=== PATIENT | female | born 1930 | race Caucasian/White ===

== ENCOUNTER 2016-08-05 11:10 | Inpatient (IN) | payer OTHER, BC ==
[2016-08-05 12:05] LABS: BASOPHIL 0.5 % (0-2.0); MCH 28.3 pg (25.7-33.7); MCHC 31.1 g/dl (32.0-36.0); MEAN CELL VOLUME 90.9 fl (80-96); MEAN PLT VOLUME 8.3 fl (7.5-11.1); NEUTROPHILS 81.3 % (42.8-82.8); PLATELET COUNT 264 K/MM3 (134-434); RDW 16.5 % (11.6-15.6); WHITE BLOOD COUNT 9.5 K/mm3 (4.0-10.0)
[2016-08-05 12:18] LABS: INR 1.13 (0.82-1.09); PROTHROMBIN TIME (PATIENT) 12.5 SEC (9.98-11.88)
[2016-08-05 12:32] LABS: ALBUMIN 2.4 g/dl (3.4-5.0); ANION GAP 4 (8-16); BILIRUBIN,TOTAL 0.4 mg/dL (0.2-1.0); CALCIUM 8.7 mg/dL (8.5-10.1); CO2 36 mmol/L (21-32); CREATININE 1.3 mg/dL (0.55-1.02); GLUCOSE,RANDOM 146 mg/dL (74-106); MAGNESIUM 2.5 mg/dL (1.8-2.4); SGOT/AST 14 U/L (15-37); SGPT/ALT 8 U/L (12-78); TOT PROT 6.1 g/dl (6.4-8.2)
[2016-08-05] MEDS ORDERED: ALBUTEROL SO4 2.5/IPRATROPIUM 0.5 INH SOL 3 ML VIAL.NEB. NEB ONE ×2 (12:34→12:52)
[2016-08-05] MEDS ORDERED: FUROSEMIDE 40 MG/4 ML INJECTABLE VIAL IVPUSH ONE (12:34)
--- NOTE | 2016-08-05 12:34 | PDOC ---
History of Present Illness - General History Source: Patient, EMS Exam Limitations: No Limitations - History of Present Illness Initial Comments: 08/05/16 12:37 The patient is a 85 year old female with a past medical history of CHF, s/p 2 stents, DM, HTN, arrives via EMS from [address] [place] [address], presents with a complaint of shortness of breath since earlier today. Patient reports two days ago having some shortness of breath but yesterday was breathing well. Today she developed shortness of breath again and had EMS called. EMS placed patient on 6l O2, and reports saying at 88-90. Patient reports leg swelling. Patient denies chest pain, palpitations. Patient denies productive cough. Denies fever, chills. Bernabe nausea, vomiting or diarrhea. Denies history of NC Denies current tobacco use, ex smoker 30 years ago . Denies alcohol or drug use. 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 <Akash Lang - Last Filed: 08/05/16 16:05> - General History Source: Patient Exam Limitations: No Limitations <Donna Russell - Last Filed: 08/09/16 14:54> - General Chief Complaint: Respiratory Stated Complaint: SOB Time Seen by Provider: 08/05/16 11:29 Past History <Akash Lang - Last Filed: 08/05/16 16:05> - Past Medical History Diabetes: Yes (NIDDM) Other medical history: Parkinsons, Spinal Stenosis, chronic LE Edema - Psycho/Social/Smoking Cessation Hx Suicidal Ideation: No Smoking History: Former smoker Have you smoked in the past 12 months: No Information on smoking cessation initiated: No <Donna Russell - Last Filed: 08/09/16 14:54> - Past Medical History Allergies/Adverse Reactions: Allergies Allergy/AdvReac Type Severity Reaction Status Date / Time No Known Allergies Allergy Unverified 08/05/16 11:33 Home Medications: Ambulatory Orders Aspirin [ASA -] 81 mg PO DAILY 08/05/16 Atorvastatin Ca [Lipitor] 20 mg PO DAILY 08/05/16 Carbidopa/Levodopa [Carbidopa-Levodopa 25-100 Tab] 1 each PO TID 08/05/16 Cholecalciferol (Vitamin D3) [Vitamin D3 -] 1,000 unit PO DAILY 08/05/16 Furosemide [Lasix -] 20 mg PO DAILY 08/05/16 Gabapentin 100 mg PO BID 08/05/16 Linagliptin [Tradjenta] 5 mg PO DAILY 08/05/16 Nebivolol [Bystolic -] 5 mg PO DAILY 08/05/16 Pimavanserin Tartrate [Nuplazid] 2 tab PO DAILY 08/05/16 Tramadol HCl 50 mg PO DAILY 08/05/16 Review of Systems - Review of Systems Able to Perform ROS?: Yes Comments:: 08/05/16 12:38 GENERAL/CONSTITUTIONAL: No fever or chills. No weakness. HEAD, EYES, EARS, NOSE AND THROAT: No change in vision. No ear pain or discharge. No sore throat. CARDIOVASCULAR: Yes: shortness of breath No chest pain. RESPIRATORY: No cough, wheezing, or hemoptysis. GASTROINTESTINAL: No nausea, vomiting, diarrhea or constipation. GENITOURINARY: No dysuria, frequency, or change in urination. MUSCULOSKELETAL: No joint or muscle swelling or pain. No neck or back pain. SKIN: No rash NEUROLOGIC: No headache, vertigo, loss of consciousness, or change in strength/ sensation. ENDOCRINE: No increased thirst. No abnormal weight change. HEMATOLOGIC/LYMPHATIC: No anemia, easy bleeding, or history of blood clots. ALLERGIC/IMMUNOLOGIC: No hives or skin allergy. Is the patient limited Mozambican proficient: No <Akash Lang - Last Filed: 08/05/16 16:05> *Physical Exam - Vital Signs Last Vital Signs Temp Pulse Resp BP Pulse Ox 68 24 102/65 94 L 08/05/16 11:30 08/05/16 11:30 08/05/16 11:30 08/05/16 12:34 - Physical Exam Comments: 08/05/16 12:38 GENERAL: Respiratory distress speaking in 3 word sentences, Tachypneic HEAD: Normal with no signs of trauma. EYES: PERRLA, EOMI, sclera anicteric, conjunctiva clear. ENT: Ears normal, nares patent, oropharynx clear without exudates. Moist mucous membranes. NECK: Normal range of motion, supple without lymphadenopathy, JVD, or masses. LUNGS: Tachypneic, Use of accessory muscles , With expiratory wheezing and poor air entry Breath sounds equal crackles. HEART:Regular rate and rhythm, normal S1 and S2 with aortic 4/6 murmur, rub or gallop. ABDOMEN: Soft, nontender, normoactive bowel sounds. No guarding, no rebound. No masses palpable. EXTREMITIES: Bialteral 3+ pitting edema, Bilateral skin breakdown, oozing water , no sign of infection. Right knee replacement scar, Normal range of motion, No clubbing or cyanosis. No erythema, or tenderness. NEUROLOGICAL: Cranial nerves II through XII grossly intact. Normal speech. No focal neurological deficits. MUSCULOSKELETAL: Back non-tender to palpation, no CVA tenderness SKIN: Warm, Dry, normal turgor, no rashes or lesions noted. <Akash Lang - Last Filed: 08/05/16 16:05> - Vital Signs Last Vital Signs Temp Pulse Resp BP Pulse Ox 68 24 102/65 90 L 08/05/16 11:30 08/05/16 11:30 08/05/16 11:30 08/05/16 11:37 <Donna Russell - Last Filed: 08/09/16 14:54> ED Treatment Course - LABORATORY CBC & Chemistry Diagram: 08/05/16 11:40 08/05/16 11:40 - ADDITIONAL ORDERS Additional order review: Laboratory Results 08/05/16 11:40 INR 1.13 08/05/16 11:40 RBC 3.74 MCV 90.9 MCHC 31.1 L RDW 16.5 H MPV 8.3 Neutrophils % 81.3 Lymphocytes % 6.2 L Monocytes % 10.0 Eosinophils % 2.0 Basophils % 0.5 - RADIOLOGY Radiology Studies Ordered: 08/05/16 12:52 CHEST X RAY Impression: large heart, sclerotic knob, scoliosis with degenerative changes, congestive findings and basilar infiltrates with pleural fluid. There is evidence of lower C spine fusion. Reported by Kevan Patel <Akash Lang - Last Filed: 08/05/16 16:05> - LABORATORY CBC & Chemistry Diagram: 08/09/16 07:50 08/09/16 07:50 - ADDITIONAL ORDERS Additional order review: Laboratory Results 08/05/16 11:40 INR 1.13 08/05/16 11:40 RBC 3.74 MCV 90.9 MCHC 31.1 L RDW 16.5 H MPV 8.3 Neutrophils % 81.3 Lymphocytes % 6.2 L Monocytes % 10.0 Eosinophils % 2.0 Basophils % 0.5 - RADIOLOGY Radiology Studies Ordered: Category Date Time Status CHEST X-RAY PORTABLE* [RAD] Stat Radiology 08/05/16 11:28 Completed <Donna Russell - Last Filed: 08/09/16 14:54> Medical Decision Making - Medical Decision Making 08/05/16 13:57 Hide House Supervisor: Hai Barlow office called at Office .Time 13:57. Told Dr. Cleveland will page back. PMD: Dr. Adelita Bradshaw called at 14:[phone], Message left on Machine PMD: Dr. Adelita Bradshaw Called back at 14:23, case discussed Hide House Supervisor: Dr. Cleveland called at 15:13, number used [phone]. Hide House Supervisor: Hai Barlow over head paged at 15:30 Hide House Supervisor: Hai Barlow called back 15:35, case discussed <Akash Lang - Last Filed: 08/05/16 16:05> - Critical Care Time Total Critical Care Time (minutes): 60 Critical Care Statement: The care of this patient involved high complexity decision making to prevent further life threatening deterioration of the patient 's condition and/or to evalute & treat vital organ system(s) failure or risk of failure. - Medical Decision Making 08/05/16 12:40 Laboratory Tests 08/05/16 08/05/16 11:40 11:40 WBC 9.5 Hgb 10.6 L Hct 34.0 Plt Count 264 Neutrophils % 81.3 Lymphocytes % 6.2 L Sodium 138 Potassium 5.6 H Chloride 98 Carbon Dioxide 36 H BUN 37 H Creatinine 1.3 H Random Glucose 146 H Creatine Kinase 38 Troponin I < 0.02 B-Natriuretic Peptide 2841.19 H CXR: \ congestive changes possible infiltrate left base 08/05/16 14:05 Rectal temp 92.4 Sagar hugger applied Will need to go to ICU (hypothermia + low BP but lactate nml???) Awaiting call back from Hospitalist and Hide House Supervisor 08/05/16 14:05 08/05/16 14:28 Case was reviewed with Dr. Bradshaw. She states this patient is due to her however states she has a history of a bad hip with the patient would like to place, spinal stenosis, well-controlled diabetes, new diagnosis of Parkinson's, chronic lower extremity edema. Patient recently started having hallucinations. 2 days ago patient was seen for the beginnings of an upper respiratory infection , at that point patient was not hypoxic and did not have a cough. Attending was called today for notable hypoxia, cough, wheezing. 08/05/16 15:24 Pt persistently hypotensive Would like to send to ICU Pt seen in the ER by Dr Becerra <Donna Russell - Last Filed: 08/09/16 14:54> *DC/Admit/Observation/Transfer - Attestations Scribe Attestion: 08/05/16 12:38 Documentation prepared by Akash Lang, acting as chief medical technologist for Donna Russell MD <Akash Lang - Last Filed: 08/05/16 16:05> - Discharge Dispostion Admit: Yes <Donna Russell - Last Filed: 08/09/16 14:54> Diagnosis at time of Disposition: CHF (congestive heart failure) Qualifiers: Congestive heart failure type: unspecified congestive heart failure type Congestive heart failure chronicity: unspecified congestive heart failure chronicity Qualified Code(s): I50.9 - Heart failure, unspecified Pneumonia Qualifiers: Pneumonia type: due to unspecified organism Laterality: left Lung location: lower lobe of lung Qualified Code(s): J18.9 - Pneumonia, unspecified organism Hypothermia Qualifiers: Encounter type: initial encounter Qualified Code(s): T68.XXXA - Hypothermia, initial encounter - Discharge Dispostion Condition at time of disposition: Stable - Referrals
[2016-08-05 12:35] LABS: ALK PHOS 145 U/L (45-117); TROPONIN I < 0.02 ng/ml (0.00-0.05)
[2016-08-05] MEDS ORDERED: CEFTRIAXONE 1 GM in DEXTROSE 5%-WATER - 50 ML IVPB ONE (12:40)
[2016-08-05] MEDS ORDERED: AZITHROMYCIN IVPB 500 MG in DEXTROSE 5%-WATER - 250 ML IVPB ONE (12:40)
[2016-08-05] MEDS ORDERED: CEFTRIAXONE 50 ML ONE (12:52)
[2016-08-05] MEDS ORDERED: AZITHROMYCIN IVPB 250 ML IVPB ONE (12:52)
[2016-08-05] MEDS ORDERED: FUROSEMIDE 40 MG/4 ML INJECTABLE VIAL ONE (12:52)
[2016-08-05] MEDS ORDERED: SODIUM CHLORIDE 250 ML IV STA (14:54)
--- NOTE | 2016-08-05 15:04 | HP ---
Admitting History and Physical - Admission History of Present Illness: 85 year old female with a past medical history of CHF, CAD s/p 2 stents, DM, HTN , arrives via EMS from [address] [place] [address], presents with a complaint of shortness of breath since earlier today. Patient reports having some shortness of breath that started briefly yesterday but today she developed continual shortness of breath again and was assessedby nursing staff at assisted living facility and EMS was called. EMS placed patient on 6l O2, and reports saturation at 88-90. Patient reports having chronic leg swelling which she states is actually better in the past few weeks than usual. Patient denies chest pain, palpitations. Patient denies productive cough but coughed twice during this interview. - Smoking History Smoking history: Former smoker Have you smoked in the past 12 months: No Home Medications - Allergies Allergies/Adverse Reactions: Allergies Allergy/AdvReac Type Severity Reaction Status Date / Time No Known Allergies Allergy Unverified 08/05/16 11:33 - Home Medications Home Medications: Ambulatory Orders Aspirin [ASA -] 81 mg PO DAILY 08/05/16 Atorvastatin Ca [Lipitor] 20 mg PO DAILY 08/05/16 Carbidopa/Levodopa [Carbidopa-Levodopa 25-100 Tab] 1 each PO TID 08/05/16 Cholecalciferol (Vitamin D3) [Vitamin D3 -] 1,000 unit PO DAILY 08/05/16 Furosemide [Lasix -] 20 mg PO DAILY 08/05/16 Gabapentin 100 mg PO BID 08/05/16 Linagliptin [Tradjenta] 5 mg PO DAILY 08/05/16 Nebivolol [Bystolic -] 5 mg PO DAILY 08/05/16 Pimavanserin Tartrate [Nuplazid] 2 tab PO DAILY 08/05/16 Tramadol HCl 50 mg PO DAILY 08/05/16 Family Disease History - Family Disease History Family History: Unable to Obtain Review of Systems - Review of Systems Constitutional: denies: No Symptoms, Chills, Diaphoresis, Fever, Lethargy, Loss of Appetite, Malaise, Night Sweats, Unintentional Wgt. Loss, Weakness, Other Eyes: denies: No Symptoms, Blind Spots, Blurred Vision, Double Vision, Eye Pain , Floaters, Photophobia, Recent Change in Vision, Other HENT: denies: No Symptoms, Difficult Swallowing, Ear Discharge, Ear Pain, Epistaxis, Gingival Bleeding, Hearing Loss, Mouth Swelling, Nasal Congestion, Ocular Prosthesis, Throat Pain, Toothache, Ringing in Ears, Other Neck: denies: No Symptoms, Decreased ROM, Lumps, Pain on Movement, Stiffness, Swollen Glands, Tenderness, Other Cardiovascular: denies: No Symptoms, Chest Pain, Edema, Palpitations, Shortness of Breath, Other Respiratory: reports: SOB Gastrointestinal: denies: No Symptoms, Abdominal Pain, Bloating, Constipation, Diarrhea, Dysphagia, Indigestion, Melena, Nausea, Rectal Bleeding, Vomiting, Vomiting Blood, Other Genitourinary: denies: No Symptoms, Burning, Discharge, Dysuria, Flank Pain, Frequency, Hematuria, Incontinence, Lesions, Menses, Pain, Testicular Mass, Testicular Pain, Testicular Swelling, Urgency, Vaginal Bleeding, Other Breasts: denies: No Symptoms Reported, See HPI, Breast Implants, Discharge from Nipple, Lumps, Pain, Skin Changes, Other Musculoskeletal: denies: No Symptoms, Back Pain, Crepitus, Decreased ROM, Extremity Pain, Joint Pain, Joint Swelling, Muscle Pain, Muscle Cramps, Muscle Weakness, Other Integumentary: denies: No Symptoms, Blister, Bruising, Change in Color, Eczema, Erythema, Incision, Lesions, Lump, Pallor, Pruritis, Rash, Wound, Other Neurological: denies: No Symptoms, Change in LOC, Change in Speech, Confusion, Dizziness, Headache, Incoordination, Numbness, Parasthesia, Pre-Existing Deficit , Seizure, Syncope, Tremors, Unsteady Gait, Weakness, Other Endocrine: denies: No Symptoms, Excessive Sweating, Flushing, Increased Hunger, Increased Thirst, Intolerance to Cold, Intolerance to Heat, Unexplained Weight Gain, Unexplained Weight Loss, Other Hematology/Lymphatic: denies: No Symptoms, Easily Bruised, Excessive Bleeding, Swollen Glands, Other Psychiatric: denies: No Symptoms, Altered Sleep Pattern, Anxiety, Depression, Hallucinations, Panic, Paranoia, Suicidal, Other Physical Examination Vital Signs: Vital Signs Temperature 92.4 F L 08/05/16 13:34 Pulse Rate 52 L 08/05/16 14:35 Respiratory Rate 24 08/05/16 14:35 Blood Pressure 99/45 08/05/16 14:35 O2 Sat by Pulse Oximetry (%) 96 08/05/16 14:35 Constitutional: Yes: Well Nourished, No Distress, Calm Eyes: Yes: WNL, Conjunctiva Clear, EOM Intact HENT: Yes: WNL, Atraumatic, Normocephalic Neck: Yes: WNL, Supple, Trachea Midline Cardiovascular: Yes: WNL, Regular Rate and Rhythm Respiratory: Yes: WNL, Regular, CTA Bilaterally Gastrointestinal: Yes: WNL, Normal Bowel Sounds ...Rectal Exam: No: WNL, Deferred, Erythema, Guaiac Negative, Guaiac Positive, Guaiac Trace, Hemorrhoids/External, Hemorrhoids/Internal, Induration, Inflammation, Mass, Sphincter Tone Normal, Sphincter Tone Poor, Other Renal/: No: WNL, Anuria, Bladder Distention, CVA Tenderness - Left, CVA Tenderness - Right, Reynoso Present, Hematuria, Incontinence, Menses Present, Oliguria, Polyuria, , Scrotal Edema, Urethral Discharge, Vaginal Bleeding, Vaginal Discharge, Other Breast(s): No: WNL, Left, Right, Breast Implants, Dimpling, Discharge from Nipple, Gynecomastia, Mass, Nipple Inversion, Skin Changes, Other Musculoskeletal: Yes: WNL. No: Back Pain, Joint Stiffness, Joint Swelling, Muscle Pain, Muscle Weakness, Other Extremities: Yes: WNL. No: Amputation, Calf Tenderness, Cold, Cool, Cyanosis, Deformity, Delayed Capillary Refill, Erythema, External Rotation, Internal Rotation, Pallor, Shortened, Other Edema: No Edema: LLE: 2+, RLE: 2+ Integumentary: Yes: WNL. No: Body Piercing, Bruising, Erythema, Incision, Jaundice, Laceration, Petechiae, Pressure Ulcer, Rash, Skin Tear, Tattoos, Tenting, Onychomycosis, Venous Stasis Changes, Other Wound/Incision: No: Clean/Dry, Well Approximated, Sutures Intact, Gonzales Intact , Steri Strips, Open to air, Dressing Dry and Intact, Dressing Removed, Gonzales Removed, Sutures Removed, Draining, Reddened, Bleeding, Excoriated, Unapproximated, Other Neurological: Yes: WNL, Alert, Oriented. No: Aphasia, Asterixis, Ataxia, Babinski positive, Babinski negative, Confusion, Cran Nerves II-XII Intact, Dysarthria, Facial Droop, Lethargy, Loss of Sensation, Numbness, Paresthesia, Pre-Existing Deficit, Seizure, Tingling, Tremors, Unresponsive, Unsteady Gait, Weakness, Other Psychiatric: Yes: WNL. No: Alert, Oriented, Agitated, Suicidal Ideation, Other Labs: CBC, BMP 08/05/16 11:40 08/05/16 11:40 Assessment/Plan 85 year old female with a past medical history of CHF, CAD s/p 2 stents, DM, HTN admitted for SIRS SIRS -pt is hypothermic, hypotensive, and has elevated differential on CBC -CXR shows B/L effusions but patient denies cough (though coughed twice during interview) -given ceftriaxone/azithro in ED and will cont at this time -give 250cc bolus and follow -follow up blood/urine cultures Visit type - Emergency Visit Emergency Visit: Yes Care time: The patient presented to the Emergency Department on the above date and was hospitalized for further evaluation of their emergent condition. - New Patient This patient is new to me today: Yes Date on this admission: 08/05/16 - Critical Care Critical Care patient: No
--- NOTE | 2016-08-05 16:01 | PN ---
Teaching Attending Note Name of Resident: José Riggs ATTENDING PHYSICIAN STATEMENT I saw and evaluated the patient. I reviewed the resident's note and discussed the case with the resident. I agree with the resident's findings and plan as documented. SUBJECTIVE: 85 F, CHF, CAD, PCI x2, DM, HTN, obesity, chronic leg ulcers, former smoker. Recently moved from [address] Reports shortness of breath that started this AM. Apparently she was documented to have hypoxemia that required 6 L NC O2. Patient reports chronic leg ulcers that have improved. She is seen in the ER. She is awake and alert. No hemoptysis. No travel history of sick contacts. CXR: bibasilar infiltrates OBJECTIVE: Intake & Output 08/02/16 08/03/16 08/04/16 08/05/16 23:59 23:59 23:59 23:59 Output Total 300 Balance -300 Weight 175 lb Last Vital Signs Temp Pulse Resp BP Pulse Ox 94 F L 58 L 22 87/64 94 L 08/05/16 15:53 08/05/16 15:53 08/05/16 15:53 08/05/16 15:53 08/05/16 15:53 Constitutional: Yes: Awake and alert, NAD Eyes: Yes: WNL, Conjunctiva Clear, EOM Intact HENT: Yes: WNL, Atraumatic, Normocephalic Neck: Yes: WNL, Supple, Trachea Midline Cardiovascular: Yes: WNL, Regular Rate and Rhythm Respiratory: Yes: Basilar rhonchi, no wheeze Gastrointestinal: Yes: WNL, Normal Bowel Sounds Renal/: (+) Reynoso Musculoskeletal: Yes: WNL. No: Back Pain, Joint Stiffness, Joint Swelling, Muscle Pain, Muscle Weakness, Other Extremities: Yes: (+) edema, no gross lesions or discharge noted Edema: Yes Edema: LLE: 2+, RLE: 2+ Integumentary: Yes: (+) chronic changes Wound/Incision: No: Clean/Dry, No open areas Neurological: Yes: WNL, Alert, Oriented. Non-focal Psychiatric: Yes: WNL. Labs: Laboratory Results - last 24 hr 08/05/16 08/05/16 08/05/16 11:40 11:40 11:40 WBC 9.5 RBC 3.74 Hgb 10.6 L Hct 34.0 MCV 90.9 MCHC 31.1 L RDW 16.5 H Plt Count 264 MPV 8.3 Neutrophils % 81.3 Lymphocytes % 6.2 L Monocytes % 10.0 Eosinophils % 2.0 Basophils % 0.5 INR 1.13 Sodium 138 Potassium 5.6 H Chloride 98 Carbon Dioxide 36 H Anion Gap 4 L BUN 37 H Creatinine 1.3 H Creat Clearance w eGFR 39.02 Random Glucose 146 H Lactic Acid Calcium 8.7 Magnesium 2.5 H Total Bilirubin 0.4 AST 14 L ALT 8 L Alkaline Phosphatase 145 H Creatine Kinase 38 Troponin I < 0.02 B-Natriuretic Peptide 2841.19 H Total Protein 6.1 L Albumin 2.4 L Blood Type Antibody Screen 08/05/16 08/05/16 11:40 11:56 WBC RBC Hgb Hct MCV MCHC RDW Plt Count MPV Neutrophils % Lymphocytes % Monocytes % Eosinophils % Basophils % INR Sodium Potassium Chloride Carbon Dioxide Anion Gap BUN Creatinine Creat Clearance w eGFR Random Glucose Lactic Acid 1.138 Calcium Magnesium Total Bilirubin AST ALT Alkaline Phosphatase Creatine Kinase Troponin I B-Natriuretic Peptide Total Protein Albumin Blood Type O POSITIVE Antibody Screen Negative IMP: Concern for early Sepsis Possible PNA No clear infection noted on her LE Hypothermia Etiology to be determined -> (?) Hypothyroid DM HTN Above history PLAN: STAT TSH ABX ID evaluation Wound care assessment [place]-culture O2 to maintain saturation IVF -> will be conservative at this point Follow lactic acid Strict I&O ICU monitoring Thank you. Dr Becerra CCTime 35"
[2016-08-05 16:15] LABS: URINE APPEARANCE CLEAR; URINE BILIRUBIN NEGATIVE (NEGATIVE); URINE BLOOD NEGATIVE (NEGATIVE); URINE COLOR YELLOW; URINE GLUCOSE (UA) NEGATIVE (NEGATIVE); URINE KETONE NEGATIVE (NEGATIVE); URINE LEUK ESTERASE NEGATIVE (NEGATIVE); URINE NITRITE NEGATIVE (NEGATIVE); URINE PROTEIN NEGATIVE (NEGATIVE); URINE UROBILINOGEN NEGATIVE E.U./dl (0.2-1.0)
--- NOTE | 2016-08-05 16:35 | EKG ---
Test Reason : Blood Pressure : / mmHG Vent. Rate : 060 BPM Atrial Rate : 060 BPM P-R Int : 166 ms QRS Dur : 084 ms QT Int : 434 ms P-R-T Axes : 072 048 061 degrees QTc Int : 434 ms NORMAL SINUS RHYTHM NORMAL ECG NO PREVIOUS ECGS AVAILABLE Confirmed by MD HONG, TERENCE ([id number]) on 08/05/2016 4:35:02 PM Referred By: Overread By: TERENCE PITTS MD
[2016-08-05] MEDS ORDERED: SODIUM CHLORIDE 1,000 ML IV SCH (16:45)
--- NOTE | 2016-08-05 16:45 | CONSULT ---
Consultation: REQUESTING PROVIDER: CONSULT REQUEST: We have been asked to medically evaluate this patient for SIRS. HISTORY OF PRESENT ILLNESS: 85 yo F with significant PMHx of CAD s/p 2 stents,CHF, HTN, and DM arrived via EMS from [address] [place] [address] with one day history of worsening SOB. Patient reports having some shortness of breath that started briefly yesterday but today she developed continual shortness of breath again and was assessed by nursing staff at assisted living facility and EMS was called.She was given supplemental O2 with 6L via NC. saturation at 88-90. Patient reports having chronic leg swelling which she states is actually better in the past few weeks than usual. Patient denies chest pain, palpitations, headache, abdominal pain N/ V. REVIEW OF SYSTEMS: CONSTITUTIONAL: Absent: fever, chills, diaphoresis, generalized weakness, malaise, loss of appetite, weight change HEENT: Absent: rhinorrhea, nasal congestion, throat pain, throat swelling, difficulty swallowing, mouth swelling, ear pain, eye pain, visual changes CARDIOVASCULAR: Absent: chest pain, syncope, palpitations, irregular heart rate, lightheadedness , peripheral edema RESPIRATORY: (+)cough, shortness of breath, dyspnea with exertion, Absent: orthopnea, wheezing, stridor, hemoptysis GASTROINTESTINAL: Absent: abdominal pain, abdominal distension, nausea, vomiting, diarrhea, constipation, melena, hematochezia GENITOURINARY: Absent: dysuria, frequency, urgency, hesitancy, hematuria, flank pain, genital pain MUSCULOSKELETAL: R leg pain chronic. Absent: myalgia, arthralgia, joint swelling, back pain, neck pain SKIN: Bilat. LE swelling and open wounds Absent: rash, itching, pallor HEMATOLOGIC/IMMUNOLOGIC: Absent: easy bleeding, easy bruising, lymphadenopathy, frequent infections ENDOCRINE: Absent: unexplained weight gain, unexplained weight loss, heat intolerance, cold intolerance NEUROLOGIC: Absent: headache, focal weakness or paresthesias, dizziness, unsteady gait, seizure, mental status changes, bladder or bowel incontinence PSYCHIATRIC: Absent: anxiety, depression, suicidal or homicidal ideation, hallucinations. PHYSICAL EXAMINATION Vital Signs - 24 hr 08/05/16 15:53 Temperature 94 F L Pulse Rate [ 58 L Apical] Respiratory 22 Rate Blood Pressure 87/64 [Right Arm] O2 Sat by Pulse 94 L Oximetry (%) GENERAL: Awake, alert, in no acute distress. HEAD: Normal with no signs of trauma. EYES: Pupils equal, round and reactive to light, extraocular movements intact, sclera anicteric, conjunctiva clear. No lid lag. EARS, NOSE, THROAT: Ears normal, nares patent, Moist mucous membranes. NECK:Supple, no JVD LUNGS: Bibasilar rhonchi. No wheezes, and no crackles. No accessory muscle use. HEART: Regular rate and rhythm, normal S1 and S2 without murmur, rub or gallop. ABDOMEN: Soft, obese, nontender, not distended, normoactive bowel sounds, no guarding, no rebound, no masses. MUSCULOSKELETAL: Reduced ROM of RLE. No bony deformities or tenderness. No CVA tenderness. UPPER EXTREMITIES: 2+ pulses, warm, well-perfused. No cyanosis. No clubbing. Cap refill <2 seconds. No peripheral edema. LOWER EXTREMITIES: 2+ pulses, warm, well-perfused. No calf tenderness. 2+ Edema bilat. NEUROLOGICAL: alert and oriented, normal speech. PSYCHIATRIC: Cooperative. Good eye contact. Appropriate mood and affect. SKIN: Bilateral stasis dermatitis of LE Laboratory Results - last 24 hr 08/05/16 15:55 Urine Color Yellow Urine Appearance Clear Urine pH 5.0 Ur Specific [place] 1.014 Urine Protein Negative Urine Glucose (UA) Negative Urine Ketones Negative Urine Blood Negative Urine Nitrite Negative Urine Bilirubin Negative Urine Urobilinogen Negative Ur Leukocyte Esterase Negative ASSESSMENT/PLAN: Problem List - Problems (1) SIRS (systemic inflammatory response syndrome) Assessment/Plan: * Blood and urine cultures sent * UA negative for UTI. * Repeat lactic acid in AM * Empiric ABx given; Azithro and Rocephin in ED (2) Hypotension Assessment/Plan: * Gentle hydration with NS @ 75ml/hr x 1L * VS Q2H (3) Pneumonia Assessment/Plan: * Given one dose Azithro and Rocephin * blood and sputum cultures sent. * Repeat CXR in AM (4) Hypothermia Assessment/Plan: * Bear hugger blanket to rewarm * STAT TSH r/o hypothryroidism Qualifiers: Encounter type: initial encounter Qualified Code(s): T68.XXXA - Hypothermia, initial encounter (5) CHF (congestive heart failure) Assessment/Plan: * Lasix 20mg PO daily(held for hypotension) * Nebivolol (Bystolic -) 5 mg PO DAILY * daily weights * sodium controlled diet. 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 (7) CAD (coronary artery disease) Assessment/Plan: * s/p stents x2 * ASA 81 mg PO daily * Lipitor 20mg PO HS (8) Diabetes mellitus type 2 in obese Assessment/Plan: * ISS with Novolog ACHS * BGM ACHS * ADA diet. (9) Bilateral leg ulcer Assessment/Plan: * daily dressing change and wound care. (10) Parkinson's disease dementia Assessment/Plan: * Carbidopa/Levodopa (Sinemet 25/100 -) 1 each PO TID * Pimavanserin Tartrate [Nuplazid] 2 tab PO DAILY (11) DVT prophylaxis Assessment/Plan: * Lovenox 40mg SQ daily Visit type - Emergency Visit Emergency Visit: Yes ED Registration Date: 08/05/16 Care time: The patient presented to the Emergency Department on the above date and was hospitalized for further evaluation of their emergent condition. - New Patient This patient is new to me today: Yes Date on this admission: 08/09/16 - Critical Care Critical Care patient: Yes Total Critical Care Time (in minutes): 42 Critical Care Statement: The care of this patient involved high complexity decision making to prevent further life threatening deterioration of the patient 's condition and/or to evalute & treat vital organ system(s) failure or risk of failure.
[2016-08-05] MEDS: ATORVASTATIN CA 20 MG TABLET (FP) PO SCH (21:54)
[2016-08-05] MEDS: INSULIN SLIDING SCALE (NOVOLOG) 1 VIAL SQ SCH (21:54)
[2016-08-05] MEDS: GABAPENTIN 100 MG CAPSULE (FP) PO SCH (21:54)
[2016-08-05] MEDS: CARBIDOPA/LEVODOPA 25/100 TABLET (FP) PO SCH (21:54)
[2016-08-05] MEDS: MUPIROCIN 2% TOPICAL OINTMENT FOR DECOLONIZATION NS SCH (21:54)
[2016-08-05] MEDS: CHLORHEXIDINE GLUCONATE 4% CLEANSER FOR DECOLONIZATION TP SCH (21:55)
[2016-08-06 05:53] LABS: BASOPHIL 0.3 % (0-2.0); MCH 27.4 pg (25.7-33.7); MCHC 30.4 g/dl (32.0-36.0); MEAN CELL VOLUME 90.3 fl (80-96); MEAN PLT VOLUME 8.8 fl (7.5-11.1); NEUTROPHILS 85.4 % (42.8-82.8); PLATELET COUNT 258 K/MM3 (134-434); RDW 16.8 % (11.6-15.6); WHITE BLOOD COUNT 11.6 K/mm3 (4.0-10.0)
[2016-08-06] MEDS: INSULIN SLIDING SCALE (NOVOLOG) 1 VIAL SQ SCH ×4 (06:05→21:13)
[2016-08-06] MEDS: CARBIDOPA/LEVODOPA 25/100 TABLET (FP) PO SCH ×3 (06:06→21:08)
[2016-08-06 06:20] LABS: ALBUMIN 2.1 g/dl (3.4-5.0); ANION GAP 8 (8-16); CALCIUM 8.1 mg/dL (8.5-10.1); CO2 31 mmol/L (21-32); CREATININE 1.5 mg/dL (0.55-1.02); GLUCOSE,RANDOM 73 mg/dL (74-106); SGOT/AST 10 U/L (15-37); SGPT/ALT < 6 U/L (12-78)
[2016-08-06 06:23] LABS: ALK PHOS 115 U/L (45-117); BILIRUBIN,TOTAL 0.6 mg/dL (0.2-1.0); TOT PROT 5.5 g/dl (6.4-8.2)
[2016-08-06] MEDS ORDERED: INSULIN REGULAR HUMAN 100 UNITS/ML *VIAL IVPUSH STA ×2 (06:55→14:31)
[2016-08-06] MEDS ORDERED: DEXTROSE 50%-WATER 50 ML VIAL IVPUSH ONE ×2 (06:56→14:30)
[2016-08-06] MEDS ORDERED: SODIUM BICARBONATE 8.4% 50 MEQ/50 ML DISP.SYRIN IVPUSH STA (06:56)
[2016-08-06] MEDS ORDERED: SODIUM POLYSTYRENE SULFONATE 15 GM/60 ML BOTTLE PO STA (06:57)
[2016-08-06] MEDS ORDERED: CALCIUM GLUCONATE 10% - 1,000 MG/10 ML VIAL IVPUSH STA ×2 (06:57→14:29)
[2016-08-06] MEDS ORDERED: DEXTROSE 50%-WATER 50 ML DISP.SYRIN ONE (06:58)
[2016-08-06 08:22] LABS: ARTERIAL BLD GAS O2 SATURATION 87.3 % (90-98.9); ARTERIAL BLOOD GAS BASE EXCESS 0.2 meq/l (-2-2); ARTERIAL BLOOD GAS HCO3 28.8 meq/L (22-26); ARTERIAL BLOOD GAS PO2 60.5 mmHg (68-100); ARTERIAL BLOOD GAS pH 7.21 (7.35-7.45)
[2016-08-06 08:23] LABS: ALLENS TEST POSITIVE; ART PUNCT SITE LEFT RADIAL; LPM/O2% 50%; PT. ON O2? YES; TYPE OF O2 VENTIMASK
--- NOTE | 2016-08-06 09:13 | PN ---
Progress Note (short form) - Note Progress Note: Patient seen and examined in the ICU. Was lethargic this am with acute hypercapnia noted on ABG. Placed on BiPAP. Now more awake and alert (she remembers me from yesterday). She denies CP or SOB. OBJECTIVE: Intake & Output 08/03/16 08/04/16 08/05/16 08/06/16 23:59 23:59 23:59 23:59 Intake Total 1050 Output Total 300 700 Balance -300 350 Weight 175 lb 197 lb Last Vital Signs Temp Pulse Resp BP Pulse Ox 97.5 F L 72 17 83/46 85 L 08/06/16 05:00 08/06/16 08:40 08/06/16 08:40 08/06/16 08:40 08/06/16 08:23 Active Medications Aspirin (Asa -) 81 mg PO DAILY [facility] Atorvastatin Calcium (Lipitor -) 20 mg PO HS [facility] Last Admin: 08/05/16 21:54 Dose: 20 mg Carbidopa/Levodopa (Sinemet 25/100 -) 1 each PO TID [facility] Last Admin: 08/06/16 06:06 Dose: 1 each Chlorhexidine Gluconate (Hibiclens For Decolonization -) 1 applic TP HS [facility] Last Admin: 08/05/16 21:55 Dose: 1 applic Cholecalciferol (Vitamin D3 -) 1,000 unit PO DAILY [facility] Enoxaparin Sodium (Lovenox -) 40 mg SQ DAILY [facility] Furosemide (Lasix -) 20 mg PO DAILY [facility] Gabapentin (Neurontin -) 100 mg PO BID [facility] Last Admin: 08/05/16 21:54 Dose: 100 mg Sodium Chloride (Normal Saline -) 1,000 mls @ 75 mls/hr IV ASDIR [facility] Last Admin: 08/05/16 18:47 Dose: 75 mls/hr Influenza Virus Vaccine (Fluvirin) 45 mcg IM .ONCE ONE Stop: 08/06/16 10:01 Insulin Aspart (Novolog Vial Sliding Scale -) 1 vial SQ ACHS [facility] PRN Reason: Protocol Last Admin: 08/06/16 06:05 Dose: Not Given Mupirocin (Bactroban Ointment (For Decolonization) -) 1 applic NS BID [facility] Stop: 08/10/16 21:59 Last Admin: 08/05/16 21:54 Dose: 1 applic Nebivolol (Bystolic -) 5 mg PO DAILY [facility] Non-Formulary Medication (Pimavanserin Tartrate [Nuplazid]) 2 tab PO DAILY ANNA MARIE Tramadol HCl (Ultram -) 50 mg PO DAILY [facility] Constitutional: Yes: Lethargic but arousable, on BIPAP Eyes: Yes: WNL, Conjunctiva Clear, EOM Intact HENT: Yes: WNL, Atraumatic, Normocephalic Neck: Yes: WNL, Supple, Trachea Midline Cardiovascular: Yes: WNL, Regular Rate and Rhythm Respiratory: Yes: Basilar rhonchi, no wheeze Gastrointestinal: Yes: WNL, Normal Bowel Sounds Renal/: (+) [place] Musculoskeletal: Yes: WNL. No: Back Pain, Joint Stiffness, Joint Swelling, Muscle Pain, Muscle Weakness, Other Extremities: Yes: (+) edema, no gross lesions or discharge noted Edema: Yes Edema: LLE: 2+, RLE: 2+ Integumentary: Yes: (+) chronic changes Wound/Incision: No: Clean/Dry, No open areas Neurological: Yes: WNL, Alert, Oriented. Non-focal Psychiatric: Yes: WNL. Labs: Laboratory Results - last 24 hr 08/05/16 08/05/16 08/05/16 11:40 11:40 11:40 WBC 9.5 RBC 3.74 Hgb 10.6 L Hct 34.0 MCV 90.9 MCHC 31.1 L RDW 16.5 H Plt Count 264 MPV 8.3 Neutrophils % 81.3 Lymphocytes % 6.2 L Monocytes % 10.0 Eosinophils % 2.0 Basophils % 0.5 INR 1.13 Puncture Site ABG pH ABG pCO2 at Pt Temp ABG pO2 at Pt Temp ABG HCO3 ABG O2 Sat (Measured) ABG O2 Content ABG Base Excess [place] Test O2 Delivery Device Oxygen Flow Rate PEEP Sodium 138 Potassium 5.6 H Chloride 98 Carbon Dioxide 36 H Anion Gap 4 L BUN 37 H Creatinine 1.3 H Creat Clearance w eGFR 39.02 POC Glucometer Random Glucose 146 H Lactic Acid Calcium 8.7 Magnesium 2.5 H Total Bilirubin 0.4 AST 14 L ALT 8 L Alkaline Phosphatase 145 H Creatine Kinase 38 Troponin I < 0.02 B-Natriuretic Peptide 2841.19 H Total Protein 6.1 L Albumin 2.4 L Urine Color Urine Appearance Urine pH Ur Specific [place] Urine Protein Urine Glucose (UA) Urine Ketones Urine Blood Urine Nitrite Urine Bilirubin Urine Urobilinogen Ur Leukocyte Esterase Blood Type Antibody Screen 08/05/16 08/05/16 08/05/16 11:40 11:56 15:00 WBC RBC Hgb Hct MCV MCHC RDW Plt Count MPV Neutrophils % Lymphocytes % Monocytes % Eosinophils % Basophils % INR Puncture Site ABG pH ABG pCO2 at Pt Temp ABG pO2 at Pt Temp ABG HCO3 ABG O2 Sat (Measured) ABG O2 Content ABG Base Excess [place]icho Test O2 Delivery Device Oxygen Flow Rate PEEP Sodium Potassium Chloride Carbon Dioxide Anion Gap BUN Creatinine Creat Clearance w eGFR POC Glucometer Random Glucose Lactic Acid 1.138 Calcium Magnesium Total Bilirubin AST ALT Alkaline Phosphatase Creatine Kinase Troponin I B-Natriuretic Peptide Total Protein Albumin Urine Color Urine Appearance Urine pH Ur Specific [place] Urine Protein Urine Glucose (UA) Urine Ketones Urine Blood Urine Nitrite Urine Bilirubin Urine Urobilinogen Ur Leukocyte Esterase Blood Type O POSITIVE O POSITIVE Antibody Screen Negative 08/05/16 08/05/16 08/06/16 15:55 21:52 05:15 WBC 11.6 H RBC 3.50 L Hgb 9.6 L Hct 31.6 L MCV 90.3 MCHC 30.4 L RDW 16.8 H Plt Count 258 MPV 8.8 Neutrophils % 85.4 H Lymphocytes % 5.1 L Monocytes % 8.2 Eosinophils % 1.0 Basophils % 0.3 INR Puncture Site ABG pH ABG pCO2 at Pt Temp ABG pO2 at Pt Temp ABG HCO3 ABG O2 Sat (Measured) ABG O2 Content ABG Base Excess Chicho Test O2 Delivery Device Oxygen Flow Rate PEEP Sodium Potassium Chloride Carbon Dioxide Anion Gap BUN Creatinine Creat Clearance w eGFR POC Glucometer 100.29064 Random Glucose Lactic Acid Calcium Magnesium Total Bilirubin AST ALT Alkaline Phosphatase Creatine Kinase Troponin I B-Natriuretic Peptide Total Protein Albumin Urine Color Yellow Urine Appearance Clear Urine pH 5.0 Ur Specific [place] 1.014 Urine Protein Negative Urine Glucose (UA) Negative Urine Ketones Negative Urine Blood Negative Urine Nitrite Negative Urine Bilirubin Negative Urine Urobilinogen Negative Ur Leukocyte Esterase Negative Blood Type Antibody Screen 08/06/16 08/06/16 08/06/16 05:15 05:15 08:15 WBC RBC Hgb Hct MCV MCHC RDW Plt Count MPV Neutrophils % Lymphocytes % Monocytes % Eosinophils % Basophils % INR Puncture Site Left radial ABG pH 7.21 L* ABG pCO2 at Pt Temp 75.4 H* ABG pO2 at Pt Temp 60.5 L ABG HCO3 28.8 H ABG O2 Sat (Measured) 87.3 L ABG O2 Content 11.3 L ABG Base Excess 0.2 [place]o Test Positive O2 Delivery Device Ventimask Oxygen Flow Rate 50% PEEP 0.0 Sodium 139 Potassium 6.6 H* Chloride 100 Carbon Dioxide 31 Anion Gap 8 BUN 41 H Creatinine 1.5 H Creat Clearance w eGFR 33.08 POC Glucometer Random Glucose 73 L D Lactic Acid 0.858 Calcium 8.1 L Magnesium Total Bilirubin 0.6 D AST 10 L D ALT < 6 L D Alkaline Phosphatase 115 D Creatine Kinase Troponin I B-Natriuretic Peptide Total Protein 5.5 L Albumin 2.1 L Urine Color Urine Appearance Urine pH Ur Specific [place] Urine Protein Urine Glucose (UA) Urine Ketones Urine Blood Urine Nitrite Urine Bilirubin Urine Urobilinogen Ur Leukocyte Esterase Blood Type Antibody Screen IMP: Concern for early Sepsis Possible PNA No clear infection noted on her LE Hypothermia Etiology to be determined -> (?) Hypothyroid DM HTN PLAN: STAT TSH/Free T4/Cortisol Empiric ABX for now Follow culture O2 to maintain saturation IVF Strict I&O ICU monitoring Trial of BiPAP Cardiology evaluation Dr Becerra CCTime 35"
[2016-08-06 09:36] LABS: FREE T4 1.19 ng/dl (0.76-1.46); THYROID STIMULATING HORMONE 3.49 uIU/ml (0.358-3.74)
[2016-08-06] MEDS ORDERED: PT OWN MED DRAWER 7, Y5N ONE (09:36)
[2016-08-06] MEDS: traMADol HCL 50 MG TABLET PO SCH (09:42)
[2016-08-06] MEDS: ENOXAPARIN NA (PORCINE) 40 MG/0.4 ML DISP.SYRIN SQ SCH (09:42)
[2016-08-06] MEDS: ASPIRIN 81 MG CHEWABLE TABLETS PO SCH (09:43)
[2016-08-06] MEDS: CHOLECALCIFEROL (VITAMIN D3) 1,000 UNIT TABLET (FP) PO SCH (09:43)
[2016-08-06] MEDS: GABAPENTIN 100 MG CAPSULE (FP) PO SCH ×2 (09:43→21:08)
[2016-08-06] MEDS ORDERED: CEFTRIAXONE 1 GM in DEXTROSE 5%-WATER - 50 ML IVPB SCH (10:00)
[2016-08-06] MEDS ORDERED: FUROSEMIDE 20 MG TABLET (FP) PO SCH (10:00)
[2016-08-06] MEDS ORDERED: INFLUENZA VACCINE 45 MCG/0.5 ML (MDV 16-17) IM ONE (10:00)
[2016-08-06] MEDS ORDERED: NEBIVOLOL 5 MG TABLET (FP) PO SCH (10:00)
[2016-08-06] MEDS ORDERED: HYDROCORTISONE SOD SUCCINATE 100 MG/2 ML VIAL IVPB SCH (10:00)
[2016-08-06] MEDS ORDERED: LEVOFLOXACIN 500 MG IVPB 100 ML IVPB SCH (11:00)
[2016-08-06 11:40] LABS: ARTERIAL BLD GAS O2 SATURATION 91.5 % (90-98.9); ARTERIAL BLOOD GAS BASE EXCESS 1.4 meq/l (-2-2); ARTERIAL BLOOD GAS HCO3 28.7 meq/L (22-26)
[2016-08-06 11:42] LABS: ARTERIAL BLOOD GAS pH 7.27 (7.35-7.45)
--- NOTE | 2016-08-06 12:05 | CONSULT ---
Consult Consult Specialty:: Cardiology Referred by:: Hospitalist Reason for Consultation:: SOB - History of Present Illness Chief Complaint: CAD, CHF History of Present Illness: 85 year old woman with a history of HTN, DM II, HLD, CAD with prior stents, CHF (unknown details) admitted with sob, hypoxic/hypercapneic resp failure. Pt. seen and examined today, minimally responsive. does not follow commands or answer questions. noted to be hypercapneic on abg. No reported chest pain or palpitations. - History Source History Provided By: Medical Record Limitations to Obtaining History: Physical Impairment - Past Medical History Cardio/Vascular: Yes: CAD, CHF, HTN, Hyperlipdemia ...: No - Alcohol/Substance Use Hx Alcohol Use: No - Smoking History Smoking history: Former smoker Have you smoked in the past 12 months: No If you are a former smoker, when did you quit?: 30 years ago - Social History Usual Living Arrangement: [facility]way ADL: Support Services History of Recent Travel: No Home Medications - Allergies Allergies/Adverse Reactions: Allergies Allergy/AdvReac Type Severity Reaction Status Date / Time No Known Allergies Allergy Unverified 08/05/16 11:33 - Home Medications Home Medications: Ambulatory Orders Aspirin [ASA -] 81 mg PO DAILY 08/05/16 Atorvastatin Ca [Lipitor] 20 mg PO DAILY 08/05/16 Carbidopa/Levodopa [Carbidopa-Levodopa 25-100 Tab] 1 each PO TID 08/05/16 Cholecalciferol (Vitamin D3) [Vitamin D3 -] 1,000 unit PO DAILY 08/05/16 Furosemide [Lasix -] 20 mg PO DAILY 08/05/16 Gabapentin 100 mg PO BID 08/05/16 Linagliptin [Tradjenta] 5 mg PO DAILY 08/05/16 Nebivolol [Bystolic -] 5 mg PO DAILY 08/05/16 Pimavanserin Tartrate [Nuplazid] 2 tab PO DAILY 08/05/16 Tramadol HCl 50 mg PO DAILY 08/05/16 Family Disease History - Family Disease History Family History: Unable to Obtain Review of Systems Unable to obtain ROS, reason: as per records Findings/Remarks: pt unable to provide - Review of Systems Constitutional: reports: Lethargy, Malaise, Weakness. denies: No Symptoms, Chills, Diaphoresis, Fever, Loss of Appetite, Night Sweats, Unintentional Wgt. Loss, Other Eyes: denies: No Symptoms, Blind Spots, Blurred Vision, Double Vision, Eye Pain , Floaters, Photophobia, Recent Change in Vision, Other HENT: denies: No Symptoms, Difficult Swallowing, Ear Discharge, Ear Pain, Epistaxis, Gingival Bleeding, Hearing Loss, Mouth Swelling, Nasal Congestion, Ocular Prosthesis, Throat Pain, Toothache, Ringing in Ears, Other Neck: denies: No Symptoms, Decreased ROM, Lumps, Pain on Movement, Stiffness, Swollen Glands, Tenderness, Other Cardiovascular: reports: Edema, Shortness of Breath. denies: No Symptoms, Chest Pain, Palpitations, Other Respiratory: reports: SOB, SOB on Exertion. denies: No Symptoms, Cough, Exercise Intolerance, Hemoptysis, Orthopnea, PND, Snoring, Wheezing, Other Gastrointestinal: denies: No Symptoms, Abdominal Pain, Bloating, Constipation, Diarrhea, Dysphagia, Indigestion, Melena, Nausea, Rectal Bleeding, Vomiting, Vomiting Blood, Other Genitourinary: denies: No Symptoms, Burning, Discharge, Dysuria, Flank Pain, Frequency, Hematuria, Incontinence, Lesions, Menses, Pain, Testicular Mass, Testicular Pain, Testicular Swelling, Urgency, Vaginal Bleeding, Other Breasts: denies: No Symptoms Reported, See HPI, Breast Implants, Discharge from Nipple, Lumps, Pain, Skin Changes, Other Musculoskeletal: denies: No Symptoms, Back Pain, Crepitus, Decreased ROM, Extremity Pain, Joint Pain, Joint Swelling, Muscle Pain, Muscle Cramps, Muscle Weakness, Other Integumentary: denies: No Symptoms, Blister, Bruising, Change in Color, Eczema, Erythema, Incision, Lesions, Lump, Pallor, Pruritis, Rash, Wound, Other Neurological: denies: No Symptoms, Change in LOC, Change in Speech, Confusion, Dizziness, Headache, Incoordination, Numbness, Parasthesia, Pre-Existing Deficit , Seizure, Syncope, Tremors, Unsteady Gait, Weakness, Other Endocrine: denies: No Symptoms, Excessive Sweating, Flushing, Increased Hunger, Increased Thirst, Intolerance to Cold, Intolerance to Heat, Unexplained Weight Gain, Unexplained Weight Loss, Other Hematology/Lymphatic: denies: No Symptoms, Easily Bruised, Excessive Bleeding, Swollen Glands, Other Psychiatric: denies: No Symptoms, Altered Sleep Pattern, Anxiety, Depression, Hallucinations, Panic, Paranoia, Suicidal, Other - Risk Factors Known Risk Factors: Yes: Age, Hypercholesterolemia, Hypertension Vital Signs: Vital Signs Temperature 97.7 F 08/06/16 11:00 Pulse Rate 70 08/06/16 11:00 Respiratory Rate 18 08/06/16 11:00 Blood Pressure 93/50 08/06/16 11:00 O2 Sat by Pulse Oximetry (%) 100 08/06/16 09:54 Constitutional: Yes: Mild Distress, Other (minimally responsive) Eyes: Yes: Conjunctiva Clear HENT: Yes: WNL, Atraumatic, Normocephalic Neck: Yes: WNL, Supple, Trachea Midline Respiratory: Yes: Regular, Diminished, On BiPap, Rhonchi, SOB, Tachypnea. No: Rales, Wheezes Gastrointestinal: Yes: WNL, Normal Bowel Sounds, Soft. No: Distention, Tenderness Renal/: Yes: WNL Cardiovascular: Yes: Regular Rate and Rhythm. No: Bradycardia, Tachycardia, Pulse Irregular, Gallop, Rub, Varicosities JVD: No Carotid Bruit: No PMI: Non-Displaced Heart Sounds: Yes: S1, S2. No: Split S2, S3, S4, Clicks, Gallop, Rub, Bruit Murmur: No: Systolic Murmur, Diastolic Murmur Musculoskeletal: Yes: Muscle Weakness Extremities: Yes: WNL Edema: Yes Edema: LLE: Trace, RLE: Trace Peripheral Pulses WNL: Yes Peripheral Pulses: 2+ Left Doralis Pedis, 2+ Right Dorsalis Pedis Integumentary: Yes: WNL Neurological: Yes: Lethargy. No: Alert, Oriented Psychiatric: No: Alert, Oriented - Other Data Labs, Other Data: CBC, BMP 08/06/16 05:15 08/06/16 05:15 INR, PTT INR 1.13 (0.82-1.09) 08/05/16 11:40 ekg-nsr 60bpm, slight peaked twaves Echo: Pending Imaging - Results Chest X-ray: Report Reviewed, Image Reviewed EKG: Report Reviewed, Image Reviewed Other: Report Reviewed, Image Reviewed (tele-nsr, no arrhythmia recorded) Problem List - Problems (1) CAD (coronary artery disease) Code(s): I25.10 - ATHSCL HEART DISEASE OF [place] CORONARY ARTERY W/O ANG PCTRS (2) CHF (congestive heart failure) Code(s): I50.9 - HEART FAILURE, UNSPECIFIED Qualifiers: Congestive heart failure type: unspecified congestive heart failure type Congestive heart failure chronicity: unspecified congestive heart failure chronicity Qualified Code(s): I50.9 - Heart failure, unspecified (3) Diabetes mellitus type 2 in obese Code(s): E11.9 - TYPE 2 DIABETES MELLITUS WITHOUT COMPLICATIONS E66.9 - OBESITY, UNSPECIFIED (4) HTN (hypertension) Code(s): I10 - ESSENTIAL (PRIMARY) HYPERTENSION Qualifiers: Hypertension type: essential hypertension Qualified Code(s): I10 - Essential (primary) hypertension (5) Hypotension Code(s): I95.9 - HYPOTENSION, UNSPECIFIED Qualifiers: Hypotension type: idiopathic hypotension Qualified Code(s): I95.0 - Idiopathic hypotension (6) Hypothermia Code(s): T68.XXXA - HYPOTHERMIA, INITIAL ENCOUNTER Qualifiers: Encounter type: initial encounter Qualified Code(s): T68.XXXA - Hypothermia, initial encounter (7) Parkinson's disease dementia Code(s): G20 - PARKINSON'S DISEASE F02.80 - DEMENTIA IN OTH DISEASES CLASSD ELSWHR W/O BEHAVRL DISTURB (8) SIRS (systemic inflammatory response syndrome) Code(s): R65.10 - SIRS OF NON-INFECTIOUS ORIGIN W/O ACUTE ORGAN DYSFUNCTION Assessment/Plan 85 year old woman with a history of HTN, DM II, HLD, CAD with prior stents, CHF (unknown details) admitted with sob, hypoxic/hypercapneic resp failure. Pt. seen and examined today, minimally responsive. does not follow commands or answer questions. noted to be hypercapneic and hypoxic on abg. SOB-hypercapneic/hypoxic respiratory failure -possible PNA vs acute on chronic CHF (unknown type) -appears more c/w sepsis given overall clinical picture -given 1 dose IV Lasix in ER -hold further diuresis for now can dose lasix prn -cont bipap and respiratory support -cont empiric Abx -TSH level wnl -cardiac enzymes wnl CAD-with reported prior stents -cont asa and lipitor -cardiac enzymes wnl x 1 HTN-episodes of hypotension -hold anti-HTN meds
[2016-08-06 12:49] LABS: TROPONIN I < 0.02 ng/ml (0.00-0.05)
--- NOTE | 2016-08-06 12:52 | PN ---
Physical Exam: SUBJECTIVE: Patient seen and examined. On BIPAP. States does not feel well. OBJECTIVE: Vital Signs Period Temp Pulse Resp BP Sys/Galvin Pulse Ox Last 24 Hr 95 F-97.7 F 58-74 13-24 77-106/41-58 85-100 GENERAL: The patient is awake, alert, speaking through BIPAP mask. Responds to questions, follows commands. HEAD: Normal with no signs of trauma. EYES: PERRL, extraocular movements intact, sclera anicteric, conjunctiva clear. No ptosis. LUNGS: Breath sounds equal, clear to auscultation bilaterally, no wheezes, no crackles, no accessory muscle use. HEART: Regular rate and rhythm, S1, S2 without murmur, rub or gallop. ABDOMEN: Soft, nontender, nondistended, normoactive bowel sounds, no guarding, no rebound, no hepatosplenomegaly, no masses. EXTREMITIES: 2+ pulses, warm, well-perfused, no edema. NEUROLOGICAL: Cranial nerves II through XII grossly intact. Normal speech, gait not observed. SKIN: Lower extremity 2+ edema with weeping. Skin tear on right arm with granulating tissue, no exudate. Laboratory Results - last 24 hr 08/05/16 08/06/16 08/06/16 21:52 05:00 05:15 WBC 11.6 H RBC 3.50 L Hgb 9.6 L Hct 31.6 L MCV 90.3 MCHC 30.4 L RDW 16.8 H Plt Count 258 MPV 8.8 Neutrophils % 85.4 H Lymphocytes % 5.1 L Monocytes % 8.2 Eosinophils % 1.0 Basophils % 0.3 Puncture Site ABG pH ABG pCO2 at Pt Temp ABG pO2 at Pt Temp ABG HCO3 ABG O2 Sat (Measured) ABG O2 Content ABG Base Excess Chicho Test O2 Delivery Device Oxygen Flow Rate PEEP Sodium Potassium Chloride Carbon Dioxide Anion Gap BUN Creatinine Creat Clearance w eGFR POC Glucometer 100.95880 Random Glucose Lactic Acid Calcium Total Bilirubin AST ALT Alkaline Phosphatase Total Protein Albumin TSH Cancelled Free T4 Cancelled 08/06/16 08/06/16 08/06/16 05:15 05:15 06:04 WBC RBC Hgb Hct MCV MCHC RDW Plt Count MPV Neutrophils % Lymphocytes % Monocytes % Eosinophils % Basophils % Puncture Site ABG pH ABG pCO2 at Pt Temp ABG pO2 at Pt Temp ABG HCO3 ABG O2 Sat (Measured) ABG O2 Content ABG Base Excess Chicho Test O2 Delivery Device Oxygen Flow Rate PEEP Sodium 139 Potassium 6.6 H* Chloride 100 Carbon Dioxide 31 Anion Gap 8 BUN 41 H Creatinine 1.5 H Creat Clearance w eGFR 33.08 POC Glucometer 101.75879 Random Glucose 73 L D Lactic Acid 0.858 Calcium 8.1 L Total Bilirubin 0.6 D AST 10 L D ALT < 6 L D Alkaline Phosphatase 115 D Total Protein 5.5 L Albumin 2.1 L TSH 3.49 Free T4 1.19 08/06/16 08/06/16 08/06/16 08:15 11:26 11:35 WBC RBC Hgb Hct MCV MCHC RDW Plt Count MPV Neutrophils % Lymphocytes % Monocytes % Eosinophils % Basophils % Puncture Site Left radial ABG pH 7.21 L* 7.27 L ABG pCO2 at Pt Temp 75.4 H* 64.9 H* ABG pO2 at Pt Temp 60.5 L 65.0 L ABG HCO3 28.8 H 28.7 H ABG O2 Sat (Measured) 87.3 L 91.5 ABG O2 Content 11.3 L 11.9 L ABG Base Excess 0.2 1.4 Chicho Test Positive O2 Delivery Device Ventimask Oxygen Flow Rate 50% PEEP 0.0 Sodium Potassium Chloride Carbon Dioxide Anion Gap BUN Creatinine Creat Clearance w eGFR POC Glucometer 92.02793 Random Glucose Lactic Acid Calcium Total Bilirubin AST ALT Alkaline Phosphatase Total Protein Albumin TSH Free T4 Active Medications Generic Name Dose Route Start Last Admin Trade Name Freq PRN Reason Stop Dose Admin Aspirin 81 mg 08/06/16 10:00 08/06/16 09:43 Asa - PO 81 mg DAILY ANNA MARIE Administration Atorvastatin Calcium 20 mg 08/05/16 22:00 08/05/16 21:54 Lipitor - PO 20 mg HS ANNA MARIE Administration Carbidopa/Levodopa 1 each 08/05/16 22:00 08/06/16 06:06 Sinemet 25/100 - PO 1 each TID ANNA MARIE Administration Chlorhexidine Gluconate 1 applic 08/05/16 22:00 08/05/16 21:55 Hibiclens For Decolonization - TP 1 applic HS ANNA MARIE Administration Cholecalciferol 1,000 unit 08/06/16 10:00 08/06/16 09:43 Vitamin D3 - PO 1,000 unit DAILY ANNA MARIE Administration Enoxaparin Sodium 40 mg 08/06/16 10:00 08/06/16 09:42 Lovenox - SQ 40 mg DAILY ANNA MARIE Administration Gabapentin 100 mg 08/05/16 22:00 08/06/16 09:43 Neurontin - PO 100 mg BID ANNA MARIE Administration Sodium Chloride 1,000 mls @ 75 mls/hr 08/05/16 16:45 08/05/16 18:47 Normal Saline - IV 75 mls/hr ASDIR ANNA MARIE Administration Levofloxacin 100 mls @ 100 mls/hr 08/06/16 11:00 08/06/16 12:19 Levaquin 500 Mg Premixed Ivpb - IVPB 100 mls/hr DAILY ANNA MARIE Administration Insulin Aspart 1 vial 08/05/16 22:00 08/06/16 12:21 Novolog Vial Sliding Scale - SQ Not Given ACHS [facility] Protocol Mupirocin 1 applic 08/05/16 22:00 08/05/16 21:54 Bactroban Ointment (For Decolonization) - NS 08/10/16 21:59 1 applic BID ANNA MARIE Administration Non-Formulary Medication 2 tab 08/06/16 10:00 Pimavanserin Tartrate [Nuplazid] PO DAILY ANNA MARIE Tramadol HCl 50 mg 08/06/16 10:00 08/06/16 09:42 Ultram - PO Not Given DAILY ANNA MARIE ASSESSMENT/PLAN: 85 year old female with a past medical history of HTN, CHF, CAD s/p 2 stents, DM , admitted for SOB Hypercapnic, hypoxic respiratory failure --08/06 CXR: complete opacification of left lung, likely from plugging --kept on BIPAP, aggressively suctioned, duonebs, IV steroids --marginal improvement in AB.30/58/89/28/97% on 60% FiO2 Hypothermia, resolved --TSH wnl --cortisol level pending Pneumonia --08/05 CXR: bibasilar infiltrates --cultures pending --start Zosyn --ID following Congestive heart failure, NOS --bilateral lower extremity edema; no diuretics due to low BP --echo ordered NIDDM --not on home meds --Novolog sliding scale coverage Hypertension --hold anti-hypertensives and diuretics Hyperkalemia --K improved 6.6-->6.0-->5.6 with kayexelate, insulin, D50, calcium gluconate --no ECG changes Parkinson's Disease --early onset disease but difficulty swallowing -- F/E/N Fluids: NS @ 125mL/hr Electrolytes: replete as indicated Nutrition: NPO; needs swallow eval when more stable DVT prophylaxis: lovenox Dispo: continues to require ICU care. Full Code. Visit type - Emergency Visit Emergency Visit: Yes ED Registration Date: 08/05/16 Care time: The patient presented to the Emergency Department on the above date and was hospitalized for further evaluation of their emergent condition. - New Patient This patient is new to me today: Yes Date on this admission: 08/06/16 - Critical Care Critical Care patient: Yes Total Critical Care Time (in minutes): 60 Critical Care Statement: The care of this patient involved high complexity decision making to prevent further life threatening deterioration of the patient 's condition and/or to evalute & treat vital organ system(s) failure or risk of failure.
[2016-08-06] MEDS ORDERED: FUROSEMIDE 40 MG/4 ML INJECTABLE VIAL ONE (13:12)
[2016-08-06 13:17] LABS: CALCIUM 8.2 mg/dL (8.5-10.1); CREATININE 1.5 mg/dL (0.55-1.02)
--- NOTE | 2016-08-06 13:57 | EKG ---
Test Reason : Blood Pressure : / mmHG Vent. Rate : 065 BPM Atrial Rate : 065 BPM P-R Int : 152 ms QRS Dur : 082 ms QT Int : 384 ms P-R-T Axes : 064 042 068 degrees QTc Int : 399 ms NORMAL SINUS RHYTHM NORMAL ECG WHEN COMPARED WITH ECG OF 05-AUG-2016 12:21, NO SIGNIFICANT CHANGE WAS FOUND Confirmed by MD HONG, TERENCE ([id number]) on 08/06/2016 1:56:56 PM Referred By: GRAHAM PIPER Overread By: TERENCE PITTS MD
[2016-08-06] MEDS ORDERED: PIPERACILLIN/TAZOB 3.375 GM/50 ML PRE-DOCKED IVPB SCH (14:00)
[2016-08-06] MEDS: ALBUTEROL SO4 2.5/IPRATROPIUM 0.5 INH SOL 3 ML VIAL.NEB. NEB SCH ×3 (14:05→22:11)
[2016-08-06] MEDS: methylPREDNISolone NA SUCC 40 MG/1 ML VIAL IVPB SCH ×2 (14:12→21:08)
[2016-08-06] MEDS: MUPIROCIN 2% TOPICAL OINTMENT FOR DECOLONIZATION NS SCH ×2 (14:16→22:26)
[2016-08-06] MEDS ORDERED: SODIUM POLYSTYRENE SULFONATE 15 GM/60 ML BOTTLE PO ONE (14:38)
[2016-08-06] MEDS ORDERED: PIPERACILLIN/TAZOB 3.375 GM/50 ML PRE-DOCKED IVPB ONE (15:00)
[2016-08-06] MEDS ORDERED: SODIUM CHLORIDE 1,000 ML IV SCH (15:26)
--- NOTE | 2016-08-06 15:54 | CONSULT ---
Consult Consult Specialty:: infectious diseases Reason for Consultation:: collapse of lung,suspicion of pna - History of Present Illness Chief Complaint: breathing difficuilty. confusion History of Present Illness: 85 year old woman with a history of HTN, DM II, HLD, CAD with prior stents, CHF (unknown details) admitted with sob, hypoxic/hypercapneic resp failure. Pt. seen and examined today, patient is awake but confused. looking at ther pictures patient has complete white out on the left side her sob started in the facility where she lives and was send here and was intially put on 6 l of nasal cannula currently patient on ventimask and breathing is stable also of note patient has swelling and tenderness of both legs - History Source History Provided By: Medical Record Limitations to Obtaining History: Clinical Condition - Past Medical History Cardio/Vascular: Yes: CAD, CHF, HTN, Hyperlipdemia ...: No - Alcohol/Substance Use Hx Alcohol Use: No - Smoking History Smoking history: Former smoker Have you smoked in the past 12 months: No If you are a former smoker, when did you quit?: 30 years ago - Social History Usual Living Arrangement: Group Home ADL: Support Services History of Recent Travel: No Home Medications - Allergies Allergies/Adverse Reactions: Allergies Allergy/AdvReac Type Severity Reaction Status Date / Time No Known Allergies Allergy Unverified 08/05/16 11:33 - Home Medications Home Medications: Ambulatory Orders Aspirin [ASA -] 81 mg PO DAILY 08/05/16 Atorvastatin Ca [Lipitor] 20 mg PO DAILY 08/05/16 Carbidopa/Levodopa [Carbidopa-Levodopa 25-100 Tab] 1 each PO TID 08/05/16 Cholecalciferol (Vitamin D3) [Vitamin D3 -] 1,000 unit PO DAILY 08/05/16 Furosemide [Lasix -] 20 mg PO DAILY 08/05/16 Gabapentin 100 mg PO BID 08/05/16 Linagliptin [Tradjenta] 5 mg PO DAILY 08/05/16 Nebivolol [Bystolic -] 5 mg PO DAILY 08/05/16 Pimavanserin Tartrate [Nuplazid] 2 tab PO DAILY 08/05/16 Tramadol HCl 50 mg PO DAILY 08/05/16 Review of Systems Unable to obtain ROS, reason: unable to obtain Physical Exam Vital Signs: Vital Signs Temperature 98.1 F 08/06/16 14:00 Pulse Rate 73 08/06/16 15:00 Respiratory Rate 24 08/06/16 15:00 Blood Pressure 89/49 08/06/16 15:00 O2 Sat by Pulse Oximetry (%) 96 08/06/16 15:43 Constitutional: Yes: Well Nourished, Calm, Mild Distress Eyes: Yes: Conjunctiva Clear HENT: Yes: Atraumatic Neck: Yes: Supple Cardiovascular: Yes: Tachycardia Respiratory: Yes: Poor Air Entry, Other (absent air entry on the left side) Gastrointestinal: Yes: Normal Bowel Sounds, Soft Musculoskeletal: Yes: Other Extremities: Yes: Other (bilateral swelling of the both ext with tenderness and edema) Integumentary: Yes: Erythema, Pressure Ulcer (on the heel) Neurological: Yes: Alert, Confusion Labs: CBC, BMP 08/06/16 05:15 08/06/16 12:40 Imaging - Results Chest X-ray: Report Reviewed, Image Reviewed Assessment/Plan Problem List - Problems (1) CAD (coronary artery disease) Code(s): I25.10 - ATHSCL HEART DISEASE OF [place] CORONARY ARTERY W/O ANG PCTRS (2) CHF (congestive heart failure) Code(s): I50.9 - HEART FAILURE, UNSPECIFIED Qualifiers: Congestive heart failure type: unspecified congestive heart failure type Congestive heart failure chronicity: unspecified congestive heart failure chronicity Qualified Code(s): I50.9 - Heart failure, unspecified (3) Diabetes mellitus type 2 in obese Code(s): E11.9 - TYPE 2 DIABETES MELLITUS WITHOUT COMPLICATIONS E66.9 - OBESITY, UNSPECIFIED (4) HTN (hypertension) Code(s): I10 - ESSENTIAL (PRIMARY) HYPERTENSION Qualifiers: Hypertension type: essential hypertension Qualified Code(s): I10 - Essential (primary) hypertension (5) Hypotension Code(s): I95.9 - HYPOTENSION, UNSPECIFIED Qualifiers: Hypotension type: idiopathic hypotension Qualified Code(s): I95.0 - Idiopathic hypotension (6) Hypothermia Code(s): T68.XXXA - HYPOTHERMIA, INITIAL ENCOUNTER Qualifiers: Encounter type: initial encounter Qualified Code(s): T68.XXXA - Hypothermia, initial encounter (7) Parkinson's disease dementia Code(s): G20 - PARKINSON'S DISEASE F02.80 - DEMENTIA IN OTH DISEASES CLASSD ELSWHR W/O BEHAVRL DISTURB (8) SIRS (systemic inflammatory response syndrome) Code(s): R65.10 - SIRS OF NON-INFECTIOUS ORIGIN W/O ACUTE ORGAN DYSFUNCTION collapse of the left lung bilateral cellulitis of the leg plan 1 if patients xray does not improve patient will need a bronch i have started patient on abx as her chances of getting pna are very high chest pt incentive mateo continue as per icu cc time 45 min
[2016-08-06] MEDS: PIPERACILLIN/TAZOB 3.375 GM 50 ML IVPB SCH (18:14)
[2016-08-06 18:48] LABS: ARTERIAL BLOOD GAS BASE EXCESS 1.6 meq/l (-2-2); ARTERIAL BLOOD GAS HCO3 28.2 meq/L (22-26); ARTERIAL BLOOD GAS PO2 89.5 mmHg (68-100)
[2016-08-06 18:49] LABS: ALLENS TEST POSITIVE; ART PUNCT SITE RIGHT RADIAL; LPM/O2% 60%; MECH. VENT. BIPAP; PT. ON O2? YES; TYPE OF O2 OT; VENT RATE 24; VT/PRESS 16/8
[2016-08-06 20:23] LABS: BASOPHIL 0.1 % (0-2.0); MCH 27.4 pg (25.7-33.7); MCHC 30.4 g/dl (32.0-36.0); MEAN CELL VOLUME 90.3 fl (80-96); MEAN PLT VOLUME 8.6 fl (7.5-11.1); PLATELET COUNT 250 K/MM3 (134-434); WHITE BLOOD COUNT 7.3 K/mm3 (4.0-10.0)
[2016-08-06 20:43] LABS: ALK PHOS 129 U/L (45-117); ANION GAP 7 (8-16); BILIRUBIN,TOTAL 0.5 mg/dL (0.2-1.0); CALCIUM 8.2 mg/dL (8.5-10.1); CO2 31 mmol/L (21-32); CREATININE 1.5 mg/dL (0.55-1.02); GLUCOSE,RANDOM 86 mg/dL (74-106); MAGNESIUM 2.4 mg/dL (1.8-2.4); PHOSPHOROUS 4.9 mg/dL (2.5-4.9); SGOT/AST 9 U/L (15-37); SGPT/ALT < 6 U/L (12-78); TOT PROT 5.5 g/dl (6.4-8.2)
[2016-08-06] MEDS: BACITRACIN 30 GM TUBE TOPICAL OINTMENT TP SCH (20:56)
[2016-08-06] MEDS: ATORVASTATIN CA 20 MG TABLET (FP) PO SCH (21:08)
[2016-08-06] MEDS: CHLORHEXIDINE GLUCONATE 4% CLEANSER FOR DECOLONIZATION TP SCH (21:09)
[2016-08-07] MEDS: PIPERACILLIN/TAZOB 3.375 GM 50 ML IVPB SCH ×3 (01:26→17:58)
[2016-08-07] MEDS: ALBUTEROL SO4 2.5/IPRATROPIUM 0.5 INH SOL 3 ML VIAL.NEB. NEB SCH ×6 (02:40→22:21)
[2016-08-07] MEDS: methylPREDNISolone NA SUCC 40 MG/1 ML VIAL IVPB SCH ×3 (03:00→22:28)
[2016-08-07] MEDS: CARBIDOPA/LEVODOPA 25/100 TABLET (FP) PO SCH ×3 (05:40→22:27)
[2016-08-07 06:05] LABS: MCH 27.9 pg (25.7-33.7); MEAN CELL VOLUME 89.9 fl (80-96); MEAN PLT VOLUME 8.7 fl (7.5-11.1); PLATELET COUNT 261 K/MM3 (134-434); RDW 16.7 % (11.6-15.6); WHITE BLOOD COUNT 6.2 K/mm3 (4.0-10.0)
[2016-08-07 06:39] LABS: BILIRUBIN,TOTAL 0.6 mg/dL (0.2-1.0); CALCIUM 8.2 mg/dL (8.5-10.1); CREATININE 1.5 mg/dL (0.55-1.02); MAGNESIUM 2.5 mg/dL (1.8-2.4); PHOSPHOROUS 5.3 mg/dL (2.5-4.9); TOT PROT 5.3 g/dl (6.4-8.2)
[2016-08-07 06:41] LABS: FREE T3 1.9 pg/mL (2.0-4.4)
[2016-08-07] MEDS: INSULIN SLIDING SCALE (NOVOLOG) 1 VIAL SQ SCH ×5 (07:14→22:29)
[2016-08-07 07:27] LABS: ARTERIAL BLD GAS O2 SATURATION 99.4 % (90-98.9); ARTERIAL BLOOD GAS BASE EXCESS 0.8 meq/l (-2-2); ARTERIAL BLOOD GAS HCO3 26.6 meq/L (22-26); ARTERIAL BLOOD GAS pH 7.33 (7.35-7.45)
[2016-08-07 07:28] LABS: ALLENS TEST POSITIVE; ART PUNCT SITE RIGHT RADIAL; LPM/O2% 60%; MECH. VENT. BIPAP; PT. ON O2? YES; TYPE OF O2 BIPAP; VENT RATE 24; VT/PRESS 16/8
--- NOTE | 2016-08-07 09:12 | CONSULT ---
Consult - text type - Consultation Consultation Note: Renal Consult for CKD and Hyperkalemia This is a 85 year old woman with PMhx of CKD, CHF, CAD, DM, Hypertension who presented with sob and found to have SIRS and possible PNA and opacification of left lung with hyperkalemia of 6.6 and Cr of 1.5. Pt was give IV Abx and placed on BIPAP. S/p Kayexlate x 2 yesterday. K improved to 5.6 and then 5.1 today. 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 Pt states that she feels a little better now. No chest pain. No fever or chills .No N/V/D. No EDDY/ARB at home. On Lasix 20mg Daily. PMhx: as above Allergies: NKDA Family Hc: NC Social Hx: No T/A/D ROS: as per HPI, all other pertinent ros negative Home Meds: Medication Instructions Recorded Aspirin [ASA -] 81 mg PO DAILY 08/05/16 Atorvastatin Ca [Lipitor] 20 mg PO DAILY 08/05/16 Carbidopa/Levodopa 1 each PO TID 08/05/16 [Carbidopa-Levodopa 25-100 Tab] Cholecalciferol (Vitamin D3) 1,000 unit PO DAILY 08/05/16 [Vitamin D3 -] Furosemide [Lasix -] 20 mg PO DAILY 08/05/16 Gabapentin 100 mg PO BID 08/05/16 Linagliptin [Tradjenta] 5 mg PO DAILY 08/05/16 Nebivolol [Bystolic -] 5 mg PO DAILY 08/05/16 Pimavanserin Tartrate [Nuplazid] 2 tab PO DAILY 08/05/16 Tramadol HCl 50 mg PO DAILY 08/05/16 Vital Signs Temperature 98.9 F 08/07/16 04:00 Pulse Rate 76 08/07/16 08:00 Respiratory Rate 15 08/07/16 08:00 Blood Pressure 92/44 08/07/16 08:00 O2 Sat by Pulse Oximetry (%) 94 L 08/07/16 08:43 Intake & Output 08/04/16 08/05/16 08/06/16 08/07/16 23:59 23:59 23:59 23:59 Intake Total 2470 1750 Output Total 300 975 900 Balance -300 1495 850 Weight 175 lb 197 lb 198 lb Gen: NAD, awake and alert on Facemask O2 HEENT: NC/AT, MMM, No JVD CVS: RRR, No M/R Lungs: No BS left lung, dec BS right lung Abd: soft NT/ND Ext: B/L LE in dressing, trace to 1+ edema, no sacral edema : Reynoso in place Neuro: AAOx3, no focal defects CBC, BMP 08/07/16 05:15 08/07/16 05:15 Laboratory Tests 08/05/16 08/07/16 15:55 05:15 Calcium 8.2 L Phosphorus 5.3 H Magnesium 2.5 H Albumin 2.0 L Urine pH 5.0 Ur Specific [place] 1.014 Urine Protein Negative Urine Glucose (UA) Negative Urine Ketones Negative Urine Blood Negative Urine Nitrite Negative Urine Bilirubin Negative Urine Urobilinogen Negative Current Medications Albuterol/Ipratropium (Duoneb -) 1 amp NEB Q4H [facility] Last Admin: 08/07/16 06:24 Dose: 1 amp Aspirin (Asa -) 81 mg PO DAILY [facility] Last Admin: 08/06/16 09:43 Dose: 81 mg Atorvastatin Calcium (Lipitor -) 20 mg PO HS [facility] Last Admin: 08/06/16 21:08 Dose: 20 mg Bacitracin (Bacitracin -) 1 applic TP DAILY [facility] Last Admin: 08/06/16 20:56 Dose: 1 applic Carbidopa/Levodopa (Sinemet 25/100 -) 1 each PO TID [facility] Last Admin: 08/07/16 05:40 Dose: 1 each Chlorhexidine Gluconate (Hibiclens For Decolonization -) 1 applic TP HS [facility] Last Admin: 08/06/16 21:09 Dose: 1 applic Cholecalciferol (Vitamin D3 -) 1,000 unit PO DAILY [facility] Last Admin: 08/06/16 09:43 Dose: 1,000 unit Enoxaparin Sodium (Lovenox -) 40 mg SQ DAILY [facility] Last Admin: 08/06/16 09:42 Dose: 40 mg Gabapentin (Neurontin -) 100 mg PO BID [facility] Last Admin: 08/06/16 21:08 Dose: 100 mg Piperacillin Sod/Tazobactam Sod (Zosyn 3.375gm Ivpb (Pre-Docked)) 50 mls @ 100 mls/hr IVPB Q8H-IV ANNA MARIE Last Admin: 08/07/16 01:26 Dose: 100 mls/hr Insulin Aspart (Novolog Vial Sliding Scale -) 1 vial SQ ACHS [facility] PRN Reason: Protocol Last Admin: 08/07/16 07:14 Dose: Not Given Methylprednisolone Sodium Succinate (Solu-Medrol -) 40 mg IVPB Q6H-IV ANNA MARIE Last Admin: 08/07/16 03:00 Dose: 40 mg Mupirocin (Bactroban Ointment (For Decolonization) -) 1 applic NS BID ANNA MARIE Stop: 08/10/16 21:59 Last Admin: 08/06/16 22:26 Dose: 1 applic Non-Formulary Medication (Pimavanserin Tartrate [Nuplazid]) 2 tab PO DAILY [facility] Tramadol HCl (Ultram -) 50 mg PO DAILY [facility] Last Admin: 08/06/16 09:42 Dose: Not Given A/P 85 year old woman with PMhx of CKD, CHF, CAD, DM, Hypertension who presented with sob and found to have SIRS and possible PNA and opacification of left lung with hyperkalemia of 6.6 and Cr of 1.5. #CKD with Hyperkalemia Renal function stable and at baseline as per Pts report Hyperkalemia likely due to decreased distal Na dilivery and exhcange for K in setting of hypotension/SIRS K improved s/p IVF and Kayexalte x 2 Low K diet Holding Lasix for now given hypotension off IVF because of effusions seen on CXR maintain map > 65 Bolus NS if BP falls #SIRS/PNA Continue Empiric Abx F/U cultures Chest PT ICU monitoring #Hyperphosphatemia Low Phos diet Trend Phos #Hx of Hypertension Hold BP meds #Anemia Check iron profile no indication for transfusion at this time Thank you Edison Carter DO
[2016-08-07] MEDS: traMADol HCL 50 MG TABLET PO SCH (09:13)
[2016-08-07] MEDS: ENOXAPARIN NA (PORCINE) 40 MG/0.4 ML DISP.SYRIN SQ SCH (09:14)
[2016-08-07] MEDS: ASPIRIN 81 MG CHEWABLE TABLETS PO SCH (09:14)
[2016-08-07] MEDS: BACITRACIN 30 GM TUBE TOPICAL OINTMENT TP SCH (09:15)
[2016-08-07] MEDS: CHOLECALCIFEROL (VITAMIN D3) 1,000 UNIT TABLET (FP) PO SCH (09:15)
[2016-08-07] MEDS: MUPIROCIN 2% TOPICAL OINTMENT FOR DECOLONIZATION NS SCH ×2 (09:15→22:29)
[2016-08-07] MEDS: GABAPENTIN 100 MG CAPSULE (FP) PO SCH ×2 (09:15→22:27)
--- NOTE | 2016-08-07 09:41 | PN ---
Progress Note (short form) - Note Progress Note: PULM/CCM -on Bipap overnight -giving break from NIV this morning, stable -asking to eat Current Medications Albuterol/Ipratropium (Duoneb -) 1 amp NEB Q4H [facility] Last Admin: 08/07/16 06:24 Dose: 1 amp Aspirin (Asa -) 81 mg PO DAILY [facility] Last Admin: 08/07/16 09:14 Dose: 81 mg Atorvastatin Calcium (Lipitor -) 20 mg PO HS [facility] Last Admin: 08/06/16 21:08 Dose: 20 mg Bacitracin (Bacitracin -) 1 applic TP DAILY [facility] Last Admin: 08/07/16 09:15 Dose: 1 applic Carbidopa/Levodopa (Sinemet 25/100 -) 1 each PO TID [facility] Last Admin: 08/07/16 05:40 Dose: 1 each Chlorhexidine Gluconate (Hibiclens For Decolonization -) 1 applic TP HS [facility] Last Admin: 08/06/16 21:09 Dose: 1 applic Cholecalciferol (Vitamin D3 -) 1,000 unit PO DAILY [facility] Last Admin: 08/07/16 09:15 Dose: 1,000 unit Enoxaparin Sodium (Lovenox -) 40 mg SQ DAILY [facility] Last Admin: 08/07/16 09:14 Dose: 40 mg Gabapentin (Neurontin -) 100 mg PO BID [facility] Last Admin: 08/07/16 09:15 Dose: 100 mg Piperacillin Sod/Tazobactam Sod (Zosyn 3.375gm Ivpb (Pre-Docked)) 50 mls @ 100 mls/hr IVPB Q8H-IV [facility] Last Admin: 08/07/16 01:26 Dose: 100 mls/hr Insulin Aspart (Novolog Vial Sliding Scale -) 1 vial SQ ACHS [facility] PRN Reason: Protocol Last Admin: 08/07/16 07:14 Dose: Not Given Methylprednisolone Sodium Succinate (Solu-Medrol -) 40 mg IVPB Q6H-IV [facility] Last Admin: 08/07/16 09:13 Dose: 40 mg Mupirocin (Bactroban Ointment (For Decolonization) -) 1 applic NS BID [facility] Stop: 08/10/16 21:59 Last Admin: 08/07/16 09:15 Dose: 1 applic Non-Formulary Medication (Pimavanserin Tartrate [Nuplazid]) 2 tab PO DAILY [facility] Tramadol HCl (Ultram -) 50 mg PO DAILY [facility] Last Admin: 08/07/16 09:13 Dose: 50 mg Vital Signs Temp 98.9 F 08/07/16 04:00 Pulse 76 08/07/16 09:00 Resp 17 08/07/16 09:00 BP 92/44 08/07/16 09:00 Pulse Ox 94 L 08/07/16 08:43 Intake & Output 08/06/16 08/06/16 08/07/16 11:59 23:59 11:59 Intake Total 1170 1300 1750 Output Total 700 275 900 Balance 470 1025 850 Weight 89.358 kg 89.811 kg Intake: IV 137 368 3802 Normal Saline - 1,000 ml 900 450 @ 75 mls/hr IV ASDIR [facility] Rx#:[id number] Normal Saline - 1,000 ml 250 1500 @ 125 mls/hr IV ASDIR [facility] Rx#:[id number] IVPB 300 200 Oral 270 300 50 Output: Urine 700 275 900 Reyn[place] 700 275 900 Other: Voiding Method Indwelling Catheter Indwelling Catheter Indwelling Catheter Weight Measurement Method Built in [facility] Built in [facility] Active Medications Albuterol/Ipratropium (Duoneb -) 1 amp NEB Q4H [facility] Last Admin: 08/07/16 06:24 Dose: 1 amp Aspirin (Asa -) 81 mg PO DAILY [facility] Last Admin: 08/07/16 09:14 Dose: 81 mg Atorvastatin Calcium (Lipitor -) 20 mg PO HS [facility] Last Admin: 08/06/16 21:08 Dose: 20 mg Bacitracin (Bacitracin -) 1 applic TP DAILY [facility] Last Admin: 08/07/16 09:15 Dose: 1 applic Carbidopa/Levodopa (Sinemet 25/100 -) 1 each PO TID [facility] Last Admin: 08/07/16 05:40 Dose: 1 each Chlorhexidine Gluconate (Hibiclens For Decolonization -) 1 applic TP HS [facility] Last Admin: 08/06/16 21:09 Dose: 1 applic Cholecalciferol (Vitamin D3 -) 1,000 unit PO DAILY [facility] Last Admin: 08/07/16 09:15 Dose: 1,000 unit Enoxaparin Sodium (Lovenox -) 40 mg SQ DAILY [facility] Last Admin: 08/07/16 09:14 Dose: 40 mg Gabapentin (Neurontin -) 100 mg PO BID [facility] Last Admin: 08/07/16 09:15 Dose: 100 mg Piperacillin Sod/Tazobactam Sod (Zosyn 3.375gm Ivpb (Pre-Docked)) 50 mls @ 100 mls/hr IVPB Q8H-IV [facility] Last Admin: 08/07/16 01:26 Dose: 100 mls/hr Insulin Aspart (Novolog Vial Sliding Scale -) 1 vial SQ ACHS [facility] PRN Reason: Protocol Last Admin: 08/07/16 07:14 Dose: Not Given Methylprednisolone Sodium Succinate (Solu-Medrol -) 40 mg IVPB Q6H-IV [facility] Last Admin: 08/07/16 09:13 Dose: 40 mg Mupirocin (Bactroban Ointment (For Decolonization) -) 1 applic NS BID [facility] Stop: 08/10/16 21:59 Last Admin: 08/07/16 09:15 Dose: 1 applic Non-Formulary Medication (Pimavanserin Tartrate [Nuplazid]) 2 tab PO DAILY [facility] Tramadol HCl (Ultram -) 50 mg PO DAILY [facility] Last Admin: 08/07/16 09:13 Dose: 50 mg Constitutional: Yes: Lethargic but arousable, on BIPAP Eyes: Yes: WNL, Conjunctiva Clear, EOM Intact HENT: Yes: WNL, Atraumatic, Normocephalic Neck: Yes: WNL, Supple, Trachea Midline Cardiovascular: Yes: WNL, Regular Rate and Rhythm Respiratory: Yes: Basilar rhonchi, no wheeze, diminished L base, wet cough but strong Gastrointestinal: Yes: WNL, Normal Bowel Sounds Renal/: (+) Reynoso Musculoskeletal: Yes: WNL. No: Back Pain, Joint Stiffness, Joint Swelling, Muscle Pain, Muscle Weakness, Other Extremities: Yes: (+) edema, no gross lesions or discharge noted Edema: Yes Edema: LLE: 2+, RLE: 2+ Integumentary: Yes: (+) chronic changes Wound/Incision: No: Clean/Dry, No open areas Neurological: Yes: WNL, Alert, Oriented. Non-focal Psychiatric: Yes: WNL. Laboratory Results - last 24 hr 08/06/16 08/06/16 08/06/16 05:00 05:15 06:04 WBC RBC Hgb Hct MCV MCHC RDW Plt Count MPV Neutrophils % Lymphocytes % Monocytes % Eosinophils % Basophils % Puncture Site ABG pH ABG pCO2 at Pt Temp ABG pO2 at Pt Temp ABG HCO3 ABG O2 Sat (Measured) ABG O2 Content ABG Base Excess Chicho Test O2 Delivery Device Oxygen Flow Rate Vent Mode Vent Rate Mechanical Rate PEEP Pressure Support Vent Sodium Potassium Chloride Carbon Dioxide Anion Gap BUN Creatinine Creat Clearance w eGFR POC Glucometer 101.15886 Random Glucose Calcium Phosphorus Magnesium Total Bilirubin AST ALT Alkaline Phosphatase Troponin I < 0.02 Total Protein Albumin TSH 3.49 Free T4 1.19 Free T3 1.9 L Cortisol AM Sample 19.7 08/06/16 08/06/16 08/06/16 11:26 11:35 12:40 WBC RBC Hgb Hct MCV MCHC RDW Plt Count MPV Neutrophils % Lymphocytes % Monocytes % Eosinophils % Basophils % Puncture Site ABG pH 7.27 L ABG pCO2 at Pt Temp 64.9 H* ABG pO2 at Pt Temp 65.0 L ABG HCO3 28.7 H ABG O2 Sat (Measured) 91.5 ABG O2 Content 11.9 L ABG Base Excess 1.4 Chicho Test O2 Delivery Device Oxygen Flow Rate Vent Mode Vent Rate Mechanical Rate PEEP Pressure Support Vent Sodium 139 Potassium 6.0 H Chloride 100 Carbon Dioxide 31 Anion Gap 8 BUN 39 H Creatinine 1.5 H Creat Clearance w eGFR POC Glucometer 92.22321 Random Glucose 75 Calcium 8.2 L Phosphorus Magnesium Total Bilirubin AST ALT Alkaline Phosphatase Troponin I Total Protein Albumin TSH Free T4 Free T3 Cortisol AM Sample 08/06/16 08/06/16 08/06/16 18:19 18:45 20:13 WBC 7.3 D RBC 3.47 L Hgb 9.5 L Hct 31.3 L MCV 90.3 MCHC 30.4 L RDW 17.0 H Plt Count 250 MPV 8.6 Neutrophils % 95.0 H Lymphocytes % 4.0 L D Monocytes % 0.9 L D Eosinophils % 0.0 D Basophils % 0.1 Puncture Site Right radial ABG pH 7.30 L ABG pCO2 at Pt Temp 58.7 H ABG pO2 at Pt Temp 89.5 D ABG HCO3 28.2 H ABG O2 Sat (Measured) 97.0 ABG O2 Content 13.0 L ABG Base Excess 1.6 Chicho Test Positive O2 Delivery Device Ot Oxygen Flow Rate 60% Vent Mode St Vent Rate 24 Mechanical Rate Bipap PEEP 0.0 Pressure Support Vent 16/8 Sodium Potassium Chloride Carbon Dioxide Anion Gap BUN Creatinine Creat Clearance w eGFR POC Glucometer 101.70627 Random Glucose Calcium Phosphorus Magnesium Total Bilirubin AST ALT Alkaline Phosphatase Troponin I Total Protein Albumin TSH Free T4 Free T3 Cortisol AM Sample 08/06/16 08/06/16 08/07/16 20:13 21:12 05:15 WBC 6.2 RBC 3.40 L Hgb 9.5 L Hct 30.5 L MCV 89.9 MCHC 31.0 L RDW 16.7 H Plt Count 261 MPV 8.7 Neutrophils % Lymphocytes % Monocytes % Eosinophils % Basophils % Puncture Site ABG pH ABG pCO2 at Pt Temp ABG pO2 at Pt Temp ABG HCO3 ABG O2 Sat (Measured) ABG O2 Content ABG Base Excess Chicho Test O2 Delivery Device Oxygen Flow Rate Vent Mode Vent Rate Mechanical Rate PEEP Pressure Support Vent Sodium 140 Potassium 5.6 H Chloride 102 Carbon Dioxide 31 Anion Gap 7 L BUN 41 H Creatinine 1.5 H Creat Clearance w eGFR 33.08 POC Glucometer 110.31870 Random Glucose 86 Calcium 8.2 L Phosphorus 4.9 Magnesium 2.4 Total Bilirubin 0.5 AST 9 L ALT < 6 L Alkaline Phosphatase 129 H Troponin I Total Protein 5.5 L Albumin 2.0 L TSH Free T4 Free T3 Cortisol AM Sample 08/07/16 08/07/16 08/07/16 05:15 05:47 07:25 WBC RBC Hgb Hct MCV MCHC RDW Plt Count MPV Neutrophils % Lymphocytes % Monocytes % Eosinophils % Basophils % Puncture Site Right radial ABG pH 7.33 L ABG pCO2 at Pt Temp 52.0 H ABG pO2 at Pt Temp 165.0 H* D ABG HCO3 26.6 H ABG O2 Sat (Measured) 99.4 H ABG O2 Content 13.1 L ABG Base Excess 0.8 Chicho Test Positive O2 Delivery Device Bipap Oxygen Flow Rate 60% Vent Mode S/t Vent Rate 24 Mechanical Rate Bipap PEEP 0.0 Pressure Support Vent 16/8 Sodium 139 Potassium 5.1 Chloride 102 Carbon Dioxide 29 Anion Gap 8 BUN 41 H Creatinine 1.5 H Creat Clearance w eGFR 33.08 POC Glucometer 111.70250 Random Glucose 106 D Calcium 8.2 L Phosphorus 5.3 H Magnesium 2.5 H Total Bilirubin 0.6 AST 10 L ALT 9 L D Alkaline Phosphatase 112 Troponin I Total Protein 5.3 L Albumin 2.0 L TSH Free T4 Free T3 Cortisol AM Sample IMP: Mucus plugging hypercapneic resp failure Concern for early Sepsis Possible PNA No clear infection noted on her LE Hypothermia, Etiology to be determined -> (?) Hypothyroid DM HTN PLAN: Empiric ABX for now Follow culture O2 to maintain saturation Strict I&O, stop standing fluid, ICU monitoring Trial of BiPAP , off this morning with ok resp status abg PRN taper steroids as no longer wheezing. Chest PT, NT suctioning, repeat Chest Xray this evening Cardiology evaluation -ICU monitoring Today given tenuous resp status, and mucus plugging Magno Umana ACNP [id number]
--- NOTE | 2016-08-07 11:38 | PN ---
Progress Note, Physician History of Present Illness: seen and examined today in nad. much improved from yesterday. now awake and alert and communicative. no new complaints. - Current Medication List Current Medications: Active Medications Albuterol/Ipratropium (Duoneb -) 1 amp NEB Q4H [facility] Last Admin: 08/07/16 09:52 Dose: 1 amp Aspirin (Asa -) 81 mg PO DAILY [facility] Last Admin: 08/07/16 09:14 Dose: 81 mg Atorvastatin Calcium (Lipitor -) 20 mg PO HS [facility] Last Admin: 08/06/16 21:08 Dose: 20 mg Bacitracin (Bacitracin -) 1 applic TP DAILY [facility] Last Admin: 08/07/16 09:15 Dose: 1 applic Carbidopa/Levodopa (Sinemet 25/100 -) 1 each PO TID [facility] Last Admin: 08/07/16 05:40 Dose: 1 each Chlorhexidine Gluconate (Hibiclens For Decolonization -) 1 applic TP HS [facility] Last Admin: 08/06/16 21:09 Dose: 1 applic Cholecalciferol (Vitamin D3 -) 1,000 unit PO DAILY [facility] Last Admin: 08/07/16 09:15 Dose: 1,000 unit Enoxaparin Sodium (Lovenox -) 40 mg SQ DAILY [facility] Last Admin: 08/07/16 09:14 Dose: 40 mg Gabapentin (Neurontin -) 100 mg PO BID [facility] Last Admin: 08/07/16 09:15 Dose: 100 mg Piperacillin Sod/Tazobactam Sod (Zosyn 3.375gm Ivpb (Pre-Docked)) 50 mls @ 100 mls/hr IVPB Q8H-IV [facility] Last Admin: 08/07/16 10:07 Dose: 100 mls/hr Insulin Aspart (Novolog Vial Sliding Scale -) 1 vial SQ ACHS [facility] PRN Reason: Protocol Last Admin: 08/07/16 07:14 Dose: Not Given Methylprednisolone Sodium Succinate (Solu-Medrol -) 40 mg IVPB Q12H [facility] Mupirocin (Bactroban Ointment (For Decolonization) -) 1 applic NS BID [facility] Stop: 08/10/16 21:59 Last Admin: 08/07/16 09:15 Dose: 1 applic Non-Formulary Medication (Pimavanserin Tartrate [Nuplazid]) 2 tab PO DAILY [facility] Tramadol HCl (Ultram -) 50 mg PO DAILY [facility] Last Admin: 08/07/16 09:13 Dose: 50 mg - Objective Vital Signs: Vital Signs Temperature 98.9 F 08/07/16 04:00 Pulse Rate 99 H 08/07/16 10:00 Respiratory Rate 18 08/07/16 10:00 Blood Pressure 88/71 08/07/16 10:00 O2 Sat by Pulse Oximetry (%) 96 08/07/16 09:50 Constitutional: Yes: Well Nourished, No Distress, Calm Eyes: Yes: WNL, Conjunctiva Clear, EOM Intact, PERRL HENT: Yes: WNL, Atraumatic, Normocephalic Neck: Yes: WNL, Supple, Trachea Midline Cardiovascular: Yes: Regular Rate and Rhythm, S1, S2. No: Bradycardia, Tachycardia, Pulse Irregular, Bruit, JVD, Gallop, Murmur, Rub, S3, S4, Varicosities Respiratory: Yes: Regular, Diminished, Rhonchi. No: CTA Bilaterally, Rales, Wheezes Gastrointestinal: Yes: WNL, Normal Bowel Sounds, Soft. No: Distention, Tenderness Musculoskeletal: Yes: WNL Extremities: Yes: WNL Edema: No Peripheral Pulses WNL: Yes Peripheral Pulses: Left Doralis Pedis: 2+, Right Dorsalis Pedis: 2+ Integumentary: Yes: WNL Neurological: Yes: Alert, Oriented Psychiatric: Yes: Alert, Oriented Labs: CBC, BMP 08/07/16 05:15 08/07/16 05:15 INR, PTT INR 1.13 (0.82-1.09) 08/05/16 11:40 - ....Imaging Chest X-ray: Report Reviewed, Image Reviewed EKG: Report Reviewed, Image Reviewed Other: Report Reviewed, Image Reviewed (tele-nsr, no events recorded) Problem List - Problems (1) CAD (coronary artery disease) Code(s): I25.10 - ATHSCL HEART DISEASE OF [place] CORONARY ARTERY W/O ANG PCTRS (2) CHF (congestive heart failure) Code(s): I50.9 - HEART FAILURE, UNSPECIFIED Qualifiers: Congestive heart failure type: unspecified congestive heart failure type Congestive heart failure chronicity: unspecified congestive heart failure chronicity Qualified Code(s): I50.9 - Heart failure, unspecified (3) Diabetes mellitus type 2 in obese Code(s): E11.9 - TYPE 2 DIABETES MELLITUS WITHOUT COMPLICATIONS E66.9 - OBESITY, UNSPECIFIED (4) HTN (hypertension) Code(s): I10 - ESSENTIAL (PRIMARY) HYPERTENSION Qualifiers: Hypertension type: essential hypertension Qualified Code(s): I10 - Essential (primary) hypertension (5) Hypotension Code(s): I95.9 - HYPOTENSION, UNSPECIFIED Qualifiers: Hypotension type: idiopathic hypotension Qualified Code(s): I95.0 - Idiopathic hypotension (6) Hypothermia Code(s): T68.XXXA - HYPOTHERMIA, INITIAL ENCOUNTER Qualifiers: Encounter type: initial encounter Qualified Code(s): T68.XXXA - Hypothermia, initial encounter (7) Parkinson's disease dementia Code(s): G20 - PARKINSON'S DISEASE F02.80 - DEMENTIA IN OTH DISEASES CLASSD ELSWHR W/O BEHAVRL DISTURB (8) SIRS (systemic inflammatory response syndrome) Code(s): R65.10 - SIRS OF NON-INFECTIOUS ORIGIN W/O ACUTE ORGAN DYSFUNCTION Assessment/Plan 85 year old woman with a history of HTN, DM II, HLD, CAD with prior stents, CHF (unknown details) admitted with sob, hypoxic/hypercapneic resp failure. Pt. seen and examined today, minimally responsive. does not follow commands or answer questions. noted to be hypercapneic and hypoxic on abg. SOB-hypercapneic/hypoxic respiratory failure, possible PNA vs acute on chronic CHF (unknown type) -clinically signficantly improved since yesterday with improvement in hypercapnea -Cxr today shows complete opacification of L lung, right effusion and infiltrate -given 1 dose IV Lasix in ER, holding additional lasix for now, to be dosed prn -cont bipap as needed and respiratory support -cont empiric Abx -TSH level wnl -cardiac enzymes wnl -pulmonary f/up CAD-with reported prior stents -cont asa and lipitor -cardiac enzymes wnl HTN-episodes of hypotension -hold anti-HTN meds
--- NOTE | 2016-08-07 13:25 | EKG ---
Test Reason : Blood Pressure : / mmHG Vent. Rate : 095 BPM Atrial Rate : 095 BPM P-R Int : 150 ms QRS Dur : 086 ms QT Int : 336 ms P-R-T Axes : 069 056 084 degrees QTc Int : 422 ms NORMAL SINUS RHYTHM NORMAL ECG WHEN COMPARED WITH ECG OF 06-AUG-2016 09:12, NO SIGNIFICANT CHANGE WAS FOUND Confirmed by MD HONG, TERENCE ([id number]) on 08/07/2016 1:25:27 PM Referred By: GRAHAM PIPER Overread By: TERENCE PITTS MD
--- NOTE | 2016-08-07 16:16 | PN ---
Physical Exam: SUBJECTIVE: Patient seen and examined. No complaints. OBJECTIVE: Vital Signs Period Temp Pulse Resp BP Sys/Galvin Pulse Ox Last 24 Hr 98.2 F-98.9 F 66-99 14-26 82-112/40-71 94-99 GENERAL: The patient is awake, alert. Conversational. HEAD: Normal with no signs of trauma. EYES: PERRL, extraocular movements intact, sclera anicteric, conjunctiva clear. No ptosis. LUNGS: Breath sounds equal, clear to auscultation bilaterally, no wheezes, no crackles, no accessory muscle use. HEART: Regular rate and rhythm, S1, S2 without murmur, rub or gallop. ABDOMEN: Soft, nontender, nondistended, normoactive bowel sounds, no guarding, no rebound, no hepatosplenomegaly, no masses. EXTREMITIES: 2+ edema bilaterally, erythematous, warm. NEUROLOGICAL: Cranial nerves II through XII grossly intact. Normal speech, gait not observed. Laboratory Results - last 24 hr 08/06/16 08/06/16 08/06/16 05:00 18:19 18:45 WBC RBC Hgb Hct MCV MCHC RDW Plt Count MPV Neutrophils % Lymphocytes % Monocytes % Eosinophils % Basophils % Puncture Site Right radial ABG pH 7.30 L ABG pCO2 at Pt Temp 58.7 H ABG pO2 at Pt Temp 89.5 D ABG HCO3 28.2 H ABG O2 Sat (Measured) 97.0 ABG O2 Content 13.0 L ABG Base Excess 1.6 [place]o Test Positive O2 Delivery Device Ot Oxygen Flow Rate 60% Vent Mode St Vent Rate 24 Mechanical Rate Bipap PEEP 0.0 Pressure Support Vent 16/8 Sodium Potassium Chloride Carbon Dioxide Anion Gap BUN Creatinine Creat Clearance w eGFR POC Glucometer [phone] Random Glucose Calcium Phosphorus Magnesium Total Bilirubin AST ALT Alkaline Phosphatase Total Protein Albumin Free T3 1.9 L Cortisol AM Sample 19.7 08/06/16 08/06/16 08/06/16 20:13 20:13 21:12 WBC 7.3 D RBC 3.47 L Hgb 9.5 L Hct 31.3 L MCV 90.3 MCHC 30.4 L RDW 17.0 H Plt Count 250 MPV 8.6 Neutrophils % 95.0 H Lymphocytes % 4.0 L D Monocytes % 0.9 L D Eosinophils % 0.0 D Basophils % 0.1 Puncture Site ABG pH ABG pCO2 at Pt Temp ABG pO2 at Pt Temp ABG HCO3 ABG O2 Sat (Measured) ABG O2 Content ABG Base Excess [place]icho Test O2 Delivery Device Oxygen Flow Rate Vent Mode Vent Rate Mechanical Rate PEEP Pressure Support Vent Sodium 140 Potassium 5.6 H Chloride 102 Carbon Dioxide 31 Anion Gap 7 L BUN 41 H Creatinine 1.5 H Creat Clearance w eGFR 33.08 POC Glucometer 110.13637 Random Glucose 86 Calcium 8.2 L Phosphorus 4.9 Magnesium 2.4 Total Bilirubin 0.5 AST 9 L ALT < 6 L Alkaline Phosphatase 129 H Total Protein 5.5 L Albumin 2.0 L Free T3 Cortisol AM Sample 08/07/16 08/07/16 08/07/16 05:15 05:15 05:47 WBC 6.2 RBC 3.40 L Hgb 9.5 L Hct 30.5 L MCV 89.9 MCHC 31.0 L RDW 16.7 H Plt Count 261 MPV 8.7 Neutrophils % Lymphocytes % Monocytes % Eosinophils % Basophils % Puncture Site ABG pH ABG pCO2 at Pt Temp ABG pO2 at Pt Temp ABG HCO3 ABG O2 Sat (Measured) ABG O2 Content ABG Base Excess [place]o Test O2 Delivery Device Oxygen Flow Rate Vent Mode Vent Rate Mechanical Rate PEEP Pressure Support Vent Sodium 139 Potassium 5.1 Chloride 102 Carbon Dioxide 29 Anion Gap 8 BUN 41 H Creatinine 1.5 H Creat Clearance w eGFR 33.08 POC Glucometer 111.05731 Random Glucose 106 D Calcium 8.2 L Phosphorus 5.3 H Magnesium 2.5 H Total Bilirubin 0.6 AST 10 L ALT 9 L D Alkaline Phosphatase 112 Total Protein 5.3 L Albumin 2.0 L Free T3 Cortisol AM Sample 08/07/16 08/07/16 07:25 11:47 WBC RBC Hgb Hct MCV MCHC RDW Plt Count MPV Neutrophils % Lymphocytes % Monocytes % Eosinophils % Basophils % Puncture Site Right radial ABG pH 7.33 L ABG pCO2 at Pt Temp 52.0 H ABG pO2 at Pt Temp 165.0 H* D ABG HCO3 26.6 H ABG O2 Sat (Measured) 99.4 H ABG O2 Content 13.1 L ABG Base Excess 0.8 [place]o Test Positive O2 Delivery Device Bipap Oxygen Flow Rate 60% Vent Mode S/t Vent Rate 24 Mechanical Rate Bipap PEEP 0.0 Pressure Support Vent 16/8 Sodium Potassium Chloride Carbon Dioxide Anion Gap BUN Creatinine Creat Clearance w eGFR POC Glucometer 209.09075 Random Glucose Calcium Phosphorus Magnesium Total Bilirubin AST ALT Alkaline Phosphatase Total Protein Albumin Free T3 Cortisol AM Sample Active Medications Generic Name Dose Route Start Last Admin Trade Name Grzegorzq PRN Reason Stop Dose Admin Albuterol/Ipratropium 1 amp 08/06/16 14:00 08/07/16 14:01 Duoneb - NEB 1 amp Q4H ANNA MARIE Administration Aspirin 81 mg 08/06/16 10:00 08/07/16 09:14 Asa - PO 81 mg DAILY ANNA MARIE Administration Atorvastatin Calcium 20 mg 08/05/16 22:00 08/06/16 21:08 Lipitor - PO 20 mg HS ANNA MARIE Administration Bacitracin 1 applic 08/06/16 19:15 08/07/16 09:15 Bacitracin - TP 1 applic DAILY ANNA MARIE Administration Carbidopa/Levodopa 1 each 08/05/16 22:00 08/07/16 15:00 Sinemet 25/100 - PO 1 each TID ANNA MARIE Administration Chlorhexidine Gluconate 1 applic 08/05/16 22:00 08/06/16 21:09 Hibiclens For Decolonization - TP 1 applic HS ANNA MARIE Administration Cholecalciferol 1,000 unit 08/06/16 10:00 08/07/16 09:15 Vitamin D3 - PO 1,000 unit DAILY ANNA MARIE Administration Enoxaparin Sodium 40 mg 08/06/16 10:00 08/07/16 09:14 Lovenox - SQ 40 mg DAILY ANNA MARIE Administration Gabapentin 100 mg 08/05/16 22:00 08/07/16 09:15 Neurontin - PO 100 mg BID ANNA MARIE Administration Piperacillin Sod/Tazobactam Sod 50 mls @ 100 mls/hr 08/06/16 18:00 08/07/16 10: 07 Zosyn 3.375gm Ivpb (Pre-Docked) IVPB 100 mls/hr Q8H-IV ANNA MARIE Administration Insulin Aspart 1 vial 08/05/16 22:00 08/07/16 12:16 Novolog Vial Sliding Scale - SQ Not Given ACHS ANNA MARIE Protocol Methylprednisolone Sodium Succinate 40 mg 08/07/16 22:00 Solu-Medrol - IVPB Q12H ANNA MARIE Mupirocin 1 applic 08/05/16 22:00 08/07/16 09:15 Bactroban Ointment (For Decolonization) - NS 08/10/16 21:59 1 applic BID ANNA MARIE Administration Non-Formulary Medication 2 tab 08/06/16 10:00 Pimavanserin Tartrate [Nuplazid] PO DAILY NANA MARIE Tramadol HCl 50 mg 08/06/16 10:00 08/07/16 09:13 Ultram - PO 50 mg DAILY ANNA MARIE Administration ASSESSMENT/PLAN: 85 year old female with a past medical history of HTN, CHF, CAD s/p 2 stents, DM , admitted for SOB Hypercapnic, hypoxic respiratory failure --08/07 CXR: left hemithorax still completely opacified --has been on and off BIPAP through the day; keep on BIPAP at night --slow improvement; 7.35/52/165/26/99% on 60% on BIPAP; ABG pending on venti mask 50% Hypothermia, resolved --TSH wnl --cortisol level pending Pneumonia --08/05 CXR: bibasilar infiltrates --cultures pending --continue Zosyn (day #2) --ID following Bilateral lower extremity cellulitis --continue Zosyn (day #2) Congestive heart failure, NOS --bilateral lower extremity edema; no diuretics due to low BP --echo ordered NIDDM --not on home meds --Novolog sliding scale coverage Hypertension --hold anti-hypertensives and diuretics Hyperkalemia --K improved 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 Full Code. Visit type - Emergency Visit Emergency Visit: Yes ED Registration Date: 08/05/16 Care time: The patient presented to the Emergency Department on the above date and was hospitalized for further evaluation of their emergent condition. - New Patient This patient is new to me today: No - Critical Care Critical Care patient: Yes Total Critical Care Time (in minutes): 40 Critical Care Statement: The care of this patient involved high complexity decision making to prevent further life threatening deterioration of the patient 's condition and/or to evalute & treat vital organ system(s) failure or risk of failure.
[2016-08-07 16:56] LABS: ARTERIAL BLD GAS O2 SATURATION 97.4 % (90-98.9); ARTERIAL BLOOD GAS BASE EXCESS 0.2 meq/l (-2-2); ARTERIAL BLOOD GAS HCO3 26.9 meq/L (22-26); ARTERIAL BLOOD GAS PO2 98.3 mmHg (68-100)
[2016-08-07 16:58] LABS: ALLENS TEST POSITIVE; ARTERIAL BLOOD GAS pH 7.29 (7.35-7.45)
[2016-08-07 16:59] LABS: ART PUNCT SITE LEFT RADIAL; LPM/O2% 50%; PT. ON O2? YES; TYPE OF O2 VENTI
--- NOTE | 2016-08-07 17:01 | PN ---
Progress Note, Physician History of Present Illness: continues to be confused on vent mask - Current Medication List Current Medications: Active Medications Albuterol/Ipratropium (Duoneb -) 1 amp NEB Q4H [facility] Last Admin: 08/07/16 14:01 Dose: 1 amp Aspirin (Asa -) 81 mg PO DAILY [facility] Last Admin: 08/07/16 09:14 Dose: 81 mg Atorvastatin Calcium (Lipitor -) 20 mg PO HS [facility] Last Admin: 08/06/16 21:08 Dose: 20 mg Bacitracin (Bacitracin -) 1 applic TP DAILY [facility] Last Admin: 08/07/16 09:15 Dose: 1 applic Carbidopa/Levodopa (Sinemet 25/100 -) 1 each PO TID [facility] Last Admin: 08/07/16 15:00 Dose: 1 each Chlorhexidine Gluconate (Hibiclens For Decolonization -) 1 applic TP HS [facility] Last Admin: 08/06/16 21:09 Dose: 1 applic Cholecalciferol (Vitamin D3 -) 1,000 unit PO DAILY [facility] Last Admin: 08/07/16 09:15 Dose: 1,000 unit Enoxaparin Sodium (Lovenox -) 40 mg SQ DAILY [facility] Last Admin: 08/07/16 09:14 Dose: 40 mg Gabapentin (Neurontin -) 100 mg PO BID [facility] Last Admin: 08/07/16 09:15 Dose: 100 mg Piperacillin Sod/Tazobactam Sod (Zosyn 3.375gm Ivpb (Pre-Docked)) 50 mls @ 100 mls/hr IVPB Q8H-IV [facility] Last Admin: 08/07/16 10:07 Dose: 100 mls/hr Insulin Aspart (Novolog Vial Sliding Scale -) 1 vial SQ ACHS [facility] PRN Reason: Protocol Last Admin: 08/07/16 12:16 Dose: Not Given Methylprednisolone Sodium Succinate (Solu-Medrol -) 40 mg IVPB Q12H [facility] Mupirocin (Bactroban Ointment (For Decolonization) -) 1 applic NS BID [facility] Stop: 08/10/16 21:59 Last Admin: 08/07/16 09:15 Dose: 1 applic Non-Formulary Medication (Pimavanserin Tartrate [Nuplazid]) 2 tab PO DAILY [facility] Tramadol HCl (Ultram -) 50 mg PO DAILY [facility] Last Admin: 08/07/16 09:13 Dose: 50 mg - Objective Vital Signs: Vital Signs Temperature 98.2 F 08/07/16 16:00 Pulse Rate 96 H 08/07/16 16:00 Respiratory Rate 16 08/07/16 16:00 Blood Pressure 100/49 08/07/16 16:00 O2 Sat by Pulse Oximetry (%) 99 08/07/16 16:55 Constitutional: Yes: No Distress, Calm Neck: Yes: Supple Cardiovascular: Yes: Regular Rate and Rhythm Respiratory: Yes: Regular, Poor Air Entry Gastrointestinal: Yes: Normal Bowel Sounds, Soft Musculoskeletal: Yes: Other Extremities: Yes: Other Integumentary: Yes: Erythema, Other Neurological: Yes: Alert, Confusion Labs: CBC, BMP 08/07/16 05:15 08/07/16 05:15 INR, PTT INR 1.13 (0.82-1.09) 08/05/16 11:40 Assessment/Plan Problem List - Problems (1) CAD (coronary artery disease) Code(s): I25.10 - ATHSCL HEART DISEASE OF [place] CORONARY ARTERY W/O ANG PCTRS (2) CHF (congestive heart failure) Code(s): I50.9 - HEART FAILURE, UNSPECIFIED Qualifiers: Congestive heart failure type: unspecified congestive heart failure type Congestive heart failure chronicity: unspecified congestive heart failure chronicity Qualified Code(s): I50.9 - Heart failure, unspecified (3) Diabetes mellitus type 2 in obese Code(s): E11.9 - TYPE 2 DIABETES MELLITUS WITHOUT COMPLICATIONS E66.9 - OBESITY, UNSPECIFIED (4) HTN (hypertension) Code(s): I10 - ESSENTIAL (PRIMARY) HYPERTENSION Qualifiers: Hypertension type: essential hypertension Qualified Code(s): I10 - Essential (primary) hypertension (5) Hypotension Code(s): I95.9 - HYPOTENSION, UNSPECIFIED Qualifiers: Hypotension type: idiopathic hypotension Qualified Code(s): I95.0 - Idiopathic hypotension (6) Hypothermia Code(s): T68.XXXA - HYPOTHERMIA, INITIAL ENCOUNTER Qualifiers: Encounter type: initial encounter Qualified Code(s): T68.XXXA - Hypothermia, initial encounter (7) Parkinson's disease dementia Code(s): G20 - PARKINSON'S DISEASE F02.80 - DEMENTIA IN OTH DISEASES CLASSD ELSWHR W/O BEHAVRL DISTURB (8) SIRS (systemic inflammatory response syndrome) Code(s): R65.10 - SIRS OF NON-INFECTIOUS ORIGIN W/O ACUTE ORGAN DYSFUNCTION collapse of the left lung bilateral cellulitis of the leg plan xray seen--no improvement after pt patient needs bronch continue zosyn legs slightly better cc time 40 min
[2016-08-07] MEDS: ATORVASTATIN CA 20 MG TABLET (FP) PO SCH (22:27)
[2016-08-07] MEDS: CHLORHEXIDINE GLUCONATE 4% CLEANSER FOR DECOLONIZATION TP SCH (22:29)
[2016-08-08] MEDS: PIPERACILLIN/TAZOB 3.375 GM 50 ML IVPB SCH ×3 (01:52→17:40)
[2016-08-08] MEDS: ALBUTEROL SO4 2.5/IPRATROPIUM 0.5 INH SOL 3 ML VIAL.NEB. NEB SCH ×3 (02:07→10:10)
[2016-08-08] MEDS: INSULIN SLIDING SCALE (NOVOLOG) 1 VIAL SQ SCH ×4 (06:37→21:16)
[2016-08-08] MEDS: CARBIDOPA/LEVODOPA 25/100 TABLET (FP) PO SCH ×3 (06:37→21:16)
[2016-08-08 07:29] LABS: ALLENS TEST POSITIVE; ART PUNCT SITE RIGHT RADIAL; ARTERIAL BLD GAS O2 SATURATION 99.4 % (90-98.9); ARTERIAL BLOOD GAS BASE EXCESS 1.6 meq/l (-2-2); ARTERIAL BLOOD GAS HCO3 28.6 meq/L (22-26); LPM/O2% 60; PT. ON O2? YES; TYPE OF O2 BIPAP
[2016-08-08 07:30] LABS: ARTERIAL BLOOD GAS pH 7.29 (7.35-7.45); VENT RATE 24; VT/PRESS EPAP 8
[2016-08-08] MEDS ORDERED: PT OWN MED DRAWER 7, Y5N ONE ×2 (08:53→09:38)
[2016-08-08] MEDS: BACITRACIN 30 GM TUBE TOPICAL OINTMENT TP SCH (09:43)
[2016-08-08] MEDS: ENOXAPARIN NA (PORCINE) 40 MG/0.4 ML DISP.SYRIN SQ SCH (09:43)
[2016-08-08] MEDS: methylPREDNISolone NA SUCC 40 MG/1 ML VIAL IVPB SCH (09:43)
[2016-08-08] MEDS: GABAPENTIN 100 MG CAPSULE (FP) PO SCH ×2 (09:43→21:16)
[2016-08-08] MEDS: ASPIRIN 81 MG CHEWABLE TABLETS PO SCH (09:43)
[2016-08-08] MEDS: MUPIROCIN 2% TOPICAL OINTMENT FOR DECOLONIZATION NS SCH ×2 (09:44→21:17)
[2016-08-08] MEDS: traMADol HCL 50 MG TABLET PO SCH (09:45)
[2016-08-08] MEDS: CHOLECALCIFEROL (VITAMIN D3) 1,000 UNIT TABLET (FP) PO SCH (09:46)
[2016-08-08] MEDS ORDERED: ETOMIDATE 20 MG/10 ML AMPUL IVPUSH ONE ×2 (10:46→12:44)
--- NOTE | 2016-08-08 11:00 | PN ---
Progress Note (short form) - Note Progress Note: PULMONARY/CCM Pt seen and examined in the ICU. Remains on BiPAP, confused, not answering questions. No fevers recorded. Last Vital Signs Temp Pulse Resp BP Pulse Ox 98.8 F 74 16 88/54 98 08/08/16 03:00 08/08/16 09:30 08/08/16 08:21 08/08/16 08:00 08/08/16 09:30 Intake & Output 08/05/16 08/06/16 08/07/16 08/08/16 23:59 23:59 23:59 23:59 Intake Total 2470 2540 Output Total 300 975 900 Balance -300 1495 1640 Weight 175 lb 197 lb 198 lb 198 lb Gen: confused, tachypneic on BiPAP Heart: RRR Lung: scattered rhonchi, decreased breath sounds on left Abd: soft, nontender Ext: trace edema CBC, BMP 08/07/16 05:15 08/07/16 05:15 ABG Results ABG pH 7.29 (7.35-7.45) L 08/08/16 07:10 ABG pCO2 at Pt Temp 62.1 mmHg (35-45) H* 08/08/16 07:10 ABG pO2 at Pt Temp 165.0 mmHg (68-100) H* D 08/08/16 07:10 ABG HCO3 28.6 meq/L (22-26) H 08/08/16 07:10 ABG O2 Sat (Measured) 99.4 % (90-98.9) H 08/08/16 07:10 ABG O2 Content 13.2 % vol (15-22) L 08/08/16 07:10 ABG Base Excess 1.6 meq/l (-2-2) 08/08/16 07:10 Active Medications Albuterol/Ipratropium (Duoneb -) 1 amp NEB Q4H [facility] Last Admin: 08/08/16 05:53 Dose: Not Given Aspirin (Asa -) 81 mg PO DAILY [facility] Last Admin: 08/08/16 09:43 Dose: 81 mg Atorvastatin Calcium (Lipitor -) 20 mg PO HS [facility] Last Admin: 08/07/16 22:27 Dose: 20 mg Bacitracin (Bacitracin -) 1 applic TP DAILY [facility] Last Admin: 08/08/16 09:43 Dose: 1 applic Carbidopa/Levodopa (Sinemet 25/100 -) 1 each PO TID [facility] Last Admin: 08/08/16 06:37 Dose: Not Given Chlorhexidine Gluconate (Hibiclens For Decolonization -) 1 applic TP HS [facility] Last Admin: 08/07/16 22:29 Dose: 1 applic Cholecalciferol (Vitamin D3 -) 1,000 unit PO DAILY [facility] Last Admin: 08/08/16 09:46 Dose: 1,000 unit Enoxaparin Sodium (Lovenox -) 40 mg SQ DAILY [facility] Last Admin: 08/08/16 09:43 Dose: 40 mg Gabapentin (Neurontin -) 100 mg PO BID [facility] Last Admin: 08/08/16 09:43 Dose: 100 mg Piperacillin Sod/Tazobactam Sod (Zosyn 3.375gm Ivpb (Pre-Docked)) 50 mls @ 100 mls/hr IVPB Q8H-IV [facility] Last Admin: 08/08/16 10:19 Dose: 100 mls/hr Insulin Aspart (Novolog Vial Sliding Scale -) 1 vial SQ ACHS [facility] PRN Reason: Protocol Last Admin: 08/08/16 06:37 Dose: Not Given Methylprednisolone Sodium Succinate (Solu-Medrol -) 40 mg IVPB Q12H [facility] Last Admin: 08/08/16 09:43 Dose: 40 mg Mupirocin (Bactroban Ointment (For Decolonization) -) 1 applic NS BID [facility] Stop: 08/10/16 21:59 Last Admin: 08/08/16 09:44 Dose: 1 applic Non-Formulary Medication (Pimavanserin Tartrate [Nuplazid]) 2 tab PO DAILY [facility] Tramadol HCl (Ultram -) 50 mg PO DAILY [facility] Last Admin: 08/08/16 09:45 Dose: 50 mg A/P Acute Hypercapneic and Hypoxic Respiratory Failure Pneumonia Atelectasis CAD HTN DM Parkinsons Disease - continue antibiotics - f/u cultures - empiric medrol - inhaled bronchodilators - discussed with HCP Dr. Lc Bonilla , updated him on mother's condition, respiratory failure and altered mental status with likely mucous plugging on left. Agreed on trial of intubation, aggressive pulmonary toilet and chest PT, if no improvement in atelectasis then inspection bronchoscopy tomorrow - pt at baseline is cognitively intact, lives in assisted living but independent in feeding and dressing, walks in room but otherwise wheelchair bound - pt had prolonged respiratory failure course about 5 years ago requiring tracheostomy, conditions of prolonged mechanical ventilation unclear - start mucolytics, send sputum culture once intubated - DVT/GI prophylaxis - ICU monitoring
[2016-08-08] MEDS ORDERED: MIDAZOLAM HCL 5 MG/1 ML Single Dose Vial ONE ×2 (11:14→11:29)
[2016-08-08] MEDS ORDERED: PROPOFOL 100 ML ONE (11:29)
--- NOTE | 2016-08-08 12:14 | PN ---
Progress Note, Physician History of Present Illness: seen and examined today. sob. more lethargic. confused. not answering questions appropriately. - Current Medication List Current Medications: Active Medications Albuterol/Ipratropium (Duoneb -) 1 amp NEB Q4H [facility] Last Admin: 08/08/16 05:53 Dose: Not Given Aspirin (Asa -) 81 mg PO DAILY [facility] Last Admin: 08/08/16 09:43 Dose: 81 mg Atorvastatin Calcium (Lipitor -) 20 mg PO HS [facility] Last Admin: 08/07/16 22:27 Dose: 20 mg Bacitracin (Bacitracin -) 1 applic TP DAILY [facility] Last Admin: 08/08/16 09:43 Dose: 1 applic Carbidopa/Levodopa (Sinemet 25/100 -) 1 each PO TID [facility] Last Admin: 08/08/16 06:37 Dose: Not Given Chlorhexidine Gluconate (Hibiclens For Decolonization -) 1 applic TP HS [facility] Last Admin: 08/07/16 22:29 Dose: 1 applic Cholecalciferol (Vitamin D3 -) 1,000 unit PO DAILY [facility] Last Admin: 08/08/16 09:46 Dose: 1,000 unit Enoxaparin Sodium (Lovenox -) 40 mg SQ DAILY [facility] Last Admin: 08/08/16 09:43 Dose: 40 mg Gabapentin (Neurontin -) 100 mg PO BID [facility] Last Admin: 08/08/16 09:43 Dose: 100 mg Piperacillin Sod/Tazobactam Sod (Zosyn 3.375gm Ivpb (Pre-Docked)) 50 mls @ 100 mls/hr IVPB Q8H-IV [facility] Last Admin: 08/08/16 10:19 Dose: 100 mls/hr Insulin Aspart (Novolog Vial Sliding Scale -) 1 vial SQ ACHS [facility] PRN Reason: Protocol Last Admin: 08/08/16 06:37 Dose: Not Given Methylprednisolone Sodium Succinate (Solu-Medrol -) 40 mg IVPB Q12H [facility] Last Admin: 08/08/16 09:43 Dose: 40 mg Mupirocin (Bactroban Ointment (For Decolonization) -) 1 applic NS BID [facility] Stop: 08/10/16 21:59 Last Admin: 08/08/16 09:44 Dose: 1 applic Non-Formulary Medication (Pimavanserin Tartrate [Nuplazid]) 2 tab PO DAILY [facility] Tramadol HCl (Ultram -) 50 mg PO DAILY [facility] Last Admin: 08/08/16 09:45 Dose: 50 mg - Objective Vital Signs: Vital Signs Temperature 98.8 F 08/08/16 03:00 Pulse Rate 74 08/08/16 09:30 Respiratory Rate 16 08/08/16 08:21 Blood Pressure 88/54 08/08/16 08:00 O2 Sat by Pulse Oximetry (%) 98 08/08/16 09:30 Constitutional: Yes: Well Nourished, Mild Distress Eyes: Yes: Conjunctiva Clear, EOM Intact HENT: Yes: Atraumatic, Normocephalic Neck: Yes: Supple, Trachea Midline Cardiovascular: Yes: Regular Rate and Rhythm, S1, S2. No: Bradycardia, Tachycardia, Pulse Irregular, Bruit, JVD, Gallop, Murmur, Rub, S3, S4, Varicosities Respiratory: Yes: Regular, Diminished, On BiPap, SOB, Tachypnea. No: Rales, Rhonchi, Wheezes Gastrointestinal: Yes: WNL, Normal Bowel Sounds, Soft. No: Distention, Tenderness Extremities: Yes: Erythema Edema: No Peripheral Pulses WNL: Yes Peripheral Pulses: Left Doralis Pedis: 2+, Right Dorsalis Pedis: 2+ Integumentary: Yes: Pressure Ulcer Neurological: Yes: Confusion. No: Alert, Oriented Psychiatric: No: Alert, Oriented Labs: CBC, BMP 08/07/16 05:15 08/07/16 05:15 INR, PTT INR 1.13 (0.82-1.09) 08/05/16 11:40 - ....Imaging Chest X-ray: Report Reviewed, Image Reviewed EKG: Report Reviewed, Image Reviewed Other: Report Reviewed, Image Reviewed (tele-nsr, apcs, sinus tach, brief episode psvt) Problem List - Problems (1) CAD (coronary artery disease) Code(s): I25.10 - ATHSCL HEART DISEASE OF [place] CORONARY ARTERY W/O ANG PCTRS (2) CHF (congestive heart failure) Code(s): I50.9 - HEART FAILURE, UNSPECIFIED Qualifiers: Congestive heart failure type: unspecified congestive heart failure type Congestive heart failure chronicity: unspecified congestive heart failure chronicity Qualified Code(s): I50.9 - Heart failure, unspecified (3) Diabetes mellitus type 2 in obese Code(s): E11.9 - TYPE 2 DIABETES MELLITUS WITHOUT COMPLICATIONS E66.9 - OBESITY, UNSPECIFIED (4) HTN (hypertension) Code(s): I10 - ESSENTIAL (PRIMARY) HYPERTENSION Qualifiers: Hypertension type: essential hypertension Qualified Code(s): I10 - Essential (primary) hypertension (5) Hypotension Code(s): I95.9 - HYPOTENSION, UNSPECIFIED Qualifiers: Hypotension type: idiopathic hypotension Qualified Code(s): I95.0 - Idiopathic hypotension (6) Hypothermia Code(s): T68.XXXA - HYPOTHERMIA, INITIAL ENCOUNTER Qualifiers: Encounter type: initial encounter Qualified Code(s): T68.XXXA - Hypothermia, initial encounter (7) Parkinson's disease dementia Code(s): G20 - PARKINSON'S DISEASE F02.80 - DEMENTIA IN OTH DISEASES CLASSD ELSWHR W/O BEHAVRL DISTURB (8) SIRS (systemic inflammatory response syndrome) Code(s): R65.10 - SIRS OF NON-INFECTIOUS ORIGIN W/O ACUTE ORGAN DYSFUNCTION Assessment/Plan 85 year old woman with a history of HTN, DM II, HLD, CAD with prior stents, CHF (unknown details) admitted with sob, hypoxic/hypercapneic resp failure. Pt. seen and examined today, minimally responsive. does not follow commands or answer questions. noted to be hypercapneic and hypoxic on abg. SOB-hypercapneic/hypoxic respiratory failure, possible PNA vs acute on chronic CHF (unknown type) -mucous plugging with opacification of L hemithorax and R pleural effusion -clinically worse today -plan is for intubation -given 1 dose IV Lasix in ER, holding additional lasix for now, to be dosed prn -cont empiric Abx -TSH level wnl -cardiac enzymes wnl CAD-with reported prior stents -cont asa and lipitor -cardiac enzymes wnl HTN-episodes of hypotension -hold anti-HTN meds
--- NOTE | 2016-08-08 12:32 | PN ---
Progress Note (short form) - Note Progress Note: called to intubate this patient.DR rodriguez has a difficult intubation.Evevwith glide scope he could not pass the ETT.Patient has h/o trachiostomy.Gave propofol 50mg iv.Did DL with glide scope and was able to pass #6 ETT.P65.BP 84/45 and Spo2 100 on o2 100%.Advise ABG and CXR.
--- NOTE | 2016-08-08 12:33 | PN ---
Progress Note (short form) - Note Progress Note: [facility] Pt with difficult intubation, unable to advance ETT distal to vocal cords. Anesthesia called, intubated with 6.0 ETT with resistance. 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 Andrew Benavidez MD
[2016-08-08] MEDS ORDERED: ALBUTEROL SO4 2.5/IPRATROPIUM 0.5 INH SOL 3 ML VIAL.NEB. NEB PRN (12:42)
[2016-08-08] MEDS ORDERED: MIDAZOLAM HCL 5 MG/1 ML Single Dose Vial IVPUSH ONE (12:44)
[2016-08-08] MEDS ORDERED: PROPOFOL 200 MG/20 ML VIAL IVPUSH ONE ×2 (12:45)
[2016-08-08] MEDS: MIDAZOLAM 100 MG in SODIUM CHLORIDE 100 ML IVPB SCH (12:50)
--- NOTE | 2016-08-08 12:58 | PN ---
Progress Note (short form) - Note Progress Note: Renal follow up for hyperkalemia and CKD Pt seen and examined in the ICU intubated this am for worsening MS and hypoxia Vital Signs Temperature 98.8 F 08/08/16 03:00 Pulse Rate 63 08/08/16 12:37 Respiratory Rate 12 08/08/16 12:37 Blood Pressure 88/54 08/08/16 08:00 O2 Sat by Pulse Oximetry (%) 99 08/08/16 12:37 Intake & Output 08/05/16 08/06/16 08/07/16 08/08/16 23:59 23:59 23:59 23:59 Intake Total 2470 2540 Output Total 300 975 900 Balance -300 1495 1640 Weight 175 lb 197 lb 198 lb 198 lb Gen: intubated and sedated HEENT: NC/AT, MMM, No JVD CVS: RRR, No M/R Lungs: No BS left lung, dec BS right lung Abd: soft NT/ND Ext: B/L LE in dressing, trace to 1+ edema, no sacral edema 08/07/16 05:15 08/07/16 05:15 Current Medications Acetylcysteine (Mucomyst 20 Oral / Inh Use Only*) 200 mg NEB QIDR ANNA MARIE Albuterol Sulfate (Ventolin 0.083% Nebulizer Soln -) 1 amp NEB QIDR ANNA MARIE Albuterol/Ipratropium (Duoneb -) 1 amp NEB Q4H PRN Aspirin (Asa -) 81 mg PO DAILY [facility] Last Admin: 08/08/16 09:43 Dose: 81 mg Atorvastatin Calcium (Lipitor -) 20 mg PO [facility] Last Admin: 08/07/16 22:27 Dose: 20 mg Bacitracin (Bacitracin -) 1 applic TP DAILY [facility] Last Admin: 08/08/16 09:43 Dose: 1 applic Carbidopa/Levodopa (Sinemet 25/100 -) 1 each PO TID [facility] Last Admin: 08/08/16 06:37 Dose: Not Given Chlorhexidine Gluconate (Hibiclens For Decolonization -) 1 applic TP HS [facility] Last Admin: 08/07/16 22:29 Dose: 1 applic Cholecalciferol (Vitamin D3 -) 1,000 unit PO DAILY [facility] Last Admin: 08/08/16 09:46 Dose: 1,000 unit Enoxaparin Sodium (Lovenox -) 40 mg SQ DAILY [facility] Last Admin: 08/08/16 09:43 Dose: 40 mg Etomidate (Amidate -) 20 mg IVPUSH ONCE ONE Stop: 08/08/16 12:45 Gabapentin (Neurontin -) 100 mg PO BID [facility] Last Admin: 08/08/16 09:43 Dose: 100 mg Piperacillin Sod/Tazobactam Sod (Zosyn 3.375gm Ivpb (Pre-Docked)) 50 mls @ 100 mls/hr IVPB Q8H-IV [facility] Last Admin: 08/08/16 10:19 Dose: 100 mls/hr Midazolam HCl 100 mg/ Sodium (Chloride) 100 mls @ 1 mls/hr IVPB TITR ANNA MARIE; 1 MG/ HR PRN Reason: Protocol Insulin Aspart (Novolog Vial Sliding Scale -) 1 vial SQ ACHS [facility] PRN Reason: Protocol Last Admin: 08/08/16 06:37 Dose: Not Given Methylprednisolone Sodium Succinate (Solu-Medrol -) 60 mg IVPB Q6H-IV [facility] Midazolam HCl (Versed -) 5 mg IVPUSH ONCE ONE Stop: 08/08/16 12:45 Mupirocin (Bactroban Ointment (For Decolonization) -) 1 applic NS BID [facility] Stop: 08/10/16 21:59 Last Admin: 08/08/16 09:44 Dose: 1 applic Non-Formulary Medication (Pimavanserin Tartrate [Nuplazid]) 2 tab PO DAILY [facility] Propofol (Diprivan -) 134,717 mcg IVPUSH ONCE ONE Stop: 08/08/16 12:46 Tramadol HCl (Ultram -) 50 mg PO DAILY [facility] Last Admin: 08/08/16 09:45 Dose: 50 mg A/P 85 year old woman with PMhx of CKD, CHF, CAD, DM, Hypertension who presented with sob and found to have SIRS and possible PNA and opacification of left lung with hyperkalemia of 6.6 and Cr of 1.5. #CKD with Hyperkalemia Todays labs pending K improved as of yesterday good urine output IVF as needed for hypotension #SIRS/PNA/Mucus Plug s/p intubuation Continue Empiric Abx F/U cultures Chest PT ICU monitoring #Hyperphosphatemia Low Phos diet Trend Phos Thank you Edison Carter DO
--- NOTE | 2016-08-08 13:05 | PN ---
Physical Exam: SUBJECTIVE: Patient seen and examined at bedside. OBJECTIVE: Vital Signs Period Temp Pulse Resp BP Sys/Galvin Pulse Ox Last 24 Hr 98 F-98.8 F 63-97 12-35 84-139/41-89 93-100 NEURO: Intubated, sedated. LUNGS: Coarse mechanical breath sounds. HEART: Regular rate and rhythm, S1, S2 without murmur, rub or gallop. ABDOMEN: Soft, nontender, nondistended. EXTREMITIES: 2+ edema bilaterally, erythematous, warm. Laboratory Results - last 24 hr 08/07/16 08/07/16 08/07/16 11:47 16:45 17:55 Puncture Site Left radial ABG pH 7.29 L ABG pCO2 at Pt Temp 58.4 H ABG pO2 at Pt Temp 98.3 D ABG HCO3 26.9 H ABG O2 Sat (Measured) 97.4 ABG O2 Content 12.8 L ABG Base Excess 0.2 Chicho Test Positive O2 Delivery Device Venti Oxygen Flow Rate 50% Vent Mode Vent Rate PEEP 0.0 Pressure Support Vent POC Glucometer [phone] 08/07/16 08/08/16 22:34 07:10 Puncture Site Right radial ABG pH 7.29 L ABG pCO2 at Pt Temp 62.1 H* ABG pO2 at Pt Temp 165.0 H* D ABG HCO3 28.6 H ABG O2 Sat (Measured) 99.4 H ABG O2 Content 13.2 L ABG Base Excess 1.6 Chicho Test Positive O2 Delivery Device Bipap Oxygen Flow Rate 60 Vent Mode Ipap 16 Vent Rate 24 PEEP Pressure Support Vent Epap 8 POC Glucometer [phone] Active Medications Generic Name Dose Route Start Last Admin Trade Name Freq PRN Reason Stop Dose Admin Acetylcysteine 200 mg 08/08/16 14:00 Mucomyst 20 Oral / Inh Use Only* NEB QIDR ANNA MARIE Albuterol Sulfate 1 amp 08/08/16 14:00 Ventolin 0.083% Nebulizer Soln - NEB QIDR ANNA MARIE Albuterol/Ipratropium 1 amp 08/08/16 12:42 Duoneb - NEB Q4H PRN Aspirin 81 mg 08/06/16 10:00 08/08/16 09:43 Asa - PO 81 mg DAILY ANNA MARIE Administration Atorvastatin Calcium 20 mg 08/05/16 22:00 08/07/16 22:27 Lipitor - PO 20 mg HS ANNA MARIE Administration Bacitracin 1 applic 08/06/16 19:15 08/08/16 09:43 Bacitracin - TP 1 applic DAILY ANNA MARIE Administration Carbidopa/Levodopa 1 each 08/05/16 22:00 08/08/16 06:37 Sinemet 25/100 - PO Not Given TID [facility] Chlorhexidine Gluconate 1 applic 08/05/16 22:00 08/07/16 22:29 Hibiclens For Decolonization - TP 1 applic HS ANNA MARIE Administration Cholecalciferol 1,000 unit 08/06/16 10:00 08/08/16 09:46 Vitamin D3 - PO 1,000 unit DAILY ANNA MARIE Administration Enoxaparin Sodium 40 mg 08/06/16 10:00 08/08/16 09:43 Lovenox - SQ 40 mg DAILY ANNA MARIE Administration Etomidate 20 mg 08/08/16 12:44 Amidate - IVPUSH 08/08/16 12:45 ONCE ONE Gabapentin 100 mg 08/05/16 22:00 08/08/16 09:43 Neurontin - PO 100 mg BID ANNA MARIE Administration Piperacillin Sod/Tazobactam Sod 50 mls @ 100 mls/hr 08/06/16 18:00 08/08/16 10: 19 Zosyn 3.375gm Ivpb (Pre-Docked) IVPB 100 mls/hr Q8H-IV ANNA MARIE Administration Midazolam HCl 100 mg/ Sodium 100 mls @ 1 mls/hr 08/08/16 12:45 Chloride IVPB TITR [facility] Protocol 1 MG/HR Insulin Aspart 1 vial 08/05/16 22:00 08/08/16 06:37 Novolog Vial Sliding Scale - SQ Not Given ACHS [facility] Protocol Methylprednisolone Sodium Succinate 60 mg 08/08/16 15:00 Solu-Medrol - IVPB Q6H-IV [facility] Mupirocin 1 applic 08/05/16 22:00 08/08/16 09:44 Bactroban Ointment (For Decolonization) - NS 08/10/16 21:59 1 applic BID ANNA MARIE Administration Non-Formulary Medication 2 tab 08/06/16 10:00 Pimavanserin Tartrate [Nuplazid] PO DAILY [facility] Propofol 134,717 mcg 08/08/16 12:45 Diprivan - IVPUSH 08/08/16 12:46 ONCE ONE Tramadol HCl 50 mg 08/06/16 10:00 08/08/16 09:45 Ultram - PO 50 mg DAILY ANNA MARIE Administration ASSESSMENT/PLAN: 85 year old female with a past medical history of HTN, CHF, CAD s/p 2 stents, DM , admitted for SOB. 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 Hypothermia, resolved --TSH wnl Bilateral pneumonia --continue Zosyn (day #3) --ID following Bilateral lower extremity cellulitis --continue Zosyn (day #3) Congestive heart failure, NOS --echo ordered; not done due to holiday weekend, tomorrow NIDDM --Novolog sliding scale coverage Hypertension --hold anti-hypertensives and diuretics Hyperkalemia, resolved Parkinson's Disease with hallucinations --per son, diagnosed 6 weeks ago; Parkinson's marked by severe hallucinations , takes Nuplazid which is non-formulary; family will bring in med for pharmacy screening F/E/N Fluids: IV fluids PRN for hypotension Electrolytes: replete as indicated Nutrition: dysphagia puree DVT prophylaxis: lovenox Dispo: Poor prognosis. Continues to require ICU care. Full Code. Visit type - Emergency Visit Emergency Visit: Yes ED Registration Date: 08/05/16 Care time: The patient presented to the Emergency Department on the above date and was hospitalized for further evaluation of their emergent condition. - New Patient This patient is new to me today: No - Critical Care Critical Care patient: Yes Total Critical Care Time (in minutes): 45 Critical Care Statement: The care of this patient involved high complexity decision making to prevent further life threatening deterioration of the patient 's condition and/or to evalute & treat vital organ system(s) failure or risk of failure.
[2016-08-08] MEDS: ACETYLCYSTEINE 20% 200MG/ML 4 ML VIAL *FOR ORAL / INH USE ONLY NEB SCH ×2 (13:45→17:00)
[2016-08-08] MEDS: ALBUTEROL SO4 0.083% IH SOL 2.5 MG/3 ML VIAL.NEB. NEB SCH ×2 (13:45→17:00)
[2016-08-08 13:57] LABS: ARTERIAL BLD GAS O2 SATURATION 96.8 % (90-98.9); ARTERIAL BLOOD GAS BASE EXCESS 1.3 meq/l (-2-2); ARTERIAL BLOOD GAS HCO3 27.8 meq/L (22-26); ARTERIAL BLOOD GAS PO2 86.4 mmHg (68-100)
[2016-08-08 13:58] LABS: ALLENS TEST POSITIVE; ART PUNCT SITE LEFT RADIAL; LPM/O2% 50; MECH. VENT. YES; PT. ON O2? YES; TYPE OF O2 VENT; VENT RATE 12; VT/PRESS 400
[2016-08-08] MEDS: methylPREDNISolone NA SUCC 125 MG/2 ML VIAL IVPB SCH ×2 (15:01→20:39)
[2016-08-08 17:27] LABS: BASOPHIL 0.1 % (0-2.0); EOSINOPHIL 0.1 % (0-4.5); MCH 27.3 pg (25.7-33.7); MCHC 30.2 g/dl (32.0-36.0); MEAN CELL VOLUME 90.3 fl (80-96); NEUTROPHILS 88.7 % (42.8-82.8); RDW 16.4 % (11.6-15.6); WHITE BLOOD COUNT 8.3 K/mm3 (4.0-10.0)
[2016-08-08 17:36] LABS: ALBUMIN 1.9 g/dl (3.4-5.0); ANION GAP 6 (8-16); BILIRUBIN,TOTAL 0.7 mg/dL (0.2-1.0); CALCIUM 7.8 mg/dL (8.5-10.1); CO2 28 mmol/L (21-32); CREATININE 1.5 mg/dL (0.55-1.02); GLUCOSE,RANDOM 155 mg/dL (74-106); MAGNESIUM 2.6 mg/dL (1.8-2.4); PHOSPHOROUS 4.2 mg/dL (2.5-4.9); SGOT/AST 12 U/L (15-37); SGPT/ALT < 6 U/L (12-78); TOT PROT 4.8 g/dl (6.4-8.2)
[2016-08-08 17:39] LABS: ALK PHOS 83 U/L (45-117); FERRITIN 180.948 ng/ml (6.9-282.5)
[2016-08-08 17:48] LABS: PLATELET COMMENT2 NO CLOTTING DETECTED; PLATELET COMMENT3 UNABLE TO ENUMERATE; PLATELET ESTIMATE ADEQUATE (NORMAL)
[2016-08-08] MEDS: PIMAVANSERIN TARTRATE PO SCH ×2 (17:59→18:00)
[2016-08-08] MEDS ORDERED: ACETYLCYSTEINE 20% 200MG/ML 4 ML VIAL *FOR ORAL / INH USE ONLY NEB SCH (18:00)
[2016-08-08] MEDS: ATORVASTATIN CA 20 MG TABLET (FP) PO SCH (21:16)
[2016-08-08] MEDS: CHLORHEXIDINE GLUCONATE 4% CLEANSER FOR DECOLONIZATION TP SCH (21:17)
[2016-08-09] MEDS: ACETYLCYSTEINE 20% 200MG/ML 4 ML VIAL *FOR ORAL / INH USE ONLY NEB SCH ×5 (00:05→23:21)
[2016-08-09] MEDS: ALBUTEROL SO4 0.083% IH SOL 2.5 MG/3 ML VIAL.NEB. NEB SCH ×5 (00:05→23:21)
[2016-08-09] MEDS: PIPERACILLIN/TAZOB 3.375 GM 50 ML IVPB SCH ×3 (02:26→17:06)
[2016-08-09] MEDS: MIDAZOLAM 100 MG in SODIUM CHLORIDE 100 ML IVPB SCH ×2 (02:27→12:45)
[2016-08-09] MEDS: methylPREDNISolone NA SUCC 125 MG/2 ML VIAL IVPB SCH ×4 (03:18→21:40)
[2016-08-09] MEDS: CARBIDOPA/LEVODOPA 25/100 TABLET (FP) PO SCH ×3 (05:51→21:43)
[2016-08-09] MEDS: INSULIN SLIDING SCALE (NOVOLOG) 1 VIAL SQ SCH ×4 (06:26→21:43)
[2016-08-09 07:26] LABS: ALLENS TEST POSITIVE; ART PUNCT SITE LEFT RADIAL; ARTERIAL BLOOD GAS BASE EXCESS 1.1 meq/l (-2-2); ARTERIAL BLOOD GAS HCO3 27.2 meq/L (22-26); ARTERIAL BLOOD GAS PO2 70.1 mmHg (68-100); ARTERIAL BLOOD GAS pH 7.32 (7.35-7.45)
[2016-08-09 07:27] LABS: LPM/O2% 50%; MECH. VENT. YES; PT. ON O2? YES; TYPE OF O2 MECHANICAL VENT; VENT RATE 12; VT/PRESS 400ML
[2016-08-09 08:20] LABS: MCH 28.2 pg (25.7-33.7); MCHC 31.4 g/dl (32.0-36.0); MEAN CELL VOLUME 89.8 fl (80-96); MEAN PLT VOLUME 8.4 fl (7.5-11.1); PLATELET COUNT 229 K/MM3 (134-434); RDW 16.5 % (11.6-15.6); WHITE BLOOD COUNT 5.4 K/mm3 (4.0-10.0)
[2016-08-09] MEDS ORDERED: SODIUM CHLORIDE 500 ML IV STA ×2 (08:37→14:09)
[2016-08-09] MEDS ORDERED: dilTIAZem HCL 50 MG/10 ML - 10 ML VIAL IVPUSH ONE ×2 (08:37→09:00)
[2016-08-09 08:39] LABS: CREATININE 1.5 mg/dL (0.55-1.02)
[2016-08-09] MEDS ORDERED: dilTIAZem HCL 125 MG/25 ML - 25 ML VIAL ONE (08:39)
[2016-08-09] MEDS ORDERED: PHENYLEPHRINE HCL 10 MG/1 ML SINGLE DOSE VIAL ONE (08:48)
[2016-08-09] MEDS ORDERED: DIGOXIN 0.5 MG/2 ML AMPUL ONE (08:51)
[2016-08-09] MEDS ORDERED: DIGOXIN 0.5 MG/2 ML AMPUL IVPUSH ONE ×2 (09:00)
[2016-08-09] MEDS ORDERED: HEPARIN NA (PORCINE) 5,000 UNITS/ML 1ML VIAL IVPUSH PRN ×2 (09:09)
[2016-08-09] MEDS ORDERED: AMIODARONE HCL 150 MG/3 ML VIAL ONE (09:11)
[2016-08-09] MEDS ORDERED: AMIODARONE HCL INJECTION 150 MG in DEXTROSE 5%-WATER - 97 ML IVPB ONE (09:15)
[2016-08-09] MEDS ORDERED: METOPROLOL TARTRATE 5 MG/5 ML VIAL ONE (09:21)
[2016-08-09] MEDS: METOPROLOL TARTRATE 5 MG/5 ML VIAL IVPUSH PRN (09:25)
[2016-08-09] MEDS ORDERED: HEPARIN INFUSION - 500 ML IVPB SCH (09:30)
[2016-08-09] MEDS: MUPIROCIN 2% TOPICAL OINTMENT FOR DECOLONIZATION NS SCH ×2 (09:40→21:34)
[2016-08-09] MEDS: BACITRACIN 30 GM TUBE TOPICAL OINTMENT TP SCH (09:40)
--- NOTE | 2016-08-09 09:41 | PN ---
Progress Note, Physician Chief Complaint: intubated New onset SHYLA this AM with low BP - Current Medication List Current Medications: Active Medications Acetylcysteine (Mucomyst 20 Oral / Inh Use Only*) 200 mg NEB QIDR [facility] Last Admin: 08/09/16 05:59 Dose: 200 mg Albuterol Sulfate (Ventolin 0.083% Nebulizer Soln -) 1 amp NEB QIDR [facility] Last Admin: 08/09/16 05:59 Dose: 1 amp Albuterol/Ipratropium (Duoneb -) 1 amp NEB Q4H PRN Aspirin (Asa -) 81 mg PO DAILY [facility] Last Admin: 08/08/16 09:43 Dose: 81 mg Atorvastatin Calcium (Lipitor -) 20 mg PO HS [facility] Last Admin: 08/08/16 21:16 Dose: 20 mg Bacitracin (Bacitracin -) 1 applic TP DAILY [facility] Last Admin: 08/09/16 09:40 Dose: 1 applic Carbidopa/Levodopa (Sinemet 25/100 -) 1 each PO TID [facility] Last Admin: 08/09/16 05:51 Dose: 1 each Chlorhexidine Gluconate (Hibiclens For Decolonization -) 1 applic TP HS [facility] Last Admin: 08/08/16 21:17 Dose: 1 applic Cholecalciferol (Vitamin D3 -) 1,000 unit PO DAILY [facility] Last Admin: 08/08/16 09:46 Dose: 1,000 unit Gabapentin (Neurontin -) 100 mg PO BID [facility] Last Admin: 08/08/16 21:16 Dose: 100 mg Heparin Sodium (Porcine) (Heparin -) 1,000 unit IVPUSH PRN PRN PRN Reason: Heparin Heparin Sodium (Porcine) (Heparin -) 5,000 unit IVPUSH PRN PRN PRN Reason: Heparin Piperacillin Sod/Tazobactam Sod (Zosyn 3.375gm Ivpb (Pre-Docked)) 50 mls @ 100 mls/hr IVPB Q8H-IV [facility] Last Admin: 08/09/16 02:26 Dose: 100 mls/hr Midazolam HCl 100 mg/ Sodium (Chloride) 100 mls @ 1 mls/hr IVPB TITR ANNA MARIE; 1 MG/ HR PRN Reason: Protocol Last Admin: 08/09/16 02:27 Dose: 3 mls/hr Heparin Sodium/Dextrose (Heparin Infusion -) 500 mls @ 20 mls/hr IVPB TITR ANNA MARIE ; 1,000 UNITS/HR PRN Reason: Protocol Insulin Aspart (Novolog Vial Sliding Scale -) 1 vial SQ ACHS ANNA MARIE PRN Reason: Protocol Last Admin: 08/09/16 06:26 Dose: 2 units Methylprednisolone Sodium Succinate (Solu-Medrol -) 60 mg IVPB Q6H-IV ANNA MARIE Last Admin: 08/09/16 09:29 Dose: 60 mg Mupirocin (Bactroban Ointment (For Decolonization) -) 1 applic NS BID [facility] Stop: 08/10/16 21:59 Last Admin: 08/09/16 09:40 Dose: 1 applic Non-Formulary Medication (Pimavanserin Tartrate [Nuplazid]) 2 tab PO DAILY [facility] Last Admin: 08/08/16 18:00 Dose: Not Given Tramadol HCl (Ultram -) 50 mg PO DAILY [facility] Last Admin: 08/08/16 09:45 Dose: 50 mg - Objective Vital Signs: Vital Signs Temperature 97.4 F L 08/09/16 08:00 Pulse Rate 152 H 08/09/16 09:10 Respiratory Rate 12 08/09/16 08:00 Blood Pressure 95/57 08/09/16 08:00 O2 Sat by Pulse Oximetry (%) 94 L 08/09/16 08:00 Constitutional: Yes: Other (intubated) Cardiovascular: Yes: Tachycardia, Pulse Irregular Respiratory: Yes: Other (= breath sounds bilaterally) Gastrointestinal: Yes: Soft Edema: Yes Edema: LLE: 1+, RLE: 1+ Neurological: Yes: Other (sedated on vent) Labs: CBC, BMP 08/09/16 07:50 08/09/16 07:50 INR, PTT INR 1.13 (0.82-1.09) 08/05/16 11:40 Laboratory Tests 08/05/16 08/06/16 08/09/16 11:40 05:15 07:17 WBC Hgb Hct Plt Count INR 1.13 ABG pH 7.32 L ABG pCO2 at Pt Temp 54.2 H ABG pO2 at Pt Temp 70.1 Oxygen Flow Rate 50% Vent Mode A/c Potassium BUN Creatinine TSH 3.49 08/09/16 08/09/16 07:50 07:50 WBC 5.4 D Hgb 9.2 L Hct 29.4 L Plt Count 229 INR ABG pH ABG pCO2 at Pt Temp ABG pO2 at Pt Temp Oxygen Flow Rate Vent Mode Potassium 4.7 BUN 60 H Creatinine 1.5 H TSH - ....Imaging EKG: Image Reviewed (TELE: AF w/ RVR at 130-150 bpm) Assessment/Plan Assessment/Plan 85 year old woman with a history of HTN, DM II, HLD, CAD with prior stents, CHF (unknown details) admitted with sob, hypoxic/hypercapneic resp failure. SOB-hypercapneic/hypoxic respiratory failure, possible PNA vs acute on chronic CHF (unknown type) -mucous plugging with opacification of L hemithorax and R pleural effusion -continue vent support CAD-with reported prior stents -cont asa and lipitor -cardiac enzymes wnl New onset SHYLA- - patient given digoxin IV x 1, as BP lowish -If no response, can use amio 150mg IV x 1 dose -UFH gtts if no medical contraindications -Continue tele in ICU
[2016-08-09] MEDS: traMADol HCL 50 MG TABLET PO SCH (09:49)
[2016-08-09] MEDS: CHOLECALCIFEROL (VITAMIN D3) 1,000 UNIT TABLET (FP) PO SCH (09:49)
[2016-08-09] MEDS: ASPIRIN 81 MG CHEWABLE TABLETS PO SCH (09:50)
[2016-08-09] MEDS: GABAPENTIN 100 MG CAPSULE (FP) PO SCH ×2 (09:57→21:42)
[2016-08-09] MEDS: PIMAVANSERIN TARTRATE PO SCH (09:58)
--- NOTE | 2016-08-09 09:58 | EKG ---
Test Reason : Blood Pressure : / mmHG Vent. Rate : 145 BPM Atrial Rate : 138 BPM P-R Int : 000 ms QRS Dur : 084 ms QT Int : 294 ms P-R-T Axes : 000 034 119 degrees QTc Int : 456 ms ATRIAL FIBRILLATION WITH RAPID VENTRICULAR RESPONSE NONSPECIFIC ST AND T WAVE ABNORMALITY , PROBABLY DIGITALIS EFFECT ABNORMAL ECG WHEN COMPARED WITH ECG OF 07-AUG-2016 10:22, ATRIAL FIBRILLATION HAS REPLACED SINUS RHYTHM VENT. RATE HAS INCREASED BY 50 BPM Confirmed by DEBBY VILLEDA MD ([id number]) on 08/09/2016 9:57:49 AM Referred By: WALLACE BROWN Overread By: DEBBY VILLEDA MD
[2016-08-09] MEDS ORDERED: HEPARIN - 25,000 UNIT in SODIUM CHLORIDE 495 ML IV SCH (10:00)
[2016-08-09] MEDS: PANTOPRAZOLE SODIUM 100 ML IVPB SCH (10:18)
[2016-08-09 10:59] LABS: TROPONIN I 0.03 ng/ml (0.00-0.05)
[2016-08-09 11:02] LABS: INR 1.14 (0.82-1.09); PROTHROMBIN TIME (PATIENT) 12.6 SEC (9.98-11.88)
[2016-08-09 11:05] LABS: ACTIVATED PTT 27.2 SECONDS (26.9-34.4)
--- NOTE | 2016-08-09 11:31 | PN ---
Teaching Attending Note Name of Resident: José Riggs ATTENDING PHYSICIAN STATEMENT I saw and evaluated the patient. I reviewed the resident's note and discussed the case with the resident. I agree with the resident's findings and plan as documented. SUBJECTIVE: Pt seen and examined in the ICU. Remains intubated, sedated. Went into rapid atrial fibrillation this AM, given cardizem and lopressor pushes, amiodarone load. Now converted back to sinus rhythm. No fevers recorded. OBJECTIVE: Last Vital Signs Temp Pulse Resp BP Pulse Ox 97.5 F L 134 H 13 78/65 94 L 08/09/16 10:00 08/09/16 10:00 08/09/16 10:00 08/09/16 10:00 08/09/16 08:00 Intake & Output 08/06/16 08/07/16 08/08/16 08/09/16 23:59 23:59 23:59 23:59 Intake Total 2470 2540 1545 340.2 Output Total 975 900 700 350 Balance 1495 1640 845 -9.8 Weight 197 lb 198 lb 198 lb 200 lb 1.6 oz Gen: intubated, sedated Heart: RRR Lung: decreased breath sounds at the bases L>R, scattered rhonchi Abd: soft, nontender Ext: no edema CBC, BMP 08/09/16 07:50 08/09/16 07:50 Active Medications Acetylcysteine (Mucomyst 20 Oral / Inh Use Only*) 200 mg NEB QIDR [facility] Last Admin: 08/09/16 05:59 Dose: 200 mg Albuterol Sulfate (Ventolin 0.083% Nebulizer Soln -) 1 amp NEB QIDR [facility] Last Admin: 08/09/16 05:59 Dose: 1 amp Albuterol/Ipratropium (Duoneb -) 1 amp NEB Q4H PRN Aspirin (Asa -) 81 mg PO DAILY [facility] Last Admin: 08/09/16 09:50 Dose: 81 mg Atorvastatin Calcium (Lipitor -) 20 mg PO HS [facility] Last Admin: 08/08/16 21:16 Dose: 20 mg Bacitracin (Bacitracin -) 1 applic TP DAILY [facility] Last Admin: 08/09/16 09:40 Dose: 1 applic Carbidopa/Levodopa (Sinemet 25/100 -) 1 each PO TID [facility] Last Admin: 08/09/16 05:51 Dose: 1 each Chlorhexidine Gluconate (Hibiclens For Decolonization -) 1 applic TP HS [facility] Last Admin: 08/08/16 21:17 Dose: 1 applic Cholecalciferol (Vitamin D3 -) 1,000 unit PO DAILY [facility] Last Admin: 08/09/16 09:49 Dose: 1,000 unit Gabapentin (Neurontin -) 100 mg PO BID [facility] Last Admin: 08/09/16 09:57 Dose: 100 mg Heparin Sodium (Porcine) (Heparin -) 1,000 unit IVPUSH PRN PRN PRN Reason: Heparin Heparin Sodium (Porcine) (Heparin -) 5,000 unit IVPUSH PRN PRN PRN Reason: Heparin Piperacillin Sod/Tazobactam Sod (Zosyn 3.375gm Ivpb (Pre-Docked)) 50 mls @ 100 mls/hr IVPB Q8H-IV [facility] Last Admin: 08/09/16 09:48 Dose: 100 mls/hr Midazolam HCl 100 mg/ Sodium (Chloride) 100 mls @ 1 mls/hr IVPB TITR ANNA MARIE; 1 MG/ HR PRN Reason: Protocol Last Admin: 08/09/16 02:27 Dose: 3 mls/hr Heparin Sodium/Dextrose (Heparin Infusion -) 500 mls @ 20 mls/hr IVPB TITR ANNA MARIE ; 1,000 UNITS/HR PRN Reason: Protocol Pantoprazole Sodium (Protonix 40mg Ivpb (Pre-Docked)) 100 mls @ 200 mls/hr IVPB DAILY [facility] Last Admin: 08/09/16 10:18 Dose: 200 mls/hr Insulin Aspart (Novolog Vial Sliding Scale -) 1 vial SQ ACHS [facility] PRN Reason: Protocol Last Admin: 08/09/16 11:06 Dose: 2 units Methylprednisolone Sodium Succinate (Solu-Medrol -) 60 mg IVPB Q6H-IV [facility] Last Admin: 08/09/16 09:29 Dose: 60 mg Metoprolol Tartrate (Lopressor Injection -) 5 mg IVPUSH Q4H PRN PRN Reason: HYPERTENSION Last Admin: 08/09/16 09:25 Dose: 5 mg Mupirocin (Bactroban Ointment (For Decolonization) -) 1 applic NS BID [facility] Stop: 08/10/16 21:59 Last Admin: 08/09/16 09:40 Dose: 1 applic Non-Formulary Medication (Pimavanserin Tartrate [Nuplazid]) 2 tab PO DAILY [facility] Last Admin: 08/09/16 09:58 Dose: 2 tab Tramadol HCl (Ultram -) 50 mg PO DAILY [facility] Last Admin: 08/09/16 09:49 Dose: 50 mg ASSESSMENT AND PLAN: Acute Hypercapneic and Hypoxic Respiratory Failure Pneumonia Atelectasis CAD HTN DM Parkinsons Disease - continue lopressor PRN - anticoagulation per cardiology - continue antibiotics - f/u cultures - continue medrol at current dose - inhaled bronchodilators, mucolytics - taper FiO2 to keep SpO2 >90% - start enteral feeds - DVT/GI prophylaxis - ICU monitoring
--- NOTE | 2016-08-09 11:54 | PN ---
Physical Exam: SUBJECTIVE: Patient seen and examined at bedside. Patient found to be in Rapid A -fib this morning. Patient remains intubated and sedated. OBJECTIVE: Vital Signs Period Temp Pulse Resp BP Sys/Galvin Pulse Ox Last 24 Hr 97.4 F-99.1 F 55-157 9-16 78-106/45-65 94-99 GENERAL: Intubated and sedated. HEAD: Normal with no signs of trauma. EYES: Pupils equal, round and reactive to light, sclera anicteric, conjunctiva clear. No lid lag. EARS, NOSE, THROAT: Ears normal, nares patent, Moist mucous membranes. NECK:Supple, no JVD LUNGS: Bibasilar rhonchi. Decreased breath sounds bibasilar L>R.No wheezes, and no crackles. No accessory muscle use. HEART:Rapid Afib, normal S1 and S2 without murmur, rub or gallop. ABDOMEN: Soft, obese, nontender, not distended, normoactive bowel sounds, no guarding, no rebound, no masses. MUSCULOSKELETAL: Reduced ROM of RLE. No bony deformities or tenderness. No CVA tenderness. UPPER EXTREMITIES: 2+ pulses, warm, well-perfused. No cyanosis. No clubbing. Cap refill <2 seconds. No peripheral edema. LOWER EXTREMITIES: 2+ pulses, warm, well-perfused. No calf tenderness. 2+ Edema bilat. NEUROLOGICAL: sedated. PSYCHIATRIC: can not be assessed SKIN: Bilateral stasis dermatitis of LE Laboratory Results - last 24 hr 08/08/16 08/08/16 08/08/16 13:40 14:28 16:30 WBC 8.3 D RBC 3.25 L Hgb 8.9 L Hct 29.3 L MCV 90.3 MCHC 30.2 L RDW 16.4 H Plt Count Not Reportable MPV Neutrophils % 88.7 H Lymphocytes % 5.3 L D Monocytes % 5.8 D Eosinophils % 0.1 D Basophils % 0.1 Differential Comment Slide scanned Platelet Estimate Adequate Platelet Comment No clotting detected INR PTT (Actin FS) Puncture Site Left radial ABG pH 7.30 L ABG pCO2 at Pt Temp 58.2 H ABG pO2 at Pt Temp 86.4 D ABG HCO3 27.8 H ABG O2 Sat (Measured) 96.8 ABG O2 Content 12.0 L ABG Base Excess 1.3 Chicho Test Positive O2 Delivery Device Vent Oxygen Flow Rate 50 Vent Mode A/c Vent Rate 12 Mechanical Rate Yes PEEP 5.0 Pressure Support Vent 400 Sodium Potassium Chloride Carbon Dioxide Anion Gap BUN Creatinine Creat Clearance w eGFR POC Glucometer [phone] Random Glucose Calcium Phosphorus Magnesium Ferritin Total Bilirubin AST ALT Alkaline Phosphatase Troponin I Total Protein Albumin 08/08/16 08/08/16 08/08/16 16:30 17:47 20:37 WBC RBC Hgb Hct MCV MCHC RDW Plt Count MPV Neutrophils % Lymphocytes % Monocytes % Eosinophils % Basophils % Differential Comment Platelet Estimate Platelet Comment INR PTT (Actin FS) Puncture Site ABG pH ABG pCO2 at Pt Temp ABG pO2 at Pt Temp ABG HCO3 ABG O2 Sat (Measured) ABG O2 Content ABG Base Excess Chicho Test O2 Delivery Device Oxygen Flow Rate Vent Mode Vent Rate Mechanical Rate PEEP Pressure Support Vent Sodium 141 Potassium 5.0 Chloride 107 Carbon Dioxide 28 Anion Gap 6 L BUN 55 H D Creatinine 1.5 H Creat Clearance w eGFR 33.08 POC Glucometer [phone] Random Glucose 155 H D Calcium 7.8 L Phosphorus 4.2 D Magnesium 2.6 H Ferritin 180.948 Total Bilirubin 0.7 AST 12 L ALT < 6 L D Alkaline Phosphatase 83 D Troponin I Total Protein 4.8 L Albumin 1.9 L 08/09/16 08/09/16 08/09/16 07:17 07:50 07:50 WBC 5.4 D RBC 3.28 L Hgb 9.2 L Hct 29.4 L MCV 89.8 MCHC 31.4 L RDW 16.5 H Plt Count 229 MPV 8.4 Neutrophils % Lymphocytes % Monocytes % Eosinophils % Basophils % Differential Comment Platelet Estimate Platelet Comment INR PTT (Actin FS) Puncture Site Left radial ABG pH 7.32 L ABG pCO2 at Pt Temp 54.2 H ABG pO2 at Pt Temp 70.1 ABG HCO3 27.2 H ABG O2 Sat (Measured) 93.0 ABG O2 Content 12.2 L ABG Base Excess 1.1 Chicho Test Positive O2 Delivery Device Mechanical vent Oxygen Flow Rate 50% Vent Mode A/c Vent Rate 12 Mechanical Rate Yes PEEP 5.0 Pressure Support Vent 400ml Sodium 142 Potassium 4.7 Chloride 107 Carbon Dioxide 30 Anion Gap 5 L BUN 60 H Creatinine 1.5 H Creat Clearance w eGFR POC Glucometer Random Glucose 141 H Calcium 8.0 L Phosphorus Magnesium Ferritin Total Bilirubin AST ALT Alkaline Phosphatase Troponin I 0.03 Total Protein Albumin 08/09/16 08/09/16 10:00 10:40 WBC RBC Hgb Hct MCV MCHC RDW Plt Count MPV Neutrophils % Lymphocytes % Monocytes % Eosinophils % Basophils % Differential Comment Platelet Estimate Platelet Comment INR 1.14 PTT (Actin FS) 27.2 Puncture Site ABG pH ABG pCO2 at Pt Temp ABG pO2 at Pt Temp ABG HCO3 ABG O2 Sat (Measured) ABG O2 Content ABG Base Excess Chicho Test O2 Delivery Device Oxygen Flow Rate Vent Mode Vent Rate Mechanical Rate PEEP Pressure Support Vent Sodium Potassium Chloride Carbon Dioxide Anion Gap BUN Creatinine Creat Clearance w eGFR POC Glucometer Random Glucose Calcium Phosphorus Magnesium Ferritin Total Bilirubin AST ALT Alkaline Phosphatase Troponin I Cancelled Total Protein Albumin Active Medications Generic Name Dose Route Start Last Admin Trade Name Freq PRN Reason Stop Dose Admin Acetylcysteine 200 mg 08/08/16 14:00 08/09/16 05:59 Mucomyst 20 Oral / Inh Use Only* NEB 200 mg QIDR ANNA MARIE Administration Albuterol Sulfate 1 amp 08/08/16 14:00 08/09/16 05:59 Ventolin 0.083% Nebulizer Soln - NEB 1 amp QIDR ANNA MARIE Administration Albuterol/Ipratropium 1 amp 08/08/16 12:42 Duoneb - NEB Q4H PRN Aspirin 81 mg 08/06/16 10:00 08/09/16 09:50 Asa - PO 81 mg DAILY ANNA MARIE Administration Atorvastatin Calcium 20 mg 08/05/16 22:00 08/08/16 21:16 Lipitor - PO 20 mg HS ANNA MARIE Administration Bacitracin 1 applic 08/06/16 19:15 08/09/16 09:40 Bacitracin - TP 1 applic DAILY ANNA MARIE Administration Carbidopa/Levodopa 1 each 08/05/16 22:00 08/09/16 05:51 Sinemet 25/100 - PO 1 each TID ANNA MARIE Administration Chlorhexidine Gluconate 1 applic 08/05/16 22:00 08/08/16 21:17 Hibiclens For Decolonization - TP 1 applic HS ANNA MARIE Administration Cholecalciferol 1,000 unit 08/06/16 10:00 08/09/16 09:49 Vitamin D3 - PO 1,000 unit DAILY ANNA MARIE Administration Gabapentin 100 mg 08/05/16 22:00 08/09/16 09:57 Neurontin - PO 100 mg BID ANNA MARIE Administration Heparin Sodium (Porcine) 1,000 unit 08/09/16 09:09 Heparin - IVPUSH PRN PRN Heparin Heparin Sodium (Porcine) 5,000 unit 08/09/16 09:09 Heparin - IVPUSH PRN PRN Heparin Piperacillin Sod/Tazobactam Sod 50 mls @ 100 mls/hr 08/06/16 18:00 08/09/16 09: 48 Zosyn 3.375gm Ivpb (Pre-Docked) IVPB 100 mls/hr Q8H-IV ANNA MARIE Administration Midazolam HCl 100 mg/ Sodium 100 mls @ 1 mls/hr 08/08/16 12:45 08/09/16 02:27 Chloride IVPB 3 mls/hr TITR ANNA MARIE Administration Protocol 1 MG/HR Heparin Sodium/Dextrose 500 mls @ 20 mls/hr 08/09/16 09:30 08/09/16 11:47 Heparin Infusion - IVPB Not Given TITR ANNA MARIE Protocol 1,000 UNITS/HR Pantoprazole Sodium 100 mls @ 200 mls/hr 08/09/16 10:15 08/09/16 10:18 Protonix 40mg Ivpb (Pre-Docked) IVPB 200 mls/hr DAILY ANNA MARIE Administration Insulin Aspart 1 vial 08/05/16 22:00 08/09/16 11:06 Novolog Vial Sliding Scale - SQ 2 units ACHS ANNA MARIE Administration Protocol Methylprednisolone Sodium Succinate 60 mg 08/08/16 15:00 08/09/16 09:29 Solu-Medrol - IVPB 60 mg Q6H-IV ANNA MARIE Administration Metoprolol Tartrate 5 mg 08/09/16 10:21 08/09/16 09:25 Lopressor Injection - IVPUSH 5 mg Q4H PRN Administration HYPERTENSION Mupirocin 1 applic 08/05/16 22:00 08/09/16 09:40 Bactroban Ointment (For Decolonization) - NS 08/10/16 21:59 1 applic BID ANNA MARIE Administration Non-Formulary Medication 2 tab 08/06/16 10:00 08/09/16 09:58 Pimavanserin Tartrate [Nuplazid] PO 2 tab DAILY ANNA MARIE Administration Tramadol HCl 50 mg 08/06/16 10:00 08/09/16 09:49 Ultram - PO 50 mg DAILY ANNA MARIE Administration ASSESSMENT/PLAN: 85 yo F with significant PMHx of CAD s/p 2 stents,CHF, HTN, and DM admitted to ICU for sepsis secondary to PNA. Currently intubated and sedated. NO plan to wean today. Problem List - Problems (1) New onset a-fib Assessment/Plan: * Seen by Dr. Nice * Given: * Lopressor 5mg IV * Cardizem 30mg IV * Digoxin 0.5mg * Amiodarone 150mg IV * Returned to sinus rhythm * AC held as per cardiology. (2) Sepsis Assessment/Plan: * Blood and urine cultures show no growth 96 hrs * Sputum cultures pending * UA negative for UTI. * Repeat lactic acid WNL * Continue Zosyn Day 3 (3) Pneumonia Assessment/Plan: * Mechanically ventilated. * continue Zosyn day3 * Acetylcysteine 200 mg NEB QIDR ANNA MARIE * Albuterol Sulfate 1 amp NEB QIDR ANNA MARIE * Albuterol/Ipratropium (Duoneb -) 1 amp NEB Q4H PRN * Zosyn 3.375gm Ivpb IVPB Q8H-IV ANNA MARIE * Solumedrol 60mg iv Q6h (4) Hypothermia Assessment/Plan: * resolved. * TSH WNL (5) Hypotension Assessment/Plan: * 500 cc Bolus NS PRN. * VS Q2H * No pressors at this time. (6) CHF (congestive heart failure) Assessment/Plan: * Lasix 20mg PO daily(held for hypotension) * Nebivolol (Bystolic -) 5 mg PO DAILY * daily weights * sodium controlled diet. * Followed by Dr. Person cardiology (7) HTN (hypertension) Assessment/Plan: * BP meds held for hypotension. (8) CAD (coronary artery disease) Assessment/Plan: * s/p stents x2 * ASA 81 mg PO daily * Lipitor 20mg PO HS (9) Diabetes mellitus type 2 in obese Assessment/Plan: * ISS with Novolog ACHS * BGM ACHS * Glucerna tube feeds with goal of 50ml/hr.(notary public consult pending) (10) Bilateral leg ulcer Assessment/Plan: * daily dressing change and wound care. (11) Parkinson's disease dementia Assessment/Plan: * Carbidopa/Levodopa (Sinemet 25/100 -) 1 each PO TID * Pimavanserin Tartrate [Nuplazid] 2 tab PO DAILY (home med non formulary.) (12) DVT prophylaxis Assessment/Plan: * Lovenox 40mg SQ daily * GI- Protonix 40mg IV daily Visit type - Emergency Visit Emergency Visit: Yes ED Registration Date: 08/05/16 Care time: The patient presented to the Emergency Department on the above date and was hospitalized for further evaluation of their emergent condition. - New Patient This patient is new to me today: No - Critical Care Critical Care patient: Yes Total Critical Care Time (in minutes): 32 Critical Care Statement: The care of this patient involved high complexity decision making to prevent further life threatening deterioration of the patient 's condition and/or to evalute & treat vital organ system(s) failure or risk of failure.
--- NOTE | 2016-08-09 14:47 | PN ---
Progress Note (short form) - Note Progress Note: Renal follow up for hyperkalemia and CKD Pt seen and examined in the ICU intubated and sedated Rapid Afib this am BP marginal Vital Signs Temperature 97.8 F 08/09/16 14:00 Pulse Rate 63 08/09/16 14:00 Respiratory Rate 12 08/09/16 14:04 Blood Pressure 95/47 08/09/16 14:00 O2 Sat by Pulse Oximetry (%) 95 08/09/16 10:20 Intake & Output 08/06/16 08/07/16 08/08/16 08/09/16 23:59 23:59 23:59 23:59 Intake Total 2470 2540 1545 340.2 Output Total 975 900 700 600 Balance 1495 1640 845 -259.8 Weight 197 lb 198 lb 198 lb 200 lb 1.6 oz Gen: intubated and sedated HEENT: NC/AT, MMM, No JVD CVS: RRR, No M/R Lungs: No BS left lung, dec BS right lung Abd: soft NT/ND Ext: B/L LE in dressing, trace to 1+ edema, no sacral edema CBC, BMP 08/09/16 07:50 08/09/16 07:50 Laboratory Tests 08/09/16 08/09/16 06:00 07:50 Hemoglobin A1c % 6.2 H Calcium 8.0 L Current Medications Acetylcysteine (Mucomyst 20 Oral / Inh Use Only*) 200 mg NEB QIDR [facility] Last Admin: 08/09/16 11:05 Dose: 200 mg Albuterol Sulfate (Ventolin 0.083% Nebulizer Soln -) 1 amp NEB QIDR [facility] Last Admin: 08/09/16 11:05 Dose: 1 amp Albuterol/Ipratropium (Duoneb -) 1 amp NEB Q4H PRN Aspirin (Asa -) 81 mg PO DAILY [facility] Last Admin: 08/09/16 09:50 Dose: 81 mg Atorvastatin Calcium (Lipitor -) 20 mg PO HS [facility] Last Admin: 08/08/16 21:16 Dose: 20 mg Bacitracin (Bacitracin -) 1 applic TP DAILY [facility] Last Admin: 08/09/16 09:40 Dose: 1 applic Carbidopa/Levodopa (Sinemet 25/100 -) 1 each PO TID [facility] Last Admin: 08/09/16 14:15 Dose: 1 each Chlorhexidine Gluconate (Hibiclens For Decolonization -) 1 applic TP HS ANNA MARIE Last Admin: 08/08/16 21:17 Dose: 1 applic Cholecalciferol (Vitamin D3 -) 1,000 unit PO DAILY ANNA MARIE Last Admin: 08/09/16 09:49 Dose: 1,000 unit Gabapentin (Neurontin -) 100 mg PO BID ANNA MARIE Last Admin: 08/09/16 09:57 Dose: 100 mg Heparin Sodium (Porcine) (Heparin -) 1,000 unit IVPUSH PRN PRN PRN Reason: Heparin Heparin Sodium (Porcine) (Heparin -) 5,000 unit IVPUSH PRN PRN PRN Reason: Heparin Piperacillin Sod/Tazobactam Sod (Zosyn 3.375gm Ivpb (Pre-Docked)) 50 mls @ 100 mls/hr IVPB Q8H-IV ANNA MARIE Last Admin: 08/09/16 09:48 Dose: 100 mls/hr Midazolam HCl 100 mg/ Sodium (Chloride) 100 mls @ 1 mls/hr IVPB TITR ANNA MARIE; 1 MG/ HR PRN Reason: Protocol Last Admin: 08/09/16 12:45 Dose: Not Given Heparin Sodium/Dextrose (Heparin Infusion -) 500 mls @ 20 mls/hr IVPB TITR ANNA MARIE ; 1,000 UNITS/HR PRN Reason: Protocol Last Admin: 08/09/16 11:47 Dose: Not Given Pantoprazole Sodium (Protonix 40mg Ivpb (Pre-Docked)) 100 mls @ 200 mls/hr IVPB DAILY ANNA MARIE Last Admin: 08/09/16 10:18 Dose: 200 mls/hr Sodium Chloride (Normal Saline -) 500 mls @ 500 mls/hr IV ASDIR STA Stop: 08/09/16 15:08 Last Admin: 08/09/16 14:10 Dose: 500 mls/hr Insulin Aspart (Novolog Vial Sliding Scale -) 1 vial SQ ACHS ANNA MARIE PRN Reason: Protocol Last Admin: 08/09/16 11:06 Dose: 2 units Methylprednisolone Sodium Succinate (Solu-Medrol -) 60 mg IVPB Q6H-IV ANNA MARIE Last Admin: 08/09/16 14:15 Dose: 60 mg Metoprolol Tartrate (Lopressor Injection -) 5 mg IVPUSH Q4H PRN PRN Reason: HYPERTENSION Last Admin: 08/09/16 09:25 Dose: 5 mg Mupirocin (Bactroban Ointment (For Decolonization) -) 1 applic NS BID [facility] Stop: 08/10/16 21:59 Last Admin: 08/09/16 09:40 Dose: 1 applic Non-Formulary Medication (Pimavanserin Tartrate [Nuplazid]) 2 tab PO DAILY [facility] Last Admin: 08/09/16 09:58 Dose: 2 tab Tramadol HCl (Ultram -) 50 mg PO DAILY [facility] Last Admin: 08/09/16 09:49 Dose: 50 mg A/P 85 year old woman with PMhx of CKD, CHF, CAD, DM, Hypertension who presented with sob and found to have SIRS and possible PNA and opacification of left lung with hyperkalemia of 6.6 and Cr of 1.5. #CKD with Hyperkalemia Renal function stable K is improved and now WNL continue to trend daily #SIRS/PNA/Mucus Plug Intubated Chest PT On IV steroids CXR showed b/l effusions -> ? benefit from diuretics but with caution given hypotension #Hyperphosphatemia Low Phos diet Trend Phos #Rapid Afib Rate control as per Cardiology Thank you Edison Carter DO
--- NOTE | 2016-08-09 16:09 | PN ---
Physical Exam: SUBJECTIVE: Patient seen and examined OBJECTIVE: Vital Signs Period Temp Pulse Resp BP Sys/Galvin Pulse Ox Last 24 Hr 97.4 F-99.1 F 55-157 12-16 78-106/45-65 94-99 NEURO: Intubated, sedated. LUNGS: Coarse mechanical breath sounds. HEART: Regular rate and rhythm, S1, S2 without murmur, rub or gallop. ABDOMEN: Soft, nontender, nondistended. EXTREMITIES: 2+ edema bilaterally, erythematous, warm. Laboratory Results - last 24 hr 08/08/16 08/08/16 08/08/16 16:30 16:30 17:47 WBC 8.3 D RBC 3.25 L Hgb 8.9 L Hct 29.3 L MCV 90.3 MCHC 30.2 L RDW 16.4 H Plt Count Not Reportable MPV Neutrophils % 88.7 H Lymphocytes % 5.3 L D Monocytes % 5.8 D Eosinophils % 0.1 D Basophils % 0.1 Differential Comment Slide scanned Platelet Estimate Adequate Platelet Comment No clotting detected INR PTT (Actin FS) Puncture Site ABG pH ABG pCO2 at Pt Temp ABG pO2 at Pt Temp ABG HCO3 ABG O2 Sat (Measured) ABG O2 Content ABG Base Excess Chicho Test O2 Delivery Device Oxygen Flow Rate Vent Mode Vent Rate Mechanical Rate PEEP Pressure Support Vent Sodium 141 Potassium 5.0 Chloride 107 Carbon Dioxide 28 Anion Gap 6 L BUN 55 H D Creatinine 1.5 H Creat Clearance w eGFR 33.08 POC Glucometer 183.99966 Random Glucose 155 H D Hemoglobin A1c % Calcium 7.8 L Phosphorus 4.2 D Magnesium 2.6 H Ferritin 180.948 Total Bilirubin 0.7 AST 12 L ALT < 6 L D Alkaline Phosphatase 83 D Troponin I Total Protein 4.8 L Albumin 1.9 L 08/08/16 08/09/16 08/09/16 20:37 06:00 07:17 WBC RBC Hgb Hct MCV MCHC RDW Plt Count MPV Neutrophils % Lymphocytes % Monocytes % Eosinophils % Basophils % Differential Comment Platelet Estimate Platelet Comment INR PTT (Actin FS) Puncture Site Left radial ABG pH 7.32 L ABG pCO2 at Pt Temp 54.2 H ABG pO2 at Pt Temp 70.1 ABG HCO3 27.2 H ABG O2 Sat (Measured) 93.0 ABG O2 Content 12.2 L ABG Base Excess 1.1 Chicho Test Positive O2 Delivery Device Mechanical vent Oxygen Flow Rate 50% Vent Mode A/c Vent Rate 12 Mechanical Rate Yes PEEP 5.0 Pressure Support Vent 400ml Sodium Potassium Chloride Carbon Dioxide Anion Gap BUN Creatinine Creat Clearance w eGFR POC Glucometer 173.70156 Random Glucose Hemoglobin A1c % 6.2 H Calcium Phosphorus Magnesium Ferritin Total Bilirubin AST ALT Alkaline Phosphatase Troponin I Total Protein Albumin 08/09/16 08/09/16 08/09/16 07:50 07:50 10:00 WBC 5.4 D RBC 3.28 L Hgb 9.2 L Hct 29.4 L MCV 89.8 MCHC 31.4 L RDW 16.5 H Plt Count 229 MPV 8.4 Neutrophils % Lymphocytes % Monocytes % Eosinophils % Basophils % Differential Comment Platelet Estimate Platelet Comment INR 1.14 PTT (Actin FS) 27.2 Puncture Site ABG pH ABG pCO2 at Pt Temp ABG pO2 at Pt Temp ABG HCO3 ABG O2 Sat (Measured) ABG O2 Content ABG Base Excess Chicho Test O2 Delivery Device Oxygen Flow Rate Vent Mode Vent Rate Mechanical Rate PEEP Pressure Support Vent Sodium 142 Potassium 4.7 Chloride 107 Carbon Dioxide 30 Anion Gap 5 L BUN 60 H Creatinine 1.5 H Creat Clearance w eGFR POC Glucometer Random Glucose 141 H Hemoglobin A1c % Calcium 8.0 L Phosphorus Magnesium Ferritin Total Bilirubin AST ALT Alkaline Phosphatase Troponin I 0.03 Total Protein Albumin 08/09/16 10:40 WBC RBC Hgb Hct MCV MCHC RDW Plt Count MPV Neutrophils % Lymphocytes % Monocytes % Eosinophils % Basophils % Differential Comment Platelet Estimate Platelet Comment INR PTT (Actin FS) Puncture Site ABG pH ABG pCO2 at Pt Temp ABG pO2 at Pt Temp ABG HCO3 ABG O2 Sat (Measured) ABG O2 Content ABG Base Excess Chicho Test O2 Delivery Device Oxygen Flow Rate Vent Mode Vent Rate Mechanical Rate PEEP Pressure Support Vent Sodium Potassium Chloride Carbon Dioxide Anion Gap BUN Creatinine Creat Clearance w eGFR POC Glucometer Random Glucose Hemoglobin A1c % Calcium Phosphorus Magnesium Ferritin Total Bilirubin AST ALT Alkaline Phosphatase Troponin I Cancelled Total Protein Albumin Active Medications Generic Name Dose Route Start Last Admin Trade Name Freq PRN Reason Stop Dose Admin Acetylcysteine 200 mg 08/08/16 14:00 08/09/16 11:05 Mucomyst 20 Oral / Inh Use Only* NEB 200 mg QIDR ANNA MARIE Administration Albuterol Sulfate 1 amp 08/08/16 14:00 08/09/16 11:05 Ventolin 0.083% Nebulizer Soln - NEB 1 amp QIDR ANNA MARIE Administration Albuterol/Ipratropium 1 amp 08/08/16 12:42 Duoneb - NEB Q4H PRN Aspirin 81 mg 08/06/16 10:00 08/09/16 09:50 Asa - PO 81 mg DAILY ANNA MARIE Administration Atorvastatin Calcium 20 mg 08/05/16 22:00 08/08/16 21:16 Lipitor - PO 20 mg HS ANNA MARIE Administration Bacitracin 1 applic 08/06/16 19:15 08/09/16 09:40 Bacitracin - TP 1 applic DAILY ANNA MARIE Administration Carbidopa/Levodopa 1 each 08/05/16 22:00 08/09/16 14:15 Sinemet 25/100 - PO 1 each TID ANNA MARIE Administration Chlorhexidine Gluconate 1 applic 08/05/16 22:00 08/08/16 21:17 Hibiclens For Decolonization - TP 1 applic HS ANNA MARIE Administration Cholecalciferol 1,000 unit 08/06/16 10:00 08/09/16 09:49 Vitamin D3 - PO 1,000 unit DAILY ANNA MARIE Administration Gabapentin 100 mg 08/05/16 22:00 08/09/16 09:57 Neurontin - PO 100 mg BID ANNA MARIE Administration Heparin Sodium (Porcine) 1,000 unit 08/09/16 09:09 Heparin - IVPUSH PRN PRN Heparin Heparin Sodium (Porcine) 5,000 unit 08/09/16 09:09 Heparin - IVPUSH PRN PRN Heparin Piperacillin Sod/Tazobactam Sod 50 mls @ 100 mls/hr 08/06/16 18:00 08/09/16 09: 48 Zosyn 3.375gm Ivpb (Pre-Docked) IVPB 100 mls/hr Q8H-IV ANNA MARIE Administration Midazolam HCl 100 mg/ Sodium 100 mls @ 1 mls/hr 08/08/16 12:45 08/09/16 12:45 Chloride IVPB Not Given TITR ANNA MARIE Protocol 1 MG/HR Heparin Sodium/Dextrose 500 mls @ 20 mls/hr 08/09/16 09:30 08/09/16 11:47 Heparin Infusion - IVPB Not Given TITR ANNA MARIE Protocol 1,000 UNITS/HR Pantoprazole Sodium 100 mls @ 200 mls/hr 08/09/16 10:15 08/09/16 10:18 Protonix 40mg Ivpb (Pre-Docked) IVPB 200 mls/hr DAILY ANNA MARIE Administration Insulin Aspart 1 vial 08/05/16 22:00 08/09/16 11:06 Novolog Vial Sliding Scale - SQ 2 units ACHS ANNA MARIE Administration Protocol Methylprednisolone Sodium Succinate 60 mg 08/08/16 15:00 08/09/16 14:15 Solu-Medrol - IVPB 60 mg Q6H-IV ANNA MARIE Administration Metoprolol Tartrate 5 mg 08/09/16 10:21 08/09/16 09:25 Lopressor Injection - IVPUSH 5 mg Q4H PRN Administration HYPERTENSION Mupirocin 1 applic 08/05/16 22:00 08/09/16 09:40 Bactroban Ointment (For Decolonization) - NS 08/10/16 21:59 1 applic BID ANNA MARIE Administration Non-Formulary Medication 2 tab 08/06/16 10:00 08/09/16 09:58 Pimavanserin Tartrate [Nuplazid] PO 2 tab DAILY ANNA MARIE Administration Tramadol HCl 50 mg 08/06/16 10:00 08/09/16 09:49 Ultram - PO 50 mg DAILY ANNA MARIE Administration ASSESSMENT/PLAN: 85 year old female with a past medical history of HTN, CHF, CAD s/p 2 stents, DM , admitted for SOB. Hypercapnic, hypoxic respiratory failure --intubated Afib with RVR --episode terminated with cardizem, digoxin, and amio loading dose x 1 --per cardiology no heparin drip for now, continue telemetry, if afib recurs will likely then start a/c --in sinus rhythm but BP low --fluid bolus x 2 given for BP Bilateral pneumonia --continue Zosyn (day #4) --ID following Bilateral lower extremity cellulitis --legs much improved --continue Zosyn (day #4) Severe valvular pathology --08/09 Echo: normal LV, no RWMA; normal RV, BLAE; moderate to severe MR; moderate TR; severe pHTN; mild 1.3cm2; mild to moderate PI NIDDM --Novolog sliding scale coverage Hypertension --BP low --hold anti-hypertensives and diuretics Hyperkalemia, resolved Hypothermia, resolved --TSH wnl Parkinson's Disease with hallucinations --continue Nuplazid F/E/N Fluids: IV fluids PRN for hypotension Electrolytes: replete as indicated Nutrition: NPO DVT prophylaxis: lovenox Dispo: Poor prognosis. Continues to require ICU care. Full Code. Visit type - Emergency Visit Emergency Visit: Yes ED Registration Date: 08/05/16 Care time: The patient presented to the Emergency Department on the above date and was hospitalized for further evaluation of their emergent condition. - New Patient This patient is new to me today: No - Critical Care Critical Care patient: Yes Total Critical Care Time (in minutes): 35 Critical Care Statement: The care of this patient involved high complexity decision making to prevent further life threatening deterioration of the patient 's condition and/or to evalute & treat vital organ system(s) failure or risk of failure.
[2016-08-09] MEDS: ENOXAPARIN NA (PORCINE) 40 MG/0.4 ML DISP.SYRIN SQ SCH (17:15)
[2016-08-09] MEDS: CHLORHEXIDINE GLUCONATE 4% CLEANSER FOR DECOLONIZATION TP SCH (21:34)
[2016-08-09] MEDS: ATORVASTATIN CA 20 MG TABLET (FP) PO SCH (21:42)
--- NOTE | 2016-08-09 23:02 | PN ---
Progress Note, Physician History of Present Illness: events noted patient had to be intubated hard intubation now intubated and sedated - Current Medication List Current Medications: Active Medications Acetylcysteine (Mucomyst 20 Oral / Inh Use Only*) 200 mg NEB QIDR [facility] Last Admin: 08/09/16 17:05 Dose: 200 mg Albuterol Sulfate (Ventolin 0.083% Nebulizer Soln -) 1 amp NEB QIDR [facility] Last Admin: 08/09/16 17:05 Dose: 1 amp Albuterol/Ipratropium (Duoneb -) 1 amp NEB Q4H PRN Aspirin (Asa -) 81 mg PO DAILY [facility] Last Admin: 08/09/16 09:50 Dose: 81 mg Atorvastatin Calcium (Lipitor -) 20 mg PO HS [facility] Last Admin: 08/09/16 21:42 Dose: 20 mg Bacitracin (Bacitracin -) 1 applic TP DAILY [facility] Last Admin: 08/09/16 09:40 Dose: 1 applic Carbidopa/Levodopa (Sinemet 25/100 -) 1 each PO TID [facility] Last Admin: 08/09/16 21:43 Dose: 1 each Chlorhexidine Gluconate (Hibiclens For Decolonization -) 1 applic TP HS [facility] Last Admin: 08/09/16 21:34 Dose: 1 applic Cholecalciferol (Vitamin D3 -) 1,000 unit PO DAILY [facility] Last Admin: 08/09/16 09:49 Dose: 1,000 unit Enoxaparin Sodium (Lovenox -) 40 mg SQ DAILY [facility] Last Admin: 08/09/16 17:15 Dose: 40 mg Gabapentin (Neurontin -) 100 mg PO BID [facility] Last Admin: 08/09/16 21:42 Dose: 100 mg Piperacillin Sod/Tazobactam Sod (Zosyn 3.375gm Ivpb (Pre-Docked)) 50 mls @ 100 mls/hr IVPB Q8H-IV [facility] Last Admin: 08/09/16 17:06 Dose: 100 mls/hr Midazolam HCl 100 mg/ Sodium (Chloride) 100 mls @ 1 mls/hr IVPB TITR ANNA MARIE; 1 MG/ HR PRN Reason: Protocol Last Admin: 08/09/16 12:45 Dose: Not Given Pantoprazole Sodium (Protonix 40mg Ivpb (Pre-Docked)) 100 mls @ 200 mls/hr IVPB DAILY [facility] Last Admin: 08/09/16 10:18 Dose: 200 mls/hr Insulin Aspart (Novolog Vial Sliding Scale -) 1 vial SQ ACHS ANNA [facility]IE PRN Reason: Protocol Last Admin: 08/09/16 21:43 Dose: 2 units Methylprednisolone Sodium Succinate (Solu-Medrol -) 60 mg IVPB Q6H-IV [facility] Last Admin: 08/09/16 21:40 Dose: 60 mg Metoprolol Tartrate (Lopressor Injection -) 5 mg IVPUSH Q4H PRN PRN Reason: HYPERTENSION Last Admin: 08/09/16 09:25 Dose: 5 mg Mupirocin (Bactroban Ointment (For Decolonization) -) 1 applic NS BID [facility] Stop: 08/10/16 21:59 Last Admin: 08/09/16 21:34 Dose: 1 applic Non-Formulary Medication (Pimavanserin Tartrate [Nuplazid]) 2 tab PO DAILY [facility] Last Admin: 08/09/16 09:58 Dose: 2 tab Tramadol HCl (Ultram -) 50 mg PO DAILY [facility] Last Admin: 08/09/16 09:49 Dose: 50 mg - Objective Vital Signs: Vital Signs Temperature 98.0 F 08/09/16 18:00 Pulse Rate 75 08/09/16 21:44 Respiratory Rate 13 08/09/16 21:44 Blood Pressure 98/55 08/09/16 18:00 O2 Sat by Pulse Oximetry (%) 90 L 08/09/16 21:44 Constitutional: Yes: Other Cardiovascular: Yes: Regular Rate and Rhythm Respiratory: Yes: Intubated, Mechanically Ventilated, Poor Air Entry (left side) Gastrointestinal: Yes: Normal Bowel Sounds, Soft Musculoskeletal: Yes: WNL Extremities: Yes: Other Edema: LLE: 1+, RLE: 1+ Integumentary: Yes: Erythema Neurological: Yes: Other Labs: CBC, BMP 08/09/16 07:50 08/09/16 07:50 INR, PTT INR 1.14 (0.82-1.09) 08/09/16 10:00 Assessment/Plan Problem List - Problems (1) CAD (coronary artery disease) Code(s): I25.10 - ATHSCL HEART DISEASE OF [place] CORONARY ARTERY W/O ANG PCTRS (2) CHF (congestive heart failure) Code(s): I50.9 - HEART FAILURE, UNSPECIFIED Qualifiers: Congestive heart failure type: unspecified congestive heart failure type Congestive heart failure chronicity: unspecified congestive heart failure chronicity Qualified Code(s): I50.9 - Heart failure, unspecified (3) Diabetes mellitus type 2 in obese Code(s): E11.9 - TYPE 2 DIABETES MELLITUS WITHOUT COMPLICATIONS E66.9 - OBESITY, UNSPECIFIED (4) HTN (hypertension) Code(s): I10 - ESSENTIAL (PRIMARY) HYPERTENSION Qualifiers: Hypertension type: essential hypertension Qualified Code(s): I10 - Essential (primary) hypertension (5) Hypotension Code(s): I95.9 - HYPOTENSION, UNSPECIFIED Qualifiers: Hypotension type: idiopathic hypotension Qualified Code(s): I95.0 - Idiopathic hypotension (6) Hypothermia Code(s): T68.XXXA - HYPOTHERMIA, INITIAL ENCOUNTER Qualifiers: Encounter type: initial encounter Qualified Code(s): T68.XXXA - Hypothermia, initial encounter (7) Parkinson's disease dementia Code(s): G20 - PARKINSON'S DISEASE F02.80 - DEMENTIA IN OTH DISEASES CLASSD ELSWHR W/O BEHAVRL DISTURB (8) SIRS (systemic inflammatory response syndrome) Code(s): R65.10 - SIRS OF NON-INFECTIOUS ORIGIN W/O ACUTE ORGAN DYSFUNCTION collapse of the left lung bilateral cellulitis of the leg plan intubated consider bronch legs better await for all other reports and further plan continue abx cc time 40 min
--- NOTE | 2016-08-09 23:05 | PN ---
Progress Note, Physician History of Present Illness: continues to be intubated and sedated no other events xray shows some better areation - Current Medication List Current Medications: Active Medications Acetylcysteine (Mucomyst 20 Oral / Inh Use Only*) 200 mg NEB QIDR [facility] Last Admin: 08/09/16 17:05 Dose: 200 mg Albuterol Sulfate (Ventolin 0.083% Nebulizer Soln -) 1 amp NEB QIDR [facility] Last Admin: 08/09/16 17:05 Dose: 1 amp Albuterol/Ipratropium (Duoneb -) 1 amp NEB Q4H PRN Aspirin (Asa -) 81 mg PO DAILY [facility] Last Admin: 08/09/16 09:50 Dose: 81 mg Atorvastatin Calcium (Lipitor -) 20 mg PO HS [facility] Last Admin: 08/09/16 21:42 Dose: 20 mg Bacitracin (Bacitracin -) 1 applic TP DAILY [facility] Last Admin: 08/09/16 09:40 Dose: 1 applic Carbidopa/Levodopa (Sinemet 25/100 -) 1 each PO TID [facility] Last Admin: 08/09/16 21:43 Dose: 1 each Chlorhexidine Gluconate (Hibiclens For Decolonization -) 1 applic TP [facility] Last Admin: 08/09/16 21:34 Dose: 1 applic Cholecalciferol (Vitamin D3 -) 1,000 unit PO DAILY [facility] Last Admin: 08/09/16 09:49 Dose: 1,000 unit Enoxaparin Sodium (Lovenox -) 40 mg SQ DAILY [facility] Last Admin: 08/09/16 17:15 Dose: 40 mg Gabapentin (Neurontin -) 100 mg PO BID [facility] Last Admin: 08/09/16 21:42 Dose: 100 mg Piperacillin Sod/Tazobactam Sod (Zosyn 3.375gm Ivpb (Pre-Docked)) 50 mls @ 100 mls/hr IVPB Q8H-IV [facility] Last Admin: 08/09/16 17:06 Dose: 100 mls/hr Midazolam HCl 100 mg/ Sodium (Chloride) 100 mls @ 1 mls/hr IVPB TITR ANNA MARIE; 1 MG/ HR PRN Reason: Protocol Last Admin: 08/09/16 12:45 Dose: Not Given Pantoprazole Sodium (Protonix 40mg Ivpb (Pre-Docked)) 100 mls @ 200 mls/hr IVPB DAILY [facility] Last Admin: 08/09/16 10:18 Dose: 200 mls/hr Insulin Aspart (Novolog Vial Sliding Scale -) 1 vial SQ ACHS ANNA MARIE PRN Reason: Protocol Last Admin: 08/09/16 21:43 Dose: 2 units Methylprednisolone Sodium Succinate (Solu-Medrol -) 60 mg IVPB Q6H-IV [facility] Last Admin: 08/09/16 21:40 Dose: 60 mg Metoprolol Tartrate (Lopressor Injection -) 5 mg IVPUSH Q4H PRN PRN Reason: HYPERTENSION Last Admin: 08/09/16 09:25 Dose: 5 mg Mupirocin (Bactroban Ointment (For Decolonization) -) 1 applic NS BID [facility] Stop: 08/10/16 21:59 Last Admin: 08/09/16 21:34 Dose: 1 applic Non-Formulary Medication (Pimavanserin Tartrate [Nuplazid]) 2 tab PO DAILY [facility] Last Admin: 08/09/16 09:58 Dose: 2 tab Tramadol HCl (Ultram -) 50 mg PO DAILY [facility] Last Admin: 08/09/16 09:49 Dose: 50 mg - Objective Vital Signs: Vital Signs Temperature 98.0 F 08/09/16 18:00 Pulse Rate 75 08/09/16 21:44 Respiratory Rate 13 08/09/16 21:44 Blood Pressure 98/55 08/09/16 18:00 O2 Sat by Pulse Oximetry (%) 90 L 08/09/16 21:44 Constitutional: Yes: Other Cardiovascular: Yes: Regular Rate and Rhythm Respiratory: Yes: Diminished, Intubated, Mechanically Ventilated, Poor Air Entry (mostly left side) Gastrointestinal: Yes: Normal Bowel Sounds, Soft Extremities: Yes: Other Edema: LLE: 1+, RLE: 1+ Integumentary: Yes: Erythema (improving on both legs) Neurological: Yes: Other Labs: CBC, BMP 08/09/16 07:50 08/09/16 07:50 INR, PTT INR 1.14 (0.82-1.09) 08/09/16 10:00 Assessment/Plan Problem List - Problems (1) CAD (coronary artery disease) Code(s): I25.10 - ATHSCL HEART DISEASE OF [place] CORONARY ARTERY W/O ANG PCTRS (2) CHF (congestive heart failure) Code(s): I50.9 - HEART FAILURE, UNSPECIFIED Qualifiers: Congestive heart failure type: unspecified congestive heart failure type Congestive heart failure chronicity: unspecified congestive heart failure chronicity Qualified Code(s): I50.9 - Heart failure, unspecified (3) Diabetes mellitus type 2 in obese Code(s): E11.9 - TYPE 2 DIABETES MELLITUS WITHOUT COMPLICATIONS E66.9 - OBESITY, UNSPECIFIED (4) HTN (hypertension) Code(s): I10 - ESSENTIAL (PRIMARY) HYPERTENSION Qualifiers: Hypertension type: essential hypertension Qualified Code(s): I10 - Essential (primary) hypertension (5) Hypotension Code(s): I95.9 - HYPOTENSION, UNSPECIFIED Qualifiers: Hypotension type: idiopathic hypotension Qualified Code(s): I95.0 - Idiopathic hypotension (6) Hypothermia Code(s): T68.XXXA - HYPOTHERMIA, INITIAL ENCOUNTER Qualifiers: Encounter type: initial encounter Qualified Code(s): T68.XXXA - Hypothermia, initial encounter (7) Parkinson's disease dementia Code(s): G20 - PARKINSON'S DISEASE F02.80 - DEMENTIA IN OTH DISEASES CLASSD ELSWHR W/O BEHAVRL DISTURB (8) SIRS (systemic inflammatory response syndrome) Code(s): R65.10 - SIRS OF NON-INFECTIOUS ORIGIN W/O ACUTE ORGAN DYSFUNCTION collapse of the left lung bilateral cellulitis of the leg plan intubated legs better await for all other reports and further plan continue abx cc time 40 min
[2016-08-10] MEDS: PIPERACILLIN/TAZOB 3.375 GM 50 ML IVPB SCH ×3 (01:04→17:15)
[2016-08-10] MEDS: methylPREDNISolone NA SUCC 125 MG/2 ML VIAL IVPB SCH ×4 (03:00→21:16)
[2016-08-10] MEDS: ALBUTEROL SO4 0.083% IH SOL 2.5 MG/3 ML VIAL.NEB. NEB SCH ×3 (05:20→17:17)
[2016-08-10] MEDS: ACETYLCYSTEINE 20% 200MG/ML 4 ML VIAL *FOR ORAL / INH USE ONLY NEB SCH ×3 (05:20→17:16)
[2016-08-10 06:02] LABS: MCH 27.3 pg (25.7-33.7); MCHC 30.7 g/dl (32.0-36.0); MEAN CELL VOLUME 88.8 fl (80-96); MEAN PLT VOLUME 8.5 fl (7.5-11.1); NEUTROPHILS 91.5 % (42.8-82.8); PLATELET COUNT 256 K/MM3 (134-434); RDW 16.6 % (11.6-15.6); WHITE BLOOD COUNT 6.4 K/mm3 (4.0-10.0)
[2016-08-10 06:06] LABS: SERUM IRON 91 ug/dL (27-139); TOTAL IRON BINDING CAPACITY 186 ug/dL (250-450); UIBC 95 ug/dL (118-369)
[2016-08-10] MEDS: INSULIN SLIDING SCALE (NOVOLOG) 1 VIAL SQ SCH ×4 (06:34→21:28)
[2016-08-10] MEDS: CARBIDOPA/LEVODOPA 25/100 TABLET (FP) PO SCH ×3 (06:35→21:17)
[2016-08-10 06:58] LABS: CALCIUM 8.1 mg/dL (8.5-10.1)
[2016-08-10 07:04] LABS: ALBUMIN 2.1 g/dl (3.4-5.0); BILIRUBIN,TOTAL 0.5 mg/dL (0.2-1.0); CREATININE 1.7 mg/dL (0.55-1.02); MAGNESIUM 3.1 mg/dL (1.8-2.4); PHOSPHOROUS 4.5 mg/dL (2.5-4.9)
[2016-08-10] MEDS: MIDAZOLAM 100 MG in SODIUM CHLORIDE 100 ML IVPB SCH ×2 (07:30→12:45)
[2016-08-10] MEDS: ENOXAPARIN NA (PORCINE) 40 MG/0.4 ML DISP.SYRIN SQ SCH (09:01)
[2016-08-10] MEDS: CHOLECALCIFEROL (VITAMIN D3) 1,000 UNIT TABLET (FP) PO SCH (09:01)
[2016-08-10] MEDS: traMADol HCL 50 MG TABLET PO SCH (09:02)
[2016-08-10] MEDS: PANTOPRAZOLE SODIUM 100 ML IVPB SCH (09:02)
[2016-08-10] MEDS: GABAPENTIN 100 MG CAPSULE (FP) PO SCH ×2 (09:02→21:17)
[2016-08-10] MEDS: MUPIROCIN 2% TOPICAL OINTMENT FOR DECOLONIZATION NS SCH (09:03)
[2016-08-10] MEDS: ASPIRIN 81 MG CHEWABLE TABLETS PO SCH (09:03)
[2016-08-10] MEDS: BACITRACIN 30 GM TUBE TOPICAL OINTMENT TP SCH (09:04)
[2016-08-10] MEDS: PIMAVANSERIN TARTRATE PO SCH (09:05)
--- NOTE | 2016-08-10 09:10 | PN ---
Progress Note, Physician Chief Complaint: intubated no further AF - Current Medication List Current Medications: Active Medications Acetylcysteine (Mucomyst 20 Oral / Inh Use Only*) 200 mg NEB QIDR [facility] Last Admin: 08/10/16 05:20 Dose: 200 mg Albuterol Sulfate (Ventolin 0.083% Nebulizer Soln -) 1 amp NEB QIDR [facility] Last Admin: 08/10/16 05:20 Dose: 1 amp Albuterol/Ipratropium (Duoneb -) 1 amp NEB Q4H PRN Aspirin (Asa -) 81 mg PO DAILY [facility] Last Admin: 08/10/16 09:03 Dose: 81 mg Atorvastatin Calcium (Lipitor -) 20 mg PO HS [facility] Last Admin: 08/09/16 21:42 Dose: 20 mg Bacitracin (Bacitracin -) 1 applic TP DAILY [facility] Last Admin: 08/10/16 09:04 Dose: 1 applic Carbidopa/Levodopa (Sinemet 25/100 -) 1 each PO TID [facility] Last Admin: 08/10/16 06:35 Dose: 1 each Chlorhexidine Gluconate (Hibiclens For Decolonization -) 1 applic TP [facility] Last Admin: 08/09/16 21:34 Dose: 1 applic Cholecalciferol (Vitamin D3 -) 1,000 unit PO DAILY [facility] Last Admin: 08/10/16 09:01 Dose: 1,000 unit Enoxaparin Sodium (Lovenox -) 40 mg SQ DAILY [facility] Last Admin: 08/10/16 09:01 Dose: 40 mg Gabapentin (Neurontin -) 100 mg PO BID [facility] Last Admin: 08/10/16 09:02 Dose: 100 mg Piperacillin Sod/Tazobactam Sod (Zosyn 3.375gm Ivpb (Pre-Docked)) 50 mls @ 100 mls/hr IVPB Q8H-IV [facility] Last Admin: 08/10/16 01:04 Dose: 100 mls/hr Midazolam HCl 100 mg/ Sodium (Chloride) 100 mls @ 1 mls/hr IVPB TITR ANNA MARIE; 1 MG/ HR PRN Reason: Protocol Last Admin: 08/10/16 07:30 Dose: 3 mls/hr Pantoprazole Sodium (Protonix 40mg Ivpb (Pre-Docked)) 100 mls @ 200 mls/hr IVPB DAILY [facility] Last Admin: 08/10/16 09:02 Dose: 200 mls/hr Insulin Aspart (Novolog Vial Sliding Scale -) 1 vial SQ ACHS ANNA MARIE PRN Reason: Protocol Last Admin: 08/10/16 06:34 Dose: 2 units Methylprednisolone Sodium Succinate (Solu-Medrol -) 60 mg IVPB Q6H-IV [facility] Last Admin: 08/10/16 08:03 Dose: 60 mg Metoprolol Tartrate (Lopressor Injection -) 5 mg IVPUSH Q4H PRN PRN Reason: HYPERTENSION Last Admin: 08/09/16 09:25 Dose: 5 mg Mupirocin (Bactroban Ointment (For Decolonization) -) 1 applic NS BID [facility] Stop: 08/10/16 21:59 Last Admin: 08/10/16 09:03 Dose: 1 applic Non-Formulary Medication (Pimavanserin Tartrate [Nuplazid]) 2 tab PO DAILY [facility] Last Admin: 08/10/16 09:05 Dose: Not Given Tramadol HCl (Ultram -) 50 mg PO DAILY [facility] Last Admin: 08/10/16 09:02 Dose: 50 mg - Objective Vital Signs: Vital Signs Temperature 98.9 F 08/10/16 08:00 Pulse Rate 64 08/10/16 08:00 Respiratory Rate 14 08/10/16 08:00 Blood Pressure 93/47 08/10/16 08:00 O2 Sat by Pulse Oximetry (%) 96 08/10/16 08:00 HENT: Yes: Other (+ ETT) Cardiovascular: Yes: Regular Rate and Rhythm Respiratory: Yes: Other (= breath sounds bilaterally) Gastrointestinal: Yes: Soft Edema: Yes Edema: LLE: 1+, RLE: 1+ Neurological: Yes: Other (sedated on vent) Labs: CBC, BMP 08/10/16 05:00 08/10/16 05:00 INR, PTT INR 1.14 (0.82-1.09) 08/09/16 10:00 - ....Imaging EKG: Image Reviewed (NSR on tele) Assessment/Plan Assessment/Plan 85 year old woman with a history of HTN, DM II, HLD, CAD with prior stents, CHF (unknown details) admitted with sob, hypoxic/hypercapneic resp failure. SOB-hypercapneic/hypoxic respiratory failure, possible PNA vs acute on chronic CHF (unknown type) -mucous plugging with opacification of L hemithorax and R pleural effusion -continue vent support CAD-with reported prior stents -cont asa and lipitor -cardiac enzymes wnl New onset SHYLA- converted to NSR with amio 150 x 1: short episode. - Continue tele in ICU -If AF recurs, then would likely start UFH gtts.
[2016-08-10 09:18] LABS: ARTERIAL BLD GAS O2 SATURATION 97.3 % (90-98.9); ARTERIAL BLOOD GAS BASE EXCESS 0.1 meq/l (-2-2); ARTERIAL BLOOD GAS HCO3 26.1 meq/L (22-26); ARTERIAL BLOOD GAS PO2 95.9 mmHg (68-100)
[2016-08-10 09:19] LABS: ALLENS TEST POSITIVE; ART PUNCT SITE RIGHT RADIAL; LPM/O2% 50%; PT. ON O2? YES
[2016-08-10 09:20] LABS: ARTERIAL BLOOD GAS pH 7.32 (7.35-7.45); MECH. VENT. Y; TYPE OF O2 MECH VENT; VENT RATE 12; VT/PRESS 400
[2016-08-10] MEDS ORDERED: SODIUM POLYSTYRENE SULFONATE 15 GM/60 ML BOTTLE PO ONE (11:44)
--- NOTE | 2016-08-10 11:52 | PN ---
Progress Note (short form) - Note Progress Note: Subjective: The patient was seen and examined in the ICU, she remains intubated and sedated. No A.fib overnight Current Medications Generic Name Dose Route Start Last Admin Trade Name Freq PRN Reason Stop Dose Admin Acetylcysteine 200 mg 08/08/16 14:00 08/10/16 05:20 Mucomyst 20 Oral / Inh Use Only* NEB 200 mg QIDR ANNA MARIE Administration Albuterol Sulfate 1 amp 08/08/16 14:00 08/10/16 05:20 Ventolin 0.083% Nebulizer Soln - NEB 1 amp QIDR ANNA MARIE Administration Albuterol/Ipratropium 1 amp 08/08/16 12:42 Duoneb - NEB Q4H PRN Aspirin 81 mg 08/06/16 10:00 08/10/16 09:03 Asa - PO 81 mg DAILY ANNA MARIE Administration Atorvastatin Calcium 20 mg 08/05/16 22:00 08/09/16 21:42 Lipitor - PO 20 mg HS ANNA MARIE Administration Bacitracin 1 applic 08/06/16 19:15 08/10/16 09:04 Bacitracin - TP 1 applic DAILY ANNA [facility]IE Administration Carbidopa/Levodopa 1 each 08/05/16 22:00 08/10/16 06:35 Sinemet 25/100 - PO 1 each TID ANNA MARIE Administration Chlorhexidine Gluconate 1 applic 08/05/16 22:00 08/09/16 21:34 Hibiclens For Decolonization - TP 1 applic HS ANNA MARIE Administration Cholecalciferol 1,000 unit 08/06/16 10:00 08/10/16 09:01 Vitamin D3 - PO 1,000 unit DAILY ANNA [facility]IE Administration Enoxaparin Sodium 40 mg 08/09/16 16:15 08/10/16 09:01 Lovenox - SQ 40 mg DAILY ANNA [facility]IE Administration Gabapentin 100 mg 08/05/16 22:00 08/10/16 09:02 Neurontin - PO 100 mg BID ANNA MARIE Administration Piperacillin Sod/Tazobactam Sod 50 mls @ 100 mls/hr 08/06/16 18:00 08/10/16 09: 10 Zosyn 3.375gm Ivpb (Pre-Docked) IVPB 100 mls/hr Q8H-IV ANNA MARIE Administration Midazolam HCl 100 mg/ Sodium 100 mls @ 1 mls/hr 08/08/16 12:45 08/10/16 07:30 Chloride IVPB 3 mls/hr TITR ANNA MARIE Administration Protocol 1 MG/HR Pantoprazole Sodium 100 mls @ 200 mls/hr 08/09/16 10:15 08/10/16 09:02 Protonix 40mg Ivpb (Pre-Docked) IVPB 200 mls/hr DAILY ANNA [facility] Administration Insulin Aspart 1 vial 08/05/16 22:00 08/10/16 10:55 Novolog Vial Sliding Scale - SQ 2 units ACHS ANNA MARIE Administration Protocol Methylprednisolone Sodium Succinate 60 mg 08/08/16 15:00 08/10/16 08:03 Solu-Medrol - IVPB 60 mg Q6H-IV ANNA MARIE Administration Metoprolol Tartrate 5 mg 08/09/16 10:21 08/09/16 09:25 Lopressor Injection - IVPUSH 5 mg Q4H PRN Administration HYPERTENSION Mupirocin 1 applic 08/05/16 22:00 08/10/16 09:03 Bactroban Ointment (For Decolonization) - NS 08/10/16 21:59 1 applic BID ANNA MARIE Administration Non-Formulary Medication 2 tab 08/06/16 10:00 08/10/16 09:05 Pimavanserin Tartrate [Nuplazid] PO Not Given DAILY ANNA MARIE Tramadol HCl 50 mg 08/06/16 10:00 08/10/16 09:02 Ultram - PO 50 mg DAILY ANNA MARIE Administration Objective: Vital Signs Period Temp Pulse Resp BP Sys/Galvin Pulse Ox Last 24 Hr 97.6 F-99.0 F 60-79 12-14 85-103/44-55 90-96 Physical Exam: General: NAD, sedated, intubated Lungs: Decreased breath sounds anteriorly Heart: RRR, S1S2 Abd: Soft, normoactive bowel sounds Ext: B/l upper and lower extremity edema. B/l upper extremities with ecchymosis. B/l lower extremities with flaking skin Neuro: Unable to assess CN CBCD WBC 6.4 K/mm3 (4.0-10.0) 08/10/16 05:00 RBC 3.38 M/mm3 (3.60-5.2) L 08/10/16 05:00 Hgb 9.2 GM/dL (10.7-15.3) L 08/10/16 05:00 Hct 30.0 % (32.4-45.2) L 08/10/16 05:00 MCV 88.8 fl (80-96) 08/10/16 05:00 MCHC 30.7 g/dl (32.0-36.0) L 08/10/16 05:00 RDW 16.6 % (11.6-15.6) H 08/10/16 05:00 Plt Count 256 K/MM3 (134-434) 08/10/16 05:00 MPV 8.5 fl (7.5-11.1) 08/10/16 05:00 CMP Sodium 140 mmol/L (136-145) 08/10/16 05:00 Potassium 5.2 mmol/L (3.5-5.1) H 08/10/16 05:00 Chloride 107 mmol/L (98-107) 08/10/16 05:00 Carbon Dioxide 29 mmol/L (21-32) 08/10/16 05:00 Anion Gap 4 (8-16) L 08/10/16 05:00 BUN 69 mg/dL (7-18) H 08/10/16 05:00 Creatinine 1.7 mg/dL (0.55-1.02) H 08/10/16 05:00 Creat Clearance w eGFR 28.63 (>60) 08/10/16 05:00 Random Glucose 150 mg/dL (74-106) H 08/10/16 05:00 Calcium 8.1 mg/dL (8.5-10.1) L 08/10/16 05:00 Total Bilirubin 0.5 mg/dL (0.2-1.0) D 08/10/16 05:00 AST 10 U/L (15-37) L 08/10/16 05:00 ALT 7 U/L (12-78) L 08/10/16 05:00 Alkaline Phosphatase 67 U/L (45-117) 08/10/16 05:00 Total Protein 5.0 g/dl (6.4-8.2) L 08/10/16 05:00 Albumin 2.1 g/dl (3.4-5.0) L 08/10/16 05:00 CARDIAC ENZYMES Creatine Kinase 38 IU/L (26-192) 08/05/16 11:40 Troponin I 0.04 ng/ml (0.00-0.05) 08/09/16 21:30 Microbiology 08/07/16 17:30 Sputum - Endotracheal Suction W/O Vent Gram Stain - Final 08/07/16 17:30 Sputum - Endotracheal Suction W/O Vent Sputum Culture - Preliminary Staphylococcus Latex Coag Pos 08/08/16 15:15 Sputum - Endotrachea Suction/Ventilator Sputum Culture - Preliminary NORMAL RESPIRATORY ALEJANDRO 08/05/16 11:56 Blood - Peripheral Venous Blood Culture - Preliminary NO GROWTH OBTAINED AFTER 96 HOURS, INCUBATION TO CONTINUE FOR 1 DAYS. 08/05/16 11:56 Blood - Peripheral Venous Blood Culture - Preliminary NO GROWTH OBTAINED AFTER 96 HOURS, INCUBATION TO CONTINUE FOR 1 DAYS. 08/05/16 15:55 Urine - Urine Clean Catch Urine Culture - Final NO GROWTH OBTAINED 08/05/16 13:01 Nasopharyngeal Swab Influenza Types A,B Antigen (KUSHAL) - Final 08/05/16 13:01 Nasopharyngeal Swab - Final Assessment: This is an 85 year old female with PMHx of HTN, CHF, CAD s/p stenting x2, DM, who presented to the ED with shortness of breath. Plan: 1) Pulmonary: Acute hypercapneic and hypoxic respiratory failure - 2/2 pneumonia - Chest X-ray with mucous plugging and opacification of left hemithorax, right pleural effusion - Remains intubated, taper FiO2 - Continue Solu-medrol, taper per pulm - Continue Mucomyst - Continue Zosyn (day #5) - Appreciate pulmonary consult - Appreciate ID consult 2) Cardiology: New onset a.fib - A.fib terminated after amio bolus - Remains in NSR - Per cards if a.fib recurs, will start UFH 3) ID: B/l lower extremity cellulitis - Continue Zosyn 4) Endocrine: NIDDM - ISS ACHS - BGM ACHS 5) : CKD - Renal function slightly worse today - Mild hyperkalemia 5.2, continue to monitor 6) F/E/N: - Monitor electrolytes - NPO 7) Prophylaxis: - Lovenox 40mg sq daily 8) Dispo: - Requires continued ICU care CODE STATUS: FULL CODE Visit type - Emergency Visit Emergency Visit: Yes ED Registration Date: 08/05/16 Care time: The patient presented to the Emergency Department on the above date and was hospitalized for further evaluation of their emergent condition. - New Patient This patient is new to me today: Yes Date on this admission: 08/10/16 - Critical Care Critical Care patient: Yes Total Critical Care Time (in minutes): 45 Critical Care Statement: The care of this patient involved high complexity decision making to prevent further life threatening deterioration of the patient 's condition and/or to evalute & treat vital organ system(s) failure or risk of failure.
--- NOTE | 2016-08-10 11:54 | PN ---
Teaching Attending Note Name of Resident: José Riggs ATTENDING PHYSICIAN STATEMENT I saw and evaluated the patient. I reviewed the resident's note and discussed the case with the resident. I agree with the resident's findings and plan as documented. SUBJECTIVE: Pt seen and examined in the ICU. Remains intubated, sedated. Peak pressures mid 30s, plateaus 13-15. Vented on volume assist control. No fevers recorded. Remains in sinus rhythm, no further atrial fibrillation. OBJECTIVE: Last Vital Signs Temp Pulse Resp BP Pulse Ox 99.0 F 63 12 94/51 96 08/10/16 10:00 08/10/16 10:15 08/10/16 10:15 08/10/16 10:00 08/10/16 10:15 Intake & Output 08/07/16 08/08/16 08/09/16 08/10/16 23:59 23:59 23:59 23:59 Intake Total 2540 1545 1746.2 566 Output Total 900 700 850 300 Balance 1640 845 896.2 266 Weight 198 lb 198 lb 200 lb 1.6 oz 203 lb 8 oz Gen: intubated, sedated Heart: RRR Lung: decreased breath sounds at the bases Abd: soft, nontender Ext: chronic changes, + edema CBC, BMP 08/10/16 05:00 08/10/16 05:00 Active Medications Acetylcysteine (Mucomyst 20 Oral / Inh Use Only*) 200 mg NEB QIDR [facility] Last Admin: 08/10/16 05:20 Dose: 200 mg Albuterol Sulfate (Ventolin 0.083% Nebulizer Soln -) 1 amp NEB QIDR [facility] Last Admin: 08/10/16 05:20 Dose: 1 amp Albuterol/Ipratropium (Duoneb -) 1 amp NEB Q4H PRN Aspirin (Asa -) 81 mg PO DAILY [facility] Last Admin: 08/10/16 09:03 Dose: 81 mg Atorvastatin Calcium (Lipitor -) 20 mg PO HS [facility] Last Admin: 08/09/16 21:42 Dose: 20 mg Bacitracin (Bacitracin -) 1 applic TP DAILY [facility] Last Admin: 08/10/16 09:04 Dose: 1 applic Carbidopa/Levodopa (Sinemet 25/100 -) 1 each PO TID [facility] Last Admin: 08/10/16 06:35 Dose: 1 each Chlorhexidine Gluconate (Hibiclens For Decolonization -) 1 applic TP HS [facility] Last Admin: 08/09/16 21:34 Dose: 1 applic Cholecalciferol (Vitamin D3 -) 1,000 unit PO DAILY [facility] Last Admin: 08/10/16 09:01 Dose: 1,000 unit Enoxaparin Sodium (Lovenox -) 40 mg SQ DAILY [facility] Last Admin: 08/10/16 09:01 Dose: 40 mg Gabapentin (Neurontin -) 100 mg PO BID [facility] Last Admin: 08/10/16 09:02 Dose: 100 mg Piperacillin Sod/Tazobactam Sod (Zosyn 3.375gm Ivpb (Pre-Docked)) 50 mls @ 100 mls/hr IVPB Q8H-IV [facility] Last Admin: 08/10/16 09:10 Dose: 100 mls/hr Midazolam HCl 100 mg/ Sodium (Chloride) 100 mls @ 1 mls/hr IVPB TITR ANNA MARIE; 1 MG/ HR PRN Reason: Protocol Last Admin: 08/10/16 07:30 Dose: 3 mls/hr Pantoprazole Sodium (Protonix 40mg Ivpb (Pre-Docked)) 100 mls @ 200 mls/hr IVPB DAILY [facility] Last Admin: 08/10/16 09:02 Dose: 200 mls/hr Insulin Aspart (Novolog Vial Sliding Scale -) 1 vial SQ ACHS [facility] PRN Reason: Protocol Last Admin: 08/10/16 10:55 Dose: 2 units Methylprednisolone Sodium Succinate (Solu-Medrol -) 60 mg IVPB Q6H-IV [facility] Last Admin: 08/10/16 08:03 Dose: 60 mg Metoprolol Tartrate (Lopressor Injection -) 5 mg IVPUSH Q4H PRN PRN Reason: HYPERTENSION Last Admin: 08/09/16 09:25 Dose: 5 mg Mupirocin (Bactroban Ointment (For Decolonization) -) 1 applic NS BID [facility] Stop: 08/10/16 21:59 Last Admin: 08/10/16 09:03 Dose: 1 applic Non-Formulary Medication (Pimavanserin Tartrate [Nuplazid]) 2 tab PO DAILY [facility] Last Admin: 08/10/16 09:05 Dose: Not Given Tramadol HCl (Ultram -) 50 mg PO DAILY [facility] Last Admin: 08/10/16 09:02 Dose: 50 mg ASSESSMENT AND PLAN: Acute Hypercapneic and Hypoxic Respiratory Failure Pneumonia Atelectasis Lone Atrial Fibrillation Pulmonary HTN CAD HTN DM Parkinsons Disease - continue antibiotics - f/u cultures - continue medrol at current dose - inhaled bronchodilators, mucolytics - taper FiO2 to keep SpO2 >90% - lasix IV if BP tolerates - kayexalate today - hold sedation to assess mental status - spontaneous breathing trials when mental status improved - enteral feeds - DVT/GI prophylaxis - ICU monitoring
--- NOTE | 2016-08-10 11:57 | PN ---
Progress Note (short form) - Note Progress Note: Renal follow up for hyperkalemia and CKD Pt seen and examined in the ICU intubated on 40% FiO2 no overnight events in NSR Vital Signs Temperature 99.0 F 08/10/16 10:00 Pulse Rate 63 08/10/16 10:15 Respiratory Rate 12 08/10/16 10:15 Blood Pressure 94/51 08/10/16 10:00 O2 Sat by Pulse Oximetry (%) 96 08/10/16 10:15 Intake & Output 08/07/16 08/08/16 08/09/16 08/10/16 23:59 23:59 23:59 23:59 Intake Total 2540 1545 1746.2 566 Output Total 900 700 850 300 Balance 1640 845 896.2 266 Weight 198 lb 198 lb 200 lb 1.6 oz 203 lb 8 oz Gen: intubated and sedated HEENT: NC/AT, MMM, No JVD CVS: RRR, No M/R Lungs: No BS left lung, dec BS right lung Abd: soft NT/ND Ext: B/L LE in dressing, trace to 1+ edema, no sacral edema CBC, BMP 08/10/16 05:00 08/10/16 05:00 Current Medications Acetylcysteine (Mucomyst 20 Oral / Inh Use Only*) 200 mg NEB QIDR [facility] Last Admin: 08/10/16 05:20 Dose: 200 mg Albuterol Sulfate (Ventolin 0.083% Nebulizer Soln -) 1 amp NEB QIDR [facility] Last Admin: 08/10/16 05:20 Dose: 1 amp Albuterol/Ipratropium (Duoneb -) 1 amp NEB Q4H PRN Aspirin (Asa -) 81 mg PO DAILY [facility] Last Admin: 08/10/16 09:03 Dose: 81 mg Atorvastatin Calcium (Lipitor -) 20 mg PO [facility] Last Admin: 08/09/16 21:42 Dose: 20 mg Bacitracin (Bacitracin -) 1 applic TP DAILY [facility] Last Admin: 08/10/16 09:04 Dose: 1 applic Carbidopa/Levodopa (Sinemet 25/100 -) 1 each PO TID [facility] Last Admin: 08/10/16 06:35 Dose: 1 each Chlorhexidine Gluconate (Hibiclens For Decolonization -) 1 applic TP [facility] Last Admin: 08/09/16 21:34 Dose: 1 applic Cholecalciferol (Vitamin D3 -) 1,000 unit PO DAILY [facility] Last Admin: 08/10/16 09:01 Dose: 1,000 unit Enoxaparin Sodium (Lovenox -) 40 mg SQ DAILY [facility] Last Admin: 08/10/16 09:01 Dose: 40 mg Gabapentin (Neurontin -) 100 mg PO BID [facility] Last Admin: 08/10/16 09:02 Dose: 100 mg Piperacillin Sod/Tazobactam Sod (Zosyn 3.375gm Ivpb (Pre-Docked)) 50 mls @ 100 mls/hr IVPB Q8H-IV [facility] Last Admin: 08/10/16 09:10 Dose: 100 mls/hr Midazolam HCl 100 mg/ Sodium (Chloride) 100 mls @ 1 mls/hr IVPB TITR ANNA MARIE; 1 MG/ HR PRN Reason: Protocol Last Admin: 08/10/16 07:30 Dose: 3 mls/hr Pantoprazole Sodium (Protonix 40mg Ivpb (Pre-Docked)) 100 mls @ 200 mls/hr IVPB DAILY [facility] Last Admin: 08/10/16 09:02 Dose: 200 mls/hr Insulin Aspart (Novolog Vial Sliding Scale -) 1 vial SQ ACHS [facility] PRN Reason: Protocol Last Admin: 08/10/16 10:55 Dose: 2 units Methylprednisolone Sodium Succinate (Solu-Medrol -) 60 mg IVPB Q6H-IV [facility] Last Admin: 08/10/16 08:03 Dose: 60 mg Metoprolol Tartrate (Lopressor Injection -) 5 mg IVPUSH Q4H PRN PRN Reason: HYPERTENSION Last Admin: 08/09/16 09:25 Dose: 5 mg Mupirocin (Bactroban Ointment (For Decolonization) -) 1 applic NS BID [facility] Stop: 08/10/16 21:59 Last Admin: 08/10/16 09:03 Dose: 1 applic Non-Formulary Medication (Pimavanserin Tartrate [Nuplazid]) 2 tab PO DAILY [facility] Last Admin: 08/10/16 09:05 Dose: Not Given Tramadol HCl (Ultram -) 50 mg PO DAILY [facility] Last Admin: 08/10/16 09:02 Dose: 50 mg A/P 85 year old woman with PMhx of CKD, CHF, CAD, DM, Hypertension who presented with sob and found to have SIRS and possible PNA and opacification of left lung with hyperkalemia of 6.6 and Cr of 1.5. #CKD with Hyperkalemia Cr with slight elevation today - ? related to hypoperfusion in setting of Rapid Afib would not give IVF given Hx of CHF and effusions on CXR at this time Trend BUN/Cr daily K is improved #SIRS/PNA/Mucus Plug Intubated Chest PT On IV steroids CXR showed b/l effusions -> ? benefit from diuretics but with caution given hypotension #Hyperphosphatemia Low Phos diet Trend Phos #Rapid Afib now in NSR Thank you Edison Carter DO
[2016-08-10] MEDS ORDERED: BENZOIN/ALOE VERA/STORAX/TOLU 58 ML BOTTLE ONE (13:27)
--- NOTE | 2016-08-10 14:32 | PN ---
Physical Exam: SUBJECTIVE: Patient seen and examined at bedside. No overnight events. No recurrent AFIB. Currently intubated and sedated. OBJECTIVE: Vital Signs Period Temp Pulse Resp BP Sys/Galvin Pulse Ox Last 24 Hr 97.2 F-99.0 F 60-79 12-14 91-114/44-60 90-96 GENERAL: Intubated and sedated. HEAD: Normal with no signs of trauma. EYES: Pupils equal, round and reactive to light, sclera anicteric, conjunctiva clear. No lid lag. EARS, NOSE, THROAT: Ears normal, nares patent, Moist mucous membranes. NECK:Supple, no JVD LUNGS: Bibasilar rhonchi. Decreased breath sounds bibasilar L>R.No wheezes, and no crackles. No accessory muscle use. HEART:Rapid Afib, normal S1 and S2 without murmur, rub or gallop. ABDOMEN: Soft, obese, nontender, not distended, normoactive bowel sounds, no guarding, no rebound, no masses. MUSCULOSKELETAL: Reduced ROM of RLE. No bony deformities or tenderness. No CVA tenderness. UPPER EXTREMITIES: 2+ pulses, warm, well-perfused. No cyanosis. No clubbing. Cap refill <2 seconds. No peripheral edema. LOWER EXTREMITIES: 2+ pulses, warm, well-perfused. No calf tenderness. 2+ Edema bilat. NEUROLOGICAL: sedated. PSYCHIATRIC: can not be assessed SKIN: Bilateral stasis dermatitis of LE Laboratory Results - last 24 hr 08/08/16 08/09/16 08/09/16 16:30 05:59 06:00 WBC RBC Hgb Hct MCV MCHC RDW Plt Count MPV Neutrophils % Lymphocytes % Monocytes % Eosinophils % Basophils % Puncture Site ABG pH ABG pCO2 at Pt Temp ABG pO2 at Pt Temp ABG HCO3 ABG O2 Sat (Measured) ABG O2 Content ABG Base Excess Chicho Test O2 Delivery Device Oxygen Flow Rate Vent Mode Vent Rate Mechanical Rate PEEP Pressure Support Vent Sodium Potassium Chloride Carbon Dioxide Anion Gap BUN Creatinine Creat Clearance w eGFR POC Glucometer 163.98437 Random Glucose Hemoglobin A1c % 6.2 H Calcium Phosphorus Magnesium Iron 91 TIBC 186 L Iron Saturation 49 Total Bilirubin AST ALT Alkaline Phosphatase Troponin I Total Protein Albumin 08/09/16 08/09/16 08/09/16 11:03 15:15 16:55 WBC RBC Hgb Hct MCV MCHC RDW Plt Count MPV Neutrophils % Lymphocytes % Monocytes % Eosinophils % Basophils % Puncture Site ABG pH ABG pCO2 at Pt Temp ABG pO2 at Pt Temp ABG HCO3 ABG O2 Sat (Measured) ABG O2 Content ABG Base Excess Chicho Test O2 Delivery Device Oxygen Flow Rate Vent Mode Vent Rate Mechanical Rate PEEP Pressure Support Vent Sodium Potassium Chloride Carbon Dioxide Anion Gap BUN Creatinine Creat Clearance w eGFR POC Glucometer 170.28535 162.92758 Random Glucose Hemoglobin A1c % Calcium Phosphorus Magnesium Iron TIBC Iron Saturation Total Bilirubin AST ALT Alkaline Phosphatase Troponin I 0.05 Total Protein Albumin 08/09/16 08/09/16 08/10/16 21:30 21:34 05:00 WBC RBC Hgb Hct MCV MCHC RDW Plt Count MPV Neutrophils % Lymphocytes % Monocytes % Eosinophils % Basophils % Puncture Site ABG pH ABG pCO2 at Pt Temp ABG pO2 at Pt Temp ABG HCO3 ABG O2 Sat (Measured) ABG O2 Content ABG Base Excess Chicho Test O2 Delivery Device Oxygen Flow Rate Vent Mode Vent Rate Mechanical Rate PEEP Pressure Support Vent Sodium 140 Potassium 5.2 H Chloride 107 Carbon Dioxide 29 Anion Gap 4 L BUN 69 H Creatinine 1.7 H Creat Clearance w eGFR 28.63 POC Glucometer 167.83973 Random Glucose 150 H Hemoglobin A1c % Calcium 8.1 L Phosphorus 4.5 Magnesium 3.1 H Iron TIBC Iron Saturation Total Bilirubin 0.5 D AST 10 L ALT 7 L Alkaline Phosphatase 67 Troponin I 0.04 Total Protein 5.0 L Albumin 2.1 L 08/10/16 08/10/16 08/10/16 05:00 06:30 09:17 WBC 6.4 RBC 3.38 L Hgb 9.2 L Hct 30.0 L MCV 88.8 MCHC 30.7 L RDW 16.6 H Plt Count 256 MPV 8.5 Neutrophils % 91.5 H Lymphocytes % 4.4 L Monocytes % 4.1 Eosinophils % 0.0 D Basophils % 0.0 Puncture Site Right radial ABG pH 7.32 L ABG pCO2 at Pt Temp 52.6 H ABG pO2 at Pt Temp 95.9 D ABG HCO3 26.1 H ABG O2 Sat (Measured) 97.3 ABG O2 Content 12.9 L ABG Base Excess 0.1 Chicho Test Positive O2 Delivery Device Mech vent Oxygen Flow Rate 50% Vent Mode A/c Vent Rate 12 Mechanical Rate Y PEEP 5.0 Pressure Support Vent 400 Sodium Potassium Chloride Carbon Dioxide Anion Gap BUN Creatinine Creat Clearance w eGFR POC Glucometer 151.98044 Random Glucose Hemoglobin A1c % Calcium Phosphorus Magnesium Iron TIBC Iron Saturation Total Bilirubin AST ALT Alkaline Phosphatase Troponin I Total Protein Albumin 08/10/16 10:54 WBC RBC Hgb Hct MCV MCHC RDW Plt Count MPV Neutrophils % Lymphocytes % Monocytes % Eosinophils % Basophils % Puncture Site ABG pH ABG pCO2 at Pt Temp ABG pO2 at Pt Temp ABG HCO3 ABG O2 Sat (Measured) ABG O2 Content ABG Base Excess Chicho Test O2 Delivery Device Oxygen Flow Rate Vent Mode Vent Rate Mechanical Rate PEEP Pressure Support Vent Sodium Potassium Chloride Carbon Dioxide Anion Gap BUN Creatinine Creat Clearance w eGFR POC Glucometer 192.87151 Random Glucose Hemoglobin A1c % Calcium Phosphorus Magnesium Iron TIBC Iron Saturation Total Bilirubin AST ALT Alkaline Phosphatase Troponin I Total Protein Albumin Active Medications Generic Name Dose Route Start Last Admin Trade Name Freq PRN Reason Stop Dose Admin Acetylcysteine 200 mg 08/08/16 14:00 08/10/16 11:58 Mucomyst 20 Oral / Inh Use Only* NEB 200 mg QIDR ANNA MARIE Administration Albuterol Sulfate 1 amp 08/08/16 14:00 08/10/16 11:58 Ventolin 0.083% Nebulizer Soln - NEB 1 amp QIDR ANNA MARIE Administration Albuterol/Ipratropium 1 amp 08/08/16 12:42 Duoneb - NEB Q4H PRN Aspirin 81 mg 08/06/16 10:00 08/10/16 09:03 Asa - PO 81 mg DAILY ANNA MARIE Administration Atorvastatin Calcium 20 mg 08/05/16 22:00 08/09/16 21:42 Lipitor - PO 20 mg HS ANNA MARIE Administration Bacitracin 1 applic 08/06/16 19:15 08/10/16 09:04 Bacitracin - TP 1 applic DAILY AN[facility] Administration Carbidopa/Levodopa 1 each 08/05/16 22:00 08/10/16 06:35 Sinemet 25/100 - PO 1 each TID ANNA MARIE Administration Chlorhexidine Gluconate 1 applic 08/05/16 22:00 08/09/16 21:34 Hibiclens For Decolonization - TP 1 applic HS ANNA MARIE Administration Cholecalciferol 1,000 unit 08/06/16 10:00 08/10/16 09:01 Vitamin D3 - PO 1,000 unit DAILY AN[facility] Administration Enoxaparin Sodium 40 mg 08/09/16 16:15 08/10/16 09:01 Lovenox - SQ 40 mg DAILY [facility] Administration Gabapentin 100 mg 08/05/16 22:00 08/10/16 09:02 Neurontin - PO 100 mg BID ANNA MARIE Administration Piperacillin Sod/Tazobactam Sod 50 mls @ 100 mls/hr 08/06/16 18:00 08/10/16 09: 10 Zosyn 3.375gm Ivpb (Pre-Docked) IVPB 100 mls/hr Q8H-IV AN[facility]IE Administration Midazolam HCl 100 mg/ Sodium 100 mls @ 1 mls/hr 08/08/16 12:45 08/10/16 12:45 Chloride IVPB 3 mg/hr TITR ANNA MARIE Titration Protocol 1 MG/HR Pantoprazole Sodium 100 mls @ 200 mls/hr 08/09/16 10:15 08/10/16 09:02 Protonix 40mg Ivpb (Pre-Docked) IVPB 200 mls/hr DAILY ANNA [facility] Administration Insulin Aspart 1 vial 08/05/16 22:00 08/10/16 10:55 Novolog Vial Sliding Scale - SQ 2 units ACHS ANNA MARIE Administration Protocol Methylprednisolone Sodium Succinate 60 mg 08/08/16 15:00 08/10/16 08:03 Solu-Medrol - IVPB 60 mg Q6H-IV ANNA [facility]IE Administration Metoprolol Tartrate 5 mg 08/09/16 10:21 08/09/16 09:25 Lopressor Injection - IVPUSH 5 mg Q4H PRN Administration HYPERTENSION Mupirocin 1 applic 08/05/16 22:00 08/10/16 09:03 Bactroban Ointment (For Decolonization) - NS 08/10/16 21:59 1 applic BID ANNA MARIE Administration Non-Formulary Medication 2 tab 08/06/16 10:00 08/10/16 09:05 Pimavanserin Tartrate [Nuplazid] PO Not Given DAILY ANNA MARIE Tramadol HCl 50 mg 08/06/16 10:00 08/10/16 09:02 Ultram - PO 50 mg DAILY ANNA MARIE Administration ASSESSMENT/PLAN: Problem List - Problems (1) New onset a-fib Assessment/Plan: * Has maintained in NSR * No AC as per cardiology- felt to be isolated incident. (2) Sepsis Assessment/Plan: * Blood and urine cultures show no growth * Sputum cultures pending * UA negative for UTI. * Repeat lactic acid WNL * Continue Zosyn Day 4 (3) Pneumonia Assessment/Plan: * Mechanically ventilated. AC with FiO2@40%, rate of 14 * continue Zosyn day4 * Acetylcysteine 200 mg NEB QIDR ANNA MARIE * Albuterol Sulfate 1 amp NEB QIDR ANNA MARIE * Albuterol/Ipratropium (Duoneb -) 1 amp NEB Q4H PRN * Zosyn 3.375gm Ivpb IVPB Q8H-IV ANNA [facility] * Solumedrol 60mg iv Q6h (4) Hypotension Assessment/Plan: * BP has been WNL * 500 cc Bolus NS PRN. * VS Q2H * No pressors at this time. (5) CHF (congestive heart failure) Assessment/Plan: * Lasix 40mg IV one time * Nebivolol (Bystolic -) 5 mg PO DAILY * daily weights * Followed by Dr. Person cardiology (6) HTN (hypertension) Assessment/Plan: * BP meds held for low pressures. (7) CAD (coronary artery disease) Assessment/Plan: * s/p stents x2 * ASA 81 mg PO daily * Lipitor 20mg PO HS (8) Diabetes mellitus type 2 in obese Assessment/Plan: * ISS with Novolog ACHS * BGM ACHS * Glucerna tube feeds with goal of 50ml/hr (9) Bilateral leg ulcer Assessment/Plan: * daily dressing change and wound care. (10) Parkinson's disease dementia Assessment/Plan: * Carbidopa/Levodopa (Sinemet 25/100 -) 1 each PO TID * Pimavanserin Tartrate [Nuplazid] 2 tab PO DAILY (home med non formulary.) (11) DVT prophylaxis Assessment/Plan: * Lovenox 40mg SQ daily * GI- Protonix 40mg IV daily Visit type - Emergency Visit Emergency Visit: Yes ED Registration Date: 08/05/16 Care time: The patient presented to the Emergency Department on the above date and was hospitalized for further evaluation of their emergent condition. - New Patient This patient is new to me today: No - Critical Care Critical Care patient: Yes Total Critical Care Time (in minutes): 33 Critical Care Statement: The care of this patient involved high complexity decision making to prevent further life threatening deterioration of the patient 's condition and/or to evalute & treat vital organ system(s) failure or risk of failure.
[2016-08-10] MEDS ORDERED: FUROSEMIDE 40 MG/4 ML INJECTABLE VIAL IVPB ONE (14:49)
--- NOTE | 2016-08-10 17:41 | PN ---
Progress Note, Physician History of Present Illness: continues to be intubated and sedated off the sedation patient was moving - Current Medication List Current Medications: Active Medications Acetylcysteine (Mucomyst 20 Oral / Inh Use Only*) 200 mg NEB QIDR [facility] Last Admin: 08/10/16 17:16 Dose: 200 mg Albuterol Sulfate (Ventolin 0.083% Nebulizer Soln -) 1 amp NEB QIDR [facility] Last Admin: 08/10/16 17:17 Dose: 1 amp Albuterol/Ipratropium (Duoneb -) 1 amp NEB Q4H PRN Aspirin (Asa -) 81 mg PO DAILY [facility] Last Admin: 08/10/16 09:03 Dose: 81 mg Atorvastatin Calcium (Lipitor -) 20 mg PO HS [facility] Last Admin: 08/09/16 21:42 Dose: 20 mg Bacitracin (Bacitracin -) 1 applic TP DAILY [facility] Last Admin: 08/10/16 09:04 Dose: 1 applic Carbidopa/Levodopa (Sinemet 25/100 -) 1 each PO TID [facility] Last Admin: 08/10/16 14:37 Dose: 1 each Chlorhexidine Gluconate (Hibiclens For Decolonization -) 1 applic TP HS [facility] Last Admin: 08/09/16 21:34 Dose: 1 applic Cholecalciferol (Vitamin D3 -) 1,000 unit PO DAILY [facility] Last Admin: 08/10/16 09:01 Dose: 1,000 unit Enoxaparin Sodium (Lovenox -) 40 mg SQ DAILY [facility] Last Admin: 08/10/16 09:01 Dose: 40 mg Gabapentin (Neurontin -) 100 mg PO BID [facility] Last Admin: 08/10/16 09:02 Dose: 100 mg Piperacillin Sod/Tazobactam Sod (Zosyn 3.375gm Ivpb (Pre-Docked)) 50 mls @ 100 mls/hr IVPB Q8H-IV [facility] Last Admin: 08/10/16 17:15 Dose: 100 mls/hr Midazolam HCl 100 mg/ Sodium (Chloride) 100 mls @ 1 mls/hr IVPB TITR ANNA MARIE; 1 MG/ HR PRN Reason: Protocol Last Titration: 08/10/16 12:45 Dose: 3 mg/hr Pantoprazole Sodium (Protonix 40mg Ivpb (Pre-Docked)) 100 mls @ 200 mls/hr IVPB DAILY [facility] Last Admin: 08/10/16 09:02 Dose: 200 mls/hr Insulin Aspart (Novolog Vial Sliding Scale -) 1 vial SQ ACHS [facility]NA [facility] PRN Reason: Protocol Last Admin: 08/10/16 16:26 Dose: 2 units Methylprednisolone Sodium Succinate (Solu-Medrol -) 60 mg IVPB Q6H-IV [facility] Last Admin: 08/10/16 14:46 Dose: 60 mg Metoprolol Tartrate (Lopressor Injection -) 5 mg IVPUSH Q4H PRN PRN Reason: HYPERTENSION Last Admin: 08/09/16 09:25 Dose: 5 mg Mupirocin (Bactroban Ointment (For Decolonization) -) 1 applic NS BID [facility] Stop: 08/10/16 21:59 Last Admin: 08/10/16 09:03 Dose: 1 applic Non-Formulary Medication (Pimavanserin Tartrate [Nuplazid]) 2 tab PO DAILY [facility] Last Admin: 08/10/16 09:05 Dose: Not Given Tramadol HCl (Ultram -) 50 mg PO DAILY [facility] Last Admin: 08/10/16 09:02 Dose: 50 mg - Objective Vital Signs: Vital Signs Temperature 97.9 F 08/10/16 16:00 Pulse Rate 65 08/10/16 16:00 Respiratory Rate 12 08/10/16 17:16 Blood Pressure 108/52 08/10/16 16:00 O2 Sat by Pulse Oximetry (%) 96 08/10/16 10:15 Constitutional: Yes: No Distress, Calm Cardiovascular: Yes: Regular Rate and Rhythm Respiratory: Yes: Intubated, Mechanically Ventilated Gastrointestinal: Yes: Normal Bowel Sounds, Soft Musculoskeletal: Yes: Other Extremities: Yes: Other Edema: LLE: 2+, RLE: 2+ Integumentary: Yes: Erythema (improving) Neurological: Yes: Other Labs: CBC, BMP 08/10/16 05:00 08/10/16 05:00 INR, PTT INR 1.14 (0.82-1.09) 08/09/16 10:00 Assessment/Plan Problem List - Problems (1) CAD (coronary artery disease) Code(s): I25.10 - ATHSCL HEART DISEASE OF [place] CORONARY ARTERY W/O ANG PCTRS (2) CHF (congestive heart failure) Code(s): I50.9 - HEART FAILURE, UNSPECIFIED Qualifiers: Congestive heart failure type: unspecified congestive heart failure type Congestive heart failure chronicity: unspecified congestive heart failure chronicity Qualified Code(s): I50.9 - Heart failure, unspecified (3) Diabetes mellitus type 2 in obese Code(s): E11.9 - TYPE 2 DIABETES MELLITUS WITHOUT COMPLICATIONS E66.9 - OBESITY, UNSPECIFIED (4) HTN (hypertension) Code(s): I10 - ESSENTIAL (PRIMARY) HYPERTENSION Qualifiers: Hypertension type: essential hypertension Qualified Code(s): I10 - Essential (primary) hypertension (5) Hypotension Code(s): I95.9 - HYPOTENSION, UNSPECIFIED Qualifiers: Hypotension type: idiopathic hypotension Qualified Code(s): I95.0 - Idiopathic hypotension (6) Hypothermia Code(s): T68.XXXA - HYPOTHERMIA, INITIAL ENCOUNTER Qualifiers: Encounter type: initial encounter Qualified Code(s): T68.XXXA - Hypothermia, initial encounter (7) Parkinson's disease dementia Code(s): G20 - PARKINSON'S DISEASE F02.80 - DEMENTIA IN OTH DISEASES CLASSD ELSWHR W/O BEHAVRL DISTURB (8) SIRS (systemic inflammatory response syndrome) Code(s): R65.10 - SIRS OF NON-INFECTIOUS ORIGIN W/O ACUTE ORGAN DYSFUNCTION collapse of the left lung bilateral cellulitis of the leg plan intubated legs improving lungs are looking better more areation and more parenchyma seen continue abx cc time 40 min
[2016-08-10] MEDS: CHLORHEXIDINE GLUCONATE 4% CLEANSER FOR DECOLONIZATION TP SCH (21:16)
[2016-08-10] MEDS: ATORVASTATIN CA 20 MG TABLET (FP) PO SCH (21:16)
[2016-08-11] MEDS: ACETYLCYSTEINE 20% 200MG/ML 4 ML VIAL *FOR ORAL / INH USE ONLY NEB SCH ×5 (00:10→23:47)
[2016-08-11] MEDS: ALBUTEROL SO4 0.083% IH SOL 2.5 MG/3 ML VIAL.NEB. NEB SCH ×5 (00:10→23:47)
[2016-08-11] MEDS: METOPROLOL TARTRATE 5 MG/5 ML VIAL IVPUSH PRN (00:55)
[2016-08-11] MEDS: PIPERACILLIN/TAZOB 3.375 GM 50 ML IVPB SCH ×3 (02:15→17:21)
[2016-08-11] MEDS: methylPREDNISolone NA SUCC 125 MG/2 ML VIAL IVPB SCH ×4 (03:49→21:25)
[2016-08-11] MEDS ORDERED: HEPARIN NA (PORCINE) 5,000 UNITS/ML 1ML VIAL IVPUSH PRN ×2 (04:08)
[2016-08-11] MEDS ORDERED: AMIODARONE HCL INJECTION 150 MG in DEXTROSE 5%-WATER - 97 ML IVPB ONE (04:10)
[2016-08-11] MEDS: HEPARIN INFUSION - 500 ML IVPB SCH (04:15)
[2016-08-11] MEDS ORDERED: AMIODARONE HCL INJECTION 450 MG in DEXTROSE 5%-WATER - 241 ML IVPB SCH ×2 (05:00→11:00)
[2016-08-11 06:36] LABS: MCH 28.2 pg (25.7-33.7); MCHC 31.8 g/dl (32.0-36.0); MEAN CELL VOLUME 88.6 fl (80-96); MEAN PLT VOLUME 8.2 fl (7.5-11.1); PLATELET COUNT 217 K/MM3 (134-434); RDW 16.5 % (11.6-15.6); WHITE BLOOD COUNT 6.7 K/mm3 (4.0-10.0)
[2016-08-11] MEDS: CARBIDOPA/LEVODOPA 25/100 TABLET (FP) PO SCH ×3 (06:59→21:26)
[2016-08-11] MEDS: INSULIN SLIDING SCALE (NOVOLOG) 1 VIAL SQ SCH ×4 (07:29→22:21)
[2016-08-11 09:10] LABS: ALBUMIN 2.2 g/dl (3.4-5.0); BILIRUBIN,TOTAL 0.6 mg/dL (0.2-1.0); CALCIUM 7.7 mg/dL (8.5-10.1); CREATININE 1.9 mg/dL (0.55-1.02); TOT PROT 5.2 g/dl (6.4-8.2)
[2016-08-11] MEDS: CHOLECALCIFEROL (VITAMIN D3) 1,000 UNIT TABLET (FP) PO SCH (09:48)
[2016-08-11] MEDS: traMADol HCL 50 MG TABLET PO SCH (09:48)
[2016-08-11] MEDS: ASPIRIN 81 MG CHEWABLE TABLETS PO SCH (09:48)
[2016-08-11] MEDS: GABAPENTIN 100 MG CAPSULE (FP) PO SCH ×2 (09:48→21:24)
[2016-08-11] MEDS: BACITRACIN 30 GM TUBE TOPICAL OINTMENT TP SCH (09:52)
[2016-08-11] MEDS: PANTOPRAZOLE SODIUM 100 ML IVPB SCH (09:52)
[2016-08-11] MEDS: PIMAVANSERIN TARTRATE PO SCH (12:02)
--- NOTE | 2016-08-11 12:16 | PN ---
Progress Note, Physician Chief Complaint: 85 y/o female in ICU Has Chronic Kidney disease, Coronary artery disease, DM2, Congestive Heart failure, Hypertension, Pneumonia, Hyperkalemia, A Fib, and Respiratory failure. She is supported by Mechanical Ventilator. On IV Antibiotics, IV steroids. History of Present Illness: Maintains good urine output. poorly responsive. - Current Medication List Current Medications: Active Medications Acetylcysteine (Mucomyst 20 Oral / Inh Use Only*) 200 mg NEB QIDR [facility] Last Admin: 08/11/16 11:40 Dose: 200 mg Albuterol Sulfate (Ventolin 0.083% Nebulizer Soln -) 1 amp NEB QIDR [facility] Last Admin: 08/11/16 11:41 Dose: 1 amp Albuterol/Ipratropium (Duoneb -) 1 amp NEB Q4H PRN Aspirin (Asa -) 81 mg PO DAILY [facility] Last Admin: 08/11/16 09:48 Dose: 81 mg Atorvastatin Calcium (Lipitor -) 20 mg PO HS [facility] Last Admin: 08/10/16 21:16 Dose: 20 mg Bacitracin (Bacitracin -) 1 applic TP DAILY [facility] Last Admin: 08/11/16 09:52 Dose: 1 applic Carbidopa/Levodopa (Sinemet 25/100 -) 1 each PO TID [facility] Last Admin: 08/11/16 06:59 Dose: 1 each Chlorhexidine Gluconate (Hibiclens For Decolonization -) 1 applic TP HS [facility] Last Admin: 08/10/16 21:16 Dose: 1 applic Cholecalciferol (Vitamin D3 -) 1,000 unit PO DAILY [facility] Last Admin: 08/11/16 09:48 Dose: 1,000 unit Gabapentin (Neurontin -) 100 mg PO BID [facility] Last Admin: 08/11/16 09:48 Dose: 100 mg Heparin Sodium (Porcine) (Heparin -) 1,000 unit IVPUSH PRN PRN PRN Reason: Heparin Heparin Sodium (Porcine) (Heparin -) 5,000 unit IVPUSH PRN PRN PRN Reason: Heparin Piperacillin Sod/Tazobactam Sod (Zosyn 3.375gm Ivpb (Pre-Docked)) 50 mls @ 100 mls/hr IVPB Q8H-IV [facility] Last Admin: 08/11/16 09:52 Dose: 100 mls/hr Midazolam HCl 100 mg/ Sodium (Chloride) 100 mls @ 1 mls/hr IVPB TITR [facility]; 1 MG/ HR PRN Reason: Protocol Last Titration: 08/10/16 12:45 Dose: 3 mg/hr Pantoprazole Sodium (Protonix 40mg Ivpb (Pre-Docked)) 100 mls @ 200 mls/hr IVPB DAILY [facility] Last Admin: 08/11/16 09:52 Dose: 200 mls/hr Heparin Sodium/Dextrose (Heparin Infusion -) 500 mls @ 20 mls/hr IVPB TITR ANNA MARIE ; 1,000 UNITS/HR PRN Reason: Protocol Last Admin: 08/11/16 04:15 Dose: 20 mls/hr Amiodarone HCl 450 mg/ (Dextrose) 250 mls @ 16.66 mls/hr IVPB TITR [facility] PRN Reason: 0.5 MG/MIN Stop: 08/12/16 04:59 Last Admin: 08/11/16 11:51 Dose: 16.66 mls/hr Insulin Aspart (Novolog Vial Sliding Scale -) 1 vial SQ ACHS [facility] PRN Reason: Protocol Last Admin: 08/11/16 11:50 Dose: 8 units Methylprednisolone Sodium Succinate (Solu-Medrol -) 60 mg IVPB Q6H-IV [facility] Last Admin: 08/11/16 09:49 Dose: 60 mg Metoprolol Tartrate (Lopressor Injection -) 5 mg IVPUSH Q4H PRN PRN Reason: HYPERTENSION Last Admin: 08/11/16 00:55 Dose: 5 mg Non-Formulary Medication (Pimavanserin Tartrate [Nuplazid]) 2 tab PO DAILY [facility] Last Admin: 08/11/16 12:02 Dose: Not Given Tramadol HCl (Ultram -) 50 mg PO DAILY [facility] Last Admin: 08/11/16 09:48 Dose: 50 mg - Objective Vital Signs: Vital Signs Temperature 96 F L 08/11/16 10:00 Pulse Rate 71 08/11/16 11:55 Respiratory Rate 12 08/11/16 11:55 Blood Pressure 96/67 08/11/16 11:55 O2 Sat by Pulse Oximetry (%) 98 08/11/16 10:13 Eyes: Yes: Conjunctiva Clear, Tearing HENT: Yes: WNL Neck: Yes: Supple Cardiovascular: Yes: Pulse Irregular, S1, S2 Respiratory: Yes: Diminished, Dullness, Intubated, Mechanically Ventilated Extremities: Yes: Delayed Capillary Refill Edema: Yes Edema: LLE: 2+, RLE: 2+ Neurological: Yes: Unresponsive Labs: CBC, BMP 08/11/16 05:20 08/11/16 06:00 INR, PTT INR 1.14 (0.82-1.09) 08/09/16 10:00 Problem List - Problems (1) Bilateral leg ulcer Code(s): L97.919 - NON-PRS CHRONIC ULC UNSP PRT OF R LOW LEG W UNSP SEVERITY L97.929 - NON-PRS CHRONIC ULC UNSP PRT OF L LOW LEG W UNSP SEVERITY (2) CAD (coronary artery disease) Code(s): I25.10 - ATHSCL HEART DISEASE OF [place] CORONARY ARTERY W/O ANG PCTRS (3) CHF (congestive heart failure) Code(s): I50.9 - HEART FAILURE, UNSPECIFIED Qualifiers: Congestive heart failure type: unspecified congestive heart failure type Congestive heart failure chronicity: unspecified congestive heart failure chronicity Qualified Code(s): I50.9 - Heart failure, unspecified (4) Diabetes mellitus type 2 in obese Code(s): E11.9 - TYPE 2 DIABETES MELLITUS WITHOUT COMPLICATIONS E66.9 - OBESITY, UNSPECIFIED (5) HTN (hypertension) Code(s): I10 - ESSENTIAL (PRIMARY) HYPERTENSION Qualifiers: Hypertension type: essential hypertension Qualified Code(s): I10 - Essential (primary) hypertension (6) New onset a-fib Code(s): I48.91 - UNSPECIFIED ATRIAL FIBRILLATION (7) Pneumonia Code(s): J18.9 - PNEUMONIA, UNSPECIFIED ORGANISM Qualifiers: Pneumonia type: due to unspecified organism Laterality: left Lung location: lower lobe of lung Qualified Code(s): J18.9 - Pneumonia, unspecified organism (8) SIRS (systemic inflammatory response syndrome) Code(s): R65.10 - SIRS OF NON-INFECTIOUS ORIGIN W/O ACUTE ORGAN DYSFUNCTION (9) Sepsis Code(s): A41.9 - SEPSIS, UNSPECIFIED ORGANISM Qualifiers: Sepsis type: sepsis due to unspecified organism Qualified Code(s): A41.9 - Sepsis, unspecified organism Assessment/Plan Patient's clinical status seems to be stable. Maintains good urine output. Serum Potassium has improved, and is in acceptable range. Has Azotemia, mostly Prerenal in nature. seems to be due to low flow states, Hemodynamic instability and the effect of steroids. No specific interventions suggested at this point. Will continue the current regimen. Tori López MD
--- NOTE | 2016-08-11 12:27 | PN ---
Teaching Attending Note Name of Resident: José Riggs ATTENDING PHYSICIAN STATEMENT I saw and evaluated the patient. I reviewed the resident's note and discussed the case with the resident. I agree with the resident's findings and plan as documented. SUBJECTIVE: Pt seen and examined in the ICU. Remains intubated, sedated. On volume assist control with 50% FiO2. No fevers recorded. Back in atrial fibrillation with RVR , did not respond to IVP, started on amiodarone gtt. OBJECTIVE: Last Vital Signs Temp Pulse Resp BP Pulse Ox 96 F L 71 12 96/67 98 08/11/16 10:00 08/11/16 11:55 08/11/16 11:55 08/11/16 11:55 08/11/16 10:13 Intake & Output 08/08/16 08/09/16 08/10/16 08/11/16 23:59 23:59 23:59 23:59 Intake Total 1545 1746.2 1492 952 Output Total 369 672 0881 300 Balance 845 896.2 -208 652 Weight 198 lb 200 lb 1.6 oz 203 lb 8 oz 208 lb 7 oz Gen: intubated, sedated Heart: RRR Lung: basilar rhonchi Abd: soft, nontender Ext: + edema, chronic changes CBC, BMP 08/11/16 05:20 08/11/16 06:00 Active Medications Acetylcysteine (Mucomyst 20 Oral / Inh Use Only*) 200 mg NEB QIDR [facility] Last Admin: 08/11/16 11:40 Dose: 200 mg Albuterol Sulfate (Ventolin 0.083% Nebulizer Soln -) 1 amp NEB QIDR [facility] Last Admin: 08/11/16 11:41 Dose: 1 amp Albuterol/Ipratropium (Duoneb -) 1 amp NEB Q4H PRN Aspirin (Asa -) 81 mg PO DAILY [facility] Last Admin: 08/11/16 09:48 Dose: 81 mg Atorvastatin Calcium (Lipitor -) 20 mg PO HS [facility] Last Admin: 08/10/16 21:16 Dose: 20 mg Bacitracin (Bacitracin -) 1 applic TP DAILY [facility] Last Admin: 08/11/16 09:52 Dose: 1 applic Carbidopa/Levodopa (Sinemet 25/100 -) 1 each PO TID [facility] Last Admin: 08/11/16 06:59 Dose: 1 each Chlorhexidine Gluconate (Hibiclens For Decolonization -) 1 applic TP HS [facility] Last Admin: 08/10/16 21:16 Dose: 1 applic Cholecalciferol (Vitamin D3 -) 1,000 unit PO DAILY [facility] Last Admin: 08/11/16 09:48 Dose: 1,000 unit Gabapentin (Neurontin -) 100 mg PO BID [facility] Last Admin: 08/11/16 09:48 Dose: 100 mg Heparin Sodium (Porcine) (Heparin -) 1,000 unit IVPUSH PRN PRN PRN Reason: Heparin Heparin Sodium (Porcine) (Heparin -) 5,000 unit IVPUSH PRN PRN PRN Reason: Heparin Piperacillin Sod/Tazobactam Sod (Zosyn 3.375gm Ivpb (Pre-Docked)) 50 mls @ 100 mls/hr IVPB Q8H-IV [facility] Last Admin: 08/11/16 09:52 Dose: 100 mls/hr Midazolam HCl 100 mg/ Sodium (Chloride) 100 mls @ 1 mls/hr IVPB TITR ANNA MARIE; 1 MG/ HR PRN Reason: Protocol Last Titration: 08/10/16 12:45 Dose: 3 mg/hr Pantoprazole Sodium (Protonix 40mg Ivpb (Pre-Docked)) 100 mls @ 200 mls/hr IVPB DAILY [facility] Last Admin: 08/11/16 09:52 Dose: 200 mls/hr Heparin Sodium/Dextrose (Heparin Infusion -) 500 mls @ 20 mls/hr IVPB TITR ANNA MARIE ; 1,000 UNITS/HR PRN Reason: Protocol Last Admin: 08/11/16 04:15 Dose: 20 mls/hr Amiodarone HCl 450 mg/ (Dextrose) 250 mls @ 16.66 mls/hr IVPB TITR [facility] PRN Reason: 0.5 MG/MIN Stop: 08/12/16 04:59 Last Admin: 08/11/16 11:51 Dose: 16.66 mls/hr Insulin Aspart (Novolog Vial Sliding Scale -) 1 vial SQ ACHS [facility] PRN Reason: Protocol Last Admin: 08/11/16 11:50 Dose: 8 units Methylprednisolone Sodium Succinate (Solu-Medrol -) 60 mg IVPB Q6H-IV [facility] Last Admin: 08/11/16 09:49 Dose: 60 mg Metoprolol Tartrate (Lopressor Injection -) 5 mg IVPUSH Q4H PRN PRN Reason: HYPERTENSION Last Admin: 08/11/16 00:55 Dose: 5 mg Non-Formulary Medication (Pimavanserin Tartrate [Nuplazid]) 2 tab PO DAILY [facility] Last Admin: 08/11/16 12:02 Dose: Not Given Tramadol HCl (Ultram -) 50 mg PO DAILY [facility] Last Admin: 08/11/16 09:48 Dose: 50 mg ASSESSMENT AND PLAN: Acute Hypercapneic and Hypoxic Respiratory Failure Pneumonia Atelectasis Paroxysmal Atrial Fibrillation Pulmonary HTN CAD HTN DM Parkinsons Disease - continue antibiotics - continue medrol at current dose - inhaled bronchodilators, mucolytics - taper FiO2 to keep SpO2 >90% - lasix IV if BP tolerates - amiodarone gtt per cardiology - continue anticoagulation - hold sedation to assess mental status - spontaneous breathing trials when mental status improved - enteral feeds - DVT/GI prophylaxis - continue ICU monitoring
--- NOTE | 2016-08-11 13:55 | PN ---
Progress Note, Physician History of Present Illness: seen and examined today. remains intubated, unresponsive. AFib with RVR overnight - Current Medication List Current Medications: Active Medications Acetylcysteine (Mucomyst 20 Oral / Inh Use Only*) 200 mg NEB QIDR [facility] Last Admin: 08/11/16 11:40 Dose: 200 mg Albuterol Sulfate (Ventolin 0.083% Nebulizer Soln -) 1 amp NEB QIDR [facility] Last Admin: 08/11/16 11:41 Dose: 1 amp Albuterol/Ipratropium (Duoneb -) 1 amp NEB Q4H PRN Aspirin (Asa -) 81 mg PO DAILY [facility] Last Admin: 08/11/16 09:48 Dose: 81 mg Atorvastatin Calcium (Lipitor -) 20 mg PO HS [facility] Last Admin: 08/10/16 21:16 Dose: 20 mg Bacitracin (Bacitracin -) 1 applic TP DAILY [facility] Last Admin: 08/11/16 09:52 Dose: 1 applic Carbidopa/Levodopa (Sinemet 25/100 -) 1 each PO TID [facility] Last Admin: 08/11/16 13:30 Dose: 1 each Chlorhexidine Gluconate (Hibiclens For Decolonization -) 1 applic TP HS [facility] Last Admin: 08/10/16 21:16 Dose: 1 applic Cholecalciferol (Vitamin D3 -) 1,000 unit PO DAILY [facility] Last Admin: 08/11/16 09:48 Dose: 1,000 unit Gabapentin (Neurontin -) 100 mg PO BID [facility] Last Admin: 08/11/16 09:48 Dose: 100 mg Heparin Sodium (Porcine) (Heparin -) 1,000 unit IVPUSH PRN PRN PRN Reason: Heparin Heparin Sodium (Porcine) (Heparin -) 5,000 unit IVPUSH PRN PRN PRN Reason: Heparin Piperacillin Sod/Tazobactam Sod (Zosyn 3.375gm Ivpb (Pre-Docked)) 50 mls @ 100 mls/hr IVPB Q8H-IV [facility] Last Admin: 08/11/16 09:52 Dose: 100 mls/hr Midazolam HCl 100 mg/ Sodium (Chloride) 100 mls @ 1 mls/hr IVPB TITR ANNA MARIE; 1 MG/ HR PRN Reason: Protocol Last Titration: 08/10/16 12:45 Dose: 3 mg/hr Pantoprazole Sodium (Protonix 40mg Ivpb (Pre-Docked)) 100 mls @ 200 mls/hr IVPB DAILY [facility] Last Admin: 08/11/16 09:52 Dose: 200 mls/hr Heparin Sodium/Dextrose (Heparin Infusion -) 500 mls @ 20 mls/hr IVPB TITR ANNA MARIE ; 1,000 UNITS/HR PRN Reason: Protocol Last Admin: 08/11/16 04:15 Dose: 20 mls/hr Amiodarone HCl 450 mg/ (Dextrose) 250 mls @ 16.66 mls/hr IVPB TITR ANNA [facility] PRN Reason: 0.5 MG/MIN Stop: 08/12/16 04:59 Last Admin: 08/11/16 11:51 Dose: 16.66 mls/hr Insulin Aspart (Novolog Vial Sliding Scale -) 1 vial SQ ACHS [facility] PRN Reason: Protocol Last Admin: 08/11/16 11:50 Dose: 8 units Methylprednisolone Sodium Succinate (Solu-Medrol -) 60 mg IVPB Q6H-IV [facility] Last Admin: 08/11/16 09:49 Dose: 60 mg Metoprolol Tartrate (Lopressor Injection -) 5 mg IVPUSH Q4H PRN PRN Reason: HYPERTENSION Last Admin: 08/11/16 00:55 Dose: 5 mg Non-Formulary Medication (Pimavanserin Tartrate [Nuplazid]) 2 tab PO DAILY [facility] Last Admin: 08/11/16 12:02 Dose: Not Given Tramadol HCl (Ultram -) 50 mg PO DAILY [facility] Last Admin: 08/11/16 09:48 Dose: 50 mg - Objective Vital Signs: Vital Signs Temperature 96 F L 08/11/16 10:00 Pulse Rate 72 08/11/16 13:13 Respiratory Rate 12 08/11/16 13:35 Blood Pressure 101/55 08/11/16 13:13 O2 Sat by Pulse Oximetry (%) 98 08/11/16 10:13 Constitutional: Yes: Well Nourished, No Distress, Calm Eyes: Yes: Conjunctiva Clear HENT: Yes: Atraumatic, Normocephalic Cardiovascular: Yes: Tachycardia, Pulse Irregular, S1, S2. No: Bradycardia, Bruit, JVD, Gallop, Murmur, Rub, S3, S4, Varicosities Respiratory: Yes: Regular, Diminished, Intubated, Mechanically Ventilated. No: Rales, Rhonchi, Wheezes Gastrointestinal: Yes: WNL, Normal Bowel Sounds, Soft. No: Distention, Tenderness Edema: Yes Edema: LLE: Trace, RLE: Trace Peripheral Pulses WNL: Yes Peripheral Pulses: Left Doralis Pedis: 2+, Right Dorsalis Pedis: 2+ Integumentary: Yes: WNL Neurological: No: Alert, Oriented Psychiatric: No: Alert, Oriented Labs: CBC, BMP 08/11/16 05:20 08/11/16 06:00 INR, PTT INR 1.14 (0.82-1.09) 08/09/16 10:00 - ....Imaging Chest X-ray: Report Reviewed, Image Reviewed EKG: Report Reviewed, Image Reviewed Other: Report Reviewed, Image Reviewed (Tele-currently Afib/flutter with RVR, prior to this NSR with apcs) Problem List - Problems (1) CAD (coronary artery disease) Code(s): I25.10 - ATHSCL HEART DISEASE OF [place] CORONARY ARTERY W/O ANG PCTRS (2) CHF (congestive heart failure) Code(s): I50.9 - HEART FAILURE, UNSPECIFIED Qualifiers: Congestive heart failure type: unspecified congestive heart failure type Congestive heart failure chronicity: unspecified congestive heart failure chronicity Qualified Code(s): I50.9 - Heart failure, unspecified (3) Diabetes mellitus type 2 in obese Code(s): E11.9 - TYPE 2 DIABETES MELLITUS WITHOUT COMPLICATIONS E66.9 - OBESITY, UNSPECIFIED (4) HTN (hypertension) Code(s): I10 - ESSENTIAL (PRIMARY) HYPERTENSION Qualifiers: Hypertension type: essential hypertension Qualified Code(s): I10 - Essential (primary) hypertension (5) Hypotension Code(s): I95.9 - HYPOTENSION, UNSPECIFIED Qualifiers: Hypotension type: idiopathic hypotension Qualified Code(s): I95.0 - Idiopathic hypotension (6) Hypothermia Code(s): T68.XXXA - HYPOTHERMIA, INITIAL ENCOUNTER Qualifiers: Encounter type: initial encounter Qualified Code(s): T68.XXXA - Hypothermia, initial encounter (7) Parkinson's disease dementia Code(s): G20 - PARKINSON'S DISEASE F02.80 - DEMENTIA IN OTH DISEASES CLASSD ELSWHR W/O BEHAVRL DISTURB (8) SIRS (systemic inflammatory response syndrome) Code(s): R65.10 - SIRS OF NON-INFECTIOUS ORIGIN W/O ACUTE ORGAN DYSFUNCTION Assessment/Plan 85 year old woman with a history of HTN, DM II, HLD, CAD with prior stents, CHF (unknown details) admitted with sob, hypoxic/hypercapneic resp failure. SOB-hypercapneic/hypoxic respiratory failure, possible PNA vs acute on chronic CHF (unknown type) -mucous plugging with opacification of L hemithorax and R pleural effusion -continue vent support -hold off on diuresis for now CAD-with reported prior stents -cont asa and lipitor -cardiac enzymes wnl New onset Pafib/aflutter with RVR- initially converted to NSR with amio 150 x 1 : developed recurrence overnight -cont amio gtt -cardizem gtt if needed for additional HR control and if BP tolerates -Digoxin if needed beyond that -Continue tele in ICU -cont heparin gtt
[2016-08-11] MEDS: MIDAZOLAM 100 MG in SODIUM CHLORIDE 100 ML IVPB SCH ×2 (15:39→19:00)
--- NOTE | 2016-08-11 16:56 | PN ---
Physical Exam: SUBJECTIVE: Patient seen and examined at bedside. She remains intubated and sedated. Went back into Afib/flutter last night. Looks edematous all over. OBJECTIVE: Vital Signs Period Temp Pulse Resp BP Sys/Galvin Pulse Ox Last 24 Hr 96 F-98.7 F 66-155 12-17 83-119/49-77 94-98 Constitutional: Edematous, intubated and sedated. Eyes: Yes: Conjunctiva Clear HENT: Yes: Atraumatic, Normocephalic Cardiovascular: Yes: Tachycardia, Pulse Irregular, S1, S2. No: Bradycardia, Bruit, JVD, Gallop, Murmur, Rub, S3, S4, Varicosities Respiratory: Yes: Regular, Diminished, Intubated, Mechanically Ventilated. No: Rales, Rhonchi, Wheezes Gastrointestinal: Yes: WNL, Normal Bowel Sounds, Soft. No: Distention, Tenderness Edema: Yes Edema: LLE: Trace, RLE: Trace Peripheral Pulses WNL: Yes Peripheral Pulses: Left Doralis Pedis: 2+, Right Dorsalis Pedis: 2+ Integumentary: Yes: WNL Neurological: No: Alert, Oriented Psychiatric: No: Alert, Oriented Laboratory Results - last 24 hr 08/10/16 08/10/16 08/11/16 16:26 21:28 05:20 WBC RBC Hgb Hct MCV MCHC RDW Plt Count MPV Neutrophils % Lymphocytes % Monocytes % Eosinophils % Basophils % PTT (Actin FS) 33.7 Sodium Potassium Chloride Carbon Dioxide Anion Gap BUN Creatinine Creat Clearance w eGFR POC Glucometer 188.56815 205.26249 Random Glucose Calcium Total Bilirubin AST ALT Alkaline Phosphatase Total Protein Albumin 08/11/16 08/11/16 08/11/16 05:20 06:00 07:26 WBC 6.7 RBC 3.45 L Hgb 9.7 L Hct 30.5 L MCV 88.6 MCHC 31.8 L RDW 16.5 H Plt Count 217 MPV 8.2 Neutrophils % 90.0 H Lymphocytes % 4.9 L Monocytes % 5.1 Eosinophils % 0.0 Basophils % 0.0 PTT (Actin FS) Sodium 142 Potassium 4.2 Chloride 108 H Carbon Dioxide 27 Anion Gap 7 L BUN 80 H Creatinine 1.9 H Creat Clearance w eGFR 25.18 POC Glucometer 246.28758 Random Glucose 207 H D Calcium 7.7 L Total Bilirubin 0.6 AST 6 L D ALT 7 L Alkaline Phosphatase 69 Total Protein 5.2 L Albumin 2.2 L Active Medications Generic Name Dose Route Start Last Admin Trade Name Freq PRN Reason Stop Dose Admin Acetylcysteine 200 mg 08/08/16 14:00 08/11/16 11:40 Mucomyst 20 Oral / Inh Use Only* NEB 200 mg QIDR [facility]NA [facility] Administration Albuterol Sulfate 1 amp 08/08/16 14:00 08/11/16 11:41 Ventolin 0.083% Nebulizer Soln - NEB 1 amp QIDR ANNA MARIE Administration Albuterol/Ipratropium 1 amp 08/08/16 12:42 Duoneb - NEB Q4H PRN Aspirin 81 mg 08/06/16 10:00 08/11/16 09:48 Asa - PO 81 mg DAILY [facility] Administration Atorvastatin Calcium 20 mg 08/05/16 22:00 08/10/16 21:16 Lipitor - PO 20 mg HS ANNA [facility]IE Administration Bacitracin 1 applic 08/06/16 19:15 08/11/16 09:52 Bacitracin - TP 1 applic DAILY [facility] Administration Carbidopa/Levodopa 1 each 08/05/16 22:00 08/11/16 13:30 Sinemet 25/100 - PO 1 each TID AN[facility] Administration Chlorhexidine Gluconate 1 applic 08/05/16 22:00 08/10/16 21:16 Hibiclens For Decolonization - TP 1 applic HS [facility] Administration Cholecalciferol 1,000 unit 08/06/16 10:00 08/11/16 09:48 Vitamin D3 - PO 1,000 unit DAILY [facility] Administration Gabapentin 100 mg 08/05/16 22:00 08/11/16 09:48 Neurontin - PO 100 mg BID ANNA [facility] Administration Heparin Sodium (Porcine) 1,000 unit 08/11/16 04:08 Heparin - IVPUSH PRN PRN Heparin Heparin Sodium (Porcine) 5,000 unit 08/11/16 04:08 Heparin - IVPUSH PRN PRN Heparin Piperacillin Sod/Tazobactam Sod 50 mls @ 100 mls/hr 08/06/16 18:00 08/11/16 09: 52 Zosyn 3.375gm Ivpb (Pre-Docked) IVPB 100 mls/hr Q8H-IV [facility] Administration Midazolam HCl 100 mg/ Sodium 100 mls @ 1 mls/hr 08/08/16 12:45 08/11/16 15:39 Chloride IVPB 3 mls/hr TITR ANNA MARIE Administration Protocol 1 MG/HR Pantoprazole Sodium 100 mls @ 200 mls/hr 08/09/16 10:15 08/11/16 09:52 Protonix 40mg Ivpb (Pre-Docked) IVPB 200 mls/hr DAILY [facility] Administration Heparin Sodium/Dextrose 500 mls @ 20 mls/hr 08/11/16 04:15 08/11/16 04:15 Heparin Infusion - IVPB 20 mls/hr TITR ANNA MARIE Administration Protocol 1,000 UNITS/HR Amiodarone HCl 450 mg/ 250 mls @ 16.66 mls/hr 08/11/16 11:00 08/11/16 11:51 Dextrose IVPB 08/12/16 04:59 16.66 mls/hr TITR ANNA MARIE Administration 0.5 MG/MIN Insulin Aspart 1 vial 08/05/16 22:00 08/11/16 11:50 Novolog Vial Sliding Scale - SQ 8 units ACHS ANNA MARIE Administration Protocol Methylprednisolone Sodium Succinate 60 mg 08/08/16 15:00 08/11/16 15:40 Solu-Medrol - IVPB 60 mg Q6H-IV [facility] Administration Metoprolol Tartrate 5 mg 08/09/16 10:21 08/11/16 00:55 Lopressor Injection - IVPUSH 5 mg Q4H PRN Administration HYPERTENSION Non-Formulary Medication 2 tab 08/06/16 10:00 08/11/16 12:02 Pimavanserin Tartrate [Nuplazid] PO Not Given DAILY ANNA [facility] Tramadol HCl 50 mg 08/06/16 10:00 08/11/16 09:48 Ultram - PO 50 mg DAILY [facility] Administration ASSESSMENT/PLAN: 85 year old woman with a history of HTN, DM II, HLD, CAD with prior stents, CHF (unknown details) admitted with sob, hypoxic/hypercapneic resp failure. Problem List - Problems (1) Afib Assessment/Plan: * Amiodarone drip as per Cardiology * Cardizem gtt PRN for better HR control and if BP tolerates * Digoxin PRN * AC with heparin gtt (2) Sepsis Assessment/Plan: * Blood and urine cultures show no growth * Sputum cultures show MRSA * UA negative for UTI. * Repeat lactic acid WNL * Continue Zosyn Day 5 (3) Pneumonia Assessment/Plan: * Mechanically ventilated. AC with FiO2@40%, rate of 14 * continue Zosyn day 5 * Acetylcysteine 200 mg NEB QIDR ANNA [facility] * Albuterol Sulfate 1 amp NEB QIDR ANNA [facility] * Albuterol/Ipratropium (Duoneb -) 1 amp NEB Q4H PRN * Zosyn 3.375gm Ivpb IVPB Q8H-IV [facility] * Solumedrol 60mg iv Q6h (4) Hypotension Assessment/Plan: * BP has been WNL * 500 cc Bolus NS PRN. * VS Q2H * No pressors at this time. (5) CHF (congestive heart failure) Assessment/Plan: * Lasix 40mg IV one time * Nebivolol (Bystolic -) 5 mg PO DAILY * daily weights * Followed by Dr. Person cardiology (6) HTN (hypertension) Assessment/Plan: * BP meds held for low pressures. (7) CAD (coronary artery disease) Assessment/Plan: * s/p stents x2 * ASA 81 mg PO daily * Lipitor 20mg PO HS (8) Diabetes mellitus type 2 in obese Assessment/Plan: * ISS with Novolog ACHS * BGM ACHS * Glucerna tube feeds with goal of 50ml/hr (9) Bilateral leg ulcer Assessment/Plan: * daily dressing change and wound care. (10) Parkinson's disease dementia Assessment/Plan: * Carbidopa/Levodopa (Sinemet 25/100 -) 1 each PO TID * Pimavanserin Tartrate [Nuplazid] 2 tab PO DAILY (home med non formulary.) (11) DVT prophylaxis Assessment/Plan: * Lovenox 40mg SQ daily * GI- Protonix 40mg IV daily Visit type - Emergency Visit Emergency Visit: Yes ED Registration Date: 08/05/16 Care time: The patient presented to the Emergency Department on the above date and was hospitalized for further evaluation of their emergent condition. - New Patient This patient is new to me today: No - Critical Care Critical Care patient: Yes Total Critical Care Time (in minutes): 35 Critical Care Statement: The care of this patient involved high complexity decision making to prevent further life threatening deterioration of the patient 's condition and/or to evalute & treat vital organ system(s) failure or risk of failure.
--- NOTE | 2016-08-11 17:01 | PN ---
Progress Note (short form) - Note Progress Note: Subjective: The patient was seen and examined in the ICU, she remains intubated and sedated. Back in atrial fibrillation with RVR, started on amiodarone gtt Current Medications Generic Name Dose Route Start Last Admin Trade Name Freq PRN Reason Stop Dose Admin Acetylcysteine 200 mg 08/08/16 14:00 08/11/16 11:40 Mucomyst 20 Oral / Inh Use Only* NEB 200 mg QIDR ANNA MARIE Administration Albuterol Sulfate 1 amp 08/08/16 14:00 08/11/16 11:41 Ventolin 0.083% Nebulizer Soln - NEB 1 amp QIDR ANNA MARIE Administration Albuterol/Ipratropium 1 amp 08/08/16 12:42 Duoneb - NEB Q4H PRN Aspirin 81 mg 08/06/16 10:00 08/11/16 09:48 Asa - PO 81 mg DAILY ANNA MARIE Administration Atorvastatin Calcium 20 mg 08/05/16 22:00 08/10/16 21:16 Lipitor - PO 20 mg HS ANNA MARIE Administration Bacitracin 1 applic 08/06/16 19:15 08/11/16 09:52 Bacitracin - TP 1 applic DAILY ANNA MARIE Administration Carbidopa/Levodopa 1 each 08/05/16 22:00 08/11/16 13:30 Sinemet 25/100 - PO 1 each TID ANNA MARIE Administration Chlorhexidine Gluconate 1 applic 08/05/16 22:00 08/10/16 21:16 Hibiclens For Decolonization - TP 1 applic HS ANNA MARIE Administration Cholecalciferol 1,000 unit 08/06/16 10:00 08/11/16 09:48 Vitamin D3 - PO 1,000 unit DAILY ANNA MARIE Administration Gabapentin 100 mg 08/05/16 22:00 08/11/16 09:48 Neurontin - PO 100 mg BID ANNA MARIE Administration Heparin Sodium (Porcine) 1,000 unit 08/11/16 04:08 Heparin - IVPUSH PRN PRN Heparin Heparin Sodium (Porcine) 5,000 unit 08/11/16 04:08 Heparin - IVPUSH PRN PRN Heparin Piperacillin Sod/Tazobactam Sod 50 mls @ 100 mls/hr 08/06/16 18:00 08/11/16 09: 52 Zosyn 3.375gm Ivpb (Pre-Docked) IVPB 100 mls/hr Q8H-IV ANNA MARIE Administration Midazolam HCl 100 mg/ Sodium 100 mls @ 1 mls/hr 08/08/16 12:45 08/11/16 15:39 Chloride IVPB 3 mls/hr TITR ANNA MARIE Administration Protocol 1 MG/HR Pantoprazole Sodium 100 mls @ 200 mls/hr 08/09/16 10:15 08/11/16 09:52 Protonix 40mg Ivpb (Pre-Docked) IVPB 200 mls/hr DAILY ANNA MARIE Administration Heparin Sodium/Dextrose 500 mls @ 20 mls/hr 08/11/16 04:15 08/11/16 04:15 Heparin Infusion - IVPB 20 mls/hr TITR ANNA MARIE Administration Protocol 1,000 UNITS/HR Amiodarone HCl 450 mg/ 250 mls @ 16.66 mls/hr 08/11/16 11:00 08/11/16 11:51 Dextrose IVPB 08/12/16 04:59 16.66 mls/hr TITR ANNA MARIE Administration 0.5 MG/MIN Insulin Aspart 1 vial 08/05/16 22:00 08/11/16 11:50 Novolog Vial Sliding Scale - SQ 8 units ACHS ANNA MARIE Administration Protocol Methylprednisolone Sodium Succinate 60 mg 08/08/16 15:00 08/11/16 15:40 Solu-Medrol - IVPB 60 mg Q6H-IV ANNA MARIE Administration Metoprolol Tartrate 5 mg 08/09/16 10:21 08/11/16 00:55 Lopressor Injection - IVPUSH 5 mg Q4H PRN Administration HYPERTENSION Non-Formulary Medication 2 tab 08/06/16 10:00 08/11/16 12:02 Pimavanserin Tartrate [Nuplazid] PO Not Given DAILY ANNA MARIE Tramadol HCl 50 mg 08/06/16 10:00 08/11/16 09:48 Ultram - PO 50 mg DAILY ANNA MARIE Administration Objective: Vital Signs Period Temp Pulse Resp BP Sys/Galvin Pulse Ox Last 24 Hr 96 F-98.7 F 66-155 07-23 83-119/49-77 94-98 Physical Exam: General: NAD, sedated, intubated Lungs: Decreased breath sounds anteriorly Heart: RRR, S1S2 Abd: Soft, normoactive bowel sounds Ext: B/l upper and lower extremity edema. B/l upper extremities with ecchymosis. B/l lower extremities with flaking skin Neuro: Unable to assess CN CBCD WBC 6.7 K/mm3 (4.0-10.0) 08/11/16 05:20 RBC 3.45 M/mm3 (3.60-5.2) L 08/11/16 05:20 Hgb 9.7 GM/dL (10.7-15.3) L 08/11/16 05:20 Hct 30.5 % (32.4-45.2) L 08/11/16 05:20 MCV 88.6 fl (80-96) 08/11/16 05:20 MCHC 31.8 g/dl (32.0-36.0) L 08/11/16 05:20 RDW 16.5 % (11.6-15.6) H 08/11/16 05:20 Plt Count 217 K/MM3 (134-434) 08/11/16 05:20 MPV 8.2 fl (7.5-11.1) 08/11/16 05:20 CMP Sodium 142 mmol/L (136-145) 08/11/16 06:00 Potassium 4.2 mmol/L (3.5-5.1) 08/11/16 06:00 Chloride 108 mmol/L (98-107) H 08/11/16 06:00 Carbon Dioxide 27 mmol/L (21-32) 08/11/16 06:00 Anion Gap 7 (8-16) L 08/11/16 06:00 BUN 80 mg/dL (7-18) H 08/11/16 06:00 Creatinine 1.9 mg/dL (0.55-1.02) H 08/11/16 06:00 Creat Clearance w eGFR 25.18 (>60) 08/11/16 06:00 Random Glucose 207 mg/dL (74-106) H D 08/11/16 06:00 Calcium 7.7 mg/dL (8.5-10.1) L 08/11/16 06:00 Total Bilirubin 0.6 mg/dL (0.2-1.0) 08/11/16 06:00 AST 6 U/L (15-37) L D 08/11/16 06:00 ALT 7 U/L (12-78) L 08/11/16 06:00 Alkaline Phosphatase 69 U/L (45-117) 08/11/16 06:00 Total Protein 5.2 g/dl (6.4-8.2) L 08/11/16 06:00 Albumin 2.2 g/dl (3.4-5.0) L 08/11/16 06:00 CARDIAC ENZYMES Creatine Kinase 38 IU/L (26-192) 08/05/16 11:40 Troponin I 0.04 ng/ml (0.00-0.05) 08/09/16 21:30 Microbiology 08/08/16 15:15 Sputum - Endotrachea Suction/Ventilator Gram Stain - Final 08/08/16 15:15 Sputum - Endotrachea Suction/Ventilator Sputum Culture - Final NORMAL RESPIRATORY ALEJANDRO 08/07/16 17:30 Sputum - Endotracheal Suction W/O Vent Gram Stain - Final 08/07/16 17:30 Sputum - Endotracheal Suction W/O Vent Sputum Culture - Final S Aureus 08/05/16 11:56 Blood - Peripheral Venous Blood Culture - Final NO GROWTH AFTER 5 DAYS INCUBATION 08/05/16 11:56 Blood - Peripheral Venous Blood Culture - Final NO GROWTH AFTER 5 DAYS INCUBATION 08/05/16 15:55 Urine - Urine Clean Catch Urine Culture - Final NO GROWTH OBTAINED 08/05/16 13:01 Nasopharyngeal Swab Influenza Types A,B Antigen (KUSHAL) - Final 08/05/16 13:01 Nasopharyngeal Swab - Final Assessment: This is an 85 year old female with PMHx of HTN, CHF, CAD s/p stenting x2, DM, who presented to the ED with shortness of breath. Plan: 1) Pulmonary: Acute hypercapneic and hypoxic respiratory failure - 2/2 pneumonia vs. acute on chronic heart failure - Chest X-ray with mucous plugging and opacification of left hemithorax, right pleural effusion - Remains intubated, taper FiO2 - Continue Solu-medrol, taper per pulm - Continue Mucomyst - Continue Zosyn (day #6) - Appreciate pulmonary consult - Appreciate ID consult 2) Cardiology: New onset a.fib - Back in A.fib with RVR overnight, did not respond to Amiodarone IVPB - Started on Amiodarone gtt - Started on Heparin gtt 3) ID: B/l lower extremity cellulitis - Continue Zosyn 4) Endocrine: NIDDM - ISS ACHS - BGM ACHS 5) : CKD - Renal function worsening today - Hyperkalemia resolved - Appreciate nephrology consult 6) F/E/N: - Monitor electrolytes - NPO 7) Prophylaxis: - Lovenox 40mg sq daily 8) Dispo: - Requires continued ICU care CODE STATUS: FULL CODE Visit type - Emergency Visit Emergency Visit: Yes ED Registration Date: 08/05/16 Care time: The patient presented to the Emergency Department on the above date and was hospitalized for further evaluation of their emergent condition. - New Patient This patient is new to me today: No - Critical Care Critical Care patient: Yes Total Critical Care Time (in minutes): 45 Critical Care Statement: The care of this patient involved high complexity decision making to prevent further life threatening deterioration of the patient 's condition and/or to evalute & treat vital organ system(s) failure or risk of failure.
--- NOTE | 2016-08-11 18:31 | PN ---
Progress Note, Physician History of Present Illness: continues to be sedated and intubated patient went into rapid afib earlier on amio drip now in sinus - Current Medication List Current Medications: Active Medications Acetylcysteine (Mucomyst 20 Oral / Inh Use Only*) 200 mg NEB QIDR ANNA MARIE Last Admin: 08/11/16 11:40 Dose: 200 mg Albuterol Sulfate (Ventolin 0.083% Nebulizer Soln -) 1 amp NEB QIDR ANNA MARIE Last Admin: 08/11/16 11:41 Dose: 1 amp Albuterol/Ipratropium (Duoneb -) 1 amp NEB Q4H PRN Aspirin (Asa -) 81 mg PO DAILY [facility] Last Admin: 08/11/16 09:48 Dose: 81 mg Atorvastatin Calcium (Lipitor -) 20 mg PO HS [facility] Last Admin: 08/10/16 21:16 Dose: 20 mg Bacitracin (Bacitracin -) 1 applic TP DAILY [facility] Last Admin: 08/11/16 09:52 Dose: 1 applic Carbidopa/Levodopa (Sinemet 25/100 -) 1 each PO TID [facility] Last Admin: 08/11/16 13:30 Dose: 1 each Chlorhexidine Gluconate (Hibiclens For Decolonization -) 1 applic TP HS [facility] Last Admin: 08/10/16 21:16 Dose: 1 applic Cholecalciferol (Vitamin D3 -) 1,000 unit PO DAILY [facility] Last Admin: 08/11/16 09:48 Dose: 1,000 unit Gabapentin (Neurontin -) 100 mg PO BID [facility] Last Admin: 08/11/16 09:48 Dose: 100 mg Heparin Sodium (Porcine) (Heparin -) 1,000 unit IVPUSH PRN PRN PRN Reason: Heparin Heparin Sodium (Porcine) (Heparin -) 5,000 unit IVPUSH PRN PRN PRN Reason: Heparin Piperacillin Sod/Tazobactam Sod (Zosyn 3.375gm Ivpb (Pre-Docked)) 50 mls @ 100 mls/hr IVPB Q8H-IV [facility] Last Admin: 08/11/16 17:21 Dose: 100 mls/hr Midazolam HCl 100 mg/ Sodium (Chloride) 100 mls @ 1 mls/hr IVPB TITR ANNA MARIE; 1 MG/ HR PRN Reason: Protocol Last Admin: 08/11/16 15:39 Dose: 3 mls/hr Pantoprazole Sodium (Protonix 40mg Ivpb (Pre-Docked)) 100 mls @ 200 mls/hr IVPB DAILY [facility] Last Admin: 08/11/16 09:52 Dose: 200 mls/hr Heparin Sodium/Dextrose (Heparin Infusion -) 500 mls @ 20 mls/hr IVPB TITR ANNA MARIE ; 1,000 UNITS/HR PRN Reason: Protocol Last Admin: 08/11/16 04:15 Dose: 20 mls/hr Amiodarone HCl 450 mg/ (Dextrose) 250 mls @ 16.66 mls/hr IVPB TITR ANNA MARIE PRN Reason: 0.5 MG/MIN Stop: 08/12/16 04:59 Last Admin: 08/11/16 11:51 Dose: 16.66 mls/hr Insulin Aspart (Novolog Vial Sliding Scale -) 1 vial SQ ACHS ANNA MARIE PRN Reason: Protocol Last Admin: 08/11/16 17:21 Dose: 4 units Methylprednisolone Sodium Succinate (Solu-Medrol -) 60 mg IVPB Q6H-IV ANNA MARIE Last Admin: 08/11/16 15:40 Dose: 60 mg Metoprolol Tartrate (Lopressor Injection -) 5 mg IVPUSH Q4H PRN PRN Reason: HYPERTENSION Last Admin: 08/11/16 00:55 Dose: 5 mg Non-Formulary Medication (Pimavanserin Tartrate [Nuplazid]) 2 tab PO DAILY [facility] Last Admin: 08/11/16 12:02 Dose: Not Given Tramadol HCl (Ultram -) 50 mg PO DAILY [facility] Last Admin: 08/11/16 09:48 Dose: 50 mg - Objective Vital Signs: Vital Signs Temperature 96.2 F L 08/11/16 14:00 Pulse Rate 72 08/11/16 18:00 Respiratory Rate 12 08/11/16 18:00 Blood Pressure 119/55 08/11/16 18:00 O2 Sat by Pulse Oximetry (%) 96 08/11/16 17:30 Constitutional: Yes: Other Cardiovascular: Yes: Regular Rate and Rhythm Respiratory: Yes: Intubated, Mechanically Ventilated, Poor Air Entry Gastrointestinal: Yes: Normal Bowel Sounds, Soft Musculoskeletal: Yes: Other Extremities: Yes: Erythema (improving) Integumentary: Yes: Erythema Neurological: Yes: Other Labs: CBC, BMP 08/11/16 05:20 08/11/16 06:00 INR, PTT INR 1.14 (0.82-1.09) 08/09/16 10:00 Assessment/Plan Problem List - Problems (1) CAD (coronary artery disease) Code(s): I25.10 - ATHSCL HEART DISEASE OF [place] CORONARY ARTERY W/O ANG PCTRS (2) CHF (congestive heart failure) Code(s): I50.9 - HEART FAILURE, UNSPECIFIED Qualifiers: Congestive heart failure type: unspecified congestive heart failure type Congestive heart failure chronicity: unspecified congestive heart failure chronicity Qualified Code(s): I50.9 - Heart failure, unspecified (3) Diabetes mellitus type 2 in obese Code(s): E11.9 - TYPE 2 DIABETES MELLITUS WITHOUT COMPLICATIONS E66.9 - OBESITY, UNSPECIFIED (4) HTN (hypertension) Code(s): I10 - ESSENTIAL (PRIMARY) HYPERTENSION Qualifiers: Hypertension type: essential hypertension Qualified Code(s): I10 - Essential (primary) hypertension (5) Hypotension Code(s): I95.9 - HYPOTENSION, UNSPECIFIED Qualifiers: Hypotension type: idiopathic hypotension Qualified Code(s): I95.0 - Idiopathic hypotension (6) Hypothermia Code(s): T68.XXXA - HYPOTHERMIA, INITIAL ENCOUNTER Qualifiers: Encounter type: initial encounter Qualified Code(s): T68.XXXA - Hypothermia, initial encounter (7) Parkinson's disease dementia Code(s): G20 - PARKINSON'S DISEASE F02.80 - DEMENTIA IN OTH DISEASES CLASSD ELSWHR W/O BEHAVRL DISTURB (8) SIRS (systemic inflammatory response syndrome) Code(s): R65.10 - SIRS OF NON-INFECTIOUS ORIGIN W/O ACUTE ORGAN DYSFUNCTION collapse of the left lung bilateral cellulitis of the leg mrsa pneumonia plan intubated legs improving patient has mrsa in sputum vanco added patient will need it for quite some time cc time 40 min
[2016-08-11] MEDS: VANCOMYCIN 1 GRAM (PRE-DOCKED) 250 ML IVPB SCH (21:23)
[2016-08-11] MEDS: ATORVASTATIN CA 20 MG TABLET (FP) PO SCH (21:25)
[2016-08-11] MEDS: CHLORHEXIDINE GLUCONATE 4% CLEANSER FOR DECOLONIZATION TP SCH (21:25)
--- NOTE | 2016-08-11 21:37 | PROC ---
Central Line Insertion Indication: Poor Venous Access Risks and Benefits Explained: Yes Consent on Chart: Yes Central Line: Triple Lumen Catheter Anesthesia: 1% Lidocaine Sterile Technique: Yes Ultrasound Guided Assistance: Yes Position: Left Internal Jugular Post Insertion: Yes: Bilateral Breath Sounds, Bilateral Chest Expansion, Chest X-Ray Ordered Sterile Dressing Applied: Yes
[2016-08-11] MEDS ORDERED: TRIPLE LUMEN FLUSH 4 ML ML IVPUSH PRN (22:21)
[2016-08-12] MEDS: methylPREDNISolone NA SUCC 125 MG/2 ML VIAL IVPB SCH ×3 (02:05→22:25)
[2016-08-12] MEDS: PIPERACILLIN/TAZOB 3.375 GM 50 ML IVPB SCH ×3 (02:05→18:08)
[2016-08-12 06:07] LABS: MCH 26.9 pg (25.7-33.7); MCHC 30.1 g/dl (32.0-36.0); MEAN CELL VOLUME 89.4 fl (80-96); MEAN PLT VOLUME 8.9 fl (7.5-11.1); PLATELET COUNT 245 K/MM3 (134-434); RDW 16.8 % (11.6-15.6); WHITE BLOOD COUNT 11.1 K/mm3 (4.0-10.0)
[2016-08-12] MEDS: HEPARIN INFUSION - 500 ML IVPB SCH (06:15)
[2016-08-12] MEDS: CARBIDOPA/LEVODOPA 25/100 TABLET (FP) PO SCH ×3 (06:16→22:25)
[2016-08-12] MEDS: INSULIN SLIDING SCALE (NOVOLOG) 1 VIAL SQ SCH ×4 (06:16→22:26)
[2016-08-12] MEDS: ALBUTEROL SO4 0.083% IH SOL 2.5 MG/3 ML VIAL.NEB. NEB SCH ×3 (06:39→17:05)
[2016-08-12] MEDS: ACETYLCYSTEINE 20% 200MG/ML 4 ML VIAL *FOR ORAL / INH USE ONLY NEB SCH ×3 (06:39→17:05)
[2016-08-12 06:46] LABS: ALBUMIN 2.2 g/dl (3.4-5.0); BILIRUBIN,TOTAL 0.5 mg/dL (0.2-1.0); CALCIUM 7.8 mg/dL (8.5-10.1); CREATININE 1.8 mg/dL (0.55-1.02); TOT PROT 5.3 g/dl (6.4-8.2)
[2016-08-12 09:39] LABS: ALLENS TEST POSITIVE; ART PUNCT SITE LEFT RADIAL; ARTERIAL BLD GAS O2 SATURATION 95.1 % (90-98.9); ARTERIAL BLOOD GAS BASE EXCESS 2.4 meq/l (-2-2); ARTERIAL BLOOD GAS HCO3 28.9 meq/L (22-26); ARTERIAL BLOOD GAS PO2 80.1 mmHg (68-100); LPM/O2% 40; PT. ON O2? YES; TYPE OF O2 VENT
[2016-08-12 09:40] LABS: ARTERIAL BLOOD GAS pH 7.31 (7.35-7.45); MECH. VENT. YES; VENT RATE 12; VT/PRESS 400
--- NOTE | 2016-08-12 09:47 | PN ---
Progress Note, Physician Chief Complaint: intubated on heparin gtts for recurrent AF - Current Medication List Current Medications: Active Medications Acetylcysteine (Mucomyst 20 Oral / Inh Use Only*) 200 mg NEB QIDR ANNA MARIE Last Admin: 08/12/16 06:39 Dose: 200 mg Albuterol Sulfate (Ventolin 0.083% Nebulizer Soln -) 1 amp NEB QIDR ANNA MARIE Last Admin: 08/12/16 06:39 Dose: 1 amp Albuterol/Ipratropium (Duoneb -) 1 amp NEB Q4H PRN Amiodarone HCl (Cordarone -) 400 mg PO BID [facility] Aspirin (Asa -) 81 mg PO DAILY [facility] Last Admin: 08/11/16 09:48 Dose: 81 mg Atorvastatin Calcium (Lipitor -) 20 mg PO HS [facility] Last Admin: 08/11/16 21:25 Dose: 20 mg Bacitracin (Bacitracin -) 1 applic TP DAILY [facility] Last Admin: 08/11/16 09:52 Dose: 1 applic Carbidopa/Levodopa (Sinemet 25/100 -) 1 each PO TID [facility] Last Admin: 08/12/16 06:16 Dose: 1 each Chlorhexidine Gluconate (Hibiclens For Decolonization -) 1 applic TP HS [facility] Last Admin: 08/11/16 21:25 Dose: 1 applic Cholecalciferol (Vitamin D3 -) 1,000 unit PO DAILY [facility] Last Admin: 08/11/16 09:48 Dose: 1,000 unit Gabapentin (Neurontin -) 100 mg PO BID [facility] Last Admin: 08/11/16 21:24 Dose: 100 mg Heparin Sodium (Porcine) (Heparin -) 1,000 unit IVPUSH PRN PRN PRN Reason: Heparin Heparin Sodium (Porcine) (Heparin -) 5,000 unit IVPUSH PRN PRN PRN Reason: Heparin IV Flush (Triple Lumen Flush) 4 ml IVPUSH PRN PRN PRN Reason: Protocol Piperacillin Sod/Tazobactam Sod (Zosyn 3.375gm Ivpb (Pre-Docked)) 50 mls @ 100 mls/hr IVPB Q8H-IV ANNA MARIE Last Admin: 08/12/16 02:05 Dose: 100 mls/hr Midazolam HCl 100 mg/ Sodium (Chloride) 100 mls @ 1 mls/hr IVPB TITR ANNA MARIE; 1 MG/ HR PRN Reason: Protocol Last Admin: 08/11/16 19:00 Dose: 4 mls/hr Pantoprazole Sodium (Protonix 40mg Ivpb (Pre-Docked)) 100 mls @ 200 mls/hr IVPB DAILY [facility] Last Admin: 08/11/16 09:52 Dose: 200 mls/hr Heparin Sodium/Dextrose (Heparin Infusion -) 500 mls @ 20 mls/hr IVPB TITR ANNA MARIE ; 1,000 UNITS/HR PRN Reason: Protocol Last Admin: 08/12/16 06:15 Dose: 19 mls/hr Vancomycin HCl (Vancomycin (Pre-Docked)) 250 mls @ 250 mls/hr IVPB DAILY [facility] Last Admin: 08/11/16 21:23 Dose: 250 mls/hr Insulin Aspart (Novolog Vial Sliding Scale -) 1 vial SQ ACHS ANNA MARIE PRN Reason: Protocol Last Admin: 08/12/16 06:16 Dose: 6 units Methylprednisolone Sodium Succinate (Solu-Medrol -) 60 mg IVPB Q6H-IV [facility] Last Admin: 08/12/16 08:08 Dose: 60 mg Metoprolol Tartrate (Lopressor Injection -) 5 mg IVPUSH Q4H PRN PRN Reason: HYPERTENSION Last Admin: 08/11/16 00:55 Dose: 5 mg Non-Formulary Medication (Pimavanserin Tartrate [Nuplazid]) 2 tab PO DAILY [facility] Last Admin: 08/11/16 12:02 Dose: Not Given Tramadol HCl (Ultram -) 50 mg PO DAILY [facility] Last Admin: 08/11/16 09:48 Dose: 50 mg - Objective Vital Signs: Vital Signs Temperature 96.2 F L 08/12/16 06:00 Pulse Rate 68 08/12/16 08:00 Respiratory Rate 12 08/12/16 08:00 Blood Pressure 134/68 08/12/16 08:00 O2 Sat by Pulse Oximetry (%) 97 08/12/16 06:00 Cardiovascular: Yes: Regular Rate and Rhythm Respiratory: Yes: Other (= breath sounds bilaterally) Gastrointestinal: Yes: Soft Edema: Yes Edema: LUE: 2+, RUE: 2+, LLE: 2+, RLE: 2+ Labs: CBC, BMP 08/12/16 05:15 08/12/16 05:15 INR, PTT INR 1.14 (0.82-1.09) 08/09/16 10:00 Laboratory Tests 08/12/16 08/12/16 08/12/16 00:30 05:15 05:15 WBC 11.1 H D Hgb 10.1 L Plt Count 245 PTT (Actin FS) 80.5 H D 65.0 H Potassium BUN Creatinine 08/12/16 05:15 WBC Hgb Plt Count PTT (Actin FS) Potassium 4.2 BUN 94 H Creatinine 1.8 H - ....Imaging Chest X-ray: Report Reviewed, Image Reviewed EKG: Image Reviewed (TELE: NSR) Assessment/Plan Assessment/Plan 85 year old woman with a history of HTN, DM II, HLD, CAD with prior stents, CHF, admitted with sob, hypoxic/hypercapneic resp failure. SOB-hypercapneic/hypoxic respiratory failure, possible PNA vs acute on chronic CHF -mucous plugging with opacification of L hemithorax and R pleural effusion -continue vent support CAD-with reported prior stents -cont asa and lipitor -cardiac enzymes wnl PAF- On amio and heparin gtts Volume overload- -edematous and congestive changes on CXR -Consider trial Lasix w/ close monitoring renal fxn
[2016-08-12] MEDS: ASPIRIN 81 MG CHEWABLE TABLETS PO SCH (11:35)
[2016-08-12] MEDS: traMADol HCL 50 MG TABLET PO SCH (11:35)
[2016-08-12] MEDS: VANCOMYCIN 1 GRAM (PRE-DOCKED) 250 ML IVPB SCH (11:35)
[2016-08-12] MEDS: CHOLECALCIFEROL (VITAMIN D3) 1,000 UNIT TABLET (FP) PO SCH (11:35)
[2016-08-12] MEDS: GABAPENTIN 100 MG CAPSULE (FP) PO SCH ×2 (11:35→22:25)
[2016-08-12] MEDS: BACITRACIN 30 GM TUBE TOPICAL OINTMENT TP SCH (11:36)
[2016-08-12] MEDS: PANTOPRAZOLE SODIUM 100 ML IVPB SCH (11:36)
[2016-08-12] MEDS: FUROSEMIDE 100 MG/10 ML INJECTABLE VIAL IVPB SCH (11:39)
--- NOTE | 2016-08-12 11:57 | PN ---
Teaching Attending Note Name of Resident: José Riggs ATTENDING PHYSICIAN STATEMENT I saw and evaluated the patient. I reviewed the resident's note and discussed the case with the resident. I agree with the resident's findings and plan as documented. SUBJECTIVE: Patient seen and examined in the ICU. Remains intubated, sedated. On volume assist control with 50% FiO2. Atrial fibrillation with rates better controlled. Currently off pressors. OBJECTIVE: Intake & Output 08/09/16 08/10/16 08/11/16 08/12/16 23:59 23:59 23:59 23:59 Intake Total 1746.2 1492 3002.4 936.8 Output Total 850 1700 500 300 Balance 896.2 -208 2502.4 636.8 Weight 200 lb 1.6 oz 203 lb 8 oz 208 lb 7 oz 210 lb 1.6 oz Last Vital Signs Temp Pulse Resp BP Pulse Ox 96.2 F L 73 12 132/61 98 08/12/16 06:00 08/12/16 10:42 08/12/16 10:00 08/12/16 10:00 08/12/16 10:44 Active Medications Acetylcysteine (Mucomyst 20 Oral / Inh Use Only*) 200 mg NEB QIDR [facility] Last Admin: 08/12/16 11:02 Dose: 200 mg Albuterol Sulfate (Ventolin 0.083% Nebulizer Soln -) 1 amp NEB QIDR [facility] Last Admin: 08/12/16 11:02 Dose: 1 amp Albuterol/Ipratropium (Duoneb -) 1 amp NEB Q4H PRN Amiodarone HCl (Cordarone -) 400 mg PO BID [facility] Aspirin (Asa -) 81 mg PO DAILY [facility] Last Admin: 08/12/16 11:35 Dose: 81 mg Atorvastatin Calcium (Lipitor -) 20 mg PO [facility] Last Admin: 08/11/16 21:25 Dose: 20 mg Bacitracin (Bacitracin -) 1 applic TP DAILY [facility] Last Admin: 08/12/16 11:36 Dose: 1 applic Carbidopa/Levodopa (Sinemet 25/100 -) 1 each PO TID [facility] Last Admin: 08/12/16 06:16 Dose: 1 each Chlorhexidine Gluconate (Hibiclens For Decolonization -) 1 applic TP [facility] Last Admin: 08/11/16 21:25 Dose: 1 applic Cholecalciferol (Vitamin D3 -) 1,000 unit PO DAILY [facility] Last Admin: 08/12/16 11:35 Dose: 1,000 unit Furosemide (Lasix Injection -) 80 mg IVPB DAILY [facility] Last Admin: 08/12/16 11:39 Dose: 80 mg Gabapentin (Neurontin -) 100 mg PO BID [facility] Last Admin: 08/12/16 11:35 Dose: 100 mg Heparin Sodium (Porcine) (Heparin -) 1,000 unit IVPUSH PRN PRN PRN Reason: Heparin Heparin Sodium (Porcine) (Heparin -) 5,000 unit IVPUSH PRN PRN PRN Reason: Heparin IV Flush (Triple Lumen Flush) 4 ml IVPUSH PRN PRN PRN Reason: Protocol Piperacillin Sod/Tazobactam Sod (Zosyn 3.375gm Ivpb (Pre-Docked)) 50 mls @ 100 mls/hr IVPB Q8H-IV [facility] Last Admin: 08/12/16 11:36 Dose: 100 mls/hr Midazolam HCl 100 mg/ Sodium (Chloride) 100 mls @ 1 mls/hr IVPB TITR ANNA MARIE; 1 MG/ HR PRN Reason: Protocol Last Admin: 08/11/16 19:00 Dose: 4 mls/hr Pantoprazole Sodium (Protonix 40mg Ivpb (Pre-Docked)) 100 mls @ 200 mls/hr IVPB DAILY [facility] Last Admin: 08/12/16 11:36 Dose: 200 mls/hr Heparin Sodium/Dextrose (Heparin Infusion -) 500 mls @ 20 mls/hr IVPB TITR ANNA MARIE ; 1,000 UNITS/HR PRN Reason: Protocol Last Admin: 08/12/16 06:15 Dose: 19 mls/hr Vancomycin HCl (Vancomycin (Pre-Docked)) 250 mls @ 250 mls/hr IVPB DAILY [facility] Last Admin: 08/12/16 11:35 Dose: 250 mls/hr Insulin Aspart (Novolog Vial Sliding Scale -) 1 vial SQ ACHS ANNA MARIE PRN Reason: Protocol Last Admin: 08/12/16 11:44 Dose: 8 units Methylprednisolone Sodium Succinate (Solu-Medrol -) 60 mg IVPB BID [facility] Metoprolol Tartrate (Lopressor Injection -) 5 mg IVPUSH Q4H PRN PRN Reason: HYPERTENSION Last Admin: 08/11/16 00:55 Dose: 5 mg Non-Formulary Medication (Pimavanserin Tartrate [Nuplazid]) 2 tab PO DAILY [facility] Last Admin: 08/11/16 12:02 Dose: Not Given Tramadol HCl (Ultram -) 50 mg PO DAILY [facility] Last Admin: 08/12/16 11:35 Dose: 50 mg Gen: intubated, sedated Heart: RRR Lung: basilar rhonchi Abd: soft, nontender Ext: + edema, chronic changes Laboratory Results - last 24 hr 08/11/16 08/11/16 08/11/16 11:48 17:10 20:10 WBC RBC Hgb Hct MCV MCHC RDW Plt Count MPV PTT (Actin FS) Cancelled Puncture Site ABG pH ABG pCO2 at Pt Temp ABG pO2 at Pt Temp ABG HCO3 ABG O2 Sat (Measured) ABG O2 Content ABG Base Excess Chicho Test O2 Delivery Device Oxygen Flow Rate Vent Mode Vent Rate Mechanical Rate PEEP Pressure Support Vent Sodium Potassium Chloride Carbon Dioxide Anion Gap BUN Creatinine Creat Clearance w eGFR POC Glucometer 336.06668 225.81781 Random Glucose Calcium Total Bilirubin AST ALT Alkaline Phosphatase Total Protein Albumin 08/11/16 08/12/16 08/12/16 22:19 00:30 05:15 WBC 11.1 H D RBC 3.75 Hgb 10.1 L Hct 33.5 MCV 89.4 MCHC 30.1 L RDW 16.8 H Plt Count 245 MPV 8.9 PTT (Actin FS) 80.5 H D Puncture Site ABG pH ABG pCO2 at Pt Temp ABG pO2 at Pt Temp ABG HCO3 ABG O2 Sat (Measured) ABG O2 Content ABG Base Excess Chicho Test O2 Delivery Device Oxygen Flow Rate Vent Mode Vent Rate Mechanical Rate PEEP Pressure Support Vent Sodium Potassium Chloride Carbon Dioxide Anion Gap BUN Creatinine Creat Clearance w eGFR POC Glucometer [phone] Random Glucose Calcium Total Bilirubin AST ALT Alkaline Phosphatase Total Protein Albumin 08/12/16 08/12/16 08/12/16 05:15 05:15 06:13 WBC RBC Hgb Hct MCV MCHC RDW Plt Count MPV PTT (Actin FS) 65.0 H Puncture Site ABG pH ABG pCO2 at Pt Temp ABG pO2 at Pt Temp ABG HCO3 ABG O2 Sat (Measured) ABG O2 Content ABG Base Excess Chicho Test O2 Delivery Device Oxygen Flow Rate Vent Mode Vent Rate Mechanical Rate PEEP Pressure Support Vent Sodium 144 Potassium 4.2 Chloride 105 Carbon Dioxide 32 Anion Gap 7 L BUN 94 H Creatinine 1.8 H Creat Clearance w eGFR 26.81 POC Glucometer 283.38492 Random Glucose 251 H D Calcium 7.8 L Total Bilirubin 0.5 AST 8 L D ALT 7 L Alkaline Phosphatase 99 D Total Protein 5.3 L Albumin 2.2 L 08/12/16 09:15 WBC RBC Hgb Hct MCV MCHC RDW Plt Count MPV PTT (Actin FS) Puncture Site Left radial ABG pH 7.31 L ABG pCO2 at Pt Temp 58.9 H ABG pO2 at Pt Temp 80.1 ABG HCO3 28.9 H ABG O2 Sat (Measured) 95.1 ABG O2 Content 13.2 L ABG Base Excess 2.4 H Chicho Test Positive O2 Delivery Device Vent Oxygen Flow Rate 40 Vent Mode A/c Vent Rate 12 Mechanical Rate Yes PEEP 5.0 Pressure Support Vent 400 Sodium Potassium Chloride Carbon Dioxide Anion Gap BUN Creatinine Creat Clearance w eGFR POC Glucometer Random Glucose Calcium Total Bilirubin AST ALT Alkaline Phosphatase Total Protein Albumin ASSESSMENT AND PLAN: Acute Hypercapneic and Hypoxic Respiratory Failure Pneumonia Atelectasis Paroxysmal Atrial Fibrillation Pulmonary HTN CAD HTN DM Parkinsons Disease - continue antibiotics - Medrol taper - inhaled bronchodilators, mucolytics - taper FiO2 to keep SpO2 >90% - lasix IV as tolerated - AC - DAily sedation vacation - enteral feeds - DVT/GI prophylaxis - Will likely need trach due to difficult intubation and prior Trach Dr Becerra CCTime 35"
--- NOTE | 2016-08-12 11:59 | PN ---
Physical Exam: SUBJECTIVE: Patient seen and examined at bedside. She remains intubated and sedated. Went back into Afib/flutter yesterday but has remained in NSR. OBJECTIVE: Vital Signs Period Temp Pulse Resp BP Sys/Galvin Pulse Ox Last 24 Hr 96.2 F-97.3 F 60-81 12-17 96-134/53-72 96-98 GENERAL: Intubated and sedated. HEAD: Normal with no signs of trauma. EYES: Pupils equal, round and reactive to light, sclera anicteric, conjunctiva clear. No lid lag. EARS, NOSE, THROAT: Ears normal, nares patent, Moist mucous membranes. NECK:Supple, no JVD LUNGS: Bibasilar rhonchi. Decreased breath sounds bibasilar L>R.No wheezes, and no crackles. No accessory muscle use. HEART:Rapid Afib, normal S1 and S2 without murmur, rub or gallop. ABDOMEN: Soft, obese, nontender, not distended, normoactive bowel sounds, no guarding, no rebound, no masses. MUSCULOSKELETAL: Reduced ROM of RLE. No bony deformities or tenderness. No CVA tenderness. UPPER EXTREMITIES: 2+ pulses, warm, well-perfused. No cyanosis. No clubbing. Cap refill <2 seconds. No peripheral edema. LOWER EXTREMITIES: 2+ pulses, warm, well-perfused. No calf tenderness. 2+ Edema bilat. NEUROLOGICAL: sedated. PSYCHIATRIC: can not be assessed SKIN: Bilateral stasis dermatitis of LE Laboratory Results - last 24 hr 08/11/16 08/11/16 08/11/16 07:26 11:48 17:10 WBC RBC Hgb Hct MCV MCHC RDW Plt Count MPV PTT (Actin FS) Puncture Site ABG pH ABG pCO2 at Pt Temp ABG pO2 at Pt Temp ABG HCO3 ABG O2 Sat (Measured) ABG O2 Content ABG Base Excess Chicho Test O2 Delivery Device Oxygen Flow Rate Vent Mode Vent Rate Mechanical Rate PEEP Pressure Support Vent Sodium Potassium Chloride Carbon Dioxide Anion Gap BUN Creatinine Creat Clearance w eGFR POC Glucometer 246.46239 336.71638 225.51558 Random Glucose Calcium Total Bilirubin AST ALT Alkaline Phosphatase Total Protein Albumin 08/11/16 08/11/16 08/12/16 20:10 22:19 00:30 WBC RBC Hgb Hct MCV MCHC RDW Plt Count MPV PTT (Actin FS) Cancelled 80.5 H D Puncture Site ABG pH ABG pCO2 at Pt Temp ABG pO2 at Pt Temp ABG HCO3 ABG O2 Sat (Measured) ABG O2 Content ABG Base Excess Chicho Test O2 Delivery Device Oxygen Flow Rate Vent Mode Vent Rate Mechanical Rate PEEP Pressure Support Vent Sodium Potassium Chloride Carbon Dioxide Anion Gap BUN Creatinine Creat Clearance w eGFR POC Glucometer 269.00022 Random Glucose Calcium Total Bilirubin AST ALT Alkaline Phosphatase Total Protein Albumin 08/12/16 08/12/16 08/12/16 05:15 05:15 05:15 WBC 11.1 H D RBC 3.75 Hgb 10.1 L Hct 33.5 MCV 89.4 MCHC 30.1 L RDW 16.8 H Plt Count 245 MPV 8.9 PTT (Actin FS) 65.0 H Puncture Site ABG pH ABG pCO2 at Pt Temp ABG pO2 at Pt Temp ABG HCO3 ABG O2 Sat (Measured) ABG O2 Content ABG Base Excess Chicho Test O2 Delivery Device Oxygen Flow Rate Vent Mode Vent Rate Mechanical Rate PEEP Pressure Support Vent Sodium 144 Potassium 4.2 Chloride 105 Carbon Dioxide 32 Anion Gap 7 L BUN 94 H Creatinine 1.8 H Creat Clearance w eGFR 26.81 POC Glucometer Random Glucose 251 H D Calcium 7.8 L Total Bilirubin 0.5 AST 8 L D ALT 7 L Alkaline Phosphatase 99 D Total Protein 5.3 L Albumin 2.2 L 08/12/16 08/12/16 06:13 09:15 WBC RBC Hgb Hct MCV MCHC RDW Plt Count MPV PTT (Actin FS) Puncture Site Left radial ABG pH 7.31 L ABG pCO2 at Pt Temp 58.9 H ABG pO2 at Pt Temp 80.1 ABG HCO3 28.9 H ABG O2 Sat (Measured) 95.1 ABG O2 Content 13.2 L ABG Base Excess 2.4 H Chicho Test Positive O2 Delivery Device Vent Oxygen Flow Rate 40 Vent Mode A/c Vent Rate 12 Mechanical Rate Yes PEEP 5.0 Pressure Support Vent 400 Sodium Potassium Chloride Carbon Dioxide Anion Gap BUN Creatinine Creat Clearance w eGFR POC Glucometer 283.53930 Random Glucose Calcium Total Bilirubin AST ALT Alkaline Phosphatase Total Protein Albumin Active Medications Generic Name Dose Route Start Last Admin Trade Name Freq PRN Reason Stop Dose Admin Acetylcysteine 200 mg 08/08/16 14:00 08/12/16 11:02 Mucomyst 20 Oral / Inh Use Only* NEB 200 mg QIDR ANNA MARIE Administration Albuterol Sulfate 1 amp 08/08/16 14:00 08/12/16 11:02 Ventolin 0.083% Nebulizer Soln - NEB 1 amp QIDR ANNA MARIE Administration Albuterol/Ipratropium 1 amp 08/08/16 12:42 Duoneb - NEB Q4H PRN Amiodarone HCl 400 mg 08/12/16 10:00 Cordarone - PO BID ANNA MARIE Aspirin 81 mg 08/06/16 10:00 08/12/16 11:35 Asa - PO 81 mg DAILY ANNA MARIE Administration Atorvastatin Calcium 20 mg 08/05/16 22:00 08/11/16 21:25 Lipitor - PO 20 mg HS ANNA MARIE Administration Bacitracin 1 applic 08/06/16 19:15 08/12/16 11:36 Bacitracin - TP 1 applic DAILY ANNA MARIE Administration Carbidopa/Levodopa 1 each 08/05/16 22:00 08/12/16 06:16 Sinemet 25/100 - PO 1 each TID ANNA MARIE Administration Chlorhexidine Gluconate 1 applic 08/05/16 22:00 08/11/16 21:25 Hibiclens For Decolonization - TP 1 applic HS ANNA MARIE Administration Cholecalciferol 1,000 unit 08/06/16 10:00 08/12/16 11:35 Vitamin D3 - PO 1,000 unit DAILY ANNA MARIE Administration Furosemide 80 mg 08/12/16 11:30 08/12/16 11:39 Lasix Injection - IVPB 80 mg DAILY ANNA MARIE Administration Gabapentin 100 mg 08/05/16 22:00 08/12/16 11:35 Neurontin - PO 100 mg BID ANNA MARIE Administration Heparin Sodium (Porcine) 1,000 unit 08/11/16 04:08 Heparin - IVPUSH PRN PRN Heparin Heparin Sodium (Porcine) 5,000 unit 08/11/16 04:08 Heparin - IVPUSH PRN PRN Heparin IV Flush 4 ml 08/11/16 22:21 Triple Lumen Flush IVPUSH PRN PRN Protocol Piperacillin Sod/Tazobactam Sod 50 mls @ 100 mls/hr 08/06/16 18:00 08/12/16 11: 36 Zosyn 3.375gm Ivpb (Pre-Docked) IVPB 100 mls/hr Q8H-IV ANNA MARIE Administration Midazolam HCl 100 mg/ Sodium 100 mls @ 1 mls/hr 08/08/16 12:45 08/11/16 19:00 Chloride IVPB 4 mls/hr TITR ANNA MARIE Administration Protocol 1 MG/HR Pantoprazole Sodium 100 mls @ 200 mls/hr 08/09/16 10:15 08/12/16 11:36 Protonix 40mg Ivpb (Pre-Docked) IVPB 200 mls/hr DAILY ANNA MARIE Administration Heparin Sodium/Dextrose 500 mls @ 20 mls/hr 08/11/16 04:15 08/12/16 06:15 Heparin Infusion - IVPB 19 mls/hr TITR ANNA MARIE Administration Protocol 1,000 UNITS/HR Vancomycin HCl 250 mls @ 250 mls/hr 08/11/16 18:30 08/12/16 11:35 Vancomycin (Pre-Docked) IVPB 250 mls/hr DAILY ANNA MARIE Administration Insulin Aspart 1 vial 08/05/16 22:00 08/12/16 11:44 Novolog Vial Sliding Scale - SQ 8 units ACHS ANNA MARIE Administration Protocol Methylprednisolone Sodium Succinate 60 mg 08/12/16 22:00 Solu-Medrol - IVPB BID ANNA MARIE Metoprolol Tartrate 5 mg 08/09/16 10:21 08/11/16 00:55 Lopressor Injection - IVPUSH 5 mg Q4H PRN Administration HYPERTENSION Non-Formulary Medication 2 tab 08/06/16 10:00 08/11/16 12:02 Pimavanserin Tartrate [Nuplazid] PO Not Given DAILY ANNA MARIE Tramadol HCl 50 mg 08/06/16 10:00 08/12/16 11:35 Ultram - PO 50 mg DAILY ANNA MARIE Administration ASSESSMENT/PLAN: Problem List - Problems (1) Afib Assessment/Plan: * Amiodarone drip as per Cardiology * Cardizem gtt PRN for better HR control and if BP tolerates * Digoxin PRN * AC with heparin gtt (2) Sepsis Assessment/Plan: * Blood and urine cultures show no growth * Sputum cultures pending * UA negative for UTI. * Repeat lactic acid WNL * Continue Zosyn Day 4 (3) Pneumonia Assessment/Plan: * Mechanically ventilated. AC with FiO2@40%, rate of 14 * continue Zosyn day4 * Acetylcysteine 200 mg NEB QIDR ANNA MARIE * Albuterol Sulfate 1 amp NEB QIDR ANNA MARIE * Albuterol/Ipratropium (Duoneb -) 1 amp NEB Q4H PRN * Zosyn 3.375gm Ivpb IVPB Q8H-IV ANNA MARIE * Solumedrol 60mg iv Q6h (4) Hypotension Assessment/Plan: * BP has been WNL * 500 cc Bolus NS PRN. * VS Q2H * No pressors at this time. (5) CHF (congestive heart failure) Assessment/Plan: * Lasix 40mg IV one time * Nebivolol (Bystolic -) 5 mg PO DAILY * daily weights * Followed by Dr. Person cardiology (6) HTN (hypertension) Assessment/Plan: * BP meds held for low pressures. (7) CAD (coronary artery disease) Assessment/Plan: * s/p stents x2 * ASA 81 mg PO daily * Lipitor 20mg PO HS (8) Diabetes mellitus type 2 in obese Assessment/Plan: * ISS with Novolog ACHS * BGM ACHS * Glucerna tube feeds with goal of 50ml/hr (9) Bilateral leg ulcer Assessment/Plan: * daily dressing change and wound care. (10) Parkinson's disease dementia Assessment/Plan: * Carbidopa/Levodopa (Sinemet 25/100 -) 1 each PO TID * Pimavanserin Tartrate [Nuplazid] 2 tab PO DAILY (home med non formulary.) (11) DVT prophylaxis Assessment/Plan: * Lovenox 40mg SQ daily * GI- Protonix 40mg IV daily Visit type - Emergency Visit Emergency Visit: Yes ED Registration Date: 08/05/16 Care time: The patient presented to the Emergency Department on the above date and was hospitalized for further evaluation of their emergent condition. - New Patient This patient is new to me today: No - Critical Care Critical Care patient: Yes Total Critical Care Time (in minutes): 32 Critical Care Statement: The care of this patient involved high complexity decision making to prevent further life threatening deterioration of the patient 's condition and/or to evalute & treat vital organ system(s) failure or risk of failure.
[2016-08-12] MEDS: MIDAZOLAM 100 MG in SODIUM CHLORIDE 100 ML IVPB SCH (12:45)
--- NOTE | 2016-08-12 13:40 | PN ---
Progress Note (short form) - Note Progress Note: Renal follow up for hyperkalemia and CKD Pt seen and examined in the ICU on Vent, sedated. 40% FiO2 started on IV lasix today Vital Signs Temperature 96.2 F L 08/12/16 06:00 Pulse Rate 86 08/12/16 12:00 Respiratory Rate 12 08/12/16 12:00 Blood Pressure 132/64 08/12/16 12:00 O2 Sat by Pulse Oximetry (%) 98 08/12/16 10:44 Intake & Output 08/09/16 08/10/16 08/11/16 08/12/16 23:59 23:59 23:59 23:59 Intake Total 1746.2 1492 3002.4 936.8 Output Total 850 1700 500 300 Balance 896.2 -208 2502.4 636.8 Weight 200 lb 1.6 oz 203 lb 8 oz 208 lb 7 oz 210 lb 1.6 oz Gen: intubated and sedated CVS: RRR, No M/R Lungs: No BS left lung, dec BS right lung Abd: soft NT/ND Ext: B/L LE in dressing, 1+ LE edema and + sacral edema CBC, BMP 08/12/16 05:15 08/12/16 05:15 Current Medications Acetylcysteine (Mucomyst 20 Oral / Inh Use Only*) 200 mg NEB QIDR [facility] Last Admin: 08/12/16 11:02 Dose: 200 mg Albuterol Sulfate (Ventolin 0.083% Nebulizer Soln -) 1 amp NEB QIDR [facility] Last Admin: 08/12/16 11:02 Dose: 1 amp Albuterol/Ipratropium (Duoneb -) 1 amp NEB Q4H PRN Amiodarone HCl (Cordarone -) 400 mg PO BID [facility] Aspirin (Asa -) 81 mg PO DAILY [facility] Last Admin: 08/12/16 11:35 Dose: 81 mg Atorvastatin Calcium (Lipitor -) 20 mg PO HS [facility] Last Admin: 08/11/16 21:25 Dose: 20 mg Bacitracin (Bacitracin -) 1 applic TP DAILY [facility] Last Admin: 08/12/16 11:36 Dose: 1 applic Carbidopa/Levodopa (Sinemet 25/100 -) 1 each PO TID [facility] Last Admin: 08/12/16 06:16 Dose: 1 each Chlorhexidine Gluconate (Hibiclens For Decolonization -) 1 applic TP HS [facility] Last Admin: 08/11/16 21:25 Dose: 1 applic Cholecalciferol (Vitamin D3 -) 1,000 unit PO DAILY [facility] Last Admin: 08/12/16 11:35 Dose: 1,000 unit Furosemide (Lasix Injection -) 80 mg IVPB DAILY [facility] Last Admin: 08/12/16 11:39 Dose: 80 mg Gabapentin (Neurontin -) 100 mg PO BID [facility] Last Admin: 08/12/16 11:35 Dose: 100 mg Heparin Sodium (Porcine) (Heparin -) 1,000 unit IVPUSH PRN PRN PRN Reason: Heparin Heparin Sodium (Porcine) (Heparin -) 5,000 unit IVPUSH PRN PRN PRN Reason: Heparin IV Flush (Triple Lumen Flush) 4 ml IVPUSH PRN PRN PRN Reason: Protocol Piperacillin Sod/Tazobactam Sod (Zosyn 3.375gm Ivpb (Pre-Docked)) 50 mls @ 100 mls/hr IVPB Q8H-IV [facility] Last Admin: 08/12/16 11:36 Dose: 100 mls/hr Midazolam HCl 100 mg/ Sodium (Chloride) 100 mls @ 1 mls/hr IVPB TITR ANNA MARIE; 1 MG/ HR PRN Reason: Protocol Last Admin: 08/11/16 19:00 Dose: 4 mls/hr Pantoprazole Sodium (Protonix 40mg Ivpb (Pre-Docked)) 100 mls @ 200 mls/hr IVPB DAILY [facility] Last Admin: 08/12/16 11:36 Dose: 200 mls/hr Heparin Sodium/Dextrose (Heparin Infusion -) 500 mls @ 20 mls/hr IVPB TITR [facility] ; 1,000 UNITS/HR PRN Reason: Protocol Last Admin: 08/12/16 06:15 Dose: 19 mls/hr Vancomycin HCl (Vancomycin (Pre-Docked)) 250 mls @ 250 mls/hr IVPB DAILY [facility] Last Admin: 08/12/16 11:35 Dose: 250 mls/hr Insulin Aspart (Novolog Vial Sliding Scale -) 1 vial SQ ACHS ANNA MARIE PRN Reason: Protocol Last Admin: 08/12/16 11:44 Dose: 8 units Methylprednisolone Sodium Succinate (Solu-Medrol -) 60 mg IVPB BID [facility] Metoprolol Tartrate (Lopressor Injection -) 5 mg IVPUSH Q4H PRN PRN Reason: HYPERTENSION Last Admin: 08/11/16 00:55 Dose: 5 mg Non-Formulary Medication (Pimavanserin Tartrate [Nuplazid]) 2 tab PO DAILY [facility] Last Admin: 08/11/16 12:02 Dose: Not Given Tramadol HCl (Ultram -) 50 mg PO DAILY [facility] Last Admin: 08/12/16 11:35 Dose: 50 mg A/P 85 year old woman with PMhx of CKD, CHF, CAD, DM, Hypertension who presented with sob and found to have SIRS and possible PNA and opacification of left lung with hyperkalemia of 6.6 and Cr of 1.5. #CKD with Hyperkalemia now with worsening renal function Renal function with slighlt worsening over the past 48 hours likely due to transient hypoperfusion from AFib and hypotension MAP is now at goal and pt is hypervolemic Agree with Trial of IV lasix with goal of achieving evolemia Strict I and O No indication for DRIP MOLDER Trend BUN/cr and electrolytes Dose all med for cr cl !30 #SIRS/PNA/Mucus Plug/CHF Vent management as per ICU on IV Abx weaning as per protocol Thank you Edison Carter DO
[2016-08-12] MEDS: AMIODARONE HCL 200 MG TABLET (FP) PO SCH ×2 (13:53→22:25)
[2016-08-12] MEDS: PIMAVANSERIN TARTRATE PO SCH (13:54)
[2016-08-12] MEDS ORDERED: HEMOQUE TEST 1 EACH EACH ONE ×2 (16:35→18:05)
--- NOTE | 2016-08-12 16:48 | PN ---
Progress Note, Physician History of Present Illness: patient continues to be sedated and intubated no specific changes - Current Medication List Current Medications: Active Medications Acetylcysteine (Mucomyst 20 Oral / Inh Use Only*) 200 mg NEB QIDR [facility] Last Admin: 08/12/16 11:02 Dose: 200 mg Albuterol Sulfate (Ventolin 0.083% Nebulizer Soln -) 1 amp NEB QIDR [facility] Last Admin: 08/12/16 11:02 Dose: 1 amp Albuterol/Ipratropium (Duoneb -) 1 amp NEB Q4H PRN Amiodarone HCl (Cordarone -) 400 mg PO BID [facility] Last Admin: 08/12/16 13:53 Dose: 400 mg Aspirin (Asa -) 81 mg PO DAILY [facility] Last Admin: 08/12/16 11:35 Dose: 81 mg Atorvastatin Calcium (Lipitor -) 20 mg PO HS [facility] Last Admin: 08/11/16 21:25 Dose: 20 mg Bacitracin (Bacitracin -) 1 applic TP DAILY [facility] Last Admin: 08/12/16 11:36 Dose: 1 applic Carbidopa/Levodopa (Sinemet 25/100 -) 1 each PO TID [facility] Last Admin: 08/12/16 13:53 Dose: 1 each Chlorhexidine Gluconate (Hibiclens For Decolonization -) 1 applic TP HS [facility] Last Admin: 08/11/16 21:25 Dose: 1 applic Cholecalciferol (Vitamin D3 -) 1,000 unit PO DAILY [facility] Last Admin: 08/12/16 11:35 Dose: 1,000 unit Furosemide (Lasix Injection -) 80 mg IVPB DAILY [facility] Last Admin: 08/12/16 11:39 Dose: 80 mg Gabapentin (Neurontin -) 100 mg PO BID [facility] Last Admin: 08/12/16 11:35 Dose: 100 mg Heparin Sodium (Porcine) (Heparin -) 1,000 unit IVPUSH PRN PRN PRN Reason: Heparin Heparin Sodium (Porcine) (Heparin -) 5,000 unit IVPUSH PRN PRN PRN Reason: Heparin IV Flush (Triple Lumen Flush) 4 ml IVPUSH PRN PRN PRN Reason: Protocol Piperacillin Sod/Tazobactam Sod (Zosyn 3.375gm Ivpb (Pre-Docked)) 50 mls @ 100 mls/hr IVPB Q8H-IV [facility] Last Admin: 08/12/16 11:36 Dose: 100 mls/hr Midazolam HCl 100 mg/ Sodium (Chloride) 100 mls @ 1 mls/hr IVPB TITR [facility]; 1 MG/ HR PRN Reason: Protocol Last Admin: 08/11/16 19:00 Dose: 4 mls/hr Pantoprazole Sodium (Protonix 40mg Ivpb (Pre-Docked)) 100 mls @ 200 mls/hr IVPB DAILY [facility] Last Admin: 08/12/16 11:36 Dose: 200 mls/hr Heparin Sodium/Dextrose (Heparin Infusion -) 500 mls @ 20 mls/hr IVPB TITR [facility] ; 1,000 UNITS/HR PRN Reason: Protocol Last Admin: 08/12/16 06:15 Dose: 19 mls/hr Vancomycin HCl (Vancomycin (Pre-Docked)) 250 mls @ 250 mls/hr IVPB DAILY [facility] Last Admin: 08/12/16 11:35 Dose: 250 mls/hr Insulin Aspart (Novolog Vial Sliding Scale -) 1 vial SQ ACHS [facility] PRN Reason: Protocol Last Admin: 08/12/16 11:44 Dose: 8 units Methylprednisolone Sodium Succinate (Solu-Medrol -) 60 mg IVPB BID [facility] Metoprolol Tartrate (Lopressor Injection -) 5 mg IVPUSH Q4H PRN PRN Reason: HYPERTENSION Last Admin: 08/11/16 00:55 Dose: 5 mg Non-Formulary Medication (Pimavanserin Tartrate [Nuplazid]) 2 tab PO DAILY [facility] Last Admin: 08/12/16 13:54 Dose: 2 tab Tramadol HCl (Ultram -) 50 mg PO DAILY [facility] Last Admin: 08/12/16 11:35 Dose: 50 mg - Objective Vital Signs: Vital Signs Temperature 98.4 F 08/12/16 16:00 Pulse Rate 85 08/12/16 16:00 Respiratory Rate 12 08/12/16 16:00 Blood Pressure 126/48 08/12/16 16:00 O2 Sat by Pulse Oximetry (%) 98 08/12/16 10:44 Constitutional: Yes: No Distress Cardiovascular: Yes: Regular Rate and Rhythm Respiratory: Yes: Intubated, Mechanically Ventilated Gastrointestinal: Yes: Normal Bowel Sounds, Soft Musculoskeletal: Yes: WNL Extremities: Yes: Other Edema: LLE: 2+, RLE: 2+ Neurological: Yes: Other Labs: CBC, BMP 08/12/16 05:15 08/12/16 05:15 INR, PTT INR 1.14 (0.82-1.09) 08/09/16 10:00 Assessment/Plan Problem List - Problems (1) CAD (coronary artery disease) Code(s): I25.10 - ATHSCL HEART DISEASE OF [place] CORONARY ARTERY W/O ANG PCTRS (2) CHF (congestive heart failure) Code(s): I50.9 - HEART FAILURE, UNSPECIFIED Qualifiers: Congestive heart failure type: unspecified congestive heart failure type Congestive heart failure chronicity: unspecified congestive heart failure chronicity Qualified Code(s): I50.9 - Heart failure, unspecified (3) Diabetes mellitus type 2 in obese Code(s): E11.9 - TYPE 2 DIABETES MELLITUS WITHOUT COMPLICATIONS E66.9 - OBESITY, UNSPECIFIED (4) HTN (hypertension) Code(s): I10 - ESSENTIAL (PRIMARY) HYPERTENSION Qualifiers: Hypertension type: essential hypertension Qualified Code(s): I10 - Essential (primary) hypertension (5) Hypotension Code(s): I95.9 - HYPOTENSION, UNSPECIFIED Qualifiers: Hypotension type: idiopathic hypotension Qualified Code(s): I95.0 - Idiopathic hypotension (6) Hypothermia Code(s): T68.XXXA - HYPOTHERMIA, INITIAL ENCOUNTER Qualifiers: Encounter type: initial encounter Qualified Code(s): T68.XXXA - Hypothermia, initial encounter (7) Parkinson's disease dementia Code(s): G20 - PARKINSON'S DISEASE F02.80 - DEMENTIA IN OTH DISEASES CLASSD ELSWHR W/O BEHAVRL DISTURB (8) SIRS (systemic inflammatory response syndrome) Code(s): R65.10 - SIRS OF NON-INFECTIOUS ORIGIN W/O ACUTE ORGAN DYSFUNCTION collapse of the left lung bilateral cellulitis of the leg mrsa pneumonia plan continue current mgmt icuu on the case continue to wean as tolerated abx to continue legs improving cc time 40 min
--- NOTE | 2016-08-12 17:37 | PN ---
Physical Exam: SUBJECTIVE: Patient seen and examined. Intubated, sedated OBJECTIVE: Vital Signs Period Temp Pulse Resp BP Sys/Galvin Pulse Ox Last 24 Hr 96.2 F-98.4 F 60-88 12-16 97-145/48-72 97-98 PE: Neuro: sedated, intubated Pulm: Decreased breath sounds anteriorly +intubated CV: s1 s2 rrr Abd: Soft, normoactive bowel sounds Ext: B/l upper and lower extremity edema. B/l upper extremities with ecchymosis. B/l lower extremities with flaking skin Vent settings: AC/12/400/40/5 CBCD WBC 11.1 K/mm3 (4.0-10.0) H D 08/12/16 05:15 RBC 3.75 M/mm3 (3.60-5.2) 08/12/16 05:15 Hgb 10.1 GM/dL (10.7-15.3) L 08/12/16 05:15 Hct 33.5 % (32.4-45.2) 08/12/16 05:15 MCV 89.4 fl (80-96) 08/12/16 05:15 MCHC 30.1 g/dl (32.0-36.0) L 08/12/16 05:15 RDW 16.8 % (11.6-15.6) H 08/12/16 05:15 Plt Count 245 K/MM3 (134-434) 08/12/16 05:15 MPV 8.9 fl (7.5-11.1) 08/12/16 05:15 CMP Sodium 144 mmol/L (136-145) 08/12/16 05:15 Potassium 4.2 mmol/L (3.5-5.1) 08/12/16 05:15 Chloride 105 mmol/L (98-107) 08/12/16 05:15 Carbon Dioxide 32 mmol/L (21-32) 08/12/16 05:15 Anion Gap 7 (8-16) L 08/12/16 05:15 BUN 94 mg/dL (7-18) H 08/12/16 05:15 Creatinine 1.8 mg/dL (0.55-1.02) H 08/12/16 05:15 Creat Clearance w eGFR 26.81 (>60) 08/12/16 05:15 Calcium 7.8 mg/dL (8.5-10.1) L 08/12/16 05:15 Total Bilirubin 0.5 mg/dL (0.2-1.0) 08/12/16 05:15 AST 8 U/L (15-37) L D 08/12/16 05:15 ALT 7 U/L (12-78) L 08/12/16 05:15 Alkaline Phosphatase 99 U/L (45-117) D 08/12/16 05:15 Total Protein 5.3 g/dl (6.4-8.2) L 08/12/16 05:15 Albumin 2.2 g/dl (3.4-5.0) L 08/12/16 05:15 Laboratory Tests 08/12/16 08/12/16 00:30 05:15 PTT (Actin FS) 80.5 H D 65.0 H Active Medications Generic Name Dose Route Start Last Admin Trade Name Freq PRN Reason Stop Dose Admin Acetylcysteine 200 mg 08/08/16 14:00 08/12/16 17:05 Mucomyst 20 Oral / Inh Use Only* NEB 200 mg QIDR [facility] Administration Albuterol Sulfate 1 amp 08/08/16 14:00 08/12/16 17:05 Ventolin 0.083% Nebulizer Soln - NEB 1 amp QIDR [facility] Administration Albuterol/Ipratropium 1 amp 08/08/16 12:42 Duoneb - NEB Q4H PRN Amiodarone HCl 400 mg 08/12/16 10:00 08/12/16 13:53 Cordarone - PO 400 mg BID [facility] Administration Aspirin 81 mg 08/06/16 10:00 08/12/16 11:35 Asa - PO 81 mg DAILY [facility] Administration Atorvastatin Calcium 20 mg 08/05/16 22:00 08/11/16 21:25 Lipitor - PO 20 mg HS [facility] Administration Bacitracin 1 applic 08/06/16 19:15 08/12/16 11:36 Bacitracin - TP 1 applic DAILY [facility] Administration Carbidopa/Levodopa 1 each 08/05/16 22:00 08/12/16 13:53 Sinemet 25/100 - PO 1 each TID [facility] Administration Chlorhexidine Gluconate 1 applic 08/05/16 22:00 08/11/16 21:25 Hibiclens For Decolonization - TP 1 applic HS [facility] Administration Cholecalciferol 1,000 unit 08/06/16 10:00 08/12/16 11:35 Vitamin D3 - PO 1,000 unit DAILY [facility] Administration Furosemide 80 mg 08/12/16 11:30 08/12/16 11:39 Lasix Injection - IVPB 80 mg DAILY [facility] Administration Gabapentin 100 mg 08/05/16 22:00 08/12/16 11:35 Neurontin - PO 100 mg BID [facility] Administration Heparin Sodium (Porcine) 1,000 unit 08/11/16 04:08 Heparin - IVPUSH PRN PRN Heparin Heparin Sodium (Porcine) 5,000 unit 08/11/16 04:08 Heparin - IVPUSH PRN PRN Heparin IV Flush 4 ml 08/11/16 22:21 Triple Lumen Flush IVPUSH PRN PRN Protocol Piperacillin Sod/Tazobactam Sod 50 mls @ 100 mls/hr 08/06/16 18:00 08/12/16 11: 36 Zosyn 3.375gm Ivpb (Pre-Docked) IVPB 100 mls/hr Q8H-IV [facility] Administration Midazolam HCl 100 mg/ Sodium 100 mls @ 1 mls/hr 08/08/16 12:45 08/11/16 19:00 Chloride IVPB 4 mls/hr TITR [facility] Administration Protocol 1 MG/HR Pantoprazole Sodium 100 mls @ 200 mls/hr 08/09/16 10:15 08/12/16 11:36 Protonix 40mg Ivpb (Pre-Docked) IVPB 200 mls/hr DAILY [facility] Administration Heparin Sodium/Dextrose 500 mls @ 20 mls/hr 08/11/16 04:15 08/12/16 06:15 Heparin Infusion - IVPB 19 mls/hr TITR [facility] Administration Protocol 1,000 UNITS/HR Vancomycin HCl 250 mls @ 250 mls/hr 08/11/16 18:30 08/12/16 11:35 Vancomycin (Pre-Docked) IVPB 250 mls/hr DAILY [facility] Administration Insulin Aspart 1 vial 08/05/16 22:00 08/12/16 11:44 Novolog Vial Sliding Scale - SQ 8 units ACHS [facility] Administration Protocol Methylprednisolone Sodium Succinate 60 mg 08/12/16 22:00 Solu-Medrol - IVPB BID [facility] Metoprolol Tartrate 5 mg 08/09/16 10:21 08/11/16 00:55 Lopressor Injection - IVPUSH 5 mg Q4H PRN Administration HYPERTENSION Non-Formulary Medication 2 tab 08/06/16 10:00 08/12/16 13:54 Pimavanserin Tartrate [Nuplazid] PO 2 tab DAILY [facility] Administration Tramadol HCl 50 mg 08/06/16 10:00 08/12/16 11:35 Ultram - PO 50 mg DAILY [facility] Administration Assessment: 85 year old female with PMHx of HTN, CHF, CAD s/p stenting x2, DM, who presented to the ED with shortness of breath. Plan: 1. Acute hypercapneic and hypoxic respiratory failure with mucus plug - 2/2 pneumonia vs. acute on chronic heart failure - Remain intubated - Continue Solu-medrol, taper per pulm - Continue Mucomyst - Continue Zosyn (day 7), vancomycin day 2 2. New onset a.fib - Now in sinus with PACs - Off amio gtt - Start amio 400mg bid - Maintain heparin gtt - Cardiology seeing 3. B/l lower extremity cellulitis - on Zosyn 4. DM II NIDDM - ISS, BGM ACHS 5. CKD - Cr worsening possible due to new onset AFib - Trial lasix per renal - Renal following 6. DVT: - On heparin gtt CODE STATUS: FULL CODE Visit type - Emergency Visit Emergency Visit: Yes ED Registration Date: 08/05/16 Care time: The patient presented to the Emergency Department on the above date and was hospitalized for further evaluation of their emergent condition. - New Patient This patient is new to me today: Yes Date on this admission: 08/12/16 - Critical Care Critical Care patient: No
[2016-08-12] MEDS: CHLORHEXIDINE GLUCONATE 4% CLEANSER FOR DECOLONIZATION TP SCH (22:26)
[2016-08-12] MEDS: ATORVASTATIN CA 20 MG TABLET (FP) PO SCH (22:26)
[2016-08-13] MEDS: PIPERACILLIN/TAZOB 3.375 GM 50 ML IVPB SCH ×3 (00:59→17:48)
[2016-08-13] MEDS: ALBUTEROL SO4 0.083% IH SOL 2.5 MG/3 ML VIAL.NEB. NEB SCH ×3 (06:05→11:20)
[2016-08-13] MEDS: ACETYLCYSTEINE 20% 200MG/ML 4 ML VIAL *FOR ORAL / INH USE ONLY NEB SCH ×4 (06:05→19:05)
[2016-08-13] MEDS: INSULIN SLIDING SCALE (NOVOLOG) 1 VIAL SQ SCH ×3 (06:36→18:05)
[2016-08-13] MEDS: CARBIDOPA/LEVODOPA 25/100 TABLET (FP) PO SCH ×3 (06:37→21:38)
[2016-08-13 07:55] LABS: MCH 27.7 pg (25.7-33.7); MCHC 30.5 g/dl (32.0-36.0); MEAN CELL VOLUME 90.7 fl (80-96); MEAN PLT VOLUME 9.2 fl (7.5-11.1); PLATELET COUNT 184 K/MM3 (134-434); RDW 16.9 % (11.6-15.6); WHITE BLOOD COUNT 24.8 K/mm3 (4.0-10.0)
[2016-08-13] MEDS ORDERED: DIGOXIN 0.5 MG/2 ML AMPUL ONE ×2 (08:22→20:18)
[2016-08-13] MEDS: METOPROLOL TARTRATE 5 MG/5 ML VIAL IVPUSH PRN ×2 (08:30→18:26)
[2016-08-13 08:37] LABS: ALBUMIN 1.8 g/dl (3.4-5.0); BILIRUBIN,TOTAL 0.5 mg/dL (0.2-1.0); CALCIUM 7.3 mg/dL (8.5-10.1); CREATININE 2.1 mg/dL (0.55-1.02); MAGNESIUM 3.1 mg/dL (1.8-2.4); PHOSPHOROUS 5.1 mg/dL (2.5-4.9); TOT PROT 4.2 g/dl (6.4-8.2)
[2016-08-13] MEDS: HEPARIN INFUSION - 500 ML IVPB SCH (08:39)
[2016-08-13] MEDS ORDERED: METOPROLOL TARTRATE 5 MG/5 ML VIAL IVPUSH ONE (09:00)
[2016-08-13] MEDS ORDERED: DIGOXIN 0.5 MG/2 ML AMPUL IVPUSH ONE ×2 (09:00→11:00)
[2016-08-13] MEDS: PANTOPRAZOLE SODIUM 100 ML IVPB SCH (10:04)
[2016-08-13] MEDS: CHOLECALCIFEROL (VITAMIN D3) 1,000 UNIT TABLET (FP) PO SCH (10:06)
[2016-08-13] MEDS: traMADol HCL 50 MG TABLET PO SCH (10:06)
[2016-08-13] MEDS: BACITRACIN 30 GM TUBE TOPICAL OINTMENT TP SCH (10:06)
[2016-08-13] MEDS: AMIODARONE HCL 200 MG TABLET (FP) PO SCH ×2 (10:06→21:37)
[2016-08-13] MEDS: GABAPENTIN 100 MG CAPSULE (FP) PO SCH ×2 (10:06→21:38)
[2016-08-13] MEDS: ASPIRIN 81 MG CHEWABLE TABLETS PO SCH (10:06)
[2016-08-13] MEDS: PIMAVANSERIN TARTRATE PO SCH (10:07)
[2016-08-13] MEDS: FUROSEMIDE 100 MG/10 ML INJECTABLE VIAL IVPB SCH (10:07)
[2016-08-13] MEDS: methylPREDNISolone NA SUCC 125 MG/2 ML VIAL IVPB SCH ×2 (10:07→21:38)
--- NOTE | 2016-08-13 10:41 | PN ---
Progress Note, Physician - Current Medication List Current Medications: Active Medications Acetylcysteine (Mucomyst 20 Oral / Inh Use Only*) 200 mg NEB QIDR [facility] Last Admin: 08/13/16 06:05 Dose: 200 mg Albuterol Sulfate (Ventolin 0.083% Nebulizer Soln -) 1 amp NEB QIDR [facility] Last Admin: 08/13/16 06:05 Dose: 1 amp Albuterol/Ipratropium (Duoneb -) 1 amp NEB Q4H PRN Amiodarone HCl (Cordarone -) 400 mg PO BID [facility] Last Admin: 08/13/16 10:06 Dose: 400 mg Aspirin (Asa -) 81 mg PO DAILY [facility] Last Admin: 08/13/16 10:06 Dose: 81 mg Atorvastatin Calcium (Lipitor -) 20 mg PO HS [facility] Last Admin: 08/12/16 22:26 Dose: 20 mg Bacitracin (Bacitracin -) 1 applic TP DAILY [facility] Last Admin: 08/13/16 10:06 Dose: 1 applic Carbidopa/Levodopa (Sinemet 25/100 -) 1 each PO TID [facility] Last Admin: 08/13/16 06:37 Dose: 1 each Chlorhexidine Gluconate (Hibiclens For Decolonization -) 1 applic TP HS [facility] Last Admin: 08/12/16 22:26 Dose: 1 applic Cholecalciferol (Vitamin D3 -) 1,000 unit PO DAILY [facility] Last Admin: 08/13/16 10:06 Dose: 1,000 unit Furosemide (Lasix Injection -) 80 mg IVPB DAILY [facility] Last Admin: 08/13/16 10:07 Dose: 80 mg Gabapentin (Neurontin -) 100 mg PO BID [facility] Last Admin: 08/13/16 10:06 Dose: 100 mg Heparin Sodium (Porcine) (Heparin -) 1,000 unit IVPUSH PRN PRN PRN Reason: Heparin Heparin Sodium (Porcine) (Heparin -) 5,000 unit IVPUSH PRN PRN PRN Reason: Heparin IV Flush (Triple Lumen Flush) 4 ml IVPUSH PRN PRN PRN Reason: Protocol Piperacillin Sod/Tazobactam Sod (Zosyn 3.375gm Ivpb (Pre-Docked)) 50 mls @ 100 mls/hr IVPB Q8H-IV [facility] Last Admin: 08/13/16 10:04 Dose: 100 mls/hr Midazolam HCl 100 mg/ Sodium (Chloride) 100 mls @ 1 mls/hr IVPB TITR [facility]; 1 MG/ HR PRN Reason: Protocol Last Admin: 08/12/16 12:45 Dose: 4 mls/hr Pantoprazole Sodium (Protonix 40mg Ivpb (Pre-Docked)) 100 mls @ 200 mls/hr IVPB DAILY [facility] Last Admin: 08/13/16 10:04 Dose: 200 mls/hr Heparin Sodium/Dextrose (Heparin Infusion -) 500 mls @ 20 mls/hr IVPB TITR [facility] ; 1,000 UNITS/HR PRN Reason: Protocol Last Admin: 08/13/16 08:39 Dose: Not Given Vancomycin HCl (Vancomycin (Pre-Docked)) 250 mls @ 250 mls/hr IVPB DAILY [facility] Last Admin: 08/12/16 11:35 Dose: 250 mls/hr Insulin Aspart (Novolog Vial Sliding Scale -) 1 vial SQ ACHS [facility] PRN Reason: Protocol Last Admin: 08/13/16 06:36 Dose: 6 units Methylprednisolone Sodium Succinate (Solu-Medrol -) 60 mg IVPB BID [facility] Last Admin: 08/13/16 10:07 Dose: 60 mg Metoprolol Tartrate (Lopressor Injection -) 5 mg IVPUSH Q4H PRN PRN Reason: HYPERTENSION Last Admin: 08/13/16 08:30 Dose: 5 mg Non-Formulary Medication (Pimavanserin Tartrate [Nuplazid]) 2 tab PO DAILY [facility] Last Admin: 08/13/16 10:07 Dose: 2 tab - Objective Vital Signs: Vital Signs Temperature 98.7 F 08/13/16 06:00 Pulse Rate 166 H 08/13/16 08:30 Respiratory Rate 14 08/13/16 09:21 Blood Pressure 98/71 08/13/16 08:30 O2 Sat by Pulse Oximetry (%) 98 08/12/16 19:28 Eyes: Yes: WNL, Conjunctiva Clear, EOM Intact HENT: Yes: WNL, Atraumatic, Normocephalic Neck: Yes: WNL, Supple, Trachea Midline Cardiovascular: Yes: Tachycardia, Pulse Irregular Respiratory: Yes: Intubated, Mechanically Ventilated Gastrointestinal: Yes: WNL, Normal Bowel Sounds Genitourinary: Yes: WNL Musculoskeletal: Yes: WNL Extremities: Yes: WNL Edema: No Edema: LUE: 2+, RUE: 2+, LLE: 2+, RLE: 2+ Integumentary: Yes: WNL ...Motor Strength: WNL Psychiatric: Yes: WNL Labs: CBC, BMP 08/13/16 06:00 08/13/16 06:00 INR, PTT INR 1.14 (0.82-1.09) 08/09/16 10:00 Problem List - Problems (1) Afib Code(s): I48.91 - UNSPECIFIED ATRIAL FIBRILLATION Qualifiers: Atrial fibrillation type: unspecified Qualified Code(s): I48.91 - Unspecified atrial fibrillation (2) Bilateral leg ulcer Code(s): L97.919 - NON-PRS CHRONIC ULC UNSP PRT OF R LOW LEG W UNSP SEVERITY L97.929 - NON-PRS CHRONIC ULC UNSP PRT OF L LOW LEG W UNSP SEVERITY (3) CAD (coronary artery disease) Code(s): I25.10 - ATHSCL HEART DISEASE OF [place] CORONARY ARTERY W/O ANG PCTRS (4) CHF (congestive heart failure) Code(s): I50.9 - HEART FAILURE, UNSPECIFIED Qualifiers: Congestive heart failure type: unspecified congestive heart failure type Congestive heart failure chronicity: unspecified congestive heart failure chronicity Qualified Code(s): I50.9 - Heart failure, unspecified (5) DVT prophylaxis Code(s): [id number] - (6) Diabetes mellitus type 2 in obese Code(s): E11.9 - TYPE 2 DIABETES MELLITUS WITHOUT COMPLICATIONS E66.9 - OBESITY, UNSPECIFIED (7) HTN (hypertension) Code(s): I10 - ESSENTIAL (PRIMARY) HYPERTENSION Qualifiers: Hypertension type: essential hypertension Qualified Code(s): I10 - Essential (primary) hypertension (8) Hypotension Code(s): I95.9 - HYPOTENSION, UNSPECIFIED Qualifiers: Hypotension type: idiopathic hypotension Qualified Code(s): I95.0 - Idiopathic hypotension (9) Hypothermia Code(s): T68.XXXA - HYPOTHERMIA, INITIAL ENCOUNTER Qualifiers: Encounter type: initial encounter Qualified Code(s): T68.XXXA - Hypothermia, initial encounter (10) New onset a-fib Code(s): I48.91 - UNSPECIFIED ATRIAL FIBRILLATION (11) Parkinson's disease dementia Code(s): G20 - PARKINSON'S DISEASE F02.80 - DEMENTIA IN OTH DISEASES CLASSD ELSWHR W/O BEHAVRL DISTURB (12) Pneumonia Code(s): J18.9 - PNEUMONIA, UNSPECIFIED ORGANISM Qualifiers: Pneumonia type: due to methicillin-resistant Staphylococcus aureus (MRSA) Laterality: left Lung location: lower lobe of lung Qualified Code (s): J15.212 - Pneumonia due to Methicillin resistant Staphylococcus aureus (13) SIRS (systemic inflammatory response syndrome) Code(s): R65.10 - SIRS OF NON-INFECTIOUS ORIGIN W/O ACUTE ORGAN DYSFUNCTION (14) Sepsis Code(s): A41.9 - SEPSIS, UNSPECIFIED ORGANISM Qualifiers: Sepsis type: sepsis due to unspecified organism Qualified Code(s): A41.9 - Sepsis, unspecified organism Assessment/Plan 85 year old woman with a history of HTN, DM II, HLD, CAD with prior stents, CHF, admitted with sob, hypoxic/hypercapneic resp failure. SOB-hypercapneic/hypoxic respiratory failure, possible PNA vs acute on chronic CHF -mucous plugging with opacification of L hemithorax and R pleural effusion -continue vent support CAD-with reported prior stents -cont asa and lipitor -cardiac enzymes wnl PAF- On amio and heparin gtts af RVR borderline bp will start dig IVP - patient has received it in the last couple days, iv lopressor, lopressor via ngt if no improvement IV cardizem drip Volume overload- -edematous and congestive changes on CXR -Consider trial Lasix w/ close monitoring renal fxn cc 35
--- NOTE | 2016-08-13 10:59 | PN ---
Progress Note (short form) - Note Progress Note: PULMONARY/CCM Pt seen and examined in the ICU. Remains intubated, sedated. In rapid afib this AM, digoxin and lopressor given. Last Vital Signs Temp Pulse Resp BP Pulse Ox 98.7 F 166 H 14 98/71 98 08/13/16 06:00 08/13/16 08:30 08/13/16 09:21 08/13/16 08:30 08/12/16 19:28 Intake & Output 08/10/16 08/11/16 08/12/16 08/13/16 23:59 23:59 23:59 23:59 Intake Total 1492 3002.4 2382.8 1096 Output Total 1700 500 600 300 Balance -208 2502.4 1782.8 796 Weight 203 lb 8 oz 208 lb 7 oz 210 lb 1.6 oz 215 lb 2 oz Gen: intubated, sedated Heart: tachycardic, irregular Lung: scattered rhonchi Abd: soft, nontender Ext: + edema CBC, BMP 08/13/16 06:00 08/13/16 06:00 CXR: pulmonary vascular congestion, bilateral effusions Active Medications Acetylcysteine (Mucomyst 20 Oral / Inh Use Only*) 200 mg NEB QIDR [facility] Last Admin: 08/13/16 06:05 Dose: 200 mg Albuterol Sulfate (Ventolin 0.083% Nebulizer Soln -) 1 amp NEB QIDR [facility] Last Admin: 08/13/16 06:05 Dose: 1 amp Albuterol/Ipratropium (Duoneb -) 1 amp NEB Q4H PRN Amiodarone HCl (Cordarone -) 400 mg PO BID [facility] Last Admin: 08/13/16 10:06 Dose: 400 mg Aspirin (Asa -) 81 mg PO DAILY [facility] Last Admin: 08/13/16 10:06 Dose: 81 mg Atorvastatin Calcium (Lipitor -) 20 mg PO HS [facility] Last Admin: 08/12/16 22:26 Dose: 20 mg Bacitracin (Bacitracin -) 1 applic TP DAILY [facility] Last Admin: 08/13/16 10:06 Dose: 1 applic Carbidopa/Levodopa (Sinemet 25/100 -) 1 each PO TID [facility] Last Admin: 08/13/16 06:37 Dose: 1 each Chlorhexidine Gluconate (Hibiclens For Decolonization -) 1 applic TP HS [facility] Last Admin: 08/12/16 22:26 Dose: 1 applic Cholecalciferol (Vitamin D3 -) 1,000 unit PO DAILY [facility] Last Admin: 08/13/16 10:06 Dose: 1,000 unit Digoxin (Lanoxin Injection -) 0.25 mg IVPUSH ONCE ONE Stop: 08/13/16 11:01 Furosemide (Lasix Injection -) 80 mg IVPB DAILY [facility] Last Admin: 08/13/16 10:07 Dose: 80 mg Gabapentin (Neurontin -) 100 mg PO BID [facility] Last Admin: 08/13/16 10:06 Dose: 100 mg Heparin Sodium (Porcine) (Heparin -) 1,000 unit IVPUSH PRN PRN PRN Reason: Heparin Heparin Sodium (Porcine) (Heparin -) 5,000 unit IVPUSH PRN PRN PRN Reason: Heparin IV Flush (Triple Lumen Flush) 4 ml IVPUSH PRN PRN PRN Reason: Protocol Piperacillin Sod/Tazobactam Sod (Zosyn 3.375gm Ivpb (Pre-Docked)) 50 mls @ 100 mls/hr IVPB Q8H-IV [facility] Last Admin: 08/13/16 10:04 Dose: 100 mls/hr Midazolam HCl 100 mg/ Sodium (Chloride) 100 mls @ 1 mls/hr IVPB TITR [facility]; 1 MG/ HR PRN Reason: Protocol Last Admin: 08/12/16 12:45 Dose: 4 mls/hr Pantoprazole Sodium (Protonix 40mg Ivpb (Pre-Docked)) 100 mls @ 200 mls/hr IVPB DAILY [facility] Last Admin: 08/13/16 10:04 Dose: 200 mls/hr Heparin Sodium/Dextrose (Heparin Infusion -) 500 mls @ 20 mls/hr IVPB TITR [facility] ; 1,000 UNITS/HR PRN Reason: Protocol Last Admin: 08/13/16 08:39 Dose: Not Given Vancomycin HCl (Vancomycin (Pre-Docked)) 250 mls @ 250 mls/hr IVPB DAILY [facility] Last Admin: 08/12/16 11:35 Dose: 250 mls/hr Insulin Aspart (Novolog Vial Sliding Scale -) 1 vial SQ ACHS [facility] PRN Reason: Protocol Last Admin: 08/13/16 06:36 Dose: 6 units Methylprednisolone Sodium Succinate (Solu-Medrol -) 60 mg IVPB BID [facility] Last Admin: 08/13/16 10:07 Dose: 60 mg Metoprolol Tartrate (Lopressor Injection -) 5 mg IVPUSH Q4H PRN PRN Reason: HYPERTENSION Last Admin: 08/13/16 08:30 Dose: 5 mg Metoprolol Tartrate (Lopressor -) 25 mg PO BID [facility] Non-Formulary Medication (Pimavanserin Tartrate [Nuplazid]) 2 tab PO DAILY [facility] Last Admin: 08/13/16 10:07 Dose: 2 tab A/P Acute Hypercapneic and Hypoxic Respiratory Failure Pneumonia Atelectasis Paroxysmal Atrial Fibrillation with RVR Acute on Chronic LV Diastolic Heart Failure Pulmonary HTN CAD HTN DM Parkinsons Disease - continue antibiotics - continue medrol at current dose - inhaled bronchodilators, mucolytics - taper FiO2 to keep SpO2 >90% - check CVP - lasix IV if BP tolerates - rate control with amiodarone, metoprolol, digoxin - continue anticoagulation - will need diuresis prior to extubation - hold sedation to assess mental status - spontaneous breathing trials when mental status improved - enteral feeds - DVT/GI prophylaxis - continue ICU monitoring
--- NOTE | 2016-08-13 11:15 | PN ---
Progress Note, Physician Chief Complaint: 85 y/o female in ICU Has Chronic Kidney disease, Coronary artery disease, DM2, Congestive Heart failure, Hypertension, Pneumonia, Hyperkalemia, A Fib, and Respiratory failure. She is supported by Mechanical Ventilator. Sedated On IV Antibiotics, IV steroids. History of Present Illness: Maintains good urine output. poorly responsive. - Current Medication List Current Medications: Active Medications Acetylcysteine (Mucomyst 20 Oral / Inh Use Only*) 200 mg NEB QIDR [facility] Last Admin: 08/13/16 06:05 Dose: 200 mg Albuterol Sulfate (Ventolin 0.083% Nebulizer Soln -) 1 amp NEB QIDR [facility] Last Admin: 08/13/16 06:05 Dose: 1 amp Albuterol/Ipratropium (Duoneb -) 1 amp NEB Q4H PRN Amiodarone HCl (Cordarone -) 400 mg PO BID [facility] Last Admin: 08/13/16 10:06 Dose: 400 mg Aspirin (Asa -) 81 mg PO DAILY [facility] Last Admin: 08/13/16 10:06 Dose: 81 mg Atorvastatin Calcium (Lipitor -) 20 mg PO HS [facility] Last Admin: 08/12/16 22:26 Dose: 20 mg Bacitracin (Bacitracin -) 1 applic TP DAILY [facility] Last Admin: 08/13/16 10:06 Dose: 1 applic Carbidopa/Levodopa (Sinemet 25/100 -) 1 each PO TID [facility] Last Admin: 08/13/16 06:37 Dose: 1 each Chlorhexidine Gluconate (Hibiclens For Decolonization -) 1 applic TP HS [facility] Last Admin: 08/12/16 22:26 Dose: 1 applic Cholecalciferol (Vitamin D3 -) 1,000 unit PO DAILY [facility] Last Admin: 08/13/16 10:06 Dose: 1,000 unit Furosemide (Lasix Injection -) 80 mg IVPB DAILY [facility] Last Admin: 08/13/16 10:07 Dose: 80 mg Gabapentin (Neurontin -) 100 mg PO BID [facility] Last Admin: 08/13/16 10:06 Dose: 100 mg Heparin Sodium (Porcine) (Heparin -) 1,000 unit IVPUSH PRN PRN PRN Reason: Heparin Heparin Sodium (Porcine) (Heparin -) 5,000 unit IVPUSH PRN PRN PRN Reason: Heparin IV Flush (Triple Lumen Flush) 4 ml IVPUSH PRN PRN PRN Reason: Protocol Piperacillin Sod/Tazobactam Sod (Zosyn 3.375gm Ivpb (Pre-Docked)) 50 mls @ 100 mls/hr IVPB Q8H-IV ANNA MARIE Last Admin: 08/13/16 10:04 Dose: 100 mls/hr Midazolam HCl 100 mg/ Sodium (Chloride) 100 mls @ 1 mls/hr IVPB TITR ANNA MARIE; 1 MG/ HR PRN Reason: Protocol Last Admin: 08/12/16 12:45 Dose: 4 mls/hr Pantoprazole Sodium (Protonix 40mg Ivpb (Pre-Docked)) 100 mls @ 200 mls/hr IVPB DAILY ANNA MARIE Last Admin: 08/13/16 10:04 Dose: 200 mls/hr Heparin Sodium/Dextrose (Heparin Infusion -) 500 mls @ 20 mls/hr IVPB TITR ANNA MARIE ; 1,000 UNITS/HR PRN Reason: Protocol Last Admin: 08/13/16 08:39 Dose: Not Given Vancomycin HCl (Vancomycin (Pre-Docked)) 250 mls @ 250 mls/hr IVPB DAILY [facility] Last Admin: 08/12/16 11:35 Dose: 250 mls/hr Insulin Aspart (Novolog Vial Sliding Scale -) 1 vial SQ ACHS ANNA MARIE PRN Reason: Protocol Last Admin: 08/13/16 06:36 Dose: 6 units Methylprednisolone Sodium Succinate (Solu-Medrol -) 60 mg IVPB BID [facility] Last Admin: 08/13/16 10:07 Dose: 60 mg Metoprolol Tartrate (Lopressor Injection -) 5 mg IVPUSH Q4H PRN PRN Reason: HYPERTENSION Last Admin: 08/13/16 08:30 Dose: 5 mg Metoprolol Tartrate (Lopressor -) 25 mg PO BID [facility] Non-Formulary Medication (Pimavanserin Tartrate [Nuplazid]) 2 tab PO DAILY [facility] Last Admin: 08/13/16 10:07 Dose: 2 tab - Objective Vital Signs: Vital Signs Temperature 98.7 F 08/13/16 06:00 Pulse Rate 166 H 08/13/16 08:30 Respiratory Rate 14 08/13/16 09:21 Blood Pressure 98/71 08/13/16 08:30 O2 Sat by Pulse Oximetry (%) 98 08/12/16 19:28 Respiratory: Yes: Mechanically Ventilated, Rhonchi Gastrointestinal: Yes: Normal Bowel Sounds Edema: Yes Edema: LLE: 2+, RLE: 2+ Labs: CBC, BMP 08/13/16 06:00 08/13/16 06:00 INR, PTT INR 1.14 (0.82-1.09) 08/09/16 10:00 Problem List - Problems (1) Bilateral leg ulcer Code(s): L97.919 - NON-PRS CHRONIC ULC UNSP PRT OF R LOW LEG W UNSP SEVERITY L97.929 - NON-PRS CHRONIC ULC UNSP PRT OF L LOW LEG W UNSP SEVERITY (2) CAD (coronary artery disease) Code(s): I25.10 - ATHSCL HEART DISEASE OF [place] CORONARY ARTERY W/O ANG PCTRS (3) CHF (congestive heart failure) Code(s): I50.9 - HEART FAILURE, UNSPECIFIED Qualifiers: Congestive heart failure type: unspecified congestive heart failure type Congestive heart failure chronicity: unspecified congestive heart failure chronicity Qualified Code(s): I50.9 - Heart failure, unspecified (4) Diabetes mellitus type 2 in obese Code(s): E11.9 - TYPE 2 DIABETES MELLITUS WITHOUT COMPLICATIONS E66.9 - OBESITY, UNSPECIFIED (5) HTN (hypertension) Code(s): I10 - ESSENTIAL (PRIMARY) HYPERTENSION Qualifiers: Hypertension type: essential hypertension Qualified Code(s): I10 - Essential (primary) hypertension (6) New onset a-fib Code(s): I48.91 - UNSPECIFIED ATRIAL FIBRILLATION (7) Pneumonia Code(s): J18.9 - PNEUMONIA, UNSPECIFIED ORGANISM Qualifiers: Pneumonia type: due to methicillin-resistant Staphylococcus aureus (MRSA) Laterality: left Lung location: lower lobe of lung Qualified Code (s): J15.212 - Pneumonia due to Methicillin resistant Staphylococcus aureus (8) SIRS (systemic inflammatory response syndrome) Code(s): R65.10 - SIRS OF NON-INFECTIOUS ORIGIN W/O ACUTE ORGAN DYSFUNCTION (9) Sepsis Code(s): A41.9 - SEPSIS, UNSPECIFIED ORGANISM Qualifiers: Sepsis type: sepsis due to unspecified organism Qualified Code(s): A41.9 - Sepsis, unspecified organism Assessment/Plan Patient's clinical status seems to be stable. Maintains good urine output. Serum Potassium has improved, and is in acceptable range. Has Azotemia, mostly Prerenal in nature. seems to be due to low flow states, Hemodynamic instability and the significantly due to the effect of steroids. Still on IV Steroids. No specific interventions suggested at this point. Will continue the current regimen. Tori López MD
[2016-08-13] MEDS: VANCOMYCIN 1 GRAM (PRE-DOCKED) 250 ML IVPB SCH (11:22)
[2016-08-13] MEDS ORDERED: NOREPINEPHRINE BITARTRATE 4 MG/4 ML ML IV ONE (12:05)
[2016-08-13] MEDS: METOPROLOL TARTRATE 25 MG TABLET (FP) PO SCH ×2 (12:31→21:38)
[2016-08-13 12:35] LABS: ANISOCYTOSIS 1+; HYPOCHROMIA 2+; PLATELET COMMENT2 NO CLOTTING DETECTED; PLATELET COMMENT3 FEW GIANT PLTS; PLATELET ESTIMATE ADEQUATE (NORMAL); POLYCHROMASIA 1+
[2016-08-13 12:36] LABS: TOXIC GRANULATION 1+
[2016-08-13] MEDS ORDERED: NOREPINEPHRINE BITARTRATE 8,000 MCG in DEXTROSE 5%-WATER - 492 ML IV SCH (13:30)
--- NOTE | 2016-08-13 14:22 | PN ---
Progress Note (short form) - Note Progress Note: CCM Spoke to HCP/son Dr. Bonilla, updated him on pt's condition and multiorgan dysfunction. He understands the situation, states that he will have a family meeting and will touch base on 08/15 for decision on goals of care/advanced directives. Andrew Benavidez MD
[2016-08-13] MEDS: MIDAZOLAM 100 MG in SODIUM CHLORIDE 100 ML IVPB SCH ×2 (14:41→18:05)
--- NOTE | 2016-08-13 15:35 | PN ---
Progress Note, Physician History of Present Illness: continues to be critical intubated sedated patient was bleeding heparin drip stopped patient being transfused - Current Medication List Current Medications: Active Medications Acetylcysteine (Mucomyst 20 Oral / Inh Use Only*) 200 mg NEB QIDR [facility] Last Admin: 08/13/16 11:20 Dose: 200 mg Albuterol/Ipratropium (Duoneb -) 1 amp NEB Q4H PRN Amiodarone HCl (Cordarone -) 400 mg PO BID [facility] Last Admin: 08/13/16 10:06 Dose: 400 mg Aspirin (Asa -) 81 mg PO DAILY [facility] Last Admin: 08/13/16 10:06 Dose: 81 mg Atorvastatin Calcium (Lipitor -) 20 mg PO HS [facility] Last Admin: 08/12/16 22:26 Dose: 20 mg Bacitracin (Bacitracin -) 1 applic TP DAILY [facility] Last Admin: 08/13/16 10:06 Dose: 1 applic Carbidopa/Levodopa (Sinemet 25/100 -) 1 each PO TID [facility] Last Admin: 08/13/16 14:39 Dose: 1 each Chlorhexidine Gluconate (Hibiclens For Decolonization -) 1 applic TP HS [facility] Last Admin: 08/12/16 22:26 Dose: 1 applic Cholecalciferol (Vitamin D3 -) 1,000 unit PO DAILY [facility] Last Admin: 08/13/16 10:06 Dose: 1,000 unit Furosemide (Lasix Injection -) 80 mg IVPB DAILY [facility] Last Admin: 08/13/16 10:07 Dose: 80 mg Gabapentin (Neurontin -) 100 mg PO BID [facility] Last Admin: 08/13/16 10:06 Dose: 100 mg IV Flush (Triple Lumen Flush) 4 ml IVPUSH PRN PRN PRN Reason: Protocol Piperacillin Sod/Tazobactam Sod (Zosyn 3.375gm Ivpb (Pre-Docked)) 50 mls @ 100 mls/hr IVPB Q8H-IV [facility] Last Admin: 08/13/16 10:04 Dose: 100 mls/hr Midazolam HCl 100 mg/ Sodium (Chloride) 100 mls @ 1 mls/hr IVPB TITR ANNA MARIE; 1 MG/ HR PRN Reason: Protocol Last Admin: 08/13/16 14:41 Dose: Not Given Pantoprazole Sodium (Protonix 40mg Ivpb (Pre-Docked)) 100 mls @ 200 mls/hr IVPB DAILY [facility] Last Admin: 08/13/16 10:04 Dose: 200 mls/hr Vancomycin HCl (Vancomycin (Pre-Docked)) 250 mls @ 250 mls/hr IVPB DAILY [facility] Last Admin: 08/13/16 11:22 Dose: 250 mls/hr Norepinephrine Bitartrate 8, (000 mcg/ Dextrose) 500 mls @ 15 mls/hr IV TITR ANNA MARIE; 4 MCG/MIN PRN Reason: Protocol Last Admin: 08/13/16 11:00 Dose: 15 mls/hr Insulin Aspart (Novolog Vial Sliding Scale -) 1 vial SQ ACHS ANNA MARIE PRN Reason: Protocol Last Admin: 08/13/16 14:41 Dose: 8 units Methylprednisolone Sodium Succinate (Solu-Medrol -) 60 mg IVPB BID [facility] Last Admin: 08/13/16 10:07 Dose: 60 mg Metoprolol Tartrate (Lopressor Injection -) 5 mg IVPUSH Q4H PRN PRN Reason: HYPERTENSION Last Admin: 08/13/16 08:30 Dose: 5 mg Metoprolol Tartrate (Lopressor -) 25 mg PO BID [facility] Last Admin: 08/13/16 12:31 Dose: Not Given Non-Formulary Medication (Pimavanserin Tartrate [Nuplazid]) 2 tab PO DAILY [facility] Last Admin: 08/13/16 10:07 Dose: 2 tab - Objective Vital Signs: Vital Signs Temperature 97.2 F L 08/13/16 14:00 Pulse Rate 159 H 08/13/16 14:00 Respiratory Rate 14 08/13/16 14:20 Blood Pressure 75/58 08/13/16 14:00 O2 Sat by Pulse Oximetry (%) 98 08/13/16 10:00 Constitutional: Yes: No Distress, Calm Cardiovascular: Yes: Regular Rate and Rhythm Respiratory: Yes: Regular Gastrointestinal: Yes: Normal Bowel Sounds, Soft Musculoskeletal: Yes: Other Extremities: Yes: Other Neurological: Yes: Other Labs: CBC, BMP 08/13/16 06:00 08/13/16 06:00 INR, PTT INR 1.14 (0.82-1.09) 08/09/16 10:00 Assessment/Plan Problem List - Problems (1) CAD (coronary artery disease) Code(s): I25.10 - ATHSCL HEART DISEASE OF [place] CORONARY ARTERY W/O ANG PCTRS (2) CHF (congestive heart failure) Code(s): I50.9 - HEART FAILURE, UNSPECIFIED Qualifiers: Congestive heart failure type: unspecified congestive heart failure type Congestive heart failure chronicity: unspecified congestive heart failure chronicity Qualified Code(s): I50.9 - Heart failure, unspecified (3) Diabetes mellitus type 2 in obese Code(s): E11.9 - TYPE 2 DIABETES MELLITUS WITHOUT COMPLICATIONS E66.9 - OBESITY, UNSPECIFIED (4) HTN (hypertension) Code(s): I10 - ESSENTIAL (PRIMARY) HYPERTENSION Qualifiers: Hypertension type: essential hypertension Qualified Code(s): I10 - Essential (primary) hypertension (5) Hypotension Code(s): I95.9 - HYPOTENSION, UNSPECIFIED Qualifiers: Hypotension type: idiopathic hypotension Qualified Code(s): I95.0 - Idiopathic hypotension (6) Hypothermia Code(s): T68.XXXA - HYPOTHERMIA, INITIAL ENCOUNTER Qualifiers: Encounter type: initial encounter Qualified Code(s): T68.XXXA - Hypothermia, initial encounter (7) Parkinson's disease dementia Code(s): G20 - PARKINSON'S DISEASE F02.80 - DEMENTIA IN OTH DISEASES CLASSD ELSWHR W/O BEHAVRL DISTURB (8) SIRS (systemic inflammatory response syndrome) Code(s): R65.10 - SIRS OF NON-INFECTIOUS ORIGIN W/O ACUTE ORGAN DYSFUNCTION collapse of the left lung bilateral cellulitis of the leg mrsa pneumonia plan legs better being transfused tachycardic continue abx cc time 40 min
[2016-08-13] MEDS ORDERED: INSULIN (NOVOLOG) ASPART 100 UNITS/ML 10ML VIAL ONE (16:26)
[2016-08-13 16:53] LABS: URINE APPEARANCE CLOUDY; URINE BILIRUBIN NEGATIVE (NEGATIVE); URINE COLOR YELLOW; URINE GLUCOSE (UA) NEGATIVE (NEGATIVE); URINE KETONE NEGATIVE (NEGATIVE); URINE LEUK ESTERASE NEGATIVE (NEGATIVE); URINE NITRITE NEGATIVE (NEGATIVE); URINE UROBILINOGEN NEGATIVE E.U./dl (0.2-1.0)
[2016-08-13 16:57] LABS: URINE BLOOD 3+ (NEGATIVE); URINE PROTEIN 1+ (NEGATIVE)
[2016-08-13 17:01] LABS: URINE BACTERIA RARE /hpf (NONE SEEN); URINE MUCUS RARE; URINE RBC 1013 /hpf (0-3)
[2016-08-13] MEDS: ALBUTEROL SO4 0.083% IH SOL 2.5 MG/3 ML VIAL.NEB. NEB PRN (19:05)
--- NOTE | 2016-08-13 20:20 | PN ---
Physical Exam: SUBJECTIVE: Patient seen and examined. OBJECTIVE: Vital Signs Period Temp Pulse Resp BP Sys/Galvin Pulse Ox Last 24 Hr 97.2 F-98.7 F 79-166 12-18 74-121/46-95 98-98 NEURO: Intubated, sedated. LUNGS: Coarse mechanical breath sounds. HEART: Irregular, S1, S2 without murmur, rub or gallop. ABDOMEN: Soft, nontender, nondistended. UPPER EXTREMITIES: 4+ edema b/l, weeping LOWER EXTREMITIES: 1+ edema b/l Laboratory Results - last 24 hr 08/12/16 08/12/16 08/13/16 18:25 22:24 06:00 WBC 24.8 H D RBC 2.72 L D Hgb 7.5 L D Hct 24.6 L D MCV 90.7 MCHC 30.5 L RDW 16.9 H Plt Count 184 D MPV 9.2 Neutrophils % 94.0 H Lymphocytes % 3.0 L D Monocytes % 1.0 L D Band Neutrophils 2.0 Nucleated RBCs 1 H Toxic Granulation 1+ Platelet Estimate Adequate Platelet Comment No clotting detected Polychromasia 1+ Hypochromic-Microcytic 2+ Anisocytosis 1+ Morphology Comment PTT (Actin FS) Sodium Potassium Chloride Carbon Dioxide Anion Gap BUN Creatinine Creat Clearance w eGFR POC Glucometer [phone] Random Glucose Calcium Phosphorus Magnesium Total Bilirubin AST ALT Alkaline Phosphatase Total Protein Albumin Urine Color Urine Appearance Urine pH Ur Specific [place] Urine Protein Urine Glucose (UA) Urine Ketones Urine Blood Urine Nitrite Urine Bilirubin Urine Urobilinogen Ur Leukocyte Esterase Urine RBC Urine WBC Urine Bacteria Urine Mucus Stool Occult Blood Blood Type Antibody Screen Crossmatch 08/13/16 08/13/16 08/13/16 06:00 06:00 06:29 WBC RBC Hgb Hct MCV MCHC RDW Plt Count MPV Neutrophils % Lymphocytes % Monocytes % Band Neutrophils Nucleated RBCs Toxic Granulation Platelet Estimate Platelet Comment Polychromasia Hypochromic-Microcytic Anisocytosis Morphology Comment PTT (Actin FS) 86.3 H D Sodium 146 H Potassium 4.9 Chloride 105 Carbon Dioxide 33 H Anion Gap 8 BUN 127 H* D Creatinine 2.1 H Creat Clearance w eGFR 22.44 POC Glucometer [phone] Random Glucose 239 H Calcium 7.3 L Phosphorus 5.1 H Magnesium 3.1 H Total Bilirubin 0.5 AST 8 L ALT 7 L Alkaline Phosphatase 113 Total Protein 4.2 L D Albumin 1.8 L Urine Color Urine Appearance Urine pH Ur Specific [place] Urine Protein Urine Glucose (UA) Urine Ketones Urine Blood Urine Nitrite Urine Bilirubin Urine Urobilinogen Ur Leukocyte Esterase Urine RBC Urine WBC Urine Bacteria Urine Mucus Stool Occult Blood Blood Type Antibody Screen Crossmatch 08/13/16 08/13/16 08/13/16 12:30 13:15 15:50 WBC RBC Hgb Hct MCV MCHC RDW Plt Count MPV Neutrophils % Lymphocytes % Monocytes % Band Neutrophils Nucleated RBCs Toxic Granulation Platelet Estimate Platelet Comment Polychromasia Hypochromic-Microcytic Anisocytosis Morphology Comment PTT (Actin FS) Sodium Potassium Chloride Carbon Dioxide Anion Gap BUN Creatinine Creat Clearance w eGFR POC Glucometer [phone] Random Glucose Calcium Phosphorus Magnesium Total Bilirubin AST ALT Alkaline Phosphatase Total Protein Albumin Urine Color Urine Appearance Urine pH Ur Specific [place] Urine Protein Urine Glucose (UA) Urine Ketones Urine Blood Urine Nitrite Urine Bilirubin Urine Urobilinogen Ur Leukocyte Esterase Urine RBC Urine WBC Urine Bacteria Urine Mucus Stool Occult Blood Positive Blood Type O POSITIVE Antibody Screen Negative Crossmatch See Detail 08/13/16 08/13/16 15:50 17:59 WBC RBC Hgb Hct MCV MCHC RDW Plt Count MPV Neutrophils % Lymphocytes % Monocytes % Band Neutrophils Nucleated RBCs Toxic Granulation Platelet Estimate Platelet Comment Polychromasia Hypochromic-Microcytic Anisocytosis Morphology Comment PTT (Actin FS) Sodium Potassium Chloride Carbon Dioxide Anion Gap BUN Creatinine Creat Clearance w eGFR POC Glucometer [phone] Random Glucose Calcium Phosphorus Magnesium Total Bilirubin AST ALT Alkaline Phosphatase Total Protein Albumin Urine Color Yellow Urine Appearance Cloudy Urine pH 5.0 Ur Specific [place] 1.016 Urine Protein 1+ H Urine Glucose (UA) Negative Urine Ketones Negative Urine Blood 3+ H Urine Nitrite Negative Urine Bilirubin Negative Urine Urobilinogen Negative Ur Leukocyte Esterase Negative Urine RBC 1013 Urine WBC None Urine Bacteria Rare Urine Mucus Rare Stool Occult Blood Blood Type Antibody Screen Crossmatch Active Medications Generic Name Dose Route Start Last Admin Trade Name Freq PRN Reason Stop Dose Admin Acetylcysteine 200 mg 08/08/16 14:00 08/13/16 19:05 Mucomyst 20 Oral / Inh Use Only* NEB 200 mg QIDR ANNA MARIE Administration Albuterol Sulfate 1 amp 08/13/16 18:25 08/13/16 19:05 Ventolin 0.083% Nebulizer Soln - NEB 1 amp Q4H PRN Administration SHORT OF BREATH/WHEEZING Amiodarone HCl 400 mg 08/12/16 10:00 08/13/16 10:06 Cordarone - PO 400 mg BID ANNA MARIE Administration Aspirin 81 mg 08/06/16 10:00 08/13/16 10:06 Asa - PO 81 mg DAILY ANNA MARIE Administration Atorvastatin Calcium 20 mg 08/05/16 22:00 08/12/16 22:26 Lipitor - PO 20 mg HS ANNA MARIE Administration Bacitracin 1 applic 08/06/16 19:15 08/13/16 10:06 Bacitracin - TP 1 applic DAILY ANNA MARIE Administration Carbidopa/Levodopa 1 each 08/05/16 22:00 08/13/16 14:39 Sinemet 25/100 - PO 1 each TID ANNA MARIE Administration Chlorhexidine Gluconate 1 applic 08/05/16 22:00 08/12/16 22:26 Hibiclens For Decolonization - TP 1 applic HS ANNA MARIE Administration Cholecalciferol 1,000 unit 08/06/16 10:00 08/13/16 10:06 Vitamin D3 - PO 1,000 unit DAILY ANNA MARIE Administration Furosemide 80 mg 08/12/16 11:30 08/13/16 10:07 Lasix Injection - IVPB 80 mg DAILY ANNA MARIE Administration Gabapentin 100 mg 08/05/16 22:00 08/13/16 10:06 Neurontin - PO 100 mg BID ANNA MARIE Administration IV Flush 4 ml 08/11/16 22:21 Triple Lumen Flush IVPUSH PRN PRN Protocol Piperacillin Sod/Tazobactam Sod 50 mls @ 100 mls/hr 08/06/16 18:00 08/13/16 17: 48 Zosyn 3.375gm Ivpb (Pre-Docked) IVPB 100 mls/hr Q8H-IV ANNA MARIE Administration Midazolam HCl 100 mg/ Sodium 100 mls @ 1 mls/hr 08/08/16 12:45 08/13/16 18:05 Chloride IVPB 4 mls/hr TITR ANNA MARIE Administration Protocol 1 MG/HR Pantoprazole Sodium 100 mls @ 200 mls/hr 08/09/16 10:15 08/13/16 10:04 Protonix 40mg Ivpb (Pre-Docked) IVPB 200 mls/hr DAILY ANNA MARIE Administration Vancomycin HCl 250 mls @ 250 mls/hr 08/11/16 18:30 08/13/16 11:22 Vancomycin (Pre-Docked) IVPB 250 mls/hr DAILY ANNA MARIE Administration Norepinephrine Bitartrate 8, 500 mls @ 15 mls/hr 08/13/16 13:30 08/13/16 11:00 000 mcg/ Dextrose IV 15 mls/hr TITR ANNA MARIE Administration Protocol 4 MCG/MIN Insulin Aspart 1 vial 08/05/16 22:00 08/13/16 18:05 Novolog Vial Sliding Scale - SQ 8 units ACHS [facility] Administration Protocol Methylprednisolone Sodium Succinate 60 mg 08/12/16 22:00 08/13/16 10:07 Solu-Medrol - IVPB 60 mg BID ANNA MARIE Administration Metoprolol Tartrate 5 mg 08/09/16 10:21 08/13/16 18:26 Lopressor Injection - IVPUSH 5 mg Q4H PRN Administration HYPERTENSION Metoprolol Tartrate 25 mg 08/13/16 11:00 08/13/16 12:31 Lopressor - PO Not Given BID [facility] Non-Formulary Medication 2 tab 08/06/16 10:00 08/13/16 10:07 Pimavanserin Tartrate [Nuplazid] PO 2 tab DAILY ANNA MARIE Administration ASSESSMENT/PLAN: 85 year old female with a past medical history of HTN, CHF, CAD s/p 2 stents, DM , admitted for MRSA pneumonia. Hypercapnic, hypoxic respiratory failure secondary to MRSA pneumonia --intubated Afib with RVR --rate to 160's --rate control with amiodorone, lopressor, digoxin Anemia --drop in Hgb 10.1-->7.5 --stopped heparin drip --transfuse 2 units PRBC --repeat cbc MRSA pneumonia --continue Zosyn and Vanc --ID following Bilateral lower extremity cellulitis --legs much improved --continue Zosyn Pulmonary hypertension Severe valvular pathology --08/09 Echo: normal LV, no RWMA; normal RV, BLAE; moderate to severe MR; moderate TR; severe pHTN; mild 1.3cm2; mild to moderate PI NIDDM --Novolog sliding scale coverage Hypertension --hypotensive, on pressors Parkinson's Disease with hallucinations --continue Nuplazid F/E/N Fluids/Nutrition: tube feeds with Electrolytes: replete as indicated Nutrition: tube feeds DVT prophylaxis: hold chemical prophylaxis due to drop in Hgb/bleeding Dispo: Poor prognosis. Family to come in on Monday to discuss goals of care. Palliative consult requested. Continues to require ICU care. Full Code. Visit type - Emergency Visit Emergency Visit: Yes ED Registration Date: 08/05/16 Care time: The patient presented to the Emergency Department on the above date and was hospitalized for further evaluation of their emergent condition. - New Patient This patient is new to me today: No - Critical Care Critical Care patient: Yes Total Critical Care Time (in minutes): 60 Critical Care Statement: The care of this patient involved high complexity decision making to prevent further life threatening deterioration of the patient 's condition and/or to evalute & treat vital organ system(s) failure or risk of failure.
[2016-08-13] MEDS: DIGOXIN 0.5 MG/2 ML AMPUL IVPUSH SCH (20:30)
[2016-08-13] MEDS: ATORVASTATIN CA 20 MG TABLET (FP) PO SCH (21:38)
[2016-08-13] MEDS: CHLORHEXIDINE GLUCONATE 4% CLEANSER FOR DECOLONIZATION TP SCH (21:38)
[2016-08-13] MEDS ORDERED: PHENYLEPHRINE HCL 10 MG/1 ML SINGLE DOSE VIAL ONE (23:19)
[2016-08-13] MEDS: PHENYLEPHRINE HCL 20,000 MCG in SODIUM CHLORIDE 248 ML IVPB SCH (23:22)
[2016-08-13] MEDS: FUROSEMIDE INJECTION 100 MG in SODIUM CHLORIDE 90 ML IVPB SCH (23:23)
[2016-08-14] MEDS ORDERED: PHENYLEPHRINE HCL 10 MG/1 ML SINGLE DOSE VIAL ONE ×5 (02:11→20:03)
[2016-08-14] MEDS: PIPERACILLIN/TAZOB 3.375 GM 50 ML IVPB SCH ×3 (03:09→17:59)
[2016-08-14] MEDS: INSULIN SLIDING SCALE (NOVOLOG) 1 VIAL SQ SCH ×5 (03:42→23:10)
[2016-08-14] MEDS: DIGOXIN 0.5 MG/2 ML AMPUL IVPUSH SCH ×2 (03:43→10:18)
[2016-08-14 05:57] LABS: MCHC 31.8 g/dl (32.0-36.0); MEAN PLT VOLUME 9.8 fl (7.5-11.1); PLATELET COUNT 186 K/MM3 (134-434); RDW 15.8 % (11.6-15.6)
[2016-08-14] MEDS: ACETYLCYSTEINE 20% 200MG/ML 4 ML VIAL *FOR ORAL / INH USE ONLY NEB SCH ×5 (06:00→23:19)
[2016-08-14] MEDS: ALBUTEROL SO4 0.083% IH SOL 2.5 MG/3 ML VIAL.NEB. NEB PRN ×4 (06:00→23:20)
[2016-08-14 06:11] LABS: WHITE BLOOD COUNT 30.6 K/mm3 (4.0-10.0)
[2016-08-14 06:20] LABS: ALBUMIN 1.8 g/dl (3.4-5.0); CALCIUM 7.2 mg/dL (8.5-10.1); PHOSPHOROUS 5.3 mg/dL (2.5-4.9)
[2016-08-14 06:22] LABS: BILIRUBIN,TOTAL 0.6 mg/dL (0.2-1.0); CREATININE 2.4 mg/dL (0.55-1.02); TOT PROT 3.9 g/dl (6.4-8.2)
[2016-08-14] MEDS: CARBIDOPA/LEVODOPA 25/100 TABLET (FP) PO SCH ×3 (07:01→21:26)
[2016-08-14 08:21] LABS: ARTERIAL BLD GAS O2 SATURATION 95.8 % (90-98.9); ARTERIAL BLOOD GAS BASE EXCESS 2.9 meq/l (-2-2); ARTERIAL BLOOD GAS HCO3 28.7 meq/L (22-26); ARTERIAL BLOOD GAS PO2 77.7 mmHg (68-100); ARTERIAL BLOOD GAS pH 7.35 (7.35-7.45)
[2016-08-14 08:22] LABS: METAMYELOCYTE 1 % (0-2)
[2016-08-14 08:29] LABS: ALLENS TEST POSITIVE; ART PUNCT SITE RIGHT RADIAL; LPM/O2% 40%; MECH. VENT. ESPRIT; PT. ON O2? YES; TYPE OF O2 MEC.VENT; VENT RATE 12; VT/PRESS 400
--- NOTE | 2016-08-14 09:23 | PN ---
Physical Exam: SUBJECTIVE: Patient seen and examined. OBJECTIVE: Vital Signs Period Temp Pulse Resp BP Sys/Galvin Pulse Ox Last 24 Hr 97.2 F-99.2 F 66-159 12-18 72-121/39-95 98-98 NEURO: Intubated, sedated. LUNGS: Coarse mechanical breath sounds. HEART: Irregular, S1, S2 without murmur, rub or gallop. ABDOMEN: Soft, nontender, nondistended. UPPER EXTREMITIES: 4+ edema b/l, weeping LOWER EXTREMITIES: 1+ edema b/l Laboratory Results - last 24 hr 08/13/16 08/13/16 08/13/16 06:00 12:30 13:15 WBC RBC Hgb Hct MCV MCHC RDW Plt Count MPV Neutrophils % 94.0 H Lymphocytes % 3.0 L D Monocytes % 1.0 L D Band Neutrophils 2.0 Metamyelocytes Myelocytes Nucleated RBCs 1 H Differential Comment Toxic Granulation 1+ Platelet Estimate Adequate Platelet Comment No clotting detected Polychromasia 1+ Hypochromic-Microcytic 2+ Anisocytosis 1+ Morphology Comment Puncture Site ABG pH ABG pCO2 at Pt Temp ABG pO2 at Pt Temp ABG HCO3 ABG O2 Sat (Measured) ABG O2 Content ABG Base Excess [place] Test O2 Delivery Device Oxygen Flow Rate Vent Mode Vent Rate Mechanical Rate PEEP Pressure Support Vent Sodium Potassium Chloride Carbon Dioxide Anion Gap BUN Creatinine Creat Clearance w eGFR POC Glucometer [phone] Random Glucose Calcium Phosphorus Magnesium Total Bilirubin AST ALT Alkaline Phosphatase Total Protein Albumin Urine Color Urine Appearance Urine pH Ur Specific [place] Urine Protein Urine Glucose (UA) Urine Ketones Urine Blood Urine Nitrite Urine Bilirubin Urine Urobilinogen Ur Leukocyte Esterase Urine RBC Urine WBC Urine Bacteria Urine Mucus Stool Occult Blood Blood Type O POSITIVE Antibody Screen Negative Crossmatch See Detail 08/13/16 08/13/16 08/13/16 15:50 15:50 17:59 WBC RBC Hgb Hct MCV MCHC RDW Plt Count MPV Neutrophils % Lymphocytes % Monocytes % Band Neutrophils Metamyelocytes Myelocytes Nucleated RBCs Differential Comment Toxic Granulation Platelet Estimate Platelet Comment Polychromasia Hypochromic-Microcytic Anisocytosis Morphology Comment Puncture Site ABG pH ABG pCO2 at Pt Temp ABG pO2 at Pt Temp ABG HCO3 ABG O2 Sat (Measured) ABG O2 Content ABG Base Excess [place]o Test O2 Delivery Device Oxygen Flow Rate Vent Mode Vent Rate Mechanical Rate PEEP Pressure Support Vent Sodium Potassium Chloride Carbon Dioxide Anion Gap BUN Creatinine Creat Clearance w eGFR POC Glucometer [phone] Random Glucose Calcium Phosphorus Magnesium Total Bilirubin AST ALT Alkaline Phosphatase Total Protein Albumin Urine Color Yellow Urine Appearance Cloudy Urine pH 5.0 Ur Specific [place] 1.016 Urine Protein 1+ H Urine Glucose (UA) Negative Urine Ketones Negative Urine Blood 3+ H Urine Nitrite Negative Urine Bilirubin Negative Urine Urobilinogen Negative Ur Leukocyte Esterase Negative Urine RBC 1013 Urine WBC None Urine Bacteria Rare Urine Mucus Rare Stool Occult Blood Positive Blood Type Antibody Screen Crossmatch 08/14/16 08/14/16 08/14/16 03:40 05:35 05:35 WBC 30.6 H* RBC 3.36 L D Hgb 9.4 L D Hct 29.6 L D MCV 88.0 MCHC 31.8 L RDW 15.8 H Plt Count 186 MPV 9.8 Neutrophils % 89.0 H Lymphocytes % 5.0 L D Monocytes % 2.0 L D Band Neutrophils 1.0 D Metamyelocytes 1 Myelocytes 2 Nucleated RBCs Differential Comment Manual diff done Toxic Granulation Platelet Estimate Platelet Comment Polychromasia Hypochromic-Microcytic Anisocytosis Morphology Comment Puncture Site ABG pH ABG pCO2 at Pt Temp ABG pO2 at Pt Temp ABG HCO3 ABG O2 Sat (Measured) ABG O2 Content ABG Base Excess Chicho Test O2 Delivery Device Oxygen Flow Rate Vent Mode Vent Rate Mechanical Rate PEEP Pressure Support Vent Sodium 143 Potassium 4.9 Chloride 106 Carbon Dioxide 30 Anion Gap 7 L BUN 148 H* Creatinine 2.4 H Creat Clearance w eGFR 19.23 POC Glucometer [phone] Random Glucose 214 H Calcium 7.2 L Phosphorus 5.3 H Magnesium 3.0 H Total Bilirubin 0.6 AST 19 D ALT 9 L D Alkaline Phosphatase 121 H Total Protein 3.9 L Albumin 1.8 L Urine Color Urine Appearance Urine pH Ur Specific [place] Urine Protein Urine Glucose (UA) Urine Ketones Urine Blood Urine Nitrite Urine Bilirubin Urine Urobilinogen Ur Leukocyte Esterase Urine RBC Urine WBC Urine Bacteria Urine Mucus Stool Occult Blood Blood Type Antibody Screen Crossmatch 08/14/16 07:40 WBC RBC Hgb Hct MCV MCHC RDW Plt Count MPV Neutrophils % Lymphocytes % Monocytes % Band Neutrophils Metamyelocytes Myelocytes Nucleated RBCs Differential Comment Toxic Granulation Platelet Estimate Platelet Comment Polychromasia Hypochromic-Microcytic Anisocytosis Morphology Comment Puncture Site Right radial ABG pH 7.35 ABG pCO2 at Pt Temp 53.6 H ABG pO2 at Pt Temp 77.7 ABG HCO3 28.7 H ABG O2 Sat (Measured) 95.8 ABG O2 Content 13.0 L ABG Base Excess 2.9 H Chicho Test Positive O2 Delivery Device Mec.vent Oxygen Flow Rate 40% Vent Mode A/c Vent Rate 12 Mechanical Rate Esprit PEEP 5.0 Pressure Support Vent 400 Sodium Potassium Chloride Carbon Dioxide Anion Gap BUN Creatinine Creat Clearance w eGFR POC Glucometer Random Glucose Calcium Phosphorus Magnesium Total Bilirubin AST ALT Alkaline Phosphatase Total Protein Albumin Urine Color Urine Appearance Urine pH Ur Specific [place] Urine Protein Urine Glucose (UA) Urine Ketones Urine Blood Urine Nitrite Urine Bilirubin Urine Urobilinogen Ur Leukocyte Esterase Urine RBC Urine WBC Urine Bacteria Urine Mucus Stool Occult Blood Blood Type Antibody Screen Crossmatch Active Medications Generic Name Dose Route Start Last Admin Trade Name Freq PRN Reason Stop Dose Admin Acetylcysteine 200 mg 08/08/16 14:00 08/14/16 06:00 Mucomyst 20 Oral / Inh Use Only* NEB 200 mg QIDR ANNA MARIE Administration Albuterol Sulfate 1 amp 08/13/16 18:25 08/14/16 06:00 Ventolin 0.083% Nebulizer Soln - NEB 1 amp Q4H PRN Administration SHORT OF BREATH/WHEEZING Amiodarone HCl 400 mg 08/12/16 10:00 08/13/16 21:37 Cordarone - PO 400 mg BID ANNA MARIE Administration Aspirin 81 mg 08/06/16 10:00 08/13/16 10:06 Asa - PO 81 mg DAILY ANNA MARIE Administration Atorvastatin Calcium 20 mg 08/05/16 22:00 08/13/16 21:38 Lipitor - PO 20 mg HS ANNA MARIE Administration Bacitracin 1 applic 08/06/16 19:15 08/13/16 10:06 Bacitracin - TP 1 applic DAILY ANNA MARIE Administration Carbidopa/Levodopa 1 each 08/05/16 22:00 08/14/16 07:01 Sinemet 25/100 - PO 1 each TID ANNA MARIE Administration Chlorhexidine Gluconate 1 applic 08/05/16 22:00 08/13/16 21:38 Hibiclens For Decolonization - TP 1 applic HS ANNA MARIE Administration Cholecalciferol 1,000 unit 08/06/16 10:00 08/13/16 10:06 Vitamin D3 - PO 1,000 unit DAILY ANNA MARIE Administration Gabapentin 100 mg 08/05/16 22:00 08/13/16 21:38 Neurontin - PO 100 mg BID ANNA MARIE Administration IV Flush 4 ml 08/11/16 22:21 Triple Lumen Flush IVPUSH PRN PRN Protocol Piperacillin Sod/Tazobactam Sod 50 mls @ 100 mls/hr 08/06/16 18:00 08/14/16 03: 09 Zosyn 3.375gm Ivpb (Pre-Docked) IVPB 100 mls/hr Q8H-IV ANNA MARIE Administration Midazolam HCl 100 mg/ Sodium 100 mls @ 1 mls/hr 08/08/16 12:45 08/13/16 18:05 Chloride IVPB 4 mls/hr TITR ANNA MARIE Administration Protocol 1 MG/HR Pantoprazole Sodium 100 mls @ 200 mls/hr 08/09/16 10:15 08/13/16 10:04 Protonix 40mg Ivpb (Pre-Docked) IVPB 200 mls/hr DAILY ANNA MARIE Administration Vancomycin HCl 250 mls @ 250 mls/hr 08/11/16 18:30 08/13/16 11:22 Vancomycin (Pre-Docked) IVPB 250 mls/hr DAILY ANNA MARIE Administration Phenylephrine HCl 20,000 mcg/ 250 mls @ 75 mls/hr 08/13/16 22:30 08/13/16 23:22 Sodium Chloride IVPB 75 mls/hr ASDIR ANNA MARIE Administration Protocol 100 MCG/MIN Furosemide 100 mg/ Sodium 100 mls @ 5 mls/hr 08/13/16 22:30 08/13/16 23:23 Chloride IVPB 5 mls/hr ASDIR ANNA MARIE Administration 5 MG/HR Insulin Aspart 1 vial 08/05/16 22:00 08/14/16 07:01 Novolog Vial Sliding Scale - SQ 4 units ACHS ANNA MARIE Administration Protocol Methylprednisolone Sodium Succinate 60 mg 08/12/16 22:00 08/13/16 21:38 Solu-Medrol - IVPB 60 mg BID ANNA MARIE Administration Metoprolol Tartrate 5 mg 08/09/16 10:21 08/13/16 18:26 Lopressor Injection - IVPUSH 5 mg Q4H PRN Administration HYPERTENSION Metoprolol Tartrate 25 mg 08/13/16 11:00 08/13/16 21:38 Lopressor - PO Not Given BID ANNA MARIE Non-Formulary Medication 2 tab 12/31/16 10:00 08/13/16 10:07 Pimavanserin Tartrate [Nuplazid] PO 2 tab DAILY ANNA MARIE Administration ASSESSMENT/PLAN 85 year old female with a past medical history of HTN, CHF, CAD s/p 2 stents, DM , admitted for MRSA pneumonia. Hypercapnic, hypoxic respiratory failure secondary to MRSA pneumonia --intubated, sedated --continue Zosyn (day #9) and Vanc (day #3) Bilateral lower extremity cellulitis --legs much improved Afib with RVR --switched last night from levophed to phenylephrine, converted to sinus rhythm, HR 60's; titrate to MAP > 65 --continue amiodorone, lopressor, digoxin Anemia --transfused 2 units yesterday, Hgb 7.5-->9.4 --continue to hold heparin drip Pulmonary hypertension Severe valvular pathology Pulmonary congestion --started Lasix drip last night 5mg/hr, UOP 3.2L today NIDDM --Novolog sliding scale coverage Hypertension --hypotensive, on pressors Parkinson's Disease with hallucinations --continue Nuplazid F/E/N Fluids/Nutrition: tube feeds with free water flushes Electrolytes: replete as indicated Nutrition: tube feeds DVT prophylaxis: hold chemical prophylaxis due to drop in Hgb/bleeding Dispo: Poor prognosis. Family to come in on Monday to discuss goals of care. Palliative consult requested. Continues to require ICU care. Full Code. Visit type - Emergency Visit Emergency Visit: Yes ED Registration Date: 08/05/16 Care time: The patient presented to the Emergency Department on the above date and was hospitalized for further evaluation of their emergent condition. - New Patient This patient is new to me today: No - Critical Care Critical Care patient: Yes Total Critical Care Time (in minutes): 35 Critical Care Statement: The care of this patient involved high complexity decision making to prevent further life threatening deterioration of the patient 's condition and/or to evalute & treat vital organ system(s) failure or risk of failure.
--- NOTE | 2016-08-14 10:15 | PN ---
Progress Note, Physician - Current Medication List Current Medications: Active Medications Acetylcysteine (Mucomyst 20 Oral / Inh Use Only*) 200 mg NEB QIDR ANNA MARIE Last Admin: 08/14/16 06:00 Dose: 200 mg Albuterol Sulfate (Ventolin 0.083% Nebulizer Soln -) 1 amp NEB Q4H PRN PRN Reason: SHORT OF BREATH/WHEEZING Last Admin: 08/14/16 06:00 Dose: 1 amp Amiodarone HCl (Cordarone -) 400 mg PO BID [facility] Last Admin: 08/13/16 21:37 Dose: 400 mg Aspirin (Asa -) 81 mg PO DAILY [facility] Last Admin: 08/13/16 10:06 Dose: 81 mg Atorvastatin Calcium (Lipitor -) 20 mg PO HS [facility] Last Admin: 08/13/16 21:38 Dose: 20 mg Bacitracin (Bacitracin -) 1 applic TP DAILY [facility] Last Admin: 08/13/16 10:06 Dose: 1 applic Carbidopa/Levodopa (Sinemet 25/100 -) 1 each PO TID [facility] Last Admin: 08/14/16 07:01 Dose: 1 each Chlorhexidine Gluconate (Hibiclens For Decolonization -) 1 applic TP HS [facility] Last Admin: 08/13/16 21:38 Dose: 1 applic Cholecalciferol (Vitamin D3 -) 1,000 unit PO DAILY [facility] Last Admin: 08/13/16 10:06 Dose: 1,000 unit Gabapentin (Neurontin -) 100 mg PO BID [facility] Last Admin: 08/13/16 21:38 Dose: 100 mg IV Flush (Triple Lumen Flush) 4 ml IVPUSH PRN PRN PRN Reason: Protocol Piperacillin Sod/Tazobactam Sod (Zosyn 3.375gm Ivpb (Pre-Docked)) 50 mls @ 100 mls/hr IVPB Q8H-IV ANNA MARIE Last Admin: 08/14/16 03:09 Dose: 100 mls/hr Midazolam HCl 100 mg/ Sodium (Chloride) 100 mls @ 1 mls/hr IVPB TITR ANNA MARIE; 1 MG/ HR PRN Reason: Protocol Last Admin: 08/13/16 18:05 Dose: 4 mls/hr Pantoprazole Sodium (Protonix 40mg Ivpb (Pre-Docked)) 100 mls @ 200 mls/hr IVPB DAILY [facility] Last Admin: 08/13/16 10:04 Dose: 200 mls/hr Vancomycin HCl (Vancomycin (Pre-Docked)) 250 mls @ 250 mls/hr IVPB DAILY [facility] Last Admin: 08/13/16 11:22 Dose: 250 mls/hr Phenylephrine HCl 20,000 mcg/ (Sodium Chloride) 250 mls @ 75 mls/hr IVPB ASDIR ANNA MARIE; 100 MCG/MIN PRN Reason: Protocol Last Admin: 08/13/16 23:22 Dose: 75 mls/hr Furosemide 100 mg/ Sodium (Chloride) 100 mls @ 5 mls/hr IVPB ASDIR ANNA MARIE PRN Reason: 5 MG/HR Last Admin: 08/13/16 23:23 Dose: 5 mls/hr Insulin Aspart (Novolog Vial Sliding Scale -) 1 vial SQ ACHS ANNA MARIE PRN Reason: Protocol Last Admin: 08/14/16 07:01 Dose: 4 units Methylprednisolone Sodium Succinate (Solu-Medrol -) 60 mg IVPB BID [facility] Last Admin: 08/13/16 21:38 Dose: 60 mg Metoprolol Tartrate (Lopressor Injection -) 5 mg IVPUSH Q4H PRN PRN Reason: HYPERTENSION Last Admin: 08/13/16 18:26 Dose: 5 mg Metoprolol Tartrate (Lopressor -) 25 mg PO BID [facility] Last Admin: 08/13/16 21:38 Dose: Not Given Non-Formulary Medication (Pimavanserin Tartrate [Nuplazid]) 2 tab PO DAILY [facility] Last Admin: 08/13/16 10:07 Dose: 2 tab - Objective Vital Signs: Vital Signs Temperature 98.8 F 08/14/16 06:00 Pulse Rate 69 08/14/16 07:00 Respiratory Rate 12 08/14/16 09:10 Blood Pressure 111/39 08/14/16 07:00 O2 Sat by Pulse Oximetry (%) 98 08/13/16 22:00 Eyes: Yes: WNL, Conjunctiva Clear, EOM Intact HENT: Yes: WNL, Atraumatic, Normocephalic Neck: Yes: WNL, Supple, Trachea Midline Cardiovascular: Yes: Pulse Irregular, S1, S2, Other Respiratory: Yes: Intubated, Mechanically Ventilated Gastrointestinal: Yes: WNL, Normal Bowel Sounds Genitourinary: Yes: WNL Musculoskeletal: Yes: WNL Extremities: Yes: WNL Edema: No Edema: LUE: 2+, RUE: 2+, LLE: 2+, RLE: 2+ Integumentary: Yes: WNL ...Motor Strength: WNL Psychiatric: Yes: WNL Labs: CBC, BMP 08/14/16 05:35 08/14/16 05:35 INR, PTT INR 1.14 (0.82-1.09) 08/09/16 10:00 Problem List - Problems (1) Afib Code(s): I48.91 - UNSPECIFIED ATRIAL FIBRILLATION Qualifiers: Atrial fibrillation type: unspecified Qualified Code(s): I48.91 - Unspecified atrial fibrillation (2) Bilateral leg ulcer Code(s): L97.919 - NON-PRS CHRONIC ULC UNSP PRT OF R LOW LEG W UNSP SEVERITY L97.929 - NON-PRS CHRONIC ULC UNSP PRT OF L LOW LEG W UNSP SEVERITY (3) CAD (coronary artery disease) Code(s): I25.10 - ATHSCL HEART DISEASE OF [place] CORONARY ARTERY W/O ANG PCTRS (4) CHF (congestive heart failure) Code(s): I50.9 - HEART FAILURE, UNSPECIFIED Qualifiers: Congestive heart failure type: unspecified congestive heart failure type Congestive heart failure chronicity: unspecified congestive heart failure chronicity Qualified Code(s): I50.9 - Heart failure, unspecified (5) DVT prophylaxis Code(s): [id number] - (6) Diabetes mellitus type 2 in obese Code(s): E11.9 - TYPE 2 DIABETES MELLITUS WITHOUT COMPLICATIONS E66.9 - OBESITY, UNSPECIFIED (7) HTN (hypertension) Code(s): I10 - ESSENTIAL (PRIMARY) HYPERTENSION Qualifiers: Hypertension type: essential hypertension Qualified Code(s): I10 - Essential (primary) hypertension (8) Hypotension Code(s): I95.9 - HYPOTENSION, UNSPECIFIED Qualifiers: Hypotension type: idiopathic hypotension Qualified Code(s): I95.0 - Idiopathic hypotension (9) Hypothermia Code(s): T68.XXXA - HYPOTHERMIA, INITIAL ENCOUNTER Qualifiers: Encounter type: initial encounter Qualified Code(s): T68.XXXA - Hypothermia, initial encounter (10) New onset a-fib Code(s): I48.91 - UNSPECIFIED ATRIAL FIBRILLATION (11) Parkinson's disease dementia Code(s): G20 - PARKINSON'S DISEASE F02.80 - DEMENTIA IN OTH DISEASES CLASSD ELSWHR W/O BEHAVRL DISTURB (12) Pneumonia Code(s): J18.9 - PNEUMONIA, UNSPECIFIED ORGANISM Qualifiers: Pneumonia type: due to methicillin-resistant Staphylococcus aureus (MRSA) Laterality: left Lung location: lower lobe of lung Qualified Code (s): J15.212 - Pneumonia due to Methicillin resistant Staphylococcus aureus (13) SIRS (systemic inflammatory response syndrome) Code(s): R65.10 - SIRS OF NON-INFECTIOUS ORIGIN W/O ACUTE ORGAN DYSFUNCTION (14) Sepsis Code(s): A41.9 - SEPSIS, UNSPECIFIED ORGANISM Qualifiers: Sepsis type: sepsis due to unspecified organism Qualified Code(s): A41.9 - Sepsis, unspecified organism Assessment/Plan 85 year old woman with a history of HTN, DM II, HLD, CAD with prior stents, CHF, admitted with sob, hypoxic/hypercapneic resp failure. SOB-hypercapneic/hypoxic respiratory failure, possible PNA vs acute on chronic CHF -mucous plugging with opacification of L hemithorax and R pleural effusion -continue vent support CAD-with reported prior stents -cont asa and lipitor -cardiac enzymes wnl PAF- On amio and heparin gtts af RVR borderline bp will start reloaded with dig IVP - stable Volume overload- -edematous and congestive changes on CXR -Consider trial Lasix w/ close monitoring renal fxn sepsis cont pressors. May need to hold metoprolol as luciano g patient is hypotensive and on pressors cc time 35
[2016-08-14] MEDS: VANCOMYCIN 1 GRAM (PRE-DOCKED) 250 ML IVPB SCH (10:17)
[2016-08-14] MEDS: PANTOPRAZOLE SODIUM 100 ML IVPB SCH (10:17)
[2016-08-14] MEDS: CHOLECALCIFEROL (VITAMIN D3) 1,000 UNIT TABLET (FP) PO SCH (10:18)
[2016-08-14] MEDS: GABAPENTIN 100 MG CAPSULE (FP) PO SCH ×2 (10:18→21:25)
[2016-08-14] MEDS: METOPROLOL TARTRATE 25 MG TABLET (FP) PO SCH ×2 (10:18→21:25)
[2016-08-14] MEDS: AMIODARONE HCL 200 MG TABLET (FP) PO SCH ×2 (10:18→21:25)
[2016-08-14] MEDS: ASPIRIN 81 MG CHEWABLE TABLETS PO SCH (10:18)
[2016-08-14] MEDS: methylPREDNISolone NA SUCC 125 MG/2 ML VIAL IVPB SCH ×2 (10:19→21:26)
[2016-08-14] MEDS: BACITRACIN 30 GM TUBE TOPICAL OINTMENT TP SCH (10:19)
[2016-08-14] MEDS: PIMAVANSERIN TARTRATE PO SCH (10:20)
--- NOTE | 2016-08-14 11:02 | PN ---
Progress Note, Physician Chief Complaint: 85 y/o female in ICU Has Chronic Kidney disease, Coronary artery disease, DM2, Congestive Heart failure, Hypertension, Pneumonia, Hyperkalemia, A Fib, and Respiratory failure. She is supported by Mechanical Ventilator. Sedated.. Versed Pressor support ... Neosynephrine On IV Antibiotics, IV steroids. IV Lasix. History of Present Illness: Maintains good urine output. poorly responsive. On IV Lasix. Mechanically ventilated. - Current Medication List Current Medications: Active Medications Acetylcysteine (Mucomyst 20 Oral / Inh Use Only*) [address] [facility] Last Admin: 08/14/16 06:00 Dose: 200 mg Albuterol Sulfate (Ventolin 0.083% Nebulizer Soln -) 1 amp NEB Q4H PRN PRN Reason: SHORT OF BREATH/WHEEZING Last Admin: 08/14/16 06:00 Dose: 1 amp Amiodarone HCl (Cordarone -) [address] [facility] Last Admin: 08/13/16 21:37 Dose: 400 mg Aspirin (Asa -) [address] [facility] Last Admin: 08/13/16 10:06 Dose: 81 mg Atorvastatin Calcium (Lipitor -) [address] [facility] Last Admin: 08/13/16 21:38 Dose: 20 mg Bacitracin (Bacitracin -) [address] [facility] Last Admin: 08/13/16 10:06 Dose: 1 applic Carbidopa/Levodopa (Sinemet 25/100 -) [address] [facility] Last Admin: 08/14/16 07:01 Dose: 1 each Chlorhexidine Gluconate (Hibiclens For Decolonization -) [address] [facility] Last Admin: 08/13/16 21:38 Dose: 1 applic Cholecalciferol (Vitamin D3 -) 1,[address] [facility] Last Admin: 08/13/16 10:06 Dose: 1,000 unit Gabapentin (Neurontin -) [address] [facility] Last Admin: 08/13/16 21:38 Dose: 100 mg IV Flush (Triple Lumen Flush) 4 ml IVPUSH PRN PRN PRN Reason: Protocol Piperacillin Sod/Tazobactam Sod (Zosyn 3.375gm Ivpb (Pre-Docked)) 50 mls @ 100 mls/hr IVPB Q8H-IV ANNA MARIE Last Admin: 08/14/16 03:09 Dose: 100 mls/hr Midazolam HCl 100 mg/ Sodium (Chloride) 100 mls @ 1 mls/hr IVPB TITR ANNA MARIE; 1 MG/ HR PRN Reason: Protocol Last Admin: 08/13/16 18:05 Dose: 4 mls/hr Pantoprazole Sodium (Protonix 40mg Ivpb (Pre-Docked)) 100 mls @ 200 mls/hr IVPB DAILY [facility] Last Admin: 08/13/16 10:04 Dose: 200 mls/hr Vancomycin HCl (Vancomycin (Pre-Docked)) 250 mls @ 250 mls/hr IVPB DAILY [facility] Last Admin: 08/13/16 11:22 Dose: 250 mls/hr Phenylephrine HCl 20,000 mcg/ (Sodium Chloride) 250 mls @ 75 mls/hr IVPB ASDIR ANNA MARIE; 100 MCG/MIN PRN Reason: Protocol Last Admin: 08/13/16 23:22 Dose: 75 mls/hr Furosemide 100 mg/ Sodium (Chloride) 100 mls @ 5 mls/hr IVPB ASDIR ANNA MARIE PRN Reason: 5 MG/HR Last Admin: 08/13/16 23:23 Dose: 5 mls/hr Insulin Aspart (Novolog Vial Sliding Scale -) 1 vial SQ ACHS ANNA MARIE PRN Reason: Protocol Last Admin: 08/14/16 07:01 Dose: 4 units Methylprednisolone Sodium Succinate (Solu-Medrol -) [address] [facility] Last Admin: 08/13/16 21:38 Dose: 60 mg Metoprolol Tartrate (Lopressor Injection -) 5 mg IVPUSH Q4H PRN PRN Reason: HYPERTENSION Last Admin: 08/13/16 18:26 Dose: 5 mg Metoprolol Tartrate (Lopressor -) [address] [facility] Last Admin: 08/13/16 21:38 Dose: Not Given Non-Formulary Medication (Pimavanserin Tartrate [Nuplazid]) [address] [facility] Last Admin: 08/13/16 10:07 Dose: 2 tab - Objective Vital Signs: Vital Signs Temperature 98.8 F 08/14/16 06:00 Pulse Rate 69 08/14/16 07:00 Respiratory Rate 12 08/14/16 09:10 Blood Pressure 111/39 08/14/16 07:00 O2 Sat by Pulse Oximetry (%) 98 08/13/16 22:00 Constitutional: Yes: No Distress Neck: Yes: Supple Cardiovascular: Yes: Regular Rate and Rhythm, Tachycardia, S1, S2 Respiratory: Yes: Mechanically Ventilated Gastrointestinal: Yes: Other (Rectal tube in place, draining black liquidy stool.) Labs: CBC, BMP 08/14/16 05:35 08/14/16 05:35 INR, PTT INR 1.14 (0.82-1.09) 08/09/16 10:00 Problem List - Problems (1) Bilateral leg ulcer Code(s): L97.919 - NON-PRS CHRONIC ULC UNSP PRT OF R LOW LEG W UNSP SEVERITY L97.929 - NON-PRS CHRONIC ULC UNSP PRT OF L LOW LEG W UNSP SEVERITY (2) CAD (coronary artery disease) Code(s): I25.10 - ATHSCL HEART DISEASE OF [place] CORONARY ARTERY W/O ANG PCTRS (3) CHF (congestive heart failure) Code(s): I50.9 - HEART FAILURE, UNSPECIFIED Qualifiers: Congestive heart failure type: unspecified congestive heart failure type Congestive heart failure chronicity: unspecified congestive heart failure chronicity Qualified Code(s): I50.9 - Heart failure, unspecified (4) Diabetes mellitus type 2 in obese Code(s): E11.9 - TYPE 2 DIABETES MELLITUS WITHOUT COMPLICATIONS E66.9 - OBESITY, UNSPECIFIED (5) HTN (hypertension) Code(s): I10 - ESSENTIAL (PRIMARY) HYPERTENSION Qualifiers: Hypertension type: essential hypertension Qualified Code(s): I10 - Essential (primary) hypertension (6) New onset a-fib Code(s): I48.91 - UNSPECIFIED ATRIAL FIBRILLATION (7) Pneumonia Code(s): J18.9 - PNEUMONIA, UNSPECIFIED ORGANISM Qualifiers: Pneumonia type: due to methicillin-resistant Staphylococcus aureus (MRSA) Laterality: left Lung location: lower lobe of lung Qualified Code (s): J15.212 - Pneumonia due to Methicillin resistant Staphylococcus aureus (8) SIRS (systemic inflammatory response syndrome) Code(s): R65.10 - SIRS OF NON-INFECTIOUS ORIGIN W/O ACUTE ORGAN DYSFUNCTION (9) Sepsis Code(s): A41.9 - SEPSIS, UNSPECIFIED ORGANISM Qualifiers: Sepsis type: sepsis due to unspecified organism Qualified Code(s): A41.9 - Sepsis, unspecified organism Assessment/Plan Patient's clinical status seems to be stable. Maintains good urine output. Serum Potassium has improved, and is in acceptable range. Has profound Azotemia, mostly Prerenal in nature. seems to be due to low flow states, Hemodynamic instability and the significantly due to the effect of steroids and Lasix. Has black stool. will order for stool guiac. While the bleeding is not overt, UGI bleeding can cause rise in Azotemia. Still on IV Steroids. No specific interventions suggested at this point. Will continue the current regimen. Tori López MD
--- NOTE | 2016-08-14 11:39 | PN ---
Progress Note (short form) - Note Progress Note: PULMONARY/CCM Pt seen and examined in the ICU. Remains intubated, sedated. Back in sinus rhythm. BP improved. Last Vital Signs Temp Pulse Resp BP Pulse Ox 98.8 F 62 12 111/39 98 08/14/16 06:00 08/14/16 10:18 08/14/16 09:10 08/14/16 07:00 08/13/16 22:00 Intake & Output 08/11/16 08/12/16 08/13/16 08/14/16 23:59 23:59 23:59 23:59 Intake Total 3002.4 2382.8 3176 Output Total 500 600 775 Balance 2502.4 1782.8 2401 Weight 208 lb 7 oz 210 lb 1.6 oz 215 lb 2 oz 208 lb 15.971 oz Gen: intubated, sedated Heart: RRR Lung: scattered rhonchi Abd: soft, nontender Ext: + edema CBC, BMP 08/14/16 05:35 08/14/16 05:35 CXR: bilateral effusions, pulmonary vascular congestion Active Medications Acetylcysteine (Mucomyst 20 Oral / Inh Use Only*) 200 mg NEB QIDR [facility] Last Admin: 08/14/16 06:00 Dose: 200 mg Albuterol Sulfate (Ventolin 0.083% Nebulizer Soln -) 1 amp NEB Q4H PRN PRN Reason: SHORT OF BREATH/WHEEZING Last Admin: 08/14/16 06:00 Dose: 1 amp Amiodarone HCl (Cordarone -) 400 mg PO BID [facility] Last Admin: 08/14/16 10:18 Dose: 400 mg Aspirin (Asa -) 81 mg PO DAILY [facility] Last Admin: 08/14/16 10:18 Dose: 81 mg Atorvastatin Calcium (Lipitor -) 20 mg PO [facility] Last Admin: 08/13/16 21:38 Dose: 20 mg Bacitracin (Bacitracin -) 1 applic TP DAILY [facility] Last Admin: 08/14/16 10:19 Dose: 1 applic Carbidopa/Levodopa (Sinemet 25/100 -) 1 each PO TID [facility] Last Admin: 08/14/16 07:01 Dose: 1 each Chlorhexidine Gluconate (Hibiclens For Decolonization -) 1 applic TP [facility] Last Admin: 08/13/16 21:38 Dose: 1 applic Cholecalciferol (Vitamin D3 -) 1,000 unit PO DAILY [facility] Last Admin: 08/14/16 10:18 Dose: 1,000 unit Gabapentin (Neurontin -) 100 mg PO BID [facility] Last Admin: 08/14/16 10:18 Dose: 100 mg IV Flush (Triple Lumen Flush) 4 ml IVPUSH PRN PRN PRN Reason: Protocol Piperacillin Sod/Tazobactam Sod (Zosyn 3.375gm Ivpb (Pre-Docked)) 50 mls @ 100 mls/hr IVPB Q8H-IV [facility] Last Admin: 08/14/16 10:17 Dose: 100 mls/hr Midazolam HCl 100 mg/ Sodium (Chloride) 100 mls @ 1 mls/hr IVPB TITR [facility]; 1 MG/ HR PRN Reason: Protocol Last Admin: 08/13/16 18:05 Dose: 4 mls/hr Pantoprazole Sodium (Protonix 40mg Ivpb (Pre-Docked)) 100 mls @ 200 mls/hr IVPB DAILY [facility] Last Admin: 08/14/16 10:17 Dose: 200 mls/hr Vancomycin HCl (Vancomycin (Pre-Docked)) 250 mls @ 250 mls/hr IVPB DAILY [facility] Last Admin: 08/14/16 10:17 Dose: 250 mls/hr Phenylephrine HCl 20,000 mcg/ (Sodium Chloride) 250 mls @ 75 mls/hr IVPB ASDIR [facility]; 100 MCG/MIN PRN Reason: Protocol Last Admin: 08/13/16 23:22 Dose: 75 mls/hr Furosemide 100 mg/ Sodium (Chloride) 100 mls @ 5 mls/hr IVPB ASDIR [facility] PRN Reason: 5 MG/HR Last Admin: 08/13/16 23:23 Dose: 5 mls/hr Insulin Aspart (Novolog Vial Sliding Scale -) 1 vial SQ ACHS [facility] PRN Reason: Protocol Last Admin: 08/14/16 11:00 Dose: 4 units Methylprednisolone Sodium Succinate (Solu-Medrol -) 60 mg IVPB BID [facility] Last Admin: 08/14/16 10:19 Dose: 60 mg Metoprolol Tartrate (Lopressor Injection -) 5 mg IVPUSH Q4H PRN PRN Reason: HYPERTENSION Last Admin: 08/13/16 18:26 Dose: 5 mg Metoprolol Tartrate (Lopressor -) 25 mg PO BID [facility] Last Admin: 08/14/16 10:18 Dose: 25 mg Non-Formulary Medication (Pimavanserin Tartrate [Nuplazid]) 2 tab PO DAILY [facility] Last Admin: 08/14/16 10:20 Dose: 2 tab A/P Acute Hypercapneic and Hypoxic Respiratory Failure Pneumonia Atelectasis Paroxysmal Atrial Fibrillation with RVR Acute on Chronic LV Diastolic Heart Failure Pulmonary HTN CAD HTN DM Parkinsons Disease - continue antibiotics - continue medrol at current dose - inhaled bronchodilators, mucolytics - taper FiO2 to keep SpO2 >90% - check CVP - lasix as BP tolerates - rate control with amiodarone, metoprolol, digoxin - continue anticoagulation - hold sedation to assess mental status - spontaneous breathing trials when mental status improved - enteral feeds - DVT/GI prophylaxis - continue ICU monitoring - per discussions with son yesterday, they will have a family discussion to discuss goals of care and hopefully have a decision tomorrow
[2016-08-14] MEDS: MIDAZOLAM 100 MG in SODIUM CHLORIDE 100 ML IVPB SCH (13:40)
[2016-08-14] MEDS ORDERED: FUROSEMIDE 100 MG/10 ML INJECTABLE VIAL ONE (15:45)
[2016-08-14] MEDS: FUROSEMIDE INJECTION 100 MG in SODIUM CHLORIDE 90 ML IVPB SCH ×2 (15:53→23:10)
[2016-08-14] MEDS: PHENYLEPHRINE HCL 20,000 MCG in SODIUM CHLORIDE 248 ML IVPB SCH (15:54)
[2016-08-14] MEDS: CHLORHEXIDINE GLUCONATE 4% CLEANSER FOR DECOLONIZATION TP SCH ×2 (20:21→22:00)
[2016-08-14] MEDS ORDERED: PT OWN MED DRAWER 7, Y5N ONE (20:58)
[2016-08-14] MEDS: ATORVASTATIN CA 20 MG TABLET (FP) PO SCH (21:25)
[2016-08-15] MEDS: PHENYLEPHRINE HCL 20,000 MCG in SODIUM CHLORIDE 248 ML IVPB SCH ×2 (01:12→07:56)
[2016-08-15] MEDS ORDERED: PHENYLEPHRINE HCL 10 MG/1 ML SINGLE DOSE VIAL ONE ×2 (01:22→05:17)
[2016-08-15] MEDS: PIPERACILLIN/TAZOB 3.375 GM 50 ML IVPB SCH ×2 (01:28→10:25)
[2016-08-15] MEDS ORDERED: FUROSEMIDE 100 MG/10 ML INJECTABLE VIAL ONE (05:16)
[2016-08-15] MEDS: ACETYLCYSTEINE 20% 200MG/ML 4 ML VIAL *FOR ORAL / INH USE ONLY NEB SCH ×3 (06:05→17:20)
[2016-08-15] MEDS: ALBUTEROL SO4 0.083% IH SOL 2.5 MG/3 ML VIAL.NEB. NEB PRN ×3 (06:05→17:20)
[2016-08-15 06:14] LABS: MCH 28.2 pg (25.7-33.7); MCHC 31.4 g/dl (32.0-36.0); MEAN CELL VOLUME 89.7 fl (80-96); MEAN PLT VOLUME 10.1 fl (7.5-11.1); PLATELET COUNT 188 K/MM3 (134-434)
[2016-08-15] MEDS: INSULIN SLIDING SCALE (NOVOLOG) 1 VIAL SQ SCH ×4 (06:35→22:59)
[2016-08-15] MEDS: CARBIDOPA/LEVODOPA 25/100 TABLET (FP) PO SCH ×3 (06:35→21:16)
[2016-08-15 06:37] LABS: INR 1.12 (0.82-1.09); PROTHROMBIN TIME (PATIENT) 12.3 SEC (9.98-11.88)
[2016-08-15 06:40] LABS: ACTIVATED PTT 23.9 SECONDS (26.9-34.4)
[2016-08-15 06:41] LABS: WHITE BLOOD COUNT 30.8 K/mm3 (4.0-10.0)
[2016-08-15 06:53] LABS: ALBUMIN 1.9 g/dl (3.4-5.0); BILIRUBIN,TOTAL 0.8 mg/dL (0.2-1.0); CALCIUM 7.4 mg/dL (8.5-10.1); CREATININE 2.2 mg/dL (0.55-1.02); PHOSPHOROUS 5.4 mg/dL (2.5-4.9); TOT PROT 4.1 g/dl (6.4-8.2)
[2016-08-15 07:24] LABS: ALLENS TEST POSITIVE; ARTERIAL BLOOD GAS BASE EXCESS 5.5 meq/l (-2-2); ARTERIAL BLOOD GAS HCO3 30.1 meq/L (22-26); ARTERIAL BLOOD GAS pH 7.42 (7.35-7.45)
[2016-08-15 07:25] LABS: ART PUNCT SITE LEFT RADIAL; LPM/O2% 40; MECH. VENT. YES; PT. ON O2? YES; TYPE OF O2 VENT; VENT RATE 12; VT/PRESS 400
--- NOTE | 2016-08-15 08:51 | PN ---
Physical Exam: SUBJECTIVE: Patient seen and examined in ICU. OBJECTIVE: Vital Signs Period Temp Pulse Resp BP Sys/Galvin Pulse Ox Last 24 Hr 96.7 F-99.8 F 55-75 12-15 95-127/39-55 96-100 NEURO: Intubated, off sedation. Opens eyes, wiggles toes to command. LUNGS: Coarse mechanical breath sounds. HEART: Irregular, S1, S2 without murmur, rub or gallop. ABDOMEN: Soft, nontender, nondistended. UPPER EXTREMITIES: 4+ edema b/l, weeping LOWER EXTREMITIES: 1+ edema b/l Laboratory Results - last 24 hr 08/15/16 08/15/16 08/15/16 05:30 05:30 05:30 WBC 30.8 H* RBC 3.24 L Hgb 9.1 L Hct 29.0 L MCV 89.7 MCHC 31.4 L RDW 16.0 H Plt Count 188 MPV 10.1 Neutrophils % Y Lymphocytes % Y INR 1.12 PTT (Actin FS) 23.9 L D Puncture Site ABG pH ABG pCO2 at Pt Temp ABG pO2 at Pt Temp ABG HCO3 ABG O2 Sat (Measured) ABG O2 Content ABG Base Excess Chicho Test O2 Delivery Device Oxygen Flow Rate Vent Mode Vent Rate Mechanical Rate PEEP Pressure Support Vent Sodium 151 H Potassium 4.4 Chloride 108 H Carbon Dioxide 34 H Anion Gap 9 BUN 149 H* Creatinine 2.2 H Creat Clearance w eGFR 21.26 POC Glucometer Random Glucose 204 H Calcium 7.4 L Phosphorus 5.4 H Magnesium 3.0 H Total Bilirubin 0.8 D AST 83 H D ALT 31 D Alkaline Phosphatase 113 Total Protein 4.1 L Albumin 1.9 L Stool Occult Blood 08/15/16 07:15 WBC RBC Hgb Hct MCV MCHC RDW Plt Count MPV Neutrophils % Lymphocytes % INR PTT (Actin FS) Puncture Site Left radial ABG pH 7.42 ABG pCO2 at Pt Temp 47.2 H ABG pO2 at Pt Temp 115.0 H D ABG HCO3 30.1 H ABG O2 Sat (Measured) 99.0 H ABG O2 Content 13.1 L ABG Base Excess 5.5 H Chicho Test Positive O2 Delivery Device Vent Oxygen Flow Rate 40 Vent Mode A/c Vent Rate 12 Mechanical Rate Yes PEEP 5.0 Pressure Support Vent 400 Sodium Potassium Chloride Carbon Dioxide Anion Gap BUN Creatinine Creat Clearance w eGFR POC Glucometer Random Glucose Calcium Phosphorus Magnesium Total Bilirubin AST ALT Alkaline Phosphatase Total Protein Albumin Stool Occult Blood Active Medications Generic Name Dose Route Start Last Admin Trade Name Freq PRN Reason Stop Dose Admin Acetylcysteine 200 mg 08/08/16 14:00 08/15/16 06:05 Mucomyst 20 Oral / Inh Use Only* NEB 200 mg QIDR [facility] Administration Albuterol Sulfate 1 amp 08/13/16 18:25 08/15/16 06:05 Ventolin 0.083% Nebulizer Soln - NEB 1 amp Q4H PRN Administration SHORT OF BREATH/WHEEZING Amiodarone HCl 400 mg 08/12/16 10:00 08/14/16 21:25 Cordarone - PO 400 mg BID [facility] Administration Aspirin 81 mg 08/06/16 10:00 08/14/16 10:18 Asa - PO 81 mg DAILY [facility] Administration Atorvastatin Calcium 20 mg 08/05/16 22:00 08/14/16 21:25 Lipitor - PO 20 mg HS [facility] Administration Bacitracin 1 applic 08/06/16 19:15 08/14/16 10:19 Bacitracin - TP 1 applic DAILY [facility] Administration Carbidopa/Levodopa 1 each 08/05/16 22:00 08/15/16 06:35 Sinemet 25/100 - PO 1 each TID [facility] Administration Chlorhexidine Gluconate 1 applic 08/05/16 22:00 08/14/16 22:00 Hibiclens For Decolonization - TP Not Given HS [facility] Cholecalciferol 1,000 unit 08/06/16 10:00 08/14/16 10:18 Vitamin D3 - PO 1,000 unit DAILY [facility] Administration Gabapentin 100 mg 08/05/16 22:00 08/14/16 21:25 Neurontin - PO 100 mg BID [facility] Administration IV Flush 4 ml 08/11/16 22:21 Triple Lumen Flush IVPUSH PRN PRN Protocol Piperacillin Sod/Tazobactam Sod 50 mls @ 100 mls/hr 08/06/16 18:00 08/15/16 01: 28 Zosyn 3.375gm Ivpb (Pre-Docked) IVPB 100 mls/hr Q8H-IV [facility] Administration Midazolam HCl 100 mg/ Sodium 100 mls @ 1 mls/hr 08/08/16 12:45 08/15/16 06:00 Chloride IVPB 0 mg/hr TITR [facility] Titration Protocol 1 MG/HR Pantoprazole Sodium 100 mls @ 200 mls/hr 08/09/16 10:15 08/14/16 10:17 Protonix 40mg Ivpb (Pre-Docked) IVPB 200 mls/hr DAILY [facility] Administration Vancomycin HCl 250 mls @ 250 mls/hr 08/11/16 18:30 08/14/16 10:17 Vancomycin (Pre-Docked) IVPB 250 mls/hr DAILY [facility] Administration Phenylephrine HCl 20,000 mcg/ 250 mls @ 75 mls/hr 08/13/16 22:30 08/15/16 07:56 Sodium Chloride IVPB 18.75 mls/hr ASDIR AN[facility] Administration Protocol 100 MCG/MIN Furosemide 100 mg/ Sodium 100 mls @ 5 mls/hr 08/13/16 22:30 08/14/16 23:10 Chloride IVPB 5 mls/hr ASDIR [facility] Administration 5 MG/HR Insulin Aspart 1 vial 08/05/16 22:00 08/15/16 06:35 Novolog Vial Sliding Scale - SQ 6 units ACHS [facility] Administration Protocol Methylprednisolone Sodium Succinate 60 mg 08/12/16 22:00 08/14/16 21:26 Solu-Medrol - IVPB 60 mg BID [facility] Administration Metoprolol Tartrate 5 mg 08/09/16 10:21 08/13/16 18:26 Lopressor Injection - IVPUSH 5 mg Q4H PRN Administration HYPERTENSION Metoprolol Tartrate 25 mg 08/13/16 11:00 08/14/16 21:25 Lopressor - PO Not Given BID [facility] Non-Formulary Medication 2 tab 08/06/16 10:00 08/14/16 10:20 Pimavanserin Tartrate [Nuplazid] PO 2 tab DAILY [facility] Administration ASSESSMENT/PLAN 85 year old female with a past medical history of HTN, CHF, CAD s/p 2 stents, DM , admitted for MRSA pneumonia. Hypercapnic, hypoxic respiratory failure secondary to MRSA pneumonia --intubated, off sedation --continue Zosyn (day #10) and Vanc (day #4) Bilateral lower extremity cellulitis --legs much improved Afib with RVR --presently in sinus rhythm off pressors after diuresis --per cardiology, if further afib with rvr can dose digoxin as BP does not tolerate bblocker or calcium channel yuliana --had bleeding with heparin drip, hold a/c Anemia --transfused 2 units on 08/13, h/h stable --continue to hold heparin drip Pulmonary hypertension Severe valvular pathology Pulmonary congestion --stop Lasix drip since Na 151, Cr 2.2 --Lasix PRN NIDDM --Novolog sliding scale coverage Hypertension --off pressors Parkinson's Disease with hallucinations --continue Nuplazid F/E/N Fluids/Nutrition: tube feeds with free water flushes Electrolytes: replete as indicated Nutrition: tube feeds DVT prophylaxis: hold chemical prophylaxis due to drop in Hgb/bleeding Dispo: Poor prognosis. Family to come in on Monday to discuss goals of care. Palliative consult requested. Continues to require ICU care. Full Code. Visit type - Emergency Visit Emergency Visit: Yes ED Registration Date: 08/05/16 Care time: The patient presented to the Emergency Department on the above date and was hospitalized for further evaluation of their emergent condition. - New Patient This patient is new to me today: No - Critical Care Critical Care patient: Yes Total Critical Care Time (in minutes): 35 Critical Care Statement: The care of this patient involved high complexity decision making to prevent further life threatening deterioration of the patient 's condition and/or to evalute & treat vital organ system(s) failure or risk of failure.
[2016-08-15] MEDS: PIMAVANSERIN TARTRATE PO SCH (10:23)
[2016-08-15] MEDS: ASPIRIN 81 MG CHEWABLE TABLETS PO SCH (10:23)
[2016-08-15] MEDS: AMIODARONE HCL 200 MG TABLET (FP) PO SCH ×2 (10:23→21:16)
[2016-08-15] MEDS: GABAPENTIN 100 MG CAPSULE (FP) PO SCH ×2 (10:23→21:16)
[2016-08-15] MEDS: BACITRACIN 30 GM TUBE TOPICAL OINTMENT TP SCH (10:23)
[2016-08-15] MEDS: CHOLECALCIFEROL (VITAMIN D3) 1,000 UNIT TABLET (FP) PO SCH (10:23)
[2016-08-15] MEDS: methylPREDNISolone NA SUCC 125 MG/2 ML VIAL IVPB SCH ×2 (10:24→21:16)
[2016-08-15] MEDS: PANTOPRAZOLE SODIUM 100 ML IVPB SCH (10:24)
[2016-08-15] MEDS: VANCOMYCIN 1 GRAM (PRE-DOCKED) 250 ML IVPB SCH (10:25)
[2016-08-15] MEDS: METOPROLOL TARTRATE 25 MG TABLET (FP) PO SCH ×2 (11:03→21:16)
--- NOTE | 2016-08-15 11:11 | PN ---
Progress Note (short form) - Note Progress Note: Renal follow up for hyperkalemia and CKD Pt seen and examined in the ICU on Vent, sedated on FiO2 40% Vital Signs Temperature 96.7 F L 08/15/16 10:00 Pulse Rate 78 08/15/16 10:10 Respiratory Rate 08/15/16 10:10 Blood Pressure 115/56 08/15/16 10:00 O2 Sat by Pulse Oximetry (%) 98 08/15/16 10:10 Intake & Output 08/12/16 08/13/16 08/14/16 08/15/16 23:59 23:59 23:59 23:59 Intake Total 2382.8 3526 2961 1360 Output Total 878 746 5291 350 Balance 1782.8 2751 -2239 1010 Weight 210 lb 1.6 oz 215 lb 2 oz 208 lb 15.971 oz 207 lb 3.752 oz Gen: intubated and sedated CVS: RRR, No M/R Lungs: No BS left lung, dec BS right lung Abd: soft NT/ND Ext: B/L LE in dressing, 1+ LE edema and + sacral edema CBC, BMP 08/15/16 05:30 08/15/16 05:30 Laboratory Tests 08/12/16 08/15/16 08/15/16 05:15 05:30 07:15 ABG pH 7.42 ABG pCO2 at Pt Temp 47.2 H ABG pO2 at Pt Temp 115.0 H D Calcium 7.8 L 7.4 L Phosphorus 5.4 H Magnesium 3.0 H Albumin 2.2 L 1.9 L Current Medications Acetylcysteine (Mucomyst 20 Oral / Inh Use Only*) 200 mg NEB QIDR [facility] Last Admin: 08/15/16 06:05 Dose: 200 mg Albuterol Sulfate (Ventolin 0.083% Nebulizer Soln -) 1 amp NEB Q4H PRN PRN Reason: SHORT OF BREATH/WHEEZING Last Admin: 08/15/16 06:05 Dose: 1 amp Amiodarone HCl (Cordarone -) 400 mg PO BID [facility] Last Admin: 08/15/16 10:23 Dose: 400 mg Aspirin (Asa -) 81 mg PO DAILY [facility] Last Admin: 08/15/16 10:23 Dose: 81 mg Atorvastatin Calcium (Lipitor -) 20 mg PO HS [facility] Last Admin: 08/14/16 21:25 Dose: 20 mg Bacitracin (Bacitracin -) 1 applic TP DAILY [facility] Last Admin: 08/15/16 10:23 Dose: 1 applic Carbidopa/Levodopa (Sinemet 25/100 -) 1 each PO TID [facility] Last Admin: 08/15/16 06:35 Dose: 1 each Chlorhexidine Gluconate (Hibiclens For Decolonization -) 1 applic TP HS [facility] Last Admin: 08/14/16 22:00 Dose: Not Given Cholecalciferol (Vitamin D3 -) 1,000 unit PO DAILY [facility] Last Admin: 08/15/16 10:23 Dose: 1,000 unit Gabapentin (Neurontin -) 100 mg PO BID [facility] Last Admin: 08/15/16 10:23 Dose: 100 mg IV Flush (Triple Lumen Flush) 4 ml IVPUSH PRN PRN PRN Reason: Protocol Piperacillin Sod/Tazobactam Sod (Zosyn 3.375gm Ivpb (Pre-Docked)) 50 mls @ 100 mls/hr IVPB Q8H-IV [facility] Last Admin: 08/15/16 10:25 Dose: 100 mls/hr Midazolam HCl 100 mg/ Sodium (Chloride) 100 mls @ 1 mls/hr IVPB TITR [facility]; 1 MG/ HR PRN Reason: Protocol Last Titration: 08/15/16 06:00 Dose: 0 mg/hr Pantoprazole Sodium (Protonix 40mg Ivpb (Pre-Docked)) 100 mls @ 200 mls/hr IVPB DAILY [facility] Last Admin: 08/15/16 10:24 Dose: 200 mls/hr Vancomycin HCl (Vancomycin (Pre-Docked)) 250 mls @ 250 mls/hr IVPB DAILY [facility] Last Admin: 08/15/16 10:25 Dose: 250 mls/hr Phenylephrine HCl 20,000 mcg/ (Sodium Chloride) 250 mls @ 75 mls/hr IVPB ASDIR [facility]; 100 MCG/MIN PRN Reason: Protocol Last Admin: 08/15/16 07:56 Dose: 18.75 mls/hr Insulin Aspart (Novolog Vial Sliding Scale -) 1 vial SQ ACHS [facility] PRN Reason: Protocol Last Admin: 08/15/16 11:03 Dose: 6 units Methylprednisolone Sodium Succinate (Solu-Medrol -) 60 mg IVPB BID [facility] Last Admin: 08/15/16 10:24 Dose: 60 mg Metoprolol Tartrate (Lopressor Injection -) 5 mg IVPUSH Q4H PRN PRN Reason: HYPERTENSION Last Admin: 08/13/16 18:26 Dose: 5 mg Metoprolol Tartrate (Lopressor -) 25 mg PO BID [facility] Last Admin: 08/15/16 11:03 Dose: Not Given Non-Formulary Medication (Pimavanserin Tartrate [Nuplazid]) 2 tab PO DAILY [facility] Last Admin: 08/15/16 10:23 Dose: 2 tab A/P 85 year old woman with PMhx of CKD, CHF, CAD, DM, Hypertension who presented with sob and found to have SIRS and possible PNA and opacification of left lung with hyperkalemia of 6.6 and Cr of 1.5. #Acute Kidny Injury with Hx of CKD/hypernatremia BUN/Cr, Na worsening with IV lasix gtt FiO2 requirement stable at 40% CXR shows persistent effusions Hold Lasix gtt for now, Monitor BMP Q12h If further diuresis is warranted can restart drip at lower rate or bolous Lasix #SIRS/PNA/Mucus Plug/CHF on Lasix gtt now CXR shows better airation of left lung Thank you Edison Carter DO
--- NOTE | 2016-08-15 12:30 | PN ---
Progress Note, Physician History of Present Illness: seen and examined today. intubated, unresponsive. - Current Medication List Current Medications: Active Medications Acetylcysteine (Mucomyst 20 Oral / Inh Use Only*) 200 mg NEB QIDR [facility] Last Admin: 08/15/16 11:35 Dose: 200 mg Albuterol Sulfate (Ventolin 0.083% Nebulizer Soln -) 1 amp NEB Q4H PRN PRN Reason: SHORT OF BREATH/WHEEZING Last Admin: 08/15/16 11:36 Dose: 1 amp Amiodarone HCl (Cordarone -) 400 mg PO BID [facility] Last Admin: 08/15/16 10:23 Dose: 400 mg Aspirin (Asa -) 81 mg PO DAILY [facility] Last Admin: 08/15/16 10:23 Dose: 81 mg Atorvastatin Calcium (Lipitor -) 20 mg PO HS [facility] Last Admin: 08/14/16 21:25 Dose: 20 mg Bacitracin (Bacitracin -) 1 applic TP DAILY [facility] Last Admin: 08/15/16 10:23 Dose: 1 applic Carbidopa/Levodopa (Sinemet 25/100 -) 1 each PO TID [facility] Last Admin: 08/15/16 06:35 Dose: 1 each Chlorhexidine Gluconate (Hibiclens For Decolonization -) 1 applic TP HS [facility] Last Admin: 08/14/16 22:00 Dose: Not Given Cholecalciferol (Vitamin D3 -) 1,000 unit PO DAILY [facility] Last Admin: 08/15/16 10:23 Dose: 1,000 unit Gabapentin (Neurontin -) 100 mg PO BID [facility] Last Admin: 08/15/16 10:23 Dose: 100 mg IV Flush (Triple Lumen Flush) 4 ml IVPUSH PRN PRN PRN Reason: Protocol Piperacillin Sod/Tazobactam Sod (Zosyn 3.375gm Ivpb (Pre-Docked)) 50 mls @ 100 mls/hr IVPB Q8H-IV [facility] Last Admin: 08/15/16 10:25 Dose: 100 mls/hr Midazolam HCl 100 mg/ Sodium (Chloride) 100 mls @ 1 mls/hr IVPB TITR [facility]; 1 MG/ HR PRN Reason: Protocol Last Titration: 08/15/16 06:00 Dose: 0 mg/hr Pantoprazole Sodium (Protonix 40mg Ivpb (Pre-Docked)) 100 mls @ 200 mls/hr IVPB DAILY [facility] Last Admin: 08/15/16 10:24 Dose: 200 mls/hr Vancomycin HCl (Vancomycin (Pre-Docked)) 250 mls @ 250 mls/hr IVPB DAILY [facility] Last Admin: 08/15/16 10:25 Dose: 250 mls/hr Phenylephrine HCl 20,000 mcg/ (Sodium Chloride) 250 mls @ 75 mls/hr IVPB ASDIR [facility]NA MARIE; 100 MCG/MIN PRN Reason: Protocol Last Titration: 08/15/16 11:53 Dose: 0 mcg/min Insulin Aspart (Novolog Vial Sliding Scale -) 1 vial SQ ACHS [facility] PRN Reason: Protocol Last Admin: 08/15/16 11:03 Dose: 6 units Methylprednisolone Sodium Succinate (Solu-Medrol -) 60 mg IVPB BID [facility] Last Admin: 08/15/16 10:24 Dose: 60 mg Metoprolol Tartrate (Lopressor Injection -) 5 mg IVPUSH Q4H PRN PRN Reason: HYPERTENSION Last Admin: 08/13/16 18:26 Dose: 5 mg Metoprolol Tartrate (Lopressor -) 25 mg PO BID [facility] Last Admin: 08/15/16 11:03 Dose: Not Given Non-Formulary Medication (Pimavanserin Tartrate [Nuplazid]) 2 tab PO DAILY [facility] Last Admin: 08/15/16 10:23 Dose: 2 tab - Objective Vital Signs: Vital Signs Temperature 96.7 F L 08/15/16 10:00 Pulse Rate 85 08/15/16 11:53 Respiratory Rate 18 08/15/16 12:18 Blood Pressure 125/49 08/15/16 11:53 O2 Sat by Pulse Oximetry (%) 96 08/15/16 12:17 Constitutional: Yes: Well Nourished, No Distress, Calm HENT: Yes: Atraumatic Cardiovascular: Yes: Tachycardia, Murmur, S1, S2. No: Bradycardia, Pulse Irregular, Bruit, JVD, Gallop, Rub, S3, S4, Varicosities Respiratory: Yes: Regular, Diminished, Intubated, Mechanically Ventilated, Rales Gastrointestinal: Yes: Normal Bowel Sounds, Soft. No: Distention, Tenderness Extremities: Yes: Erythema Edema: Yes Edema: LLE: Trace, RLE: Trace Peripheral Pulses WNL: Yes Peripheral Pulses: Left Doralis Pedis: 2+, Right Dorsalis Pedis: 2+ Integumentary: Yes: WNL Neurological: No: Alert, Oriented Psychiatric: No: Alert, Oriented Labs: CBC, BMP 08/15/16 05:30 08/15/16 05:30 INR, PTT INR 1.12 (0.82-1.09) 08/15/16 05:30 - ....Imaging Chest X-ray: Report Reviewed, Image Reviewed EKG: Report Reviewed, Image Reviewed Other: Report Reviewed, Image Reviewed (tele-nsr, occ pvc) Problem List - Problems (1) CAD (coronary artery disease) Code(s): I25.10 - ATHSCL HEART DISEASE OF [place] CORONARY ARTERY W/O ANG PCTRS (2) CHF (congestive heart failure) Code(s): I50.9 - HEART FAILURE, UNSPECIFIED Qualifiers: Congestive heart failure type: unspecified congestive heart failure type Congestive heart failure chronicity: unspecified congestive heart failure chronicity Qualified Code(s): I50.9 - Heart failure, unspecified (3) Diabetes mellitus type 2 in obese Code(s): E11.9 - TYPE 2 DIABETES MELLITUS WITHOUT COMPLICATIONS E66.9 - OBESITY, UNSPECIFIED (4) HTN (hypertension) Code(s): I10 - ESSENTIAL (PRIMARY) HYPERTENSION Qualifiers: Hypertension type: essential hypertension Qualified Code(s): I10 - Essential (primary) hypertension (5) Hypotension Code(s): I95.9 - HYPOTENSION, UNSPECIFIED Qualifiers: Hypotension type: idiopathic hypotension Qualified Code(s): I95.0 - Idiopathic hypotension (6) Hypothermia Code(s): T68.XXXA - HYPOTHERMIA, INITIAL ENCOUNTER Qualifiers: Encounter type: initial encounter Qualified Code(s): T68.XXXA - Hypothermia, initial encounter (7) Parkinson's disease dementia Code(s): G20 - PARKINSON'S DISEASE F02.80 - DEMENTIA IN OTH DISEASES CLASSD ELSWHR W/O BEHAVRL DISTURB (8) SIRS (systemic inflammatory response syndrome) Code(s): R65.10 - SIRS OF NON-INFECTIOUS ORIGIN W/O ACUTE ORGAN DYSFUNCTION Assessment/Plan 85 year old woman with a history of HTN, DM II, HLD, CAD with prior stents, CHF, admitted with sob, hypoxic/hypercapneic resp failure. SOB-hypercapneic/hypoxic respiratory failure, possible PNA vs acute on chronic CHF -mucous plugging with opacification of L hemithorax and R pleural effusion -continue vent support -was on lasix gtt until today, dcd today, does not require additional diuresis at this point, appears intravascular depleted CAD-with reported prior stents -cont asa and lipitor -cardiac enzymes wnl PAF- with RVR, currently nsr -received amio gtt and intermittent digoxin -taken off heparin gtt due to anemia -if further afib with rvr can dose digoxin as BP does not tolerate bblocker or calcium channel yuliana
--- NOTE | 2016-08-15 14:42 | PN ---
Teaching Attending Note Name of Resident: José Riggs ATTENDING PHYSICIAN STATEMENT I saw and evaluated the patient. I reviewed the resident's note and discussed the case with the resident. I agree with the resident's findings and plan as documented. SUBJECTIVE: Patient seen and examined in the ICU. Remains intubated, sedated. Remains on IV Lasix drip and IV phenylephrine drips. AC MOde of vent 40% FiO2. Intake & Output 08/12/16 08/13/16 08/14/16 08/15/16 23:59 23:59 23:59 23:59 Intake Total 2382.8 3526 2961 1360 Output Total 714 081 2792 1150 Balance 1782.8 2751 -2239 210 Weight 210 lb 1.6 oz 215 lb 2 oz 208 lb 15.971 oz 207 lb 3.752 oz Last Vital Signs Temp Pulse Resp BP Pulse Ox 97.6 F 84 19 119/43 93 L 08/15/16 14:10 08/15/16 14:10 08/15/16 14:29 08/15/16 14:10 08/15/16 12:45 Active Medications Acetylcysteine (Mucomyst 20 Oral / Inh Use Only*) 200 mg NEB QIDR [facility] Last Admin: 08/15/16 11:35 Dose: 200 mg Albuterol Sulfate (Ventolin 0.083% Nebulizer Soln -) 1 amp NEB Q4H PRN PRN Reason: SHORT OF BREATH/WHEEZING Last Admin: 08/15/16 11:36 Dose: 1 amp Amiodarone HCl (Cordarone -) 400 mg PO BID [facility] Last Admin: 08/15/16 10:23 Dose: 400 mg Aspirin (Asa -) 81 mg PO DAILY [facility] Last Admin: 08/15/16 10:23 Dose: 81 mg Atorvastatin Calcium (Lipitor -) 20 mg PO [facility] Last Admin: 08/14/16 21:25 Dose: 20 mg Bacitracin (Bacitracin -) 1 applic TP DAILY [facility] Last Admin: 08/15/16 10:23 Dose: 1 applic Carbidopa/Levodopa (Sinemet 25/100 -) 1 each PO TID [facility] Last Admin: 08/15/16 06:35 Dose: 1 each Chlorhexidine Gluconate (Hibiclens For Decolonization -) 1 applic TP [facility] Last Admin: 08/14/16 22:00 Dose: Not Given Cholecalciferol (Vitamin D3 -) 1,000 unit PO DAILY [facility] Last Admin: 08/15/16 10:23 Dose: 1,000 unit Gabapentin (Neurontin -) 100 mg PO BID [facility] Last Admin: 08/15/16 10:23 Dose: 100 mg IV Flush (Triple Lumen Flush) 4 ml IVPUSH PRN PRN PRN Reason: Protocol Piperacillin Sod/Tazobactam Sod (Zosyn 3.375gm Ivpb (Pre-Docked)) 50 mls @ 100 mls/hr IVPB Q8H-IV ANNA MARIE Last Admin: 08/15/16 10:25 Dose: 100 mls/hr Midazolam HCl 100 mg/ Sodium (Chloride) 100 mls @ 1 mls/hr IVPB TITR ANNA MARIE; 1 MG/ HR PRN Reason: Protocol Last Titration: 08/15/16 06:00 Dose: 0 mg/hr Pantoprazole Sodium (Protonix 40mg Ivpb (Pre-Docked)) 100 mls @ 200 mls/hr IVPB DAILY [facility] Last Admin: 08/15/16 10:24 Dose: 200 mls/hr Vancomycin HCl (Vancomycin (Pre-Docked)) 250 mls @ 250 mls/hr IVPB DAILY [facility] Last Admin: 08/15/16 10:25 Dose: 250 mls/hr Phenylephrine HCl 20,000 mcg/ (Sodium Chloride) 250 mls @ 75 mls/hr IVPB ASDIR ANNA MARIE; 100 MCG/MIN PRN Reason: Protocol Last Titration: 08/15/16 11:53 Dose: 0 mcg/min Insulin Aspart (Novolog Vial Sliding Scale -) 1 vial SQ ACHS ANNA MARIE PRN Reason: Protocol Last Admin: 08/15/16 11:03 Dose: 6 units Methylprednisolone Sodium Succinate (Solu-Medrol -) 60 mg IVPB BID [facility] Last Admin: 08/15/16 10:24 Dose: 60 mg Metoprolol Tartrate (Lopressor Injection -) 5 mg IVPUSH Q4H PRN PRN Reason: HYPERTENSION Last Admin: 08/13/16 18:26 Dose: 5 mg Metoprolol Tartrate (Lopressor -) 25 mg PO BID [facility] Last Admin: 08/15/16 11:03 Dose: Not Given Non-Formulary Medication (Pimavanserin Tartrate [Nuplazid]) 2 tab PO DAILY [facility] Last Admin: 08/15/16 10:23 Dose: 2 tab Gen: intubated, sedated Heart: RRR Lungs: Basilar rales / rhonchi Abd: soft, nontender Ext: + edema Laboratory Results - last 24 hr 08/14/16 08/14/16 08/15/16 13:25 17:36 05:30 WBC 30.8 H* RBC 3.24 L Hgb 9.1 L Hct 29.0 L MCV 89.7 MCHC 31.4 L RDW 16.0 H Plt Count 188 MPV 10.1 Neutrophils % 91.0 H Lymphocytes % 4.0 L Monocytes % 4.0 D Eosinophils % 1.0 D Nucleated RBCs 1 H Differential Comment Manual diff done INR PTT (Actin FS) Puncture Site ABG pH ABG pCO2 at Pt Temp ABG pO2 at Pt Temp ABG HCO3 ABG O2 Sat (Measured) ABG O2 Content ABG Base Excess Chicho Test O2 Delivery Device Oxygen Flow Rate Vent Mode Vent Rate Mechanical Rate PEEP Pressure Support Vent Sodium Potassium Chloride Carbon Dioxide Anion Gap BUN Creatinine Creat Clearance w eGFR POC Glucometer [phone] Random Glucose Calcium Phosphorus Magnesium Total Bilirubin AST ALT Alkaline Phosphatase Total Protein Albumin Stool Occult Blood Positive 08/15/16 08/15/16 08/15/16 05:30 05:30 07:15 WBC RBC Hgb Hct MCV MCHC RDW Plt Count MPV Neutrophils % Lymphocytes % Monocytes % Eosinophils % Nucleated RBCs Differential Comment INR 1.12 PTT (Actin FS) 23.9 L D Puncture Site Left radial ABG pH 7.42 ABG pCO2 at Pt Temp 47.2 H ABG pO2 at Pt Temp 115.0 H D ABG HCO3 30.1 H ABG O2 Sat (Measured) 99.0 H ABG O2 Content 13.1 L ABG Base Excess 5.5 H Chicho Test Positive O2 Delivery Device Vent Oxygen Flow Rate 40 Vent Mode A/c Vent Rate 12 Mechanical Rate Yes PEEP 5.0 Pressure Support Vent 400 Sodium 151 H Potassium 4.4 Chloride 108 H Carbon Dioxide 34 H Anion Gap 9 BUN 149 H* Creatinine 2.2 H Creat Clearance w eGFR 21.26 POC Glucometer Random Glucose 204 H Calcium 7.4 L Phosphorus 5.4 H Magnesium 3.0 H Total Bilirubin 0.8 D AST 83 H D ALT 31 D Alkaline Phosphatase 113 Total Protein 4.1 L Albumin 1.9 L Stool Occult Blood CXR: bilateral effusions, pulmonary vascular congestion A/P Acute Hypercapneic and Hypoxic Respiratory Failure Pneumonia Atelectasis Paroxysmal Atrial Fibrillation with RVR Acute on Chronic LV Diastolic Heart Failure Pulmonary HTN CAD HTN DM Parkinsons Disease - continue antibiotics - Medrol taper - inhaled bronchodilators, mucolytics - taper FiO2 to keep SpO2 >90% - Daily assessment for diuresis - rate control with amiodarone, metoprolol, digoxin - hold sedation to assess mental status - spontaneous breathing trials as tolerated - enteral feeds - DVT/GI prophylaxis - Family discussions about GOC are ongoing Dr Becerra CCTime 35"
[2016-08-15] MEDS: MIDAZOLAM 100 MG in SODIUM CHLORIDE 100 ML IVPB SCH (14:57)
--- NOTE | 2016-08-15 15:12 | PN ---
Physical Exam: SUBJECTIVE: Patient seen and examined at bedside. Remains intubated and sedated. No overnight events. Currently in NSR. OBJECTIVE: Vital Signs Period Temp Pulse Resp BP Sys/Galvin Pulse Ox Last 24 Hr 96.7 F-99 F 58-85 12-19 106-125/39-56 93-100 GENERAL: Intubated and sedated. HEAD: Normal with no signs of trauma. EYES: Pupils equal, round and reactive to light, sclera anicteric, conjunctiva clear. No lid lag. EARS, NOSE, THROAT: Ears normal, nares patent, Moist mucous membranes. NECK:Supple, no JVD LUNGS: Bibasilar rhonchi. Decreased breath sounds bibasilar L>R.No wheezes, and no crackles. No accessory muscle use. HEART:NSR, normal S1 and S2 without murmur, rub or gallop. ABDOMEN: Soft, obese, nontender, not distended, normoactive bowel sounds, no guarding, no rebound, no masses. MUSCULOSKELETAL: Reduced ROM of RLE. No bony deformities or tenderness. No CVA tenderness. UPPER EXTREMITIES: 2+ pulses, warm, well-perfused. No cyanosis. No clubbing. Cap refill <2 seconds. No peripheral edema. LOWER EXTREMITIES: 2+ pulses, warm, well-perfused. No calf tenderness. 2+ Edema bilat. NEUROLOGICAL: sedated. PSYCHIATRIC: can not be assessed SKIN: Bilateral stasis dermatitis of LE Laboratory Results - last 24 hr 08/14/16 08/15/16 08/15/16 17:36 05:30 05:30 WBC 30.8 H* RBC 3.24 L Hgb 9.1 L Hct 29.0 L MCV 89.7 MCHC 31.4 L RDW 16.0 H Plt Count 188 MPV 10.1 Neutrophils % 91.0 H Lymphocytes % 4.0 L Monocytes % 4.0 D Eosinophils % 1.0 D Nucleated RBCs 1 H Differential Comment Manual diff done INR PTT (Actin FS) Puncture Site ABG pH ABG pCO2 at Pt Temp ABG pO2 at Pt Temp ABG HCO3 ABG O2 Sat (Measured) ABG O2 Content ABG Base Excess Chicho Test O2 Delivery Device Oxygen Flow Rate Vent Mode Vent Rate Mechanical Rate PEEP Pressure Support Vent Sodium 151 H Potassium 4.4 Chloride 108 H Carbon Dioxide 34 H Anion Gap 9 BUN 149 H* Creatinine 2.2 H Creat Clearance w eGFR 21.26 POC Glucometer [phone] Random Glucose 204 H Calcium 7.4 L Phosphorus 5.4 H Magnesium 3.0 H Total Bilirubin 0.8 D AST 83 H D ALT 31 D Alkaline Phosphatase 113 Total Protein 4.1 L Albumin 1.9 L 08/15/16 08/15/16 05:30 07:15 WBC RBC Hgb Hct MCV MCHC RDW Plt Count MPV Neutrophils % Lymphocytes % Monocytes % Eosinophils % Nucleated RBCs Differential Comment INR 1.12 PTT (Actin FS) 23.9 L D Puncture Site Left radial ABG pH 7.42 ABG pCO2 at Pt Temp 47.2 H ABG pO2 at Pt Temp 115.0 H D ABG HCO3 30.1 H ABG O2 Sat (Measured) 99.0 H ABG O2 Content 13.1 L ABG Base Excess 5.5 H Chicho Test Positive O2 Delivery Device Vent Oxygen Flow Rate 40 Vent Mode A/c Vent Rate 12 Mechanical Rate Yes PEEP 5.0 Pressure Support Vent 400 Sodium Potassium Chloride Carbon Dioxide Anion Gap BUN Creatinine Creat Clearance w eGFR POC Glucometer Random Glucose Calcium Phosphorus Magnesium Total Bilirubin AST ALT Alkaline Phosphatase Total Protein Albumin Active Medications Generic Name Dose Route Start Last Admin Trade Name Freq PRN Reason Stop Dose Admin Acetylcysteine 200 mg 08/08/16 14:00 08/15/16 11:35 Mucomyst 20 Oral / Inh Use Only* NEB 200 mg QIDR ANNA MARIE Administration Albuterol Sulfate 1 amp 08/13/16 18:25 08/15/16 11:36 Ventolin 0.083% Nebulizer Soln - NEB 1 amp Q4H PRN Administration SHORT OF BREATH/WHEEZING Amiodarone HCl 400 mg 08/12/16 10:00 08/15/16 10:23 Cordarone - PO 400 mg BID ANNA MARIE Administration Aspirin 81 mg 08/06/16 10:00 08/15/16 10:23 Asa - PO 81 mg DAILY ANNA MARIE Administration Atorvastatin Calcium 20 mg 08/05/16 22:00 08/14/16 21:25 Lipitor - PO 20 mg HS ANNA MARIE Administration Bacitracin 1 applic 08/06/16 19:15 08/15/16 10:23 Bacitracin - TP 1 applic DAILY ANNA MARIE Administration Carbidopa/Levodopa 1 each 08/05/16 22:00 08/15/16 06:35 Sinemet 25/100 - PO 1 each TID ANNA MARIE Administration Chlorhexidine Gluconate 1 applic 08/05/16 22:00 08/14/16 22:00 Hibiclens For Decolonization - TP Not Given HS ANNA MARIE Cholecalciferol 1,000 unit 08/06/16 10:00 08/15/16 10:23 Vitamin D3 - PO 1,000 unit DAILY ANNA MARIE Administration Gabapentin 100 mg 08/05/16 22:00 08/15/16 10:23 Neurontin - PO 100 mg BID ANNA MARIE Administration IV Flush 4 ml 08/11/16 22:21 Triple Lumen Flush IVPUSH PRN PRN Protocol Piperacillin Sod/Tazobactam Sod 50 mls @ 100 mls/hr 08/06/16 18:00 08/15/16 10: 25 Zosyn 3.375gm Ivpb (Pre-Docked) IVPB 100 mls/hr Q8H-IV ANNA MARIE Administration Midazolam HCl 100 mg/ Sodium 100 mls @ 1 mls/hr 08/08/16 12:45 08/15/16 06:00 Chloride IVPB 0 mg/hr TITR ANNA MARIE Titration Protocol 1 MG/HR Pantoprazole Sodium 100 mls @ 200 mls/hr 08/09/16 10:15 08/15/16 10:24 Protonix 40mg Ivpb (Pre-Docked) IVPB 200 mls/hr DAILY ANNA MARIE Administration Vancomycin HCl 250 mls @ 250 mls/hr 08/11/16 18:30 08/15/16 10:25 Vancomycin (Pre-Docked) IVPB 250 mls/hr DAILY ANNA MARIE Administration Phenylephrine HCl 20,000 mcg/ 250 mls @ 75 mls/hr 08/13/16 22:30 08/15/16 11:53 Sodium Chloride IVPB 0 mcg/min ASDIR ANNA MARIE Titration Protocol 100 MCG/MIN Insulin Aspart 1 vial 08/05/16 22:00 08/15/16 11:03 Novolog Vial Sliding Scale - SQ 6 units ACHS ANNA MARIE Administration Protocol Methylprednisolone Sodium Succinate 60 mg 08/12/16 22:00 08/15/16 10:24 Solu-Medrol - IVPB 60 mg BID ANNA MARIE Administration Metoprolol Tartrate 5 mg 08/09/16 10:21 08/13/16 18:26 Lopressor Injection - IVPUSH 5 mg Q4H PRN Administration HYPERTENSION Metoprolol Tartrate 25 mg 08/13/16 11:00 08/15/16 11:03 Lopressor - PO Not Given BID [facility] Non-Formulary Medication 2 tab 08/06/16 10:00 08/15/16 10:23 Pimavanserin Tartrate [Nuplazid] PO 2 tab DAILY ANNA MARIE Administration ASSESSMENT/PLAN: Problem List - Problems (1) Afib Assessment/Plan: * Amiodarone drip and Digoxin PRN--> currently NSR * heparin gtt stopped due to anemia. * If further Afib can dose Digoxin as BP does not tolerated BB of CCB. (2) Sepsis Assessment/Plan: * Blood and urine cultures show no growth * Sputum cultures showed MRSA * UA negative for UTI. * Repeat lactic acid WNL * continue Vanco and Zosyn (3) Pneumonia Assessment/Plan: * Mechanically ventilated. AC with FiO2@40%, rate of 14 * continue Vanco and Zosyn * Acetylcysteine 200 mg NEB QIDR ANNA MARIE * Albuterol Sulfate 1 amp NEB QIDR ANNA MARIE * Albuterol/Ipratropium (Duoneb -) 1 amp NEB Q4H PRN * Solumedrol 60mg iv BID (4) CHF (congestive heart failure) Assessment/Plan: * Lasix held as per nephrology * taper Phenylephrine; Dopamine PRN if pressor needed. * daily weights * repeat CXR in AM (5) HTN (hypertension) Assessment/Plan: * BP meds held for low pressures. (6) CAD (coronary artery disease) Assessment/Plan: * s/p stents x2 * ASA 81 mg PO daily * Lipitor 20mg PO HS (7) Diabetes mellitus type 2 in obese Assessment/Plan: * ISS with Novolog ACHS * BGM ACHS * Glucerna tube feeds with goal of 50ml/hr (8) Bilateral leg ulcer Assessment/Plan: * daily dressing change and wound care. (9) Parkinson's disease dementia Assessment/Plan: * Carbidopa/Levodopa (Sinemet 25/100 -) 1 each PO TID * Pimavanserin Tartrate [Nuplazid] 2 tab PO DAILY (home med non formulary.) (10) DVT prophylaxis Assessment/Plan: * Lovenox 40mg SQ daily * GI- Protonix 40mg IV daily Visit type - Emergency Visit Emergency Visit: Yes ED Registration Date: 12/30/16 Care time: The patient presented to the Emergency Department on the above date and was hospitalized for further evaluation of their emergent condition. - New Patient This patient is new to me today: No - Critical Care Critical Care patient: Yes Total Critical Care Time (in minutes): 32 Critical Care Statement: The care of this patient involved high complexity decision making to prevent further life threatening deterioration of the patient 's condition and/or to evalute & treat vital organ system(s) failure or risk of failure.
[2016-08-15] MEDS ORDERED: PHENYLEPHRINE HCL 20,000 MCG in SODIUM CHLORIDE 248 ML IVPB SCH (16:17)
[2016-08-15] MEDS ORDERED: DOPAMINE 400 MG/D5W - 250 ML IV SCH (16:30)
--- NOTE | 2016-08-15 17:45 | PN ---
Progress Note, Physician History of Present Illness: patient more stable today off of pressors waking up a little more - Current Medication List Current Medications: Active Medications Acetylcysteine (Mucomyst 20 Oral / Inh Use Only*) 200 mg NEB QIDR [facility] Last Admin: 08/15/16 17:20 Dose: 200 mg Albuterol Sulfate (Ventolin 0.083% Nebulizer Soln -) 1 amp NEB Q4H PRN PRN Reason: SHORT OF BREATH/WHEEZING Last Admin: 08/15/16 17:20 Dose: 1 amp Amiodarone HCl (Cordarone -) 400 mg PO BID [facility] Last Admin: 08/15/16 10:23 Dose: 400 mg Aspirin (Asa -) 81 mg PO DAILY [facility] Last Admin: 08/15/16 10:23 Dose: 81 mg Atorvastatin Calcium (Lipitor -) 20 mg PO HS [facility] Last Admin: 08/14/16 21:25 Dose: 20 mg Bacitracin (Bacitracin -) 1 applic TP DAILY [facility] Last Admin: 08/15/16 10:23 Dose: 1 applic Carbidopa/Levodopa (Sinemet 25/100 -) 1 each PO TID [facility] Last Admin: 08/15/16 15:42 Dose: 1 each Chlorhexidine Gluconate (Hibiclens For Decolonization -) 1 applic TP HS [facility] Last Admin: 08/14/16 22:00 Dose: Not Given Cholecalciferol (Vitamin D3 -) 1,000 unit PO DAILY [facility] Last Admin: 08/15/16 10:23 Dose: 1,000 unit Gabapentin (Neurontin -) 100 mg PO BID [facility] Last Admin: 08/15/16 10:23 Dose: 100 mg IV Flush (Triple Lumen Flush) 4 ml IVPUSH PRN PRN PRN Reason: Protocol Midazolam HCl 100 mg/ Sodium (Chloride) 100 mls @ 1 mls/hr IVPB TITR ANNA MARIE; 1 MG/ HR PRN Reason: Protocol Last Admin: 08/15/16 14:57 Dose: Not Given Pantoprazole Sodium (Protonix 40mg Ivpb (Pre-Docked)) 100 mls @ 200 mls/hr IVPB DAILY [facility] Last Admin: 08/15/16 10:24 Dose: 200 mls/hr Vancomycin HCl (Vancomycin (Pre-Docked)) 250 mls @ 250 mls/hr IVPB DAILY [facility] Last Admin: 08/15/16 10:25 Dose: 250 mls/hr Dopamine HCl/Dextrose (Dopamine 400 Mg/D5w -) 250 mls @ 7.05 mls/hr IV TITR ANNA MARIE ; 2 MCG/KG/MIN PRN Reason: Protocol Last Admin: 08/15/16 16:31 Dose: Not Given Insulin Aspart (Novolog Vial Sliding Scale -) 1 vial SQ ACHS ANNA MARIE PRN Reason: Protocol Last Admin: 08/15/16 11:03 Dose: 6 units Methylprednisolone Sodium Succinate (Solu-Medrol -) 60 mg IVPB BID [facility] Last Admin: 08/15/16 10:24 Dose: 60 mg Metoprolol Tartrate (Lopressor Injection -) 5 mg IVPUSH Q4H PRN PRN Reason: HYPERTENSION Last Admin: 08/13/16 18:26 Dose: 5 mg Metoprolol Tartrate (Lopressor -) 25 mg PO BID [facility] Last Admin: 08/15/16 11:03 Dose: Not Given Non-Formulary Medication (Pimavanserin Tartrate [Nuplazid]) 2 tab PO DAILY [facility] Last Admin: 08/15/16 10:23 Dose: 2 tab - Objective Vital Signs: Vital Signs Temperature 97.6 F 08/15/16 14:10 Pulse Rate 93 H 08/15/16 16:31 Respiratory Rate 21 08/15/16 17:14 Blood Pressure 114/44 08/15/16 16:31 O2 Sat by Pulse Oximetry (%) 93 L 08/15/16 12:45 Constitutional: Yes: Other Eyes: Yes: Conjunctiva Clear Neck: Yes: Supple Cardiovascular: Yes: Regular Rate and Rhythm Respiratory: Yes: Intubated, Mechanically Ventilated Gastrointestinal: Yes: Soft, Hypoactive Bowel Sounds Musculoskeletal: Yes: Other Extremities: Yes: Erythema (much better) Neurological: Yes: Other Labs: CBC, BMP 08/15/16 05:30 08/15/16 05:30 INR, PTT INR 1.12 (0.82-1.09) 08/15/16 05:30 Assessment/Plan Problem List - Problems (1) CAD (coronary artery disease) Code(s): I25.10 - ATHSCL HEART DISEASE OF [place] CORONARY ARTERY W/O ANG PCTRS (2) CHF (congestive heart failure) Code(s): I50.9 - HEART FAILURE, UNSPECIFIED Qualifiers: Congestive heart failure type: unspecified congestive heart failure type Congestive heart failure chronicity: unspecified congestive heart failure chronicity Qualified Code(s): I50.9 - Heart failure, unspecified (3) Diabetes mellitus type 2 in obese Code(s): E11.9 - TYPE 2 DIABETES MELLITUS WITHOUT COMPLICATIONS E66.9 - OBESITY, UNSPECIFIED (4) HTN (hypertension) Code(s): I10 - ESSENTIAL (PRIMARY) HYPERTENSION Qualifiers: Hypertension type: essential hypertension Qualified Code(s): I10 - Essential (primary) hypertension (5) Hypotension Code(s): I95.9 - HYPOTENSION, UNSPECIFIED Qualifiers: Hypotension type: idiopathic hypotension Qualified Code(s): I95.0 - Idiopathic hypotension (6) Hypothermia Code(s): T68.XXXA - HYPOTHERMIA, INITIAL ENCOUNTER Qualifiers: Encounter type: initial encounter Qualified Code(s): T68.XXXA - Hypothermia, initial encounter (7) Parkinson's disease dementia Code(s): G20 - PARKINSON'S DISEASE F02.80 - DEMENTIA IN OTH DISEASES CLASSD ELSWHR W/O BEHAVRL DISTURB (8) SIRS (systemic inflammatory response syndrome) Code(s): R65.10 - SIRS OF NON-INFECTIOUS ORIGIN W/O ACUTE ORGAN DYSFUNCTION collapse of the left lung bilateral cellulitis of the leg mrsa pneumonia plan legs better off of pressors will stop zosyn and monitor continue vanco will check vanco trough cc time 40 min
[2016-08-15 20:04] LABS: CALCIUM 7.3 mg/dL (8.5-10.1); CREATININE 2.4 mg/dL (0.55-1.02)
[2016-08-15] MEDS: ATORVASTATIN CA 20 MG TABLET (FP) PO SCH (21:16)
[2016-08-15] MEDS: CHLORHEXIDINE GLUCONATE 4% CLEANSER FOR DECOLONIZATION TP SCH (21:17)
[2016-08-16] MEDS: ACETYLCYSTEINE 20% 200MG/ML 4 ML VIAL *FOR ORAL / INH USE ONLY NEB SCH ×5 (00:35→23:36)
[2016-08-16] MEDS: ALBUTEROL SO4 0.083% IH SOL 2.5 MG/3 ML VIAL.NEB. NEB PRN ×3 (00:36→23:36)
[2016-08-16 06:06] LABS: MCH 27.2 pg (25.7-33.7); MCHC 29.8 g/dl (32.0-36.0); MEAN CELL VOLUME 91.1 fl (80-96); MEAN PLT VOLUME 10.6 fl (7.5-11.1); PLATELET COUNT 183 K/MM3 (134-434); RDW 16.6 % (11.6-15.6); WHITE BLOOD COUNT 29.6 K/mm3 (4.0-10.0)
[2016-08-16] MEDS: CARBIDOPA/LEVODOPA 25/100 TABLET (FP) PO SCH ×3 (06:23→21:22)
[2016-08-16 06:27] LABS: ALBUMIN 1.8 g/dl (3.4-5.0); BILIRUBIN,TOTAL 0.6 mg/dL (0.2-1.0); CALCIUM 7.4 mg/dL (8.5-10.1); CREATININE 2.2 mg/dL (0.55-1.02); PHOSPHOROUS 5.1 mg/dL (2.5-4.9); TOT PROT 3.8 g/dl (6.4-8.2)
[2016-08-16] MEDS: INSULIN SLIDING SCALE (NOVOLOG) 1 VIAL SQ SCH ×4 (06:33→21:32)
[2016-08-16 07:30] LABS: ARTERIAL BLD GAS O2 SATURATION 98.5 % (90-98.9); ARTERIAL BLOOD GAS BASE EXCESS 6.8 meq/l (-2-2)
[2016-08-16 07:31] LABS: ALLENS TEST POSITIVE; ART PUNCT SITE LEFT RADIAL; ARTERIAL BLOOD GAS pH 7.45 (7.35-7.45); LPM/O2% 40; MECH. VENT. YES; PT. ON O2? YES; TYPE OF O2 VENT; VENT RATE 12; VT/PRESS 400
--- NOTE | 2016-08-16 08:19 | PN ---
Physical Exam: SUBJECTIVE: Patient seen and examined. OBJECTIVE: Vital Signs Period Temp Pulse Resp BP Sys/Galvin Pulse Ox Last 24 Hr 96.7 F-99.2 F 63-101 12-21 104-127/40-56 93-98 NEURO: Intubated, off sedation. Opens eyes to voice. LUNGS: Coarse mechanical breath sounds. HEART: Irregular, S1, S2 without murmur, rub or gallop. ABDOMEN: Soft, nontender, nondistended. UPPER EXTREMITIES: 4+ edema b/l, weeping LOWER EXTREMITIES: 1+ edema b/l Laboratory Results - last 24 hr 08/15/16 08/15/16 08/15/16 05:30 06:30 10:44 WBC RBC Hgb Hct MCV MCHC RDW Plt Count MPV Neutrophils % 91.0 H Lymphocytes % 4.0 L Monocytes % 4.0 D Eosinophils % 1.0 D Nucleated RBCs 1 H Differential Comment Manual diff done Puncture Site ABG pH ABG pCO2 at Pt Temp ABG pO2 at Pt Temp ABG HCO3 ABG O2 Sat (Measured) ABG O2 Content ABG Base Excess Chicho Test O2 Delivery Device Oxygen Flow Rate Vent Mode Vent Rate Mechanical Rate PEEP Pressure Support Vent Sodium 151 H Potassium 4.5 Chloride 108 H Carbon Dioxide 32 Anion Gap 11 BUN 170 H* Creatinine 2.4 H Creat Clearance w eGFR POC Glucometer [phone] Random Glucose 294 H D Calcium 7.3 L Phosphorus Magnesium Total Bilirubin AST ALT Alkaline Phosphatase Total Protein Albumin 08/15/16 08/16/16 08/16/16 18:01 05:35 05:35 WBC 29.6 H RBC 2.82 L Hgb 7.7 L D Hct 25.7 L MCV 91.1 MCHC 29.8 L RDW 16.6 H Plt Count 183 MPV 10.6 Neutrophils % Y Lymphocytes % Y Monocytes % Eosinophils % Nucleated RBCs Differential Comment Puncture Site ABG pH ABG pCO2 at Pt Temp ABG pO2 at Pt Temp ABG HCO3 ABG O2 Sat (Measured) ABG O2 Content ABG Base Excess Chicho Test O2 Delivery Device Oxygen Flow Rate Vent Mode Vent Rate Mechanical Rate PEEP Pressure Support Vent Sodium 154 H Potassium 4.7 Chloride 110 H Carbon Dioxide 35 H Anion Gap 9 BUN 163 H* Creatinine 2.2 H Creat Clearance w eGFR 21.26 POC Glucometer [phone] Random Glucose 168 H D Calcium 7.4 L Phosphorus 5.1 H Magnesium 3.0 H Total Bilirubin 0.6 D AST 58 H D ALT 45 D Alkaline Phosphatase 137 H D Total Protein 3.8 L Albumin 1.8 L 08/16/16 07:10 WBC RBC Hgb Hct MCV MCHC RDW Plt Count MPV Neutrophils % Lymphocytes % Monocytes % Eosinophils % Nucleated RBCs Differential Comment Puncture Site Left radial ABG pH 7.45 ABG pCO2 at Pt Temp 45.2 H ABG pO2 at Pt Temp 100.0 ABG HCO3 31.0 H ABG O2 Sat (Measured) 98.5 ABG O2 Content 10.7 L ABG Base Excess 6.8 H Chicho Test Positive O2 Delivery Device Vent Oxygen Flow Rate 40 Vent Mode A/c Vent Rate 12 Mechanical Rate Yes PEEP 5.0 Pressure Support Vent 400 Sodium Potassium Chloride Carbon Dioxide Anion Gap BUN Creatinine Creat Clearance w eGFR POC Glucometer Random Glucose Calcium Phosphorus Magnesium Total Bilirubin AST ALT Alkaline Phosphatase Total Protein Albumin Current Medications Generic Name Dose Route Start Last Admin Trade Name Freq PRN Reason Stop Dose Admin Acetylcysteine 200 mg 08/08/16 14:00 08/16/16 11:05 Mucomyst 20 Oral / Inh Use Only* NEB 200 mg QIDR ANNA MARIE Administration Albuterol Sulfate 1 amp 08/13/16 18:25 08/16/16 11:05 Ventolin 0.083% Nebulizer Soln - NEB 1 amp Q4H PRN Administration SHORT OF BREATH/WHEEZING Amiodarone HCl 400 mg 08/12/16 10:00 08/16/16 09:38 Cordarone - PO 400 mg BID ANNA MARIE Administration Aspirin 81 mg 08/06/16 10:00 08/16/16 09:38 Asa - PO 81 mg DAILY ANNA MARIE Administration Atorvastatin Calcium 20 mg 08/05/16 22:00 08/15/16 21:16 Lipitor - PO 20 mg HS ANNA MARIE Administration Bacitracin 1 applic 08/06/16 19:15 08/16/16 09:40 Bacitracin - TP 1 applic DAILY ANNA MARIE Administration Carbidopa/Levodopa 1 each 08/05/16 22:00 08/16/16 06:23 Sinemet 25/100 - PO 1 each TID ANNA MARIE Administration Chlorhexidine Gluconate 1 applic 08/05/16 22:00 08/15/16 21:17 Hibiclens For Decolonization - TP Not Given HS ANNA MARIE Cholecalciferol 1,000 unit 08/06/16 10:00 08/16/16 09:38 Vitamin D3 - PO 1,000 unit DAILY ANNA MARIE Administration Gabapentin 100 mg 08/05/16 22:00 08/16/16 09:38 Neurontin - PO 100 mg BID ANNA MARIE Administration IV Flush 4 ml 08/11/16 22:21 Triple Lumen Flush IVPUSH PRN PRN Protocol Midazolam HCl 100 mg/ Sodium 100 mls @ 1 mls/hr 08/08/16 12:45 08/15/16 14:57 Chloride IVPB Not Given TITR ANNA MARIE Protocol 1 MG/HR Pantoprazole Sodium 100 mls @ 200 mls/hr 08/09/16 10:15 08/16/16 09:38 Protonix 40mg Ivpb (Pre-Docked) IVPB 200 mls/hr DAILY ANNA MARIE Administration Vancomycin HCl 250 mls @ 250 mls/hr 08/11/16 18:30 08/16/16 09:38 Vancomycin (Pre-Docked) IVPB 250 mls/hr DAILY ANNA MARIE Administration Dopamine HCl/Dextrose 250 mls @ 7.05 mls/hr 08/15/16 16:30 08/15/16 16:31 Dopamine 400 Mg/D5w - IV Not Given TITR ANNA MARIE Protocol 2 MCG/KG/MIN Insulin Aspart 1 vial 08/05/16 22:00 08/16/16 11:42 Novolog Vial Sliding Scale - SQ 4 units ACHS ANNA MARIE Administration Protocol Methylprednisolone Sodium Succinate 60 mg 08/12/16 22:00 08/16/16 09:39 Solu-Medrol - IVPB 60 mg BID ANNA MARIE Administration Metoprolol Tartrate 5 mg 08/09/16 10:21 08/13/16 18:26 Lopressor Injection - IVPUSH 5 mg Q4H PRN Administration HYPERTENSION Metoprolol Tartrate 25 mg 08/13/16 11:00 08/16/16 09:39 Lopressor - PO 25 mg BID ANNA MARIE Administration Non-Formulary Medication 2 tab 08/06/16 10:00 08/16/16 09:39 Pimavanserin Tartrate [Nuplazid] PO 2 tab DAILY ANNA MARIE Administration ASSESSMENT/PLAN 85 year old female with a past medical history of HTN, CHF, CAD s/p 2 stents, DM , admitted for MRSA pneumonia. Hypercapnic, hypoxic respiratory failure secondary to MRSA pneumonia --intubated, off sedation; discussed possible trach with Dr. 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 Roland will assess; physician son is presently of the view NOT to trach patient --continue Zosyn (day #10) and Vanc (day #4) Bilateral lower extremity cellulitis, resolved Afib with RVR --presently in sinus, rate in 60s --per cardiology, if further afib with rvr can dose digoxin as BP does not tolerate bblocker or calcium channel yuliana --had bleeding with heparin drip, hold a/c Anemia --transfused 2 units on 08/13 --Hgb dropped again today 9.1--7.7 --no transfusion for now --continue to hold a/c Pulmonary hypertension Severe valvular pathology Pulmonary congestion --Lasix PRN Acute kidney injury --making good urine ~50cc's per hour off Lasix drip --Cr 2.2, was 1.3 on admission Hypernatremia --increase free water to 60cc via pump flushes NIDDM --Novolog sliding scale coverage Hypertension --off pressors Parkinson's Disease with hallucinations --continue Nuplazid F/E/N Fluids/Nutrition: tube feeds with free water flushes Electrolytes: replete as indicated Nutrition: tube feeds DVT prophylaxis: hold chemical prophylaxis due to drop in Hgb/bleeding Dispo: Poor prognosis. Palliative consult requested. Continues to require ICU care. Full Code. Visit type - Emergency Visit Emergency Visit: Yes ED Registration Date: 08/05/16 Care time: The patient presented to the Emergency Department on the above date and was hospitalized for further evaluation of their emergent condition. - New Patient This patient is new to me today: No - Critical Care Critical Care patient: No Total Critical Care Time (in minutes): 35 Critical Care Statement: The care of this patient involved high complexity decision making to prevent further life threatening deterioration of the patient 's condition and/or to evalute & treat vital organ system(s) failure or risk of failure.
--- NOTE | 2016-08-16 09:13 | PN ---
Progress Note, Physician Chief Complaint: intubated, unresponsive - Current Medication List Current Medications: Active Medications Acetylcysteine (Mucomyst 20 Oral / Inh Use Only*) 200 mg NEB QIDR [facility] Last Admin: 08/16/16 07:48 Dose: 200 mg Albuterol Sulfate (Ventolin 0.083% Nebulizer Soln -) 1 amp NEB Q4H PRN PRN Reason: SHORT OF BREATH/WHEEZING Last Admin: 08/16/16 00:36 Dose: 1 amp Amiodarone HCl (Cordarone -) 400 mg PO BID [facility] Last Admin: 08/15/16 21:16 Dose: 400 mg Aspirin (Asa -) 81 mg PO DAILY [facility] Last Admin: 08/15/16 10:23 Dose: 81 mg Atorvastatin Calcium (Lipitor -) 20 mg PO HS [facility] Last Admin: 08/15/16 21:16 Dose: 20 mg Bacitracin (Bacitracin -) 1 applic TP DAILY [facility] Last Admin: 08/15/16 10:23 Dose: 1 applic Carbidopa/Levodopa (Sinemet 25/100 -) 1 each PO TID [facility] Last Admin: 08/16/16 06:23 Dose: 1 each Chlorhexidine Gluconate (Hibiclens For Decolonization -) 1 applic TP HS [facility] Last Admin: 08/15/16 21:17 Dose: Not Given Cholecalciferol (Vitamin D3 -) 1,000 unit PO DAILY [facility] Last Admin: 08/15/16 10:23 Dose: 1,000 unit Gabapentin (Neurontin -) 100 mg PO BID [facility] Last Admin: 08/15/16 21:16 Dose: 100 mg IV Flush (Triple Lumen Flush) 4 ml IVPUSH PRN PRN PRN Reason: Protocol Midazolam HCl 100 mg/ Sodium (Chloride) 100 mls @ 1 mls/hr IVPB TITR ANNA MARIE; 1 MG/ HR PRN Reason: Protocol Last Admin: 08/15/16 14:57 Dose: Not Given Pantoprazole Sodium (Protonix 40mg Ivpb (Pre-Docked)) 100 mls @ 200 mls/hr IVPB DAILY [facility] Last Admin: 08/15/16 10:24 Dose: 200 mls/hr Vancomycin HCl (Vancomycin (Pre-Docked)) 250 mls @ 250 mls/hr IVPB DAILY [facility] Last Admin: 08/15/16 10:25 Dose: 250 mls/hr Dopamine HCl/Dextrose (Dopamine 400 Mg/D5w -) 250 mls @ 7.05 mls/hr IV TITR ANNA MARIE ; 2 MCG/KG/MIN PRN Reason: Protocol Last Admin: 08/15/16 16:31 Dose: Not Given Insulin Aspart (Novolog Vial Sliding Scale -) 1 vial SQ ACHS ANNA MARIE PRN Reason: Protocol Last Admin: 08/16/16 06:33 Dose: 4 units Methylprednisolone Sodium Succinate (Solu-Medrol -) 60 mg IVPB BID ANNA MARIE Last Admin: 08/15/16 21:16 Dose: 60 mg Metoprolol Tartrate (Lopressor Injection -) 5 mg IVPUSH Q4H PRN PRN Reason: HYPERTENSION Last Admin: 08/13/16 18:26 Dose: 5 mg Metoprolol Tartrate (Lopressor -) 25 mg PO BID [facility] Last Admin: 08/15/16 21:16 Dose: 25 mg Non-Formulary Medication (Pimavanserin Tartrate [Nuplazid]) 2 tab PO DAILY [facility] Last Admin: 08/15/16 10:23 Dose: 2 tab - Objective Vital Signs: Vital Signs Temperature 97.8 F 08/16/16 06:00 Pulse Rate 66 08/16/16 08:00 Respiratory Rate 12 08/16/16 08:00 Blood Pressure 103/39 08/16/16 08:00 O2 Sat by Pulse Oximetry (%) 98 08/15/16 20:14 Constitutional: Yes: Other (intubated) HENT: Yes: Other (+ETT) Cardiovascular: Yes: Regular Rate and Rhythm Respiratory: Yes: Other (=breath sounds bilaterally) Gastrointestinal: Yes: Soft Edema: Yes Edema: LLE: 2+, RLE: 2+ Neurological: Yes: Other (unresponsive) Labs: CBC, BMP 08/16/16 05:35 08/16/16 05:35 INR, PTT INR 1.12 (0.82-1.09) 08/15/16 05:30 - ....Imaging EKG: Image Reviewed (TELE: NSR) Assessment/Plan Assessment/Plan 85 year old woman with a history of HTN, DM II, HLD, CAD with prior stents, CHF, admitted with sob, hypoxic/hypercapneic resp failure. SOB-hypercapneic/hypoxic respiratory failure, possible PNA vs acute on chronic CHF -mucous plugging with opacification of L hemithorax and R pleural effusion -continue vent support -diurese PRN CAD-with reported prior stents -cont asa and lipitor -cardiac enzymes wnl PAF- with RVR, currently nsr -received amio gtt and intermittent digoxin -taken off heparin gtt due to anemia -if further afib with rvr can dose digoxin as BP does not tolerate other agents. Advanced directives: DNR/DNI
[2016-08-16] MEDS: VANCOMYCIN 1 GRAM (PRE-DOCKED) 250 ML IVPB SCH (09:38)
[2016-08-16] MEDS: PANTOPRAZOLE SODIUM 100 ML IVPB SCH (09:38)
[2016-08-16] MEDS: ASPIRIN 81 MG CHEWABLE TABLETS PO SCH (09:38)
[2016-08-16] MEDS: CHOLECALCIFEROL (VITAMIN D3) 1,000 UNIT TABLET (FP) PO SCH (09:38)
[2016-08-16] MEDS: AMIODARONE HCL 200 MG TABLET (FP) PO SCH ×2 (09:38→21:21)
[2016-08-16] MEDS: GABAPENTIN 100 MG CAPSULE (FP) PO SCH ×2 (09:38→21:22)
[2016-08-16] MEDS: METOPROLOL TARTRATE 25 MG TABLET (FP) PO SCH ×2 (09:39→21:22)
[2016-08-16] MEDS: PIMAVANSERIN TARTRATE PO SCH (09:39)
[2016-08-16] MEDS: methylPREDNISolone NA SUCC 125 MG/2 ML VIAL IVPB SCH ×2 (09:39→21:22)
[2016-08-16] MEDS: BACITRACIN 30 GM TUBE TOPICAL OINTMENT TP SCH (09:40)
--- NOTE | 2016-08-16 10:29 | PN ---
Progress Note (short form) - Note Progress Note: Renal follow up for hyperkalemia and CKD Pt seen and examined in the ICU Intubated, off sedation but minimally responsive on 40% FiO2 with 100% saturation good urine output Vital Signs Temperature 97.8 F 08/16/16 06:00 Pulse Rate 66 08/16/16 08:00 Respiratory Rate 12 08/16/16 08:00 Blood Pressure 103/39 08/16/16 08:00 O2 Sat by Pulse Oximetry (%) 98 08/15/16 20:14 Intake & Output 08/13/16 08/14/16 08/15/16 08/16/16 23:59 23:59 23:59 23:59 Intake Total 3526 2961 2640 780 Output Total 775 5200 1150 1000 Balance 2751 -2239 1490 -220 Weight 215 lb 2 oz 208 lb 15.971 oz 207 lb 3.752 oz 212 lb 3 oz Gen: intubated and sedated CVS: RRR, No M/R Lungs: No BS left lung, dec BS right lung Abd: soft NT/ND Ext: B/L LE in dressing, 1+ LE edema and + sacral edema CBC, BMP 08/16/16 05:35 08/16/16 05:35 Current Medications Acetylcysteine (Mucomyst 20 Oral / Inh Use Only*) 200 mg NEB QIDR [facility] Last Admin: 08/16/16 07:48 Dose: 200 mg Albuterol Sulfate (Ventolin 0.083% Nebulizer Soln -) 1 amp NEB Q4H PRN PRN Reason: SHORT OF BREATH/WHEEZING Last Admin: 08/16/16 00:36 Dose: 1 amp Amiodarone HCl (Cordarone -) 400 mg PO BID [facility] Last Admin: 08/16/16 09:38 Dose: 400 mg Aspirin (Asa -) 81 mg PO DAILY [facility] Last Admin: 08/16/16 09:38 Dose: 81 mg Atorvastatin Calcium (Lipitor -) 20 mg PO HS [facility] Last Admin: 08/15/16 21:16 Dose: 20 mg Bacitracin (Bacitracin -) 1 applic TP DAILY [facility] Last Admin: 08/16/16 09:40 Dose: 1 applic Carbidopa/Levodopa (Sinemet 25/100 -) 1 each PO TID [facility] Last Admin: 08/16/16 06:23 Dose: 1 each Chlorhexidine Gluconate (Hibiclens For Decolonization -) 1 applic TP HS [facility] Last Admin: 08/15/16 21:17 Dose: Not Given Cholecalciferol (Vitamin D3 -) 1,000 unit PO DAILY [facility] Last Admin: 08/16/16 09:38 Dose: 1,000 unit Gabapentin (Neurontin -) 100 mg PO BID [facility] Last Admin: 08/16/16 09:38 Dose: 100 mg IV Flush (Triple Lumen Flush) 4 ml IVPUSH PRN PRN PRN Reason: Protocol Midazolam HCl 100 mg/ Sodium (Chloride) 100 mls @ 1 mls/hr IVPB TITR ANNA MARIE; 1 MG/ HR PRN Reason: Protocol Last Admin: 08/15/16 14:57 Dose: Not Given Pantoprazole Sodium (Protonix 40mg Ivpb (Pre-Docked)) 100 mls @ 200 mls/hr IVPB DAILY [facility] Last Admin: 08/16/16 09:38 Dose: 200 mls/hr Vancomycin HCl (Vancomycin (Pre-Docked)) 250 mls @ 250 mls/hr IVPB DAILY [facility] Last Admin: 08/16/16 09:38 Dose: 250 mls/hr Dopamine HCl/Dextrose (Dopamine 400 Mg/D5w -) 250 mls @ 7.05 mls/hr IV TITR ANNA MARIE ; 2 MCG/KG/MIN PRN Reason: Protocol Last Admin: 08/15/16 16:31 Dose: Not Given Insulin Aspart (Novolog Vial Sliding Scale -) 1 vial SQ ACHS ANNA MARIE PRN Reason: Protocol Last Admin: 08/16/16 06:33 Dose: 4 units Methylprednisolone Sodium Succinate (Solu-Medrol -) 60 mg IVPB BID [facility] Last Admin: 08/16/16 09:39 Dose: 60 mg Metoprolol Tartrate (Lopressor Injection -) 5 mg IVPUSH Q4H PRN PRN Reason: HYPERTENSION Last Admin: 08/13/16 18:26 Dose: 5 mg Metoprolol Tartrate (Lopressor -) 25 mg PO BID [facility] Last Admin: 08/16/16 09:39 Dose: 25 mg Non-Formulary Medication (Pimavanserin Tartrate [Nuplazid]) 2 tab PO DAILY [facility] Last Admin: 08/16/16 09:39 Dose: 2 tab A/P 85 year old woman with PMhx of CKD, CHF, CAD, DM, Hypertension who presented with sob and found to have SIRS and possible PNA and opacification of left lung with hyperkalemia of 6.6 and Cr of 1.5. #Acute Kidney Injury with Hx of CKD/hypernatremia water deficit is 5.6L very high BUN likely from steroids/GIB and renal failure Cr stable and pt is non-oliguric Increase free water via G-tube to 60cc per hour holding diuretics at this time, can given PRN lasix for hypoxia no acute indication for [employer] #SIRS/PNA/Mucus Plug/CHF off Lasix CXR shows better airation Vent support ICU monitoring DNR Thank you Edison Carter DO
--- NOTE | 2016-08-16 12:00 | PN ---
Physical Exam: SUBJECTIVE: Patient seen and examined at bedside. Remains intubated and sedated. No overnight events. Currently in NSR OBJECTIVE: Vital Signs Period Temp Pulse Resp BP Sys/Galvin Pulse Ox Last 24 Hr 97.6 F-99.2 F 63-118 12-21 102-127/39-51 93-99 GENERAL: Intubated and sedated. HEAD: Normal with no signs of trauma. EYES: Pupils equal, round and reactive to light, sclera anicteric, conjunctiva clear. No lid lag. EARS, NOSE, THROAT: Ears normal, nares patent, Moist mucous membranes. NECK:Supple, no JVD LUNGS: Bibasilar rhonchi. Decreased breath sounds bibasilar L>R.No wheezes, and no crackles. No accessory muscle use. HEART:NSR, normal S1 and S2 without murmur, rub or gallop. ABDOMEN: Soft, obese, nontender, not distended, normoactive bowel sounds, no guarding, no rebound, no masses. MUSCULOSKELETAL: Reduced ROM of RLE. No bony deformities or tenderness. No CVA tenderness. UPPER EXTREMITIES: 2+ pulses, warm, well-perfused. No cyanosis. No clubbing. Cap refill <2 seconds. No peripheral edema. LOWER EXTREMITIES: 2+ pulses, warm, well-perfused. No calf tenderness. 2+ Edema bilat. NEUROLOGICAL: sedated. PSYCHIATRIC: can not be assessed SKIN: Bilateral stasis dermatitis of LE Laboratory Results - last 24 hr 08/15/16 08/15/16 08/15/16 06:30 10:44 18:01 WBC RBC Hgb Hct MCV MCHC RDW Plt Count MPV Neutrophils % Lymphocytes % Monocytes % Band Neutrophils Nucleated RBCs Puncture Site ABG pH ABG pCO2 at Pt Temp ABG pO2 at Pt Temp ABG HCO3 ABG O2 Sat (Measured) ABG O2 Content ABG Base Excess Chicho Test O2 Delivery Device Oxygen Flow Rate Vent Mode Vent Rate Mechanical Rate PEEP Pressure Support Vent Sodium 151 H Potassium 4.5 Chloride 108 H Carbon Dioxide 32 Anion Gap 11 BUN 170 H* Creatinine 2.4 H Creat Clearance w eGFR POC Glucometer 259.24026 367.48221 Random Glucose 294 H D Calcium 7.3 L Phosphorus Magnesium Total Bilirubin AST ALT Alkaline Phosphatase Total Protein Albumin Vancomycin Trough 08/16/16 08/16/16 08/16/16 05:35 05:35 05:54 WBC 29.6 H RBC 2.82 L Hgb 7.7 L D Hct 25.7 L MCV 91.1 MCHC 29.8 L RDW 16.6 H Plt Count 183 MPV 10.6 Neutrophils % 92.0 H Lymphocytes % 1.0 L D Monocytes % 2.0 L Band Neutrophils 5.0 D Nucleated RBCs 2 H Puncture Site ABG pH ABG pCO2 at Pt Temp ABG pO2 at Pt Temp ABG HCO3 ABG O2 Sat (Measured) ABG O2 Content ABG Base Excess Chicho Test O2 Delivery Device Oxygen Flow Rate Vent Mode Vent Rate Mechanical Rate PEEP Pressure Support Vent Sodium 154 H Potassium 4.7 Chloride 110 H Carbon Dioxide 35 H Anion Gap 9 BUN 163 H* Creatinine 2.2 H Creat Clearance w eGFR 21.26 POC Glucometer 219.84374 Random Glucose 168 H D Calcium 7.4 L Phosphorus 5.1 H Magnesium 3.0 H Total Bilirubin 0.6 D AST 58 H D ALT 45 D Alkaline Phosphatase 137 H D Total Protein 3.8 L Albumin 1.8 L Vancomycin Trough 08/16/16 08/16/16 08/16/16 07:10 07:50 11:37 WBC RBC Hgb Hct MCV MCHC RDW Plt Count MPV Neutrophils % Lymphocytes % Monocytes % Band Neutrophils Nucleated RBCs Puncture Site Left radial ABG pH 7.45 ABG pCO2 at Pt Temp 45.2 H ABG pO2 at Pt Temp 100.0 ABG HCO3 31.0 H ABG O2 Sat (Measured) 98.5 ABG O2 Content 10.7 L ABG Base Excess 6.8 H Chicho Test Positive O2 Delivery Device Vent Oxygen Flow Rate 40 Vent Mode A/c Vent Rate 12 Mechanical Rate Yes PEEP 5.0 Pressure Support Vent 400 Sodium Potassium Chloride Carbon Dioxide Anion Gap BUN Creatinine Creat Clearance w eGFR POC Glucometer 213.18714 Random Glucose Calcium Phosphorus Magnesium Total Bilirubin AST ALT Alkaline Phosphatase Total Protein Albumin Vancomycin Trough 29.300 H* Active Medications Generic Name Dose Route Start Last Admin Trade Name Freq PRN Reason Stop Dose Admin Acetylcysteine 200 mg 08/08/16 14:00 08/16/16 11:05 Mucomyst 20 Oral / Inh Use Only* NEB 200 mg QIDR ANNA MARIE Administration Albuterol Sulfate 1 amp 08/13/16 18:25 08/16/16 11:05 Ventolin 0.083% Nebulizer Soln - NEB 1 amp Q4H PRN Administration SHORT OF BREATH/WHEEZING Amiodarone HCl 400 mg 08/12/16 10:00 08/16/16 09:38 Cordarone - PO 400 mg BID ANNA MARIE Administration Aspirin 81 mg 08/06/16 10:00 08/16/16 09:38 Asa - PO 81 mg DAILY ANNA MARIE Administration Atorvastatin Calcium 20 mg 08/05/16 22:00 08/15/16 21:16 Lipitor - PO 20 mg HS ANNA MARIE Administration Bacitracin 1 applic 08/06/16 19:15 08/16/16 09:40 Bacitracin - TP 1 applic DAILY ANNA MARIE Administration Carbidopa/Levodopa 1 each 08/05/16 22:00 08/16/16 06:23 Sinemet 25/100 - PO 1 each TID ANNA MARIE Administration Chlorhexidine Gluconate 1 applic 08/05/16 22:00 08/15/16 21:17 Hibiclens For Decolonization - TP Not Given HS ANNA MARIE Cholecalciferol 1,000 unit 08/06/16 10:00 08/16/16 09:38 Vitamin D3 - PO 1,000 unit DAILY ANNA MARIE Administration Gabapentin 100 mg 08/05/16 22:00 08/16/16 09:38 Neurontin - PO 100 mg BID ANNA MARIE Administration IV Flush 4 ml 08/11/16 22:21 Triple Lumen Flush IVPUSH PRN PRN Protocol Midazolam HCl 100 mg/ Sodium 100 mls @ 1 mls/hr 08/08/16 12:45 08/15/16 14:57 Chloride IVPB Not Given TITR ANNA MARIE Protocol 1 MG/HR Pantoprazole Sodium 100 mls @ 200 mls/hr 08/09/16 10:15 08/16/16 09:38 Protonix 40mg Ivpb (Pre-Docked) IVPB 200 mls/hr DAILY ANNA MARIE Administration Vancomycin HCl 250 mls @ 250 mls/hr 08/11/16 18:30 08/16/16 09:38 Vancomycin (Pre-Docked) IVPB 250 mls/hr DAILY ANNA MARIE Administration Dopamine HCl/Dextrose 250 mls @ 7.05 mls/hr 08/15/16 16:30 08/15/16 16:31 Dopamine 400 Mg/D5w - IV Not Given TITR ANNA MARIE Protocol 2 MCG/KG/MIN Insulin Aspart 1 vial 08/05/16 22:08/16/16 11:42 Novolog Vial Sliding Scale - SQ 4 units ACHS ANNA MARIE Administration Protocol Methylprednisolone Sodium Succinate 60 mg 08/12/16 22:00 08/16/16 09:39 Solu-Medrol - IVPB 60 mg BID ANNA MARIE Administration Metoprolol Tartrate 5 mg 08/09/16 10:21 08/13/16 18:26 Lopressor Injection - IVPUSH 5 mg Q4H PRN Administration HYPERTENSION Metoprolol Tartrate 25 mg 08/13/16 11:00 08/16/16 09:39 Lopressor - PO 25 mg BID ANNA MARIE Administration Non-Formulary Medication 2 tab 08/06/16 10:00 08/16/16 09:39 Pimavanserin Tartrate [Nuplazid] PO 2 tab DAILY ANNA MARIE Administration ASSESSMENT/PLAN: 85 yo F with pmhx of CHF and CAD admitted for sepsis 2/2 PNA requiring mechanical ventilation. Now discussion is to have patient trached discussed with patient's son's. I spoke with her son Akash who mentioned that other son Lebron was coming in from [place] today and they are going to meet as family to discuss the advanced directives and goals of care. Problem List - Problems (1) Afib Assessment/Plan: * Amiodarone PO and Digoxin PRN--> currently NSR * heparin gtt stopped due to anemia. * If further Afib can dose Digoxin as BP does not tolerated BB of CCB. (2) Sepsis Assessment/Plan: * Blood and urine cultures show no growth * Sputum cultures showed MRSA * UA negative for UTI. * Repeat lactic acid WNL * Vanco held (trough 29) (3) Pneumonia Assessment/Plan: * Mechanically ventilated. AC with FiO2@40%, rate of 14 * continue Vanco and Zosyn * Acetylcysteine 200 mg NEB QIDR ANNA MARIE * Albuterol Sulfate 1 amp NEB QIDR ANNA MARIE * Albuterol/Ipratropium (Duoneb -) 1 amp NEB Q4H PRN * Solumedrol 60mg iv BID (4) CHF (congestive heart failure) Assessment/Plan: * Lasix held as per nephrology * off pressors. * daily weights * repeat CXR in AM (5) HTN (hypertension) Assessment/Plan: * BP meds held for low pressures. (6) CAD (coronary artery disease) Assessment/Plan: * s/p stents x2 * ASA 81 mg PO daily * Lipitor 20mg PO HS (7) Diabetes mellitus type 2 in obese Assessment/Plan: * ISS with Novolog ACHS * BGM ACHS * Glucerna tube feeds with goal of 50ml/hr (8) Bilateral leg ulcer Assessment/Plan: * daily dressing change and wound care. (9) Parkinson's disease dementia Assessment/Plan: * Carbidopa/Levodopa (Sinemet 25/100 -) 1 each PO TID * Pimavanserin Tartrate [Nuplazid] 2 tab PO DAILY (home med non formulary.) (10) DVT prophylaxis Assessment/Plan: * Lovenox 40mg SQ daily * GI- Protonix 40mg IV daily Visit type - Emergency Visit Emergency Visit: Yes ED Registration Date: 08/05/16 Care time: The patient presented to the Emergency Department on the above date and was hospitalized for further evaluation of their emergent condition. - New Patient This patient is new to me today: No - Critical Care Critical Care patient: Yes Total Critical Care Time (in minutes): 31 Critical Care Statement: The care of this patient involved high complexity decision making to prevent further life threatening deterioration of the patient 's condition and/or to evalute & treat vital organ system(s) failure or risk of failure.
--- NOTE | 2016-08-16 12:28 | PN ---
Teaching Attending Note Name of Resident: José Riggs ATTENDING PHYSICIAN STATEMENT I saw and evaluated the patient. I reviewed the resident's note and discussed the case with the resident. I agree with the resident's findings and plan as documented. SUBJECTIVE: Patient seen and examined in the ICU. Remains intubated, sedated. Currently off pressors and Lasix drip. AC MOde of vent 40% FiO2. Intake & Output 08/13/16 08/14/16 08/15/16 08/16/16 23:59 23:59 23:59 23:59 Intake Total 3526 2961 2640 780 Output Total 775 5200 1150 1000 Balance 2751 -2239 1490 -220 Weight 215 lb 2 oz 208 lb 15.971 oz 207 lb 3.752 oz 212 lb 3 oz Last Vital Signs Temp Pulse Resp BP Pulse Ox 97.8 F 118 H 16 102/51 99 08/16/16 06:00 08/16/16 10:35 08/16/16 11:48 08/16/16 10:00 08/16/16 10:35 Active Medications Acetylcysteine (Mucomyst 20 Oral / Inh Use Only*) 200 mg NEB QIDR [facility] [place] Last Admin: 08/16/16 11:05 Dose: 200 mg Albuterol Sulfate (Ventolin 0.083% Nebulizer Soln -) 1 amp NEB Q4H PRN PRN Reason: SHORT OF BREATH/WHEEZING Last Admin: 08/16/16 11:05 Dose: 1 amp Amiodarone HCl (Cordarone -) 400 mg PO BID [facility] [place] Last Admin: 08/16/16 09:38 Dose: 400 mg Aspirin (Asa -) 81 mg PO DAILY [facility] [place] Last Admin: 08/16/16 09:38 Dose: 81 mg Atorvastatin Calcium (Lipitor -) 20 mg PO HS [facility] [place] Last Admin: 08/15/16 21:16 Dose: 20 mg Bacitracin (Bacitracin -) 1 applic TP DAILY [facility] [place] Last Admin: 08/16/16 09:40 Dose: 1 applic Carbidopa/Levodopa (Sinemet 25/100 -) 1 each PO TID [facility] [place] Last Admin: 08/16/16 06:23 Dose: 1 each Chlorhexidine Gluconate (Hibiclens For Decolonization -) 1 applic TP HS [facility] [place] Last Admin: 08/15/16 21:17 Dose: Not Given Cholecalciferol (Vitamin D3 -) 1,000 unit PO DAILY [facility] [place] Last Admin: 08/16/16 09:38 Dose: 1,000 unit Gabapentin (Neurontin -) 100 mg PO BID [facility] [place] Last Admin: 08/16/16 09:38 Dose: 100 mg IV Flush (Triple Lumen Flush) 4 ml IVPUSH PRN PRN PRN Reason: Protocol Midazolam HCl 100 mg/ Sodium (Chloride) 100 mls @ 1 mls/hr IVPB TITR ANNA MARIE; 1 MG/ HR PRN Reason: Protocol Last Admin: 08/15/16 14:57 Dose: Not Given Pantoprazole Sodium (Protonix 40mg Ivpb (Pre-Docked)) 100 mls @ 200 mls/hr IVPB DAILY [facility] [place] Last Admin: 08/16/16 09:38 Dose: 200 mls/hr Vancomycin HCl (Vancomycin (Pre-Docked)) 250 mls @ 250 mls/hr IVPB DAILY [facility] [place] Last Admin: 08/16/16 09:38 Dose: 250 mls/hr Dopamine HCl/Dextrose (Dopamine 400 Mg/D5w -) 250 mls @ 7.05 mls/hr IV TITR ANNA MARIE ; 2 MCG/KG/MIN PRN Reason: Protocol Last Admin: 08/15/16 16:31 Dose: Not Given Insulin Aspart (Novolog Vial Sliding Scale -) 1 vial SQ ACHS [facility] [place] PRN Reason: Protocol Last Admin: 08/16/16 11:42 Dose: 4 units Methylprednisolone Sodium Succinate (Solu-Medrol -) 60 mg IVPB BID [facility] [place] Last Admin: 08/16/16 09:39 Dose: 60 mg Metoprolol Tartrate (Lopressor Injection -) 5 mg IVPUSH Q4H PRN PRN Reason: HYPERTENSION Last Admin: 08/13/16 18:26 Dose: 5 mg Metoprolol Tartrate (Lopressor -) 25 mg PO BID [facility] [place] Last Admin: 08/16/16 09:39 Dose: 25 mg Non-Formulary Medication (Pimavanserin Tartrate [Nuplazid]) 2 tab PO DAILY [facility] [place] Last Admin: 08/16/16 09:39 Dose: 2 tab Gen: intubated, sedated Heart: RRR Lungs: Basilar rales / rhonchi Abd: soft, nontender Ext: + edema Laboratory Results - last 24 hr 08/15/16 08/15/16 08/15/16 06:30 10:44 18:01 WBC RBC Hgb Hct MCV MCHC RDW Plt Count MPV Neutrophils % Lymphocytes % Monocytes % Band Neutrophils Nucleated RBCs Puncture Site ABG pH ABG pCO2 at Pt Temp ABG pO2 at Pt Temp ABG HCO3 ABG O2 Sat (Measured) ABG O2 Content ABG Base Excess Chicho Test O2 Delivery Device Oxygen Flow Rate Vent Mode Vent Rate Mechanical Rate PEEP Pressure Support Vent Sodium 151 H Potassium 4.5 Chloride 108 H Carbon Dioxide 32 Anion Gap 11 BUN 170 H* Creatinine 2.4 H Creat Clearance w eGFR POC Glucometer 259.34999 367.66926 Random Glucose 294 H D Calcium 7.3 L Phosphorus Magnesium Total Bilirubin AST ALT Alkaline Phosphatase Total Protein Albumin Vancomycin Trough 08/16/16 08/16/16 08/16/16 05:35 05:35 05:54 WBC 29.6 H RBC 2.82 L Hgb 7.7 L D Hct 25.7 L MCV 91.1 MCHC 29.8 L RDW 16.6 H Plt Count 183 MPV 10.6 Neutrophils % 92.0 H Lymphocytes % 1.0 L D Monocytes % 2.0 L Band Neutrophils 5.0 D Nucleated RBCs 2 H Puncture Site ABG pH ABG pCO2 at Pt Temp ABG pO2 at Pt Temp ABG HCO3 ABG O2 Sat (Measured) ABG O2 Content ABG Base Excess Chicho Test O2 Delivery Device Oxygen Flow Rate Vent Mode Vent Rate Mechanical Rate PEEP Pressure Support Vent Sodium 154 H Potassium 4.7 Chloride 110 H Carbon Dioxide 35 H Anion Gap 9 BUN 163 H* Creatinine 2.2 H Creat Clearance w eGFR 21.26 POC Glucometer 219.45532 Random Glucose 168 H D Calcium 7.4 L Phosphorus 5.1 H Magnesium 3.0 H Total Bilirubin 0.6 D AST 58 H D ALT 45 D Alkaline Phosphatase 137 H D Total Protein 3.8 L Albumin 1.8 L Vancomycin Trough 08/16/16 08/16/16 08/16/16 07:10 07:50 11:37 WBC RBC Hgb Hct MCV MCHC RDW Plt Count MPV Neutrophils % Lymphocytes % Monocytes % Band Neutrophils Nucleated RBCs Puncture Site Left radial ABG pH 7.45 ABG pCO2 at Pt Temp 45.2 H ABG pO2 at Pt Temp 100.0 ABG HCO3 31.0 H ABG O2 Sat (Measured) 98.5 ABG O2 Content 10.7 L ABG Base Excess 6.8 H Chicho Test Positive O2 Delivery Device Vent Oxygen Flow Rate 40 Vent Mode A/c Vent Rate 12 Mechanical Rate Yes PEEP 5.0 Pressure Support Vent 400 Sodium Potassium Chloride Carbon Dioxide Anion Gap BUN Creatinine Creat Clearance w eGFR POC Glucometer 213.26328 Random Glucose Calcium Phosphorus Magnesium Total Bilirubin AST ALT Alkaline Phosphatase Total Protein Albumin Vancomycin Trough 29.300 H* CXR: Minimal increase in bilateral effusions, pulmonary vascular congestion A/P Acute Hypercapneic and Hypoxic Respiratory Failure Pneumonia Atelectasis Paroxysmal Atrial Fibrillation with RVR Acute on Chronic LV Diastolic Heart Failure Pulmonary HTN CAD HTN DM Parkinsons Disease - ABX per ID - Medrol taper - inhaled bronchodilators, mucolytics - taper FiO2 to keep SpO2 >90% - Daily assessment for diuresis - rate control with amiodarone, metoprolol, digoxin - PO as tolerated - DVT/GI prophylaxis Dr Becerra CCTime 35"
[2016-08-16] MEDS ORDERED: PIPERACILLIN/TAZOB 3.375 GM/50 ML PRE-DOCKED IVPB ONE (14:15)
--- NOTE | 2016-08-16 14:30 | PN ---
Progress Note, Physician History of Present Illness: continues to be stable off of pressors - Current Medication List Current Medications: Active Medications Acetylcysteine (Mucomyst 20 Oral / Inh Use Only*) 200 mg NEB QIDR [facility] Last Admin: 08/16/16 11:05 Dose: 200 mg Albuterol Sulfate (Ventolin 0.083% Nebulizer Soln -) 1 amp NEB Q4H PRN PRN Reason: SHORT OF BREATH/WHEEZING Last Admin: 08/16/16 11:05 Dose: 1 amp Amiodarone HCl (Cordarone -) 400 mg PO BID [facility] Last Admin: 08/16/16 09:38 Dose: 400 mg Aspirin (Asa -) 81 mg PO DAILY [facility] Last Admin: 08/16/16 09:38 Dose: 81 mg Atorvastatin Calcium (Lipitor -) 20 mg PO HS [facility] Last Admin: 08/15/16 21:16 Dose: 20 mg Bacitracin (Bacitracin -) 1 applic TP DAILY [facility] Last Admin: 08/16/16 09:40 Dose: 1 applic Carbidopa/Levodopa (Sinemet 25/100 -) 1 each PO TID [facility] Last Admin: 08/16/16 06:23 Dose: 1 each Chlorhexidine Gluconate (Hibiclens For Decolonization -) 1 applic TP HS [facility] Last Admin: 08/15/16 21:17 Dose: Not Given Cholecalciferol (Vitamin D3 -) 1,000 unit PO DAILY [facility] Last Admin: 08/16/16 09:38 Dose: 1,000 unit Gabapentin (Neurontin -) 100 mg PO BID [facility] Last Admin: 08/16/16 09:38 Dose: 100 mg IV Flush (Triple Lumen Flush) 4 ml IVPUSH PRN PRN PRN Reason: Protocol Midazolam HCl 100 mg/ Sodium (Chloride) 100 mls @ 1 mls/hr IVPB TITR ANNA MARIE; 1 MG/ HR PRN Reason: Protocol Last Admin: 08/15/16 14:57 Dose: Not Given Pantoprazole Sodium (Protonix 40mg Ivpb (Pre-Docked)) 100 mls @ 200 mls/hr IVPB DAILY [facility] Last Admin: 08/16/16 09:38 Dose: 200 mls/hr Vancomycin HCl (Vancomycin (Pre-Docked)) 250 mls @ 250 mls/hr IVPB DAILY [facility] Last Admin: 08/16/16 09:38 Dose: 250 mls/hr Dopamine HCl/Dextrose (Dopamine 400 Mg/D5w -) 250 mls @ 7.05 mls/hr IV TITR ANNA MARIE ; 2 MCG/KG/MIN PRN Reason: Protocol Last Admin: 08/15/16 16:31 Dose: Not Given Insulin Aspart (Novolog Vial Sliding Scale -) 1 vial SQ ACHS ANNA MARIE PRN Reason: Protocol Last Admin: 08/16/16 11:42 Dose: 4 units Methylprednisolone Sodium Succinate (Solu-Medrol -) 60 mg IVPB BID ANNA MARIE Last Admin: 08/16/16 09:39 Dose: 60 mg Metoprolol Tartrate (Lopressor Injection -) 5 mg IVPUSH Q4H PRN PRN Reason: HYPERTENSION Last Admin: 08/13/16 18:26 Dose: 5 mg Metoprolol Tartrate (Lopressor -) 25 mg PO BID ANNA MARIE Last Admin: 08/16/16 09:39 Dose: 25 mg Non-Formulary Medication (Pimavanserin Tartrate [Nuplazid]) 2 tab PO DAILY ANNA MARIE Last Admin: 08/16/16 09:39 Dose: 2 tab Piperacillin Sod/Tazobactam Sod (Zosyn 3.375gm Ivpb (Pre-Docked)) 3.375 gm IVPB Q8H-IV ANNA MARIE - Objective Vital Signs: Vital Signs Temperature 97.8 F 08/16/16 06:00 Pulse Rate 63 08/16/16 12:00 Respiratory Rate 12 08/16/16 12:00 Blood Pressure 88/39 08/16/16 12:00 O2 Sat by Pulse Oximetry (%) 99 08/16/16 10:35 Constitutional: Yes: No Distress, Calm Cardiovascular: Yes: Regular Rate and Rhythm Respiratory: Yes: Intubated, Mechanically Ventilated Gastrointestinal: Yes: Soft Musculoskeletal: Yes: Other Extremities: Yes: Erythema Neurological: Yes: Other Labs: CBC, BMP 08/16/16 05:35 08/16/16 05:35 INR, PTT INR 1.12 (0.82-1.09) 08/15/16 05:30 Assessment/Plan Problem List - Problems (1) CAD (coronary artery disease) Code(s): I25.10 - ATHSCL HEART DISEASE OF [place] CORONARY ARTERY W/O ANG PCTRS (2) CHF (congestive heart failure) Code(s): I50.9 - HEART FAILURE, UNSPECIFIED Qualifiers: Congestive heart failure type: unspecified congestive heart failure type Congestive heart failure chronicity: unspecified congestive heart failure chronicity Qualified Code(s): I50.9 - Heart failure, unspecified (3) Diabetes mellitus type 2 in obese Code(s): E11.9 - TYPE 2 DIABETES MELLITUS WITHOUT COMPLICATIONS E66.9 - OBESITY, UNSPECIFIED (4) HTN (hypertension) Code(s): I10 - ESSENTIAL (PRIMARY) HYPERTENSION Qualifiers: Hypertension type: essential hypertension Qualified Code(s): I10 - Essential (primary) hypertension (5) Hypotension Code(s): I95.9 - HYPOTENSION, UNSPECIFIED Qualifiers: Hypotension type: idiopathic hypotension Qualified Code(s): I95.0 - Idiopathic hypotension (6) Hypothermia Code(s): T68.XXXA - HYPOTHERMIA, INITIAL ENCOUNTER Qualifiers: Encounter type: initial encounter Qualified Code(s): T68.XXXA - Hypothermia, initial encounter (7) Parkinson's disease dementia Code(s): G20 - PARKINSON'S DISEASE F02.80 - DEMENTIA IN OTH DISEASES CLASSD ELSWHR W/O BEHAVRL DISTURB (8) SIRS (systemic inflammatory response syndrome) Code(s): R65.10 - SIRS OF NON-INFECTIOUS ORIGIN W/O ACUTE ORGAN DYSFUNCTION collapse of the left lung bilateral cellulitis of the leg mrsa pneumonia plan legs better off of pressors wbc coming down vanco trough noted no dose of vanco till 08/19 cc time 40 min
[2016-08-16] MEDS ORDERED: PANTOPRAZOLE SODIUM 100 ML IVPB SCH (15:14)
[2016-08-16] MEDS ORDERED: PIPERACILLIN/TAZOB 3.375 GM/50 ML PRE-DOCKED IVPB SCH (18:00)
[2016-08-16] MEDS: ATORVASTATIN CA 20 MG TABLET (FP) PO SCH (21:22)
[2016-08-16] MEDS: PANTOPRAZOLE SODIUM 40 MG/100 ML PRE-DOCKED IVPB SCH (21:23)
[2016-08-16] MEDS ORDERED: PANTOPRAZOLE SODIUM 40 MG in SODIUM CHLORIDE 100 ML IVPB SCH (22:00)
[2016-08-16] MEDS: CHLORHEXIDINE GLUCONATE 4% CLEANSER FOR DECOLONIZATION TP SCH (22:30)
[2016-08-17] MEDS: CARBIDOPA/LEVODOPA 25/100 TABLET (FP) PO SCH ×3 (05:38→22:00)
[2016-08-17] MEDS: ALBUTEROL SO4 0.083% IH SOL 2.5 MG/3 ML VIAL.NEB. NEB PRN ×3 (06:17→23:56)
[2016-08-17] MEDS: ACETYLCYSTEINE 20% 200MG/ML 4 ML VIAL *FOR ORAL / INH USE ONLY NEB SCH ×4 (06:17→23:56)
[2016-08-17 06:21] LABS: MCH 27.7 pg (25.7-33.7); MCHC 30.1 g/dl (32.0-36.0); MEAN PLT VOLUME 11.2 fl (7.5-11.1); PLATELET COUNT 206 K/MM3 (134-434); RDW 16.5 % (11.6-15.6); WHITE BLOOD COUNT 29.4 K/mm3 (4.0-10.0)
[2016-08-17] MEDS: INSULIN SLIDING SCALE (NOVOLOG) 1 VIAL SQ SCH ×4 (06:22→23:29)
[2016-08-17 07:15] LABS: ALBUMIN 1.8 g/dl (3.4-5.0); CALCIUM 7.7 mg/dL (8.5-10.1)
[2016-08-17 07:20] LABS: BILIRUBIN,TOTAL 0.9 mg/dL (0.2-1.0); CREATININE 2.1 mg/dL (0.55-1.02); TOT PROT 3.8 g/dl (6.4-8.2)
[2016-08-17 07:27] LABS: ARTERIAL BLD GAS O2 SATURATION 94.6 % (90-98.9); ARTERIAL BLOOD GAS BASE EXCESS 6.5 meq/l (-2-2); ARTERIAL BLOOD GAS HCO3 30.5 meq/L (22-26); ARTERIAL BLOOD GAS PO2 69.5 mmHg (68-100)
[2016-08-17 07:28] LABS: ALLENS TEST POSITIVE; ART PUNCT SITE RIGHT RADIAL; ARTERIAL BLOOD GAS pH 7.46 (7.35-7.45); LPM/O2% 40%; MECH. VENT. YES; PT. ON O2? YES; TYPE OF O2 VENT; VENT RATE 12; VT/PRESS 400
--- NOTE | 2016-08-17 09:20 | PN ---
Progress Note, Physician Chief Complaint: remains intubated eyes open - Current Medication List Current Medications: Active Medications Acetylcysteine (Mucomyst 20 Oral / Inh Use Only*) 200 mg NEB QIDR [facility] Last Admin: 08/17/16 06:17 Dose: 200 mg Albuterol Sulfate (Ventolin 0.083% Nebulizer Soln -) 1 amp NEB Q4H PRN PRN Reason: SHORT OF BREATH/WHEEZING Last Admin: 08/17/16 06:17 Dose: 1 amp Amiodarone HCl (Cordarone -) 400 mg PO BID [facility] Last Admin: 08/16/16 21:21 Dose: 400 mg Aspirin (Asa -) 81 mg PO DAILY [facility] Last Admin: 08/16/16 09:38 Dose: 81 mg Atorvastatin Calcium (Lipitor -) 20 mg PO HS [facility] Last Admin: 08/16/16 21:22 Dose: 20 mg Bacitracin (Bacitracin -) 1 applic TP DAILY [facility] Last Admin: 08/16/16 09:40 Dose: 1 applic Carbidopa/Levodopa (Sinemet 25/100 -) 1 each PO TID [facility] Last Admin: 08/17/16 05:38 Dose: 1 each Chlorhexidine Gluconate (Hibiclens For Decolonization -) 1 applic TP HS [facility] Last Admin: 08/16/16 22:30 Dose: 1 applic Cholecalciferol (Vitamin D3 -) 1,000 unit PO DAILY [facility] Last Admin: 08/16/16 09:38 Dose: 1,000 unit Gabapentin (Neurontin -) 100 mg PO BID [facility] Last Admin: 08/16/16 21:22 Dose: 100 mg IV Flush (Triple Lumen Flush) 4 ml IVPUSH PRN PRN PRN Reason: Protocol Vancomycin HCl (Vancomycin (Pre-Docked)) 250 mls @ 250 mls/hr IVPB DAILY [facility] Last Admin: 08/16/16 09:38 Dose: 250 mls/hr Dopamine HCl/Dextrose (Dopamine 400 Mg/D5w -) 250 mls @ 7.05 mls/hr IV TITR ANNA MARIE ; 2 MCG/KG/MIN PRN Reason: Protocol Last Admin: 08/15/16 16:31 Dose: Not Given Insulin Aspart (Novolog Vial Sliding Scale -) 1 vial SQ ACHS ANNA MARIE PRN Reason: Protocol Last Admin: 08/17/16 06:22 Dose: 6 units Methylprednisolone Sodium Succinate (Solu-Medrol -) 60 mg IVPB BID [facility] Last Admin: 08/16/16 21:22 Dose: 60 mg Metoprolol Tartrate (Lopressor Injection -) 5 mg IVPUSH Q4H PRN PRN Reason: HYPERTENSION Last Admin: 08/13/16 18:26 Dose: 5 mg Metoprolol Tartrate (Lopressor -) 25 mg PO BID [facility] Last Admin: 08/16/16 21:22 Dose: 25 mg Non-Formulary Medication (Pimavanserin Tartrate [Nuplazid]) 2 tab PO DAILY [facility] Last Admin: 08/16/16 09:39 Dose: 2 tab Pantoprazole Sodium (Protonix 40mg Ivpb (Pre-Docked)) 40 mg IVPB BID [facility] Last Admin: 08/16/16 21:23 Dose: 40 mg Piperacillin Sod/Tazobactam Sod (Zosyn 3.375gm Ivpb (Pre-Docked)) 3.375 gm IVPB Q8H-IV [facility] - Objective Vital Signs: Vital Signs Temperature 98.5 F 08/17/16 06:00 Pulse Rate 97 H 08/17/16 08:00 Respiratory Rate 18 08/17/16 08:00 Blood Pressure 122/50 08/17/16 08:00 O2 Sat by Pulse Oximetry (%) 97 08/16/16 19:34 Eyes: Yes: Other (+ ETT) Cardiovascular: Yes: Regular Rate and Rhythm Respiratory: Yes: Other (= breath sounds bilaterally) Gastrointestinal: Yes: Soft Edema: Yes Labs: CBC, BMP 08/17/16 05:15 08/17/16 05:15 INR, PTT INR 1.12 (0.82-1.09) 08/15/16 05:30 - ....Imaging EKG: Image Reviewed (TELE: NSR) Assessment/Plan Assessment/Plan 85 year old woman with a history of HTN, DM II, HLD, CAD with prior stents, CHF, admitted with sob, hypoxic/hypercapneic resp failure. SOB-hypercapneic/hypoxic respiratory failure, possible PNA vs acute on chronic CHF -continue vent support -diurese PRN CAD-with reported prior stents -cont asa and lipitor -cardiac enzymes wnl PAF- with RVR, currently nsr -received amio gtt and intermittent digoxin -taken off heparin gtt due to anemia -if further afib with rvr can dose digoxin as BP does not tolerate other agents. Advanced directives: DNR/DNI
[2016-08-17] MEDS: AMIODARONE HCL 200 MG TABLET (FP) PO SCH ×2 (09:52→21:38)
[2016-08-17] MEDS: ASPIRIN 81 MG CHEWABLE TABLETS PO SCH ×2 (09:52→10:09)
[2016-08-17] MEDS: GABAPENTIN 100 MG CAPSULE (FP) PO SCH ×2 (09:52→21:38)
[2016-08-17] MEDS: PANTOPRAZOLE SODIUM 40 MG/100 ML PRE-DOCKED IVPB SCH ×2 (09:52→21:38)
[2016-08-17] MEDS: METOPROLOL TARTRATE 25 MG TABLET (FP) PO SCH ×2 (09:52→21:38)
[2016-08-17] MEDS: CHOLECALCIFEROL (VITAMIN D3) 1,000 UNIT TABLET (FP) PO SCH (09:52)
[2016-08-17] MEDS: methylPREDNISolone NA SUCC 125 MG/2 ML VIAL IVPB SCH (09:53)
[2016-08-17] MEDS: PIMAVANSERIN TARTRATE PO SCH (09:55)
[2016-08-17] MEDS: BACITRACIN 30 GM TUBE TOPICAL OINTMENT TP SCH (09:56)
--- NOTE | 2016-08-17 12:28 | PN ---
Physical Exam: SUBJECTIVE: Patient seen and examined in ICU. Patient is awake and alert. She is answering questions by nodding her head. Son is at bedside and they are discussing the plan of care. OBJECTIVE: Vital Signs Period Temp Pulse Resp BP Sys/Galvin Pulse Ox Last 24 Hr 96.6 F-98.6 F 60-111 12-20 90-122/32-50 96-97 GENERAL: The patient is awake, alert, interacting with family by nodding her head. HEAD: Normal with no signs of trauma. LUNGS: Breath sounds equal, clear to auscultation bilaterally, no wheezes, no crackles, no accessory muscle use. HEART: Regular rate and rhythm, S1, S2 without murmur, rub or gallop. ABDOMEN: Soft, nontender, nondistended, normoactive bowel sounds, no guarding, no rebound, no hepatosplenomegaly, no masses. EXTREMITIES: 2+ pulses, warm, well-perfused, no edema. NEUROLOGICAL: Cranial nerves II through XII grossly intact. Normal speech, gait not observed. PSYCH: Normal mood, normal affect. SKIN: Warm, dry, normal turgor, no rashes or lesions noted Laboratory Results - last 24 hr 08/13/16 08/16/16 08/16/16 12:30 17:04 21:02 WBC RBC Hgb Hct MCV MCHC RDW Plt Count MPV Neutrophils % Lymphocytes % Puncture Site ABG pH ABG pCO2 at Pt Temp ABG pO2 at Pt Temp ABG HCO3 ABG O2 Sat (Measured) ABG O2 Content ABG Base Excess Chicho Test O2 Delivery Device Oxygen Flow Rate Vent Mode Vent Rate Mechanical Rate PEEP Pressure Support Vent Sodium Potassium Chloride Carbon Dioxide Anion Gap BUN Creatinine Creat Clearance w eGFR POC Glucometer 263.77368 258.74062 Random Glucose Calcium Total Bilirubin AST ALT Alkaline Phosphatase Total Protein Albumin Blood Type O POSITIVE Antibody Screen Negative Crossmatch See Detail 08/17/16 08/17/16 08/17/16 05:15 05:15 05:20 WBC 29.4 H RBC 2.63 L Hgb 7.3 L Hct 24.2 L MCV 92.0 MCHC 30.1 L RDW 16.5 H Plt Count 206 MPV 11.2 H Neutrophils % 95.0 H Lymphocytes % 5.0 L D Puncture Site ABG pH ABG pCO2 at Pt Temp ABG pO2 at Pt Temp ABG HCO3 ABG O2 Sat (Measured) ABG O2 Content ABG Base Excess Chicho Test O2 Delivery Device Oxygen Flow Rate Vent Mode Vent Rate Mechanical Rate PEEP Pressure Support Vent Sodium 157 H Potassium 4.8 Chloride 113 H Carbon Dioxide 33 H Anion Gap 11 BUN 168 H* Creatinine 2.1 H Creat Clearance w eGFR 22.44 POC Glucometer 295.38166 Random Glucose 253 H D Calcium 7.7 L Total Bilirubin 0.9 D AST 142 H D ALT 81 H D Alkaline Phosphatase 141 H Total Protein 3.8 L Albumin 1.8 L Blood Type Antibody Screen Crossmatch 08/17/16 08/17/16 07:00 11:24 WBC RBC Hgb Hct MCV MCHC RDW Plt Count MPV Neutrophils % Lymphocytes % Puncture Site Right radial ABG pH 7.46 H ABG pCO2 at Pt Temp 43.6 ABG pO2 at Pt Temp 69.5 D ABG HCO3 30.5 H ABG O2 Sat (Measured) 94.6 ABG O2 Content 10.2 L ABG Base Excess 6.5 H Chicho Test Positive O2 Delivery Device Vent Oxygen Flow Rate 40% Vent Mode A/c Vent Rate 12 Mechanical Rate Yes PEEP 5.0 Pressure Support Vent 400 Sodium Potassium Chloride Carbon Dioxide Anion Gap BUN Creatinine Creat Clearance w eGFR POC Glucometer [phone] Random Glucose Calcium Total Bilirubin AST ALT Alkaline Phosphatase Total Protein Albumin Blood Type Antibody Screen Crossmatch Current Medications Generic Name Dose Route Start Last Admin Trade Name Freq PRN Reason Stop Dose Admin Acetylcysteine 200 mg 08/08/16 14:00 08/17/16 11:40 Mucomyst 20 Oral / Inh Use Only* NEB 200 mg QIDR ANNA MARIE Administration Albuterol Sulfate 1 amp 08/13/16 18:25 08/17/16 11:40 Ventolin 0.083% Nebulizer Soln - NEB 1 amp Q4H PRN Administration SHORT OF BREATH/WHEEZING Amiodarone HCl 400 mg 08/12/16 10:00 08/17/16 09:52 Cordarone - PO 400 mg BID ANNA MARIE Administration Aspirin 81 mg 08/06/16 10:00 08/17/16 10:09 Asa - PO 81 mg DAILY ANNA MARIE Administration Atorvastatin Calcium 20 mg 08/05/16 22:00 08/16/16 21:22 Lipitor - PO 20 mg HS ANNA MARIE Administration Bacitracin 1 applic 08/06/16 19:15 08/17/16 09:56 Bacitracin - TP 1 applic DAILY ANNA MARIE Administration Carbidopa/Levodopa 1 each 08/05/16 22:00 08/17/16 13:23 Sinemet 25/100 - PO 1 each TID ANNA MARIE Administration Chlorhexidine Gluconate 1 applic 08/05/16 22:00 08/16/16 22:30 Hibiclens For Decolonization - TP 1 applic HS ANNA MARIE Administration Cholecalciferol 1,000 unit 08/06/16 10:00 08/17/16 09:52 Vitamin D3 - PO 1,000 unit DAILY ANNA MARIE Administration Gabapentin 100 mg 08/05/16 22:00 08/17/16 09:52 Neurontin - PO 100 mg BID ANNA MARIE Administration IV Flush 4 ml 08/11/16 22:21 Triple Lumen Flush IVPUSH PRN PRN Protocol Vancomycin HCl 250 mls @ 250 mls/hr 08/11/16 18:30 08/16/16 09:38 Vancomycin (Pre-Docked) IVPB 250 mls/hr DAILY ANNA MARIE Administration Dopamine HCl/Dextrose 250 mls @ 7.05 mls/hr 08/15/16 16:30 08/15/16 16:31 Dopamine 400 Mg/D5w - IV Not Given TITR ANNA MARIE Protocol 2 MCG/KG/MIN Propofol 100 mls @ 2.845 mls/hr 08/17/16 14:45 08/17/16 14:45 Diprivan - IVPB 2.845 mls/hr TITR ANNA MARIE Administration Protocol 5 MCG/KG/MIN Insulin Aspart 1 vial 08/05/16 22:00 08/17/16 11:24 Novolog Vial Sliding Scale - SQ 4 units ACHS ANNA MARIE Administration Protocol Methylprednisolone Sodium Succinate 40 mg 08/17/16 22:00 Solu-Medrol - IVPB BID ANNA MARIE Metoprolol Tartrate 5 mg 08/09/16 10:21 08/13/16 18:26 Lopressor Injection - IVPUSH 5 mg Q4H PRN Administration HYPERTENSION Metoprolol Tartrate 25 mg 08/13/16 11:00 08/17/16 09:52 Lopressor - PO 25 mg BID ANNA MARIE Administration Non-Formulary Medication 2 tab 08/06/16 10:00 08/17/16 09:55 Pimavanserin Tartrate [Nuplazid] PO 2 tab DAILY ANNA MARIE Administration Pantoprazole Sodium 40 mg 08/16/16 22:00 08/17/16 09:52 Protonix 40mg Ivpb (Pre-Docked) IVPB 40 mg BID ANNA MARIE Administration Piperacillin Sod/Tazobactam Sod 3.375 gm 08/16/16 18:00 Zosyn 3.375gm Ivpb (Pre-Docked) IVPB Q8H-IV ANNA MARIE ASSESSMENT/PLAN: 85 year old female with a past medical history of HTN, CHF, CAD s/p 2 stents, DM , admitted for MRSA pneumonia. Hypercapnic, hypoxic respiratory failure secondary to MRSA pneumonia --intubated, off sedation; awake, alert; tolerating CPAP/PS 03/11 --tapering Medrol Bilateral lower extremity cellulitis, resolved Paroxysmal Afib with RVR --in sinus rhythm, rate control with amiodarone, metoprolol, digoxin --had bleeding with heparin drip, hold a/c Anemia --transfused 2 units on 08/13 --Hgb dropped again today 9.1--7.7 --no transfusion for now --continue to hold a/c Pulmonary hypertension Severe valvular pathology Pulmonary congestion --Lasix PRN Acute kidney injury --making good urine ~160cc's per hour over past 24 hours --Cr 2.1, was 1.3 on admission Hypernatremia --increase free water to 80cc via pump flushes NIDDM --Novolog sliding scale coverage Hypertension --off pressors Parkinson's Disease with hallucinations --continue Nuplazid F/E/N Fluids/Nutrition: tube feeds with free water flushes Electrolytes: replete as indicated Nutrition: tube feeds DVT prophylaxis: hold chemical prophylaxis due to drop in Hgb/bleeding Dispo: Poor prognosis. Palliative consult requested. Patient does not want a trach under any circumstances. Plan is to extubate when family arrives. Continues to require ICU care. Full Code. Visit type - Emergency Visit Emergency Visit: Yes ED Registration Date: 08/05/16 Care time: The patient presented to the Emergency Department on the above date and was hospitalized for further evaluation of their emergent condition. - New Patient This patient is new to me today: No - Critical Care Critical Care patient: Yes Total Critical Care Time (in minutes): 35 Critical Care Statement: The care of this patient involved high complexity decision making to prevent further life threatening deterioration of the patient 's condition and/or to evalute & treat vital organ system(s) failure or risk of failure.
--- NOTE | 2016-08-17 12:33 | PN ---
Teaching Attending Note Name of Resident: José Riggs ATTENDING PHYSICIAN STATEMENT I saw and evaluated the patient. I reviewed the resident's note and discussed the case with the resident. I agree with the resident's findings and plan as documented. SUBJECTIVE: Pt seen and examined in the ICU. Remains intubated, awake, following commands. Alert, able to communicate. Tolerating CPAP/PS 8/5 OBJECTIVE: Last Vital Signs Temp Pulse Resp BP Pulse Ox 96.6 F L 111 H 20 122/50 96 08/17/16 08:00 08/17/16 09:35 08/17/16 09:35 08/17/16 08:00 08/17/16 09:35 Intake & Output 08/14/16 08/15/16 08/16/16 08/17/16 23:59 23:59 23:59 23:59 Intake Total 2961 2640 780 780 Output Total 5200 1150 4000 300 Balance -2239 1490 -3220 480 Weight 208 lb 15.971 oz 207 lb 3.752 oz 212 lb 3 oz 209 lb 1 oz Gen: intubated, awake Heart: tachycardic, regular Lung: scattered rhonchi Abd: soft, nontender Ext: + edema CBC, BMP 08/17/16 05:15 08/17/16 05:15 Active Medications Acetylcysteine (Mucomyst 20 Oral / Inh Use Only*) 200 mg NEB QIDR [facility] Last Admin: 08/17/16 11:40 Dose: 200 mg Albuterol Sulfate (Ventolin 0.083% Nebulizer Soln -) 1 amp NEB Q4H PRN PRN Reason: SHORT OF BREATH/WHEEZING Last Admin: 08/17/16 11:40 Dose: 1 amp Amiodarone HCl (Cordarone -) 400 mg PO BID [facility] Last Admin: 08/17/16 09:52 Dose: 400 mg Aspirin (Asa -) 81 mg PO DAILY [facility] Last Admin: 08/17/16 10:09 Dose: 81 mg Atorvastatin Calcium (Lipitor -) 20 mg PO HS [facility] Last Admin: 08/16/16 21:22 Dose: 20 mg Bacitracin (Bacitracin -) 1 applic TP DAILY [facility] Last Admin: 08/17/16 09:56 Dose: 1 applic Carbidopa/Levodopa (Sinemet 25/100 -) 1 each PO TID [facility] Last Admin: 08/17/16 05:38 Dose: 1 each Chlorhexidine Gluconate (Hibiclens For Decolonization -) 1 applic TP HS [facility] Last Admin: 08/16/16 22:30 Dose: 1 applic Cholecalciferol (Vitamin D3 -) 1,000 unit PO DAILY [facility] Last Admin: 08/17/16 09:52 Dose: 1,000 unit Gabapentin (Neurontin -) 100 mg PO BID [facility] Last Admin: 08/17/16 09:52 Dose: 100 mg IV Flush (Triple Lumen Flush) 4 ml IVPUSH PRN PRN PRN Reason: Protocol Vancomycin HCl (Vancomycin (Pre-Docked)) 250 mls @ 250 mls/hr IVPB DAILY [facility] Last Admin: 08/16/16 09:38 Dose: 250 mls/hr Dopamine HCl/Dextrose (Dopamine 400 Mg/D5w -) 250 mls @ 7.05 mls/hr IV TITR ANNA MARIE ; 2 MCG/KG/MIN PRN Reason: Protocol Last Admin: 08/15/16 16:31 Dose: Not Given Insulin Aspart (Novolog Vial Sliding Scale -) 1 vial SQ ACHS ANNA MARIE PRN Reason: Protocol Last Admin: 08/17/16 11:24 Dose: 4 units Methylprednisolone Sodium Succinate (Solu-Medrol -) 60 mg IVPB BID [facility] Last Admin: 08/17/16 09:53 Dose: 60 mg Metoprolol Tartrate (Lopressor Injection -) 5 mg IVPUSH Q4H PRN PRN Reason: HYPERTENSION Last Admin: 08/13/16 18:26 Dose: 5 mg Metoprolol Tartrate (Lopressor -) 25 mg PO BID [facility] Last Admin: 08/17/16 09:52 Dose: 25 mg Non-Formulary Medication (Pimavanserin Tartrate [Nuplazid]) 2 tab PO DAILY [facility] Last Admin: 08/17/16 09:55 Dose: 2 tab Pantoprazole Sodium (Protonix 40mg Ivpb (Pre-Docked)) 40 mg IVPB BID [facility] Last Admin: 08/17/16 09:52 Dose: 40 mg Piperacillin Sod/Tazobactam Sod (Zosyn 3.375gm Ivpb (Pre-Docked)) 3.375 gm IVPB Q8H-IV ANNA MARIE ASSESSMENT AND PLAN: Acute Hypercapneic and Hypoxic Respiratory Failure Pneumonia Atelectasis Paroxysmal Atrial Fibrillation with RVR Acute on Chronic LV Diastolic Heart Failure Pulmonary HTN CAD HTN DM Parkinsons Disease - continue antibiotics - taper medrol to 40mg q12h - inhaled bronchodilators, mucolytics - O2 to keep SpO2 >90% - lasix today - rate control with amiodarone, metoprolol, digoxin - spontaneous breathing trials as tolerated - enteral feeds - DVT/GI prophylaxis - continue ICU monitoring - discussed with sons via phone and bedside, pt able to clearly communicate that she would not want another tracheostomy and that if she does not tolerate extubation, she would like to have comfort measures - she is currently tolerating CPAP/PS 03/11, meeting weaning parameters, does have an air leak on cuff deflation - pt would like to see her son Lc who lives in [place] prior to extubation, he will drive up in AM and hopefully be here by 11AM - plan for extubation tomorrow but with comfort measures if unable to tolerate
[2016-08-17] MEDS ORDERED: FUROSEMIDE 40 MG/4 ML INJECTABLE VIAL IVPUSH ONE (12:50)
[2016-08-17 13:02] LABS: ALLENS TEST POSITIVE; ART PUNCT SITE RIGHT RADIAL; LPM/O2% 60; MECH. VENT. BIPAP; PT. ON O2? YES; VENT RATE 20; VT/PRESS 16/8
[2016-08-17] MEDS: PROPOFOL 100 ML IVPB SCH (14:45)
--- NOTE | 2016-08-17 16:29 | PN ---
Physical Exam: SUBJECTIVE: Patient seen and examined at bedside. Remains intubated and sedated. No overnight events. OBJECTIVE: Vital Signs Period Temp Pulse Resp BP Sys/Galvin Pulse Ox Last 24 Hr 97.2 F-99 F 61-111 14-20 94-122/32-50 96-97 GENERAL: Intubated and sedated. HEAD: Normal with no signs of trauma. EYES: Pupils equal, round and reactive to light, sclera anicteric, conjunctiva clear. No lid lag. EARS, NOSE, THROAT: Ears normal, nares patent, Moist mucous membranes. NECK:Supple, no JVD LUNGS: Bibasilar rhonchi. Decreased breath sounds bibasilar L>R.No wheezes, and no crackles. No accessory muscle use. HEART:NSR, normal S1 and S2 without murmur, rub or gallop. ABDOMEN: Soft, obese, nontender, not distended, normoactive bowel sounds, no guarding, no rebound, no masses. MUSCULOSKELETAL: Reduced ROM of RLE. No bony deformities or tenderness. No CVA tenderness. UPPER EXTREMITIES: 2+ pulses, warm, well-perfused. No cyanosis. No clubbing. Cap refill <2 seconds. No peripheral edema. LOWER EXTREMITIES: 2+ pulses, warm, well-perfused. No calf tenderness. 2+ Edema bilat. NEUROLOGICAL: sedated. PSYCHIATRIC: can not be assessed SKIN: Bilateral stasis dermatitis of LE Laboratory Results - last 24 hr 08/06/16 08/13/16 08/16/16 11:35 12:30 17:04 WBC RBC Hgb Hct MCV MCHC RDW Plt Count MPV Neutrophils % Lymphocytes % Puncture Site Right radial ABG pH ABG pCO2 at Pt Temp ABG pO2 at Pt Temp ABG HCO3 ABG O2 Sat (Measured) ABG O2 Content ABG Base Excess Chicho Test Positive O2 Delivery Device Oxygen Flow Rate [address] Vent Rate 20 Mechanical Rate Bipap PEEP 0.0 Pressure Support Vent 16/8 Sodium Potassium Chloride Carbon Dioxide Anion Gap BUN Creatinine Creat Clearance w eGFR POC Glucometer [phone] Random Glucose Calcium Total Bilirubin AST ALT Alkaline Phosphatase Total Protein Albumin Blood Type O POSITIVE Antibody Screen Negative Crossmatch See Detail 08/16/16 08/17/16 08/17/16 21:02 05:15 05:15 WBC 29.4 H RBC 2.63 L Hgb 7.3 L Hct 24.2 L MCV 92.0 MCHC 30.1 L RDW 16.5 H Plt Count 206 MPV 11.2 H Neutrophils % 95.0 H Lymphocytes % 5.0 L D Puncture Site ABG pH ABG pCO2 at Pt Temp ABG pO2 at Pt Temp ABG HCO3 ABG O2 Sat (Measured) ABG O2 Content ABG Base Excess Chicho Test O2 Delivery Device Oxygen Flow Rate Vent Mode Vent Rate Mechanical Rate PEEP Pressure Support Vent Sodium 157 H Potassium 4.8 Chloride 113 H Carbon Dioxide 33 H Anion Gap 11 BUN 168 H* Creatinine 2.1 H Creat Clearance w eGFR 22.44 POC Glucometer 258.85125 Random Glucose 253 H D Calcium 7.7 L Total Bilirubin 0.9 D AST 142 H D ALT 81 H D Alkaline Phosphatase 141 H Total Protein 3.8 L Albumin 1.8 L Blood Type Antibody Screen Crossmatch 08/17/16 08/17/16 08/17/16 05:20 07:00 11:24 WBC RBC Hgb Hct MCV MCHC RDW Plt Count MPV Neutrophils % Lymphocytes % Puncture Site Right radial ABG pH 7.46 H ABG pCO2 at Pt Temp 43.6 ABG pO2 at Pt Temp 69.5 D ABG HCO3 30.5 H ABG O2 Sat (Measured) 94.6 ABG O2 Content 10.2 L ABG Base Excess 6.5 H Chicho Test Positive O2 Delivery Device Vent Oxygen Flow Rate 40% Vent Mode A/c Vent Rate 12 Mechanical Rate Yes PEEP 5.0 Pressure Support Vent 400 Sodium Potassium Chloride Carbon Dioxide Anion Gap BUN Creatinine Creat Clearance w eGFR POC Glucometer 295.09196 238.93085 Random Glucose Calcium Total Bilirubin AST ALT Alkaline Phosphatase Total Protein Albumin Blood Type Antibody Screen Crossmatch Active Medications Generic Name Dose Route Start Last Admin Trade Name Freq PRN Reason Stop Dose Admin Acetylcysteine 200 mg 08/08/16 14:00 08/17/16 11:40 Mucomyst 20 Oral / Inh Use Only* NEB 200 mg QIDR ANNA MARIE Administration Albuterol Sulfate 1 amp 08/13/16 18:25 08/17/16 11:40 Ventolin 0.083% Nebulizer Soln - NEB 1 amp Q4H PRN Administration SHORT OF BREATH/WHEEZING Amiodarone HCl 400 mg 08/12/16 10:00 08/17/16 09:52 Cordarone - PO 400 mg BID ANNA MARIE Administration Aspirin 81 mg 08/06/16 10:00 08/17/16 10:09 Asa - PO 81 mg DAILY ANNA MARIE Administration Atorvastatin Calcium 20 mg 08/05/16 22:00 08/16/16 21:22 Lipitor - PO 20 mg HS ANNA MARIE Administration Bacitracin 1 applic 08/06/16 19:15 08/17/16 09:56 Bacitracin - TP 1 applic DAILY ANNA MARIE Administration Carbidopa/Levodopa 1 each 08/05/16 22:00 08/17/16 13:23 Sinemet 25/100 - PO 1 each TID ANNA MARIE Administration Chlorhexidine Gluconate 1 applic 08/05/16 22:00 08/16/16 22:30 Hibiclens For Decolonization - TP 1 applic HS ANNA MARIE Administration Cholecalciferol 1,000 unit 08/06/16 10:00 08/17/16 09:52 Vitamin D3 - PO 1,000 unit DAILY ANNA MARIE Administration Gabapentin 100 mg 08/05/16 22:00 08/17/16 09:52 Neurontin - PO 100 mg BID ANNA MARIE Administration IV Flush 4 ml 08/11/16 22:21 Triple Lumen Flush IVPUSH PRN PRN Protocol Vancomycin HCl 250 mls @ 250 mls/hr 08/11/16 18:30 08/16/16 09:38 Vancomycin (Pre-Docked) IVPB 250 mls/hr DAILY ANNA MARIE Administration Dopamine HCl/Dextrose 250 mls @ 7.05 mls/hr 08/15/16 16:30 08/15/16 16:31 Dopamine 400 Mg/D5w - IV Not Given TITR ANNA MARIE Protocol 2 MCG/KG/MIN Propofol 100 mls @ 2.845 mls/hr 08/17/16 14:45 08/17/16 14:45 Diprivan - IVPB 2.845 mls/hr TITR ANNA MARIE Administration Protocol 5 MCG/KG/MIN Insulin Aspart 1 vial 08/05/16 22:00 08/17/16 16:03 Novolog Vial Sliding Scale - SQ 8 units ACHS ANNA MARIE Administration Protocol Methylprednisolone Sodium Succinate 40 mg 08/17/16 22:00 Solu-Medrol - IVPB BID ANNA MARIE Metoprolol Tartrate 5 mg 08/09/16 10:21 08/13/16 18:26 Lopressor Injection - IVPUSH 5 mg Q4H PRN Administration HYPERTENSION Metoprolol Tartrate 25 mg 08/13/16 11:00 08/17/16 09:52 Lopressor - PO 25 mg BID ANNA MARIE Administration Non-Formulary Medication 2 tab 08/06/16 10:00 08/17/16 09:55 Pimavanserin Tartrate [Nuplazid] PO 2 tab DAILY ANNA MARIE Administration Pantoprazole Sodium 40 mg 08/16/16 22:00 08/17/16 09:52 Protonix 40mg Ivpb (Pre-Docked) IVPB 40 mg BID ANNA MARIE Administration Piperacillin Sod/Tazobactam Sod 3.375 gm 08/16/16 18:00 Zosyn 3.375gm Ivpb (Pre-Docked) IVPB Q8H-IV ANNA MARIE ASSESSMENT/PLAN: 85 yo F with pmhx of CHF and CAD admitted for sepsis 2/2 PNA requiring mechanical ventilation. Now discussion is to have patient trached discussed with patient's son's. Son Dr. Bonilla coming in from [facility] Will extubate tomorrow in AM. Problem List - Problems (1) Afib Assessment/Plan: * Amiodarone PO and Digoxin PRN--> currently NSR * heparin gtt stopped due to anemia. * If further Afib can dose Digoxin as BP does not tolerated BB of CCB. (2) Sepsis Assessment/Plan: * Blood and urine cultures show no growth * Sputum cultures showed MRSA * UA negative for UTI. * Vanco held (trough 29) restart on 08/19/16 as per ID. (3) Pneumonia Assessment/Plan: * Mechanically ventilated. AC with FiO2@40%, rate of 14 * Continue Zosyn * Acetylcysteine 200 mg NEB QIDR ANNA MARIE * Albuterol Sulfate 1 amp NEB QIDR ANNA MARIE * Albuterol/Ipratropium (Duoneb -) 1 amp NEB Q4H PRN * Solumedrol 60mg iv BID (4) CHF (congestive heart failure) Assessment/Plan: * Lasix 60mg IV one time * off pressors. * daily weights * repeat CXR in AM (5) HTN (hypertension) Assessment/Plan: * BP meds held for low pressures. (6) CAD (coronary artery disease) Assessment/Plan: * s/p stents x2 * ASA 81 mg PO daily * Lipitor 20mg PO HS (7) Diabetes mellitus type 2 in obese Assessment/Plan: * ISS with Novolog ACHS * BGM ACHS * Glucerna tube feeds with goal of 50ml/hr (8) Bilateral leg ulcer Assessment/Plan: * daily dressing change and wound care. (9) Parkinson's disease dementia Assessment/Plan: * Carbidopa/Levodopa (Sinemet 25/100 -) 1 each PO TID * Pimavanserin Tartrate [Nuplazid] 2 tab PO DAILY (home med non formulary.) (10) DVT prophylaxis Assessment/Plan: * Lovenox 40mg SQ daily * GI- Protonix 40mg IV daily Visit type - Emergency Visit Emergency Visit: Yes ED Registration Date: 08/05/16 Care time: The patient presented to the Emergency Department on the above date and was hospitalized for further evaluation of their emergent condition. - New Patient This patient is new to me today: No - Critical Care Critical Care patient: Yes Total Critical Care Time (in minutes): 33 Critical Care Statement: The care of this patient involved high complexity decision making to prevent further life threatening deterioration of the patient 's condition and/or to evalute & treat vital organ system(s) failure or risk of failure.
--- NOTE | 2016-08-17 17:50 | PN ---
Progress Note, Physician History of Present Illness: continues to be sedated and intubated patient awake - Current Medication List Current Medications: Active Medications Acetylcysteine (Mucomyst 20 Oral / Inh Use Only*) 200 mg NEB QIDR [facility] Last Admin: 08/17/16 11:40 Dose: 200 mg Albuterol Sulfate (Ventolin 0.083% Nebulizer Soln -) 1 amp NEB Q4H PRN PRN Reason: SHORT OF BREATH/WHEEZING Last Admin: 08/17/16 11:40 Dose: 1 amp Amiodarone HCl (Cordarone -) 400 mg PO BID [facility] Last Admin: 08/17/16 09:52 Dose: 400 mg Aspirin (Asa -) 81 mg PO DAILY [facility] Last Admin: 08/17/16 10:09 Dose: 81 mg Atorvastatin Calcium (Lipitor -) 20 mg PO HS [facility] Last Admin: 08/16/16 21:22 Dose: 20 mg Bacitracin (Bacitracin -) 1 applic TP DAILY [facility] Last Admin: 08/17/16 09:56 Dose: 1 applic Carbidopa/Levodopa (Sinemet 25/100 -) 1 each PO TID [facility] Last Admin: 08/17/16 13:23 Dose: 1 each Chlorhexidine Gluconate (Hibiclens For Decolonization -) 1 applic TP HS [facility] Last Admin: 08/16/16 22:30 Dose: 1 applic Cholecalciferol (Vitamin D3 -) 1,000 unit PO DAILY [facility] Last Admin: 08/17/16 09:52 Dose: 1,000 unit Gabapentin (Neurontin -) 100 mg PO BID [facility] Last Admin: 08/17/16 09:52 Dose: 100 mg IV Flush (Triple Lumen Flush) 4 ml IVPUSH PRN PRN PRN Reason: Protocol Vancomycin HCl (Vancomycin (Pre-Docked)) 250 mls @ 250 mls/hr IVPB DAILY [facility] Last Admin: 08/16/16 09:38 Dose: 250 mls/hr Dopamine HCl/Dextrose (Dopamine 400 Mg/D5w -) 250 mls @ 7.05 mls/hr IV TITR [facility] ; 2 MCG/KG/MIN PRN Reason: Protocol Last Admin: 08/15/16 16:31 Dose: Not Given Propofol (Diprivan -) 100 mls @ 2.845 mls/hr IVPB TITR ANNA MARIE; 5 MCG/KG/MIN PRN Reason: Protocol Last Admin: 08/17/16 14:45 Dose: 2.845 mls/hr Insulin Aspart (Novolog Vial Sliding Scale -) 1 vial SQ ACHS [facility]IE PRN Reason: Protocol Last Admin: 08/17/16 16:03 Dose: 8 units Methylprednisolone Sodium Succinate (Solu-Medrol -) 40 mg IVPB BID [facility] Metoprolol Tartrate (Lopressor Injection -) 5 mg IVPUSH Q4H PRN PRN Reason: HYPERTENSION Last Admin: 08/13/16 18:26 Dose: 5 mg Metoprolol Tartrate (Lopressor -) 25 mg PO BID [facility] Last Admin: 08/17/16 09:52 Dose: 25 mg Non-Formulary Medication (Pimavanserin Tartrate [Nuplazid]) 2 tab PO DAILY [facility] Last Admin: 08/17/16 09:55 Dose: 2 tab Pantoprazole Sodium (Protonix 40mg Ivpb (Pre-Docked)) 40 mg IVPB BID [facility] Last Admin: 08/17/16 09:52 Dose: 40 mg Piperacillin Sod/Tazobactam Sod (Zosyn 3.375gm Ivpb (Pre-Docked)) 3.375 gm IVPB Q8H-IV [facility] - Objective Vital Signs: Vital Signs Temperature 100 F H 08/17/16 17:00 Pulse Rate 91 H 08/17/16 17:00 Respiratory Rate 20 08/17/16 17:00 Blood Pressure 107/38 08/17/16 17:00 O2 Sat by Pulse Oximetry (%) 96 08/17/16 10:00 Constitutional: Yes: No Distress, Calm Cardiovascular: Yes: Regular Rate and Rhythm Respiratory: Yes: Intubated, Mechanically Ventilated Gastrointestinal: Yes: Normal Bowel Sounds, Soft Musculoskeletal: Yes: WNL Extremities: Yes: Erythema (decreased) Neurological: Yes: Alert Labs: CBC, BMP 08/17/16 05:15 08/17/16 05:15 INR, PTT INR 1.12 (0.82-1.09) 08/15/16 05:30 - ....Imaging Chest X-ray: Report Reviewed, Image Reviewed Assessment/Plan Problem List - Problems (1) CAD (coronary artery disease) Code(s): I25.10 - ATHSCL HEART DISEASE OF [place] CORONARY ARTERY W/O ANG PCTRS (2) CHF (congestive heart failure) Code(s): I50.9 - HEART FAILURE, UNSPECIFIED Qualifiers: Congestive heart failure type: unspecified congestive heart failure type Congestive heart failure chronicity: unspecified congestive heart failure chronicity Qualified Code(s): I50.9 - Heart failure, unspecified (3) Diabetes mellitus type 2 in obese Code(s): E11.9 - TYPE 2 DIABETES MELLITUS WITHOUT COMPLICATIONS E66.9 - OBESITY, UNSPECIFIED (4) HTN (hypertension) Code(s): I10 - ESSENTIAL (PRIMARY) HYPERTENSION Qualifiers: Hypertension type: essential hypertension Qualified Code(s): I10 - Essential (primary) hypertension (5) Hypotension Code(s): I95.9 - HYPOTENSION, UNSPECIFIED Qualifiers: Hypotension type: idiopathic hypotension Qualified Code(s): I95.0 - Idiopathic hypotension (6) Hypothermia Code(s): T68.XXXA - HYPOTHERMIA, INITIAL ENCOUNTER Qualifiers: Encounter type: initial encounter Qualified Code(s): T68.XXXA - Hypothermia, initial encounter (7) Parkinson's disease dementia Code(s): G20 - PARKINSON'S DISEASE F02.80 - DEMENTIA IN OTH DISEASES CLASSD ELSWHR W/O BEHAVRL DISTURB (8) SIRS (systemic inflammatory response syndrome) Code(s): R65.10 - SIRS OF NON-INFECTIOUS ORIGIN W/O ACUTE ORGAN DYSFUNCTION collapse of the left lung bilateral cellulitis of the leg mrsa pneumonia patient had a low grade fever if patient spikes again will restart zosyn plan legs better vanco levels to be done with the levels we will decide dose of vanco rest ct current care chest pt watch for fever cc time 40 min
--- NOTE | 2016-08-17 20:10 | PN ---
Progress Note (short form) - Note Progress Note: Renal follow up for hyperkalemia and CKD Pt seen and examined in the ICU remains intuabted, off sedation UO > 3.3 yesterday O2 requirement is stable Vital Signs Temperature 100 F H 08/17/16 17:00 Pulse Rate 91 H 08/17/16 17:00 Respiratory Rate 19 08/17/16 18:35 Blood Pressure 107/38 08/17/16 17:00 O2 Sat by Pulse Oximetry (%) 96 08/17/16 10:00 Gen: intubated and sedated CVS: RRR, No M/R Lungs: No BS left lung, dec BS right lung Abd: soft NT/ND Ext: B/L LE in dressing, CBC, BMP 08/17/16 05:15 08/17/16 05:15 Current Medications Acetylcysteine (Mucomyst 20 Oral / Inh Use Only*) 200 mg NEB QIDR [facility] Last Admin: 08/17/16 18:45 Dose: 200 mg Albuterol Sulfate (Ventolin 0.083% Nebulizer Soln -) 1 amp NEB Q4H PRN PRN Reason: SHORT OF BREATH/WHEEZING Last Admin: 08/17/16 11:40 Dose: 1 amp Amiodarone HCl (Cordarone -) 400 mg PO BID [facility] Last Admin: 08/17/16 09:52 Dose: 400 mg Aspirin (Asa -) 81 mg PO DAILY [facility] Last Admin: 08/17/16 10:09 Dose: 81 mg Atorvastatin Calcium (Lipitor -) 20 mg PO [facility] Last Admin: 08/16/16 21:22 Dose: 20 mg Bacitracin (Bacitracin -) 1 applic TP DAILY [facility] Last Admin: 08/17/16 09:56 Dose: 1 applic Carbidopa/Levodopa (Sinemet 25/100 -) 1 each PO TID [facility] Last Admin: 08/17/16 13:23 Dose: 1 each Chlorhexidine Gluconate (Hibiclens For Decolonization -) 1 applic TP HS [facility] Last Admin: 08/16/16 22:30 Dose: 1 applic Cholecalciferol (Vitamin D3 -) 1,000 unit PO DAILY [facility] Last Admin: 08/17/16 09:52 Dose: 1,000 unit Gabapentin (Neurontin -) 100 mg PO BID [facility] Last Admin: 08/17/16 09:52 Dose: 100 mg IV Flush (Triple Lumen Flush) 4 ml IVPUSH PRN PRN PRN Reason: Protocol Vancomycin HCl (Vancomycin (Pre-Docked)) 250 mls @ 250 mls/hr IVPB DAILY [facility] Last Admin: 08/16/16 09:38 Dose: 250 mls/hr Dopamine HCl/Dextrose (Dopamine 400 Mg/D5w -) 250 mls @ 7.05 mls/hr IV TITR ANNA MARIE ; 2 MCG/KG/MIN PRN Reason: Protocol Last Admin: 08/15/16 16:31 Dose: Not Given Propofol (Diprivan -) 100 mls @ 2.845 mls/hr IVPB TITR ANNA MARIE; 5 MCG/KG/MIN PRN Reason: Protocol Last Admin: 08/17/16 14:45 Dose: 2.845 mls/hr Insulin Aspart (Novolog Vial Sliding Scale -) 1 vial SQ ACHS ANNA MARIE PRN Reason: Protocol Last Admin: 08/17/16 16:03 Dose: 8 units Methylprednisolone Sodium Succinate (Solu-Medrol -) 40 mg IVPB BID [facility] Metoprolol Tartrate (Lopressor Injection -) 5 mg IVPUSH Q4H PRN PRN Reason: HYPERTENSION Last Admin: 08/13/16 18:26 Dose: 5 mg Metoprolol Tartrate (Lopressor -) 25 mg PO BID [facility] Last Admin: 08/17/16 09:52 Dose: 25 mg Non-Formulary Medication (Pimavanserin Tartrate [Nuplazid]) 2 tab PO DAILY [facility] Last Admin: 08/17/16 09:55 Dose: 2 tab Pantoprazole Sodium (Protonix 40mg Ivpb (Pre-Docked)) 40 mg IVPB BID [facility] Last Admin: 08/17/16 09:52 Dose: 40 mg Piperacillin Sod/Tazobactam Sod (Zosyn 3.375gm Ivpb (Pre-Docked)) 3.375 gm IVPB Q8H-IV ANNA [facility] A/P 85 year old woman with PMhx of CKD, CHF, CAD, DM, Hypertension who presented with sob and found to have SIRS and possible PNA and opacification of left lung with hyperkalemia of 6.6 and Cr of 1.5. #Acute Kidney Injury with Hx of CKD/hypernatremia Cr with mild improvement off diuretics BUN very elevated but disproportionate elevation due to steroids and GIB no indication for MOLDER FEEDER Lasix as needed would increase free water to 80cc per hour with tube feeds #SIRS/PNA/Mucus Plug/CHF CXR shows better airation Vent support ICU monitoring DNR Thank you Edison Carter DO
[2016-08-17] MEDS: PIPERACILLIN/TAZOB 2.25 GM/50 ML PRE-DOCKED BAG IVPB SCH (21:06)
[2016-08-17] MEDS ORDERED: PT OWN MED DRAWER 7, Y5N ONE (21:36)
[2016-08-17] MEDS: methylPREDNISolone NA SUCC 40 MG/1 ML VIAL IVPB SCH (21:37)
[2016-08-17] MEDS: CHLORHEXIDINE GLUCONATE 4% CLEANSER FOR DECOLONIZATION TP SCH (21:38)
[2016-08-17] MEDS: ATORVASTATIN CA 20 MG TABLET (FP) PO SCH (21:38)
[2016-08-18] MEDS: PIPERACILLIN/TAZOB 2.25 GM/50 ML PRE-DOCKED BAG IVPB SCH ×3 (03:30→18:35)
[2016-08-18 06:24] LABS: MCH 27.3 pg (25.7-33.7); MCHC 29.2 g/dl (32.0-36.0); MEAN CELL VOLUME 93.4 fl (80-96); MEAN PLT VOLUME 11.1 fl (7.5-11.1); PLATELET COUNT 204 K/MM3 (134-434); RDW 16.7 % (11.6-15.6)
[2016-08-18] MEDS: CARBIDOPA/LEVODOPA 25/100 TABLET (FP) PO SCH ×3 (06:43→22:25)
[2016-08-18] MEDS: INSULIN SLIDING SCALE (NOVOLOG) 1 VIAL SQ SCH ×4 (06:45→22:25)
[2016-08-18] MEDS: ACETYLCYSTEINE 20% 200MG/ML 4 ML VIAL *FOR ORAL / INH USE ONLY NEB SCH ×4 (06:54→23:04)
[2016-08-18] MEDS: ALBUTEROL SO4 0.083% IH SOL 2.5 MG/3 ML VIAL.NEB. NEB PRN ×4 (06:54→23:05)
[2016-08-18 07:02] LABS: WHITE BLOOD COUNT 34.3 K/mm3 (4.0-10.0)
[2016-08-18 08:27] LABS: CALCIUM 7.5 mg/dL (8.5-10.1); CREATININE 2.3 mg/dL (0.55-1.02); MAGNESIUM 3.2 mg/dL (1.8-2.4)
[2016-08-18] MEDS: ASPIRIN 81 MG CHEWABLE TABLETS PO SCH (09:54)
[2016-08-18] MEDS: BACITRACIN 30 GM TUBE TOPICAL OINTMENT TP SCH (09:55)
[2016-08-18] MEDS: AMIODARONE HCL 200 MG TABLET (FP) PO SCH ×2 (09:55→22:24)
[2016-08-18] MEDS: GABAPENTIN 100 MG CAPSULE (FP) PO SCH ×2 (09:56→22:25)
[2016-08-18] MEDS: METOPROLOL TARTRATE 25 MG TABLET (FP) PO SCH ×2 (09:56→22:25)
[2016-08-18] MEDS: PANTOPRAZOLE SODIUM 40 MG/100 ML PRE-DOCKED IVPB SCH ×2 (09:57→22:10)
[2016-08-18] MEDS: PIMAVANSERIN TARTRATE PO SCH (09:57)
[2016-08-18] MEDS: methylPREDNISolone NA SUCC 40 MG/1 ML VIAL IVPB SCH ×2 (09:58→22:09)
[2016-08-18] MEDS: VANCOMYCIN 1 GRAM (PRE-DOCKED) 250 ML IVPB SCH (09:58)
[2016-08-18] MEDS: CHOLECALCIFEROL (VITAMIN D3) 1,000 UNIT TABLET (FP) PO SCH (09:59)
[2016-08-18] MEDS ORDERED: LORAZEPAM CARPU-JECT 2 MG/ML DISP.SYRIN IM PRN (14:06)
--- NOTE | 2016-08-18 14:08 | PN ---
Progress Note, Physician History of Present Illness: patient extubated spiking low grade fevers stable post extubation - Current Medication List Current Medications: Active Medications Acetylcysteine (Mucomyst 20 Oral / Inh Use Only*) 200 mg NEB QIDR [facility] Last Admin: 08/18/16 12:15 Dose: 200 mg Albuterol Sulfate (Ventolin 0.083% Nebulizer Soln -) 1 amp NEB Q4H PRN PRN Reason: SHORT OF BREATH/WHEEZING Last Admin: 08/18/16 12:15 Dose: 1 amp Amiodarone HCl (Cordarone -) 400 mg PO BID [facility] Last Admin: 08/18/16 09:55 Dose: 400 mg Aspirin (Asa -) 81 mg PO DAILY [facility] Last Admin: 08/18/16 09:54 Dose: 81 mg Atorvastatin Calcium (Lipitor -) 20 mg PO HS [facility] Last Admin: 08/17/16 21:38 Dose: 20 mg Bacitracin (Bacitracin -) 1 applic TP DAILY [facility] Last Admin: 08/18/16 09:55 Dose: 1 applic Carbidopa/Levodopa (Sinemet 25/100 -) 1 each PO TID [facility] Last Admin: 08/18/16 06:43 Dose: 1 each Chlorhexidine Gluconate (Hibiclens For Decolonization -) 1 applic TP HS [facility] Last Admin: 08/17/16 21:38 Dose: 1 applic Cholecalciferol (Vitamin D3 -) 1,000 unit PO DAILY [facility] Last Admin: 08/18/16 09:59 Dose: 1,000 unit Gabapentin (Neurontin -) 100 mg PO BID [facility] Last Admin: 08/18/16 09:56 Dose: 100 mg IV Flush (Triple Lumen Flush) 4 ml IVPUSH PRN PRN PRN Reason: Protocol Vancomycin HCl (Vancomycin (Pre-Docked)) 250 mls @ 250 mls/hr IVPB DAILY [facility] Last Admin: 08/18/16 09:58 Dose: 250 mls/hr Dopamine HCl/Dextrose (Dopamine 400 Mg/D5w -) 250 mls @ 7.05 mls/hr IV TITR ANNA MARIE ; 2 MCG/KG/MIN PRN Reason: Protocol Last Admin: 08/15/16 16:31 Dose: Not Given Propofol (Diprivan -) 100 mls @ 2.845 mls/hr IVPB TITR ANNA MARIE; 5 MCG/KG/MIN PRN Reason: Protocol Last Admin: 08/17/16 14:45 Dose: 2.845 mls/hr Insulin Aspart (Novolog Vial Sliding Scale -) 1 vial SQ ACHS ANNA MARIE PRN Reason: Protocol Last Admin: 08/18/16 12:00 Dose: 6 units Methylprednisolone Sodium Succinate (Solu-Medrol -) 40 mg IVPB BID [facility] Last Admin: 08/18/16 09:58 Dose: 40 mg Metoprolol Tartrate (Lopressor Injection -) 5 mg IVPUSH Q4H PRN PRN Reason: HYPERTENSION Last Admin: 08/13/16 18:26 Dose: 5 mg Metoprolol Tartrate (Lopressor -) 25 mg PO BID [facility] Last Admin: 08/18/16 09:56 Dose: Not Given Non-Formulary Medication (Pimavanserin Tartrate [Nuplazid]) 2 tab PO DAILY [facility] Last Admin: 08/18/16 09:57 Dose: 2 tab Pantoprazole Sodium (Protonix 40mg Ivpb (Pre-Docked)) 40 mg IVPB BID [facility] Last Admin: 08/18/16 09:57 Dose: 40 mg Piperacillin Sod/Tazobactam Sod (Zosyn 2.25gm Ivpb (Pre-Docked)) 2.25 gm IVPB Q8H-IV [facility] Last Admin: 08/18/16 09:59 Dose: 2.25 gm - Objective Vital Signs: Vital Signs Temperature 98.2 F 08/18/16 06:00 Pulse Rate 91 H 08/18/16 10:35 Respiratory Rate 18 08/18/16 12:35 Blood Pressure 92/35 08/18/16 10:00 O2 Sat by Pulse Oximetry (%) 97 08/18/16 10:35 Constitutional: Yes: No Distress, Calm Cardiovascular: Yes: Regular Rate and Rhythm Respiratory: Yes: On Venti-Mask, Poor Air Entry Gastrointestinal: Yes: Normal Bowel Sounds, Soft Extremities: Yes: Erythema (less) Neurological: Yes: Alert Psychiatric: Yes: Alert Labs: CBC, BMP 08/18/16 05:30 08/18/16 05:30 INR, PTT INR 1.12 (0.82-1.09) 08/15/16 05:30 Assessment/Plan Problem List - Problems (1) CAD (coronary artery disease) Code(s): I25.10 - ATHSCL HEART DISEASE OF [place] CORONARY ARTERY W/O ANG PCTRS (2) CHF (congestive heart failure) Code(s): I50.9 - HEART FAILURE, UNSPECIFIED Qualifiers: Congestive heart failure type: unspecified congestive heart failure type Congestive heart failure chronicity: unspecified congestive heart failure chronicity Qualified Code(s): I50.9 - Heart failure, unspecified (3) Diabetes mellitus type 2 in obese Code(s): E11.9 - TYPE 2 DIABETES MELLITUS WITHOUT COMPLICATIONS E66.9 - OBESITY, UNSPECIFIED (4) HTN (hypertension) Code(s): I10 - ESSENTIAL (PRIMARY) HYPERTENSION Qualifiers: Hypertension type: essential hypertension Qualified Code(s): I10 - Essential (primary) hypertension (5) Hypotension Code(s): I95.9 - HYPOTENSION, UNSPECIFIED Qualifiers: Hypotension type: idiopathic hypotension Qualified Code(s): I95.0 - Idiopathic hypotension (6) Hypothermia Code(s): T68.XXXA - HYPOTHERMIA, INITIAL ENCOUNTER Qualifiers: Encounter type: initial encounter Qualified Code(s): T68.XXXA - Hypothermia, initial encounter (7) Parkinson's disease dementia Code(s): G20 - PARKINSON'S DISEASE F02.80 - DEMENTIA IN OTH DISEASES CLASSD ELSWHR W/O BEHAVRL DISTURB (8) SIRS (systemic inflammatory response syndrome) Code(s): R65.10 - SIRS OF NON-INFECTIOUS ORIGIN W/O ACUTE ORGAN DYSFUNCTION collapse of the left lung bilateral cellulitis of the leg mrsa pneumonia patient had a low grade fever if patient spikes again will restart zosyn plan legs better vanco levels to be done with the levels we will decide dose of vanco rest ct current care chest pt watch for fever cc time 40 min
[2016-08-18] MEDS: PROPOFOL 100 ML IVPB SCH (14:46)
[2016-08-18] MEDS: morphine CARPU-JECT 2 MG/1 ML DISP.SYRIN IVPUSH PRN ×2 (15:03→18:32)
--- NOTE | 2016-08-18 15:03 | PN ---
Teaching Attending Note Name of Resident: José Riggs ATTENDING PHYSICIAN STATEMENT I saw and evaluated the patient. I reviewed the resident's note and discussed the case with the resident. I agree with the resident's findings and plan as documented. SUBJECTIVE: Patient seen and examined in the ICU. Remains intubated, awakens to voice command. Long discussion with her 3 sons. They are 100% sure that she does not want repeat intubation, Trach, HD, or life sustaining measures. Intake & Output 08/15/16 08/16/16 08/17/16 08/18/16 23:59 23:59 23:59 23:59 Intake Total 2640 780 2210 1625 Output Total 1150 4000 1600 400 Balance 1490 -3220 610 1225 Weight 207 lb 3.752 oz 212 lb 3 oz 209 lb 1 oz 205 lb 14.588 oz Last Vital Signs Temp Pulse Resp BP Pulse Ox 98.2 F 94 H 18 92/35 91 L 08/18/16 06:00 08/18/16 14:43 08/18/16 12:35 08/18/16 10:00 08/18/16 14:43 Active Medications Acetylcysteine (Mucomyst 20 Oral / Inh Use Only*) 200 mg NEB QIDR [facility] Last Admin: 08/18/16 12:15 Dose: 200 mg Albuterol Sulfate (Ventolin 0.083% Nebulizer Soln -) 1 amp NEB Q4H PRN PRN Reason: SHORT OF BREATH/WHEEZING Last Admin: 08/18/16 12:15 Dose: 1 amp Amiodarone HCl (Cordarone -) 400 mg PO BID [facility] Last Admin: 08/18/16 09:55 Dose: 400 mg Aspirin (Asa -) 81 mg PO DAILY [facility] Last Admin: 08/18/16 09:54 Dose: 81 mg Atorvastatin Calcium (Lipitor -) 20 mg PO HS [facility] Last Admin: 08/17/16 21:38 Dose: 20 mg Bacitracin (Bacitracin -) 1 applic TP DAILY [facility] Last Admin: 08/18/16 09:55 Dose: 1 applic Carbidopa/Levodopa (Sinemet 25/100 -) 1 each PO TID [facility] Last Admin: 08/18/16 14:46 Dose: Not Given Chlorhexidine Gluconate (Hibiclens For Decolonization -) 1 applic TP HS [facility] Last Admin: 08/17/16 21:38 Dose: 1 applic Cholecalciferol (Vitamin D3 -) 1,000 unit PO DAILY [facility] Last Admin: 08/18/16 09:59 Dose: 1,000 unit Gabapentin (Neurontin -) 100 mg PO BID [facility] Last Admin: 08/18/16 09:56 Dose: 100 mg IV Flush (Triple Lumen Flush) 4 ml IVPUSH PRN PRN PRN Reason: Protocol Vancomycin HCl (Vancomycin (Pre-Docked)) 250 mls @ 250 mls/hr IVPB DAILY [facility] Last Admin: 08/18/16 09:58 Dose: 250 mls/hr Dopamine HCl/Dextrose (Dopamine 400 Mg/D5w -) 250 mls @ 7.05 mls/hr IV TITR ANNA [facility]IE ; 2 MCG/KG/MIN PRN Reason: Protocol Last Admin: 08/15/16 16:31 Dose: Not Given Insulin Aspart (Novolog Vial Sliding Scale -) 1 vial SQ ACHS ANNA MAR[facility] PRN Reason: Protocol Last Admin: 08/18/16 12:00 Dose: 6 units Lorazepam (Ativan Injection -) 1 mg IM Q4H PRN PRN Reason: ANXIETY Methylprednisolone Sodium Succinate (Solu-Medrol -) 40 mg IVPB BID [facility] Last Admin: 08/18/16 09:58 Dose: 40 mg Metoprolol Tartrate (Lopressor Injection -) 5 mg IVPUSH Q4H PRN PRN Reason: HYPERTENSION Last Admin: 08/13/16 18:26 Dose: 5 mg Metoprolol Tartrate (Lopressor -) 25 mg PO BID [facility] Last Admin: 08/18/16 09:56 Dose: Not Given Morphine Sulfate (Morphine Injection -) 2 mg IVPUSH Q3H PRN PRN Reason: PAIN Non-Formulary Medication (Pimavanserin Tartrate [Nuplazid]) 2 tab PO DAILY [facility] Last Admin: 08/18/16 09:57 Dose: 2 tab Pantoprazole Sodium (Protonix 40mg Ivpb (Pre-Docked)) 40 mg IVPB BID [facility] Last Admin: 08/18/16 09:57 Dose: 40 mg Piperacillin Sod/Tazobactam Sod (Zosyn 2.25gm Ivpb (Pre-Docked)) 2.25 gm IVPB Q8H-IV [facility] Last Admin: 08/18/16 09:59 Dose: 2.25 gm Gen: intubated, awake Heart: tachycardic, regular Lung: scattered rhonchi Abd: soft, nontender Ext: + edema Laboratory Results - last 24 hr 08/17/16 08/18/16 08/18/16 18:00 05:30 05:30 WBC 34.3 H* RBC 2.20 L Hgb 6.0 L* D Hct 20.5 L D MCV 93.4 MCHC 29.2 L RDW 16.7 H Plt Count 204 MPV 11.1 Neutrophils % 95.0 H Lymphocytes % 2.0 L D Monocytes % 3.0 L Sodium 157 H Potassium 4.4 Chloride 115 H Carbon Dioxide 33 H Anion Gap 9 BUN 189 H* Creatinine 2.3 H POC Glucometer Random Glucose 271 H Calcium 7.5 L Magnesium 3.2 H Random Vancomycin 30.193 08/18/16 12:13 WBC RBC Hgb Hct MCV MCHC RDW Plt Count MPV Neutrophils % Lymphocytes % Monocytes % Sodium Potassium Chloride Carbon Dioxide Anion Gap BUN Creatinine POC Glucometer [phone] Random Glucose Calcium Magnesium Random Vancomycin ASSESSMENT AND PLAN: Acute Hypercapneic and Hypoxic Respiratory Failure Pneumonia Atelectasis Paroxysmal Atrial Fibrillation with RVR Acute on Chronic LV Diastolic Heart Failure Pulmonary HTN CAD HTN DM Parkinsons Disease - Trial of extubation -> no reintubation - D/W sons for today no transfusion - continue antibiotics - taper medrol to 40mg q12h - inhaled bronchodilators, mucolytics - O2 to keep SpO2 >90% - rate control with amiodarone, metoprolol, digoxin - Hold enteral feeds - DVT/GI prophylaxis Dr Becerra CCtime 35"
--- NOTE | 2016-08-18 15:11 | PN ---
Physical Exam: SUBJECTIVE: Patient seen and examined at bedside. Extubated today and O2 sat stable on 100% ventimask. No overnight events. OBJECTIVE: Vital Signs Period Temp Pulse Resp BP Sys/Galvin Pulse Ox Last 24 Hr 98.2 F-100.9 F 67-98 13-20 87-107/33-39 91-97 GENERAL: Comfortable , NAD HEAD: Normal with no signs of trauma. EYES: Pupils equal, round and reactive to light, sclera anicteric, conjunctiva clear. No lid lag. EARS, NOSE, THROAT: Ears normal, nares patent, Moist mucous membranes. NECK:Supple, no JVD LUNGS: Bibasilar rhonchi. Decreased breath sounds bibasilar L>R.No wheezes, and no crackles. No accessory muscle use. HEART:NSR, normal S1 and S2 without murmur, rub or gallop. ABDOMEN: Soft, obese, nontender, not distended, normoactive bowel sounds, no guarding, no rebound, no masses. MUSCULOSKELETAL: Reduced ROM of RLE. No bony deformities or tenderness. No CVA tenderness. UPPER EXTREMITIES: 2+ pulses, warm, well-perfused. No cyanosis. No clubbing. Cap refill <2 seconds. No peripheral edema. LOWER EXTREMITIES: 2+ pulses, warm, well-perfused. No calf tenderness. 2+ Edema bilat. NEUROLOGICAL: NAD PSYCHIATRIC: normal mood SKIN: Bilateral stasis dermatitis of LE Laboratory Results - last 24 hr 08/17/16 08/18/16 08/18/16 18:00 05:30 05:30 WBC 34.3 H* RBC 2.20 L Hgb 6.0 L* D Hct 20.5 L D MCV 93.4 MCHC 29.2 L RDW 16.7 H Plt Count 204 MPV 11.1 Neutrophils % 95.0 H Lymphocytes % 2.0 L D Monocytes % 3.0 L Sodium 157 H Potassium 4.4 Chloride 115 H Carbon Dioxide 33 H Anion Gap 9 BUN 189 H* Creatinine 2.3 H POC Glucometer Random Glucose 271 H Calcium 7.5 L Magnesium 3.2 H Random Vancomycin 30.193 08/18/16 12:13 WBC RBC Hgb Hct MCV MCHC RDW Plt Count MPV Neutrophils % Lymphocytes % Monocytes % Sodium Potassium Chloride Carbon Dioxide Anion Gap BUN Creatinine POC Glucometer [phone] Random Glucose Calcium Magnesium Random Vancomycin Active Medications Generic Name Dose Route Start Last Admin Trade Name Freq PRN Reason Stop Dose Admin Acetylcysteine 200 mg 08/08/16 14:00 08/18/16 12:15 Mucomyst 20 Oral / Inh Use Only* NEB 200 mg QIDR ANNA MARIE Administration Albuterol Sulfate 1 amp 08/13/16 18:25 08/18/16 12:15 Ventolin 0.083% Nebulizer Soln - NEB 1 amp Q4H PRN Administration SHORT OF BREATH/WHEEZING Amiodarone HCl 400 mg 08/12/16 10:00 08/18/16 09:55 Cordarone - PO 400 mg BID ANNA MARIE Administration Aspirin 81 mg 08/06/16 10:00 08/18/16 09:54 Asa - PO 81 mg DAILY ANNA MARIE Administration Atorvastatin Calcium 20 mg 08/05/16 22:00 08/17/16 21:38 Lipitor - PO 20 mg HS ANNA MARIE Administration Bacitracin 1 applic 08/06/16 19:15 08/18/16 09:55 Bacitracin - TP 1 applic DAILY ANNA MARIE Administration Carbidopa/Levodopa 1 each 08/05/16 22:00 08/18/16 14:46 Sinemet 25/100 - PO Not Given TID ANNA MARIE Chlorhexidine Gluconate 1 applic 08/05/16 22:00 08/17/16 21:38 Hibiclens For Decolonization - TP 1 applic HS ANNA MARIE Administration Cholecalciferol 1,000 unit 08/06/16 10:00 08/18/16 09:59 Vitamin D3 - PO 1,000 unit DAILY ANNA MARIE Administration Gabapentin 100 mg 08/05/16 22:00 08/18/16 09:56 Neurontin - PO 100 mg BID ANNA MARIE Administration IV Flush 4 ml 08/11/16 22:21 Triple Lumen Flush IVPUSH PRN PRN Protocol Vancomycin HCl 250 mls @ 250 mls/hr 08/11/16 18:30 08/18/16 09:58 Vancomycin (Pre-Docked) IVPB 250 mls/hr DAILY ANNA MARIE Administration Dopamine HCl/Dextrose 250 mls @ 7.05 mls/hr 08/15/16 16:30 08/15/16 16:31 Dopamine 400 Mg/D5w - IV Not Given TITR ANNA MARIE Protocol 2 MCG/KG/MIN Insulin Aspart 1 vial 08/05/16 22:00 08/18/16 12:00 Novolog Vial Sliding Scale - SQ 6 units ACHS ANNA MARIE Administration Protocol Lorazepam 1 mg 08/18/16 14:06 Ativan Injection - IM Q4H PRN ANXIETY Methylprednisolone Sodium Succinate 40 mg 08/17/16 22:00 08/18/16 09:58 Solu-Medrol - IVPB 40 mg BID ANNA MARIE Administration Metoprolol Tartrate 5 mg 08/09/16 10:21 08/13/16 18:26 Lopressor Injection - IVPUSH 5 mg Q4H PRN Administration HYPERTENSION Metoprolol Tartrate 25 mg 08/13/16 11:00 08/18/16 09:56 Lopressor - PO Not Given BID ANNA MARIE Morphine Sulfate 2 mg 08/18/16 14:10 Morphine Injection - IVPUSH Q3H PRN PAIN Non-Formulary Medication 2 tab 08/06/16 10:00 08/18/16 09:57 Pimavanserin Tartrate [Nuplazid] PO 2 tab DAILY ANNA MARIE Administration Pantoprazole Sodium 40 mg 08/16/16 22:00 08/18/16 09:57 Protonix 40mg Ivpb (Pre-Docked) IVPB 40 mg BID ANNA MARIE Administration Piperacillin Sod/Tazobactam Sod 2.25 gm 08/17/16 20:45 08/18/16 09:59 Zosyn 2.25gm Ivpb (Pre-Docked) IVPB 2.25 gm Q8H-IV ANNA MARIE Administration ASSESSMENT/PLAN: 85 yo F with pmhx of CHF and CAD admitted for sepsis 2/2 PNA requiring mechanical ventilation. Now extubated today and tolerating off vent. As discussed with Family if patient deteriorates only to provide comfort measures. Problem List - Problems (1) Sepsis Assessment/Plan: * Extubated today. will continue to monitor. Comfort measures if deteriorates * Blood and urine cultures show no growth * Sputum cultures showed MRSA * UA negative for UTI. * Vanco random 30 restart on 08/19/16 as per ID. (2) Pneumonia Assessment/Plan: * Off Mechanical ventilation and on ventimask. * Continue Zosyn and vanco * Acetylcysteine 200 mg NEB QIDR ANNA MARIE * Albuterol Sulfate 1 amp NEB QIDR ANNA MARIE * Albuterol/Ipratropium (Duoneb -) 1 amp NEB Q4H PRN * Solumedrol 60mg iv BID (3) CHF (congestive heart failure) Assessment/Plan: * off pressors. * daily weights * repeat CXR in AM (4) HTN (hypertension) Assessment/Plan: * BP meds held for low pressures. (5) CAD (coronary artery disease) Assessment/Plan: * s/p stents x2 * ASA 81 mg PO daily * Lipitor 20mg PO HS (6) Diabetes mellitus type 2 in obese Assessment/Plan: * ISS with Novolog ACHS * BGM ACHS * Glucerna tube feeds with goal of 50ml/hr (7) Bilateral leg ulcer Assessment/Plan: * daily dressing change and wound care. (8) Parkinson's disease dementia Assessment/Plan: * Carbidopa/Levodopa (Sinemet 25/100 -) 1 each PO TID * Pimavanserin Tartrate [Nuplazid] 2 tab PO DAILY (home med non formulary.) (9) DVT prophylaxis Assessment/Plan: * Lovenox 40mg SQ daily * GI- Protonix 40mg IV daily Visit type - Emergency Visit Emergency Visit: Yes ED Registration Date: 08/05/16 Care time: The patient presented to the Emergency Department on the above date and was hospitalized for further evaluation of their emergent condition. - New Patient This patient is new to me today: No - Critical Care Critical Care patient: Yes Total Critical Care Time (in minutes): 31 Critical Care Statement: The care of this patient involved high complexity decision making to prevent further life threatening deterioration of the patient 's condition and/or to evalute & treat vital organ system(s) failure or risk of failure.
[2016-08-18] MEDS ORDERED: ACETAMINOPHEN 1000 MG/100 ML VIAL (NON FORMULARY) IVPB ONE (16:45)
--- NOTE | 2016-08-18 16:50 | PN ---
Physical Exam: SUBJECTIVE: Patient seen and examined this AM in ICU. PT son Lebron at bedside, following extubation, no plans for intubation. Pt is awake following commands Events: Has since been extubated, tolerating well on 100% VM. OBJECTIVE: Vital Signs Period Temp Pulse Resp BP Sys/Galvin Pulse Ox Last 24 Hr 98.2 F-100.9 F 67-98 13-20 87-109/33-39 91-97 PE Neuro: awake, alert, cn 2-12intact Pulm: diminished +ET tube CV: s1 s2 rrr no mrg Abd: s nt nd + bs : Rectal tube Ext: dry le skin changes + gross edema Laboratory Results - last 24 hr 08/17/16 08/18/16 08/18/16 18:00 05:30 05:30 WBC 34.3 H* RBC 2.20 L Hgb 6.0 L* D Hct 20.5 L D MCV 93.4 MCHC 29.2 L RDW 16.7 H Plt Count 204 MPV 11.1 Neutrophils % 95.0 H Lymphocytes % 2.0 L D Monocytes % 3.0 L Sodium 157 H Potassium 4.4 Chloride 115 H Carbon Dioxide 33 H Anion Gap 9 BUN 189 H* Creatinine 2.3 H POC Glucometer Random Glucose 271 H Calcium 7.5 L Magnesium 3.2 H Random Vancomycin 30.193 Active Medications Generic Name Dose Route Start Last Admin Trade Name Freq PRN Reason Stop Dose Admin Acetylcysteine 200 mg 08/08/16 14:00 08/18/16 12:15 Mucomyst 20 Oral / Inh Use Only* NEB 200 mg QIDR ANNA MARIE Administration Albuterol Sulfate 1 amp 08/13/16 18:25 08/18/16 12:15 Ventolin 0.083% Nebulizer Soln - NEB 1 amp Q4H PRN Administration SHORT OF BREATH/WHEEZING Amiodarone HCl 400 mg 08/12/16 10:00 08/18/16 09:55 Cordarone - PO 400 mg BID ANNA MARIE Administration Aspirin 81 mg 08/06/16 10:00 08/18/16 09:54 Asa - PO 81 mg DAILY ANNA MARIE Administration Atorvastatin Calcium 20 mg 08/05/16 22:00 08/17/16 21:38 Lipitor - PO 20 mg HS ANNA MARIE Administration Bacitracin 1 applic 08/06/16 19:15 08/18/16 09:55 Bacitracin - TP 1 applic DAILY ANNA MARIE Administration Carbidopa/Levodopa 1 each 08/05/16 22:00 08/18/16 14:46 Sinemet 25/100 - PO Not Given TID ANNA MARIE Chlorhexidine Gluconate 1 applic 08/05/16 22:00 08/17/16 21:38 Hibiclens For Decolonization - TP 1 applic HS ANNA MARIE Administration Cholecalciferol 1,000 unit 08/06/16 10:00 08/18/16 09:59 Vitamin D3 - PO 1,000 unit DAILY ANNA MARIE Administration Gabapentin 100 mg 08/05/16 22:00 08/18/16 09:56 Neurontin - PO 100 mg BID ANNA MARIE Administration IV Flush 4 ml 08/11/16 22:21 Triple Lumen Flush IVPUSH PRN PRN Protocol Vancomycin HCl 250 mls @ 250 mls/hr 08/11/16 18:30 08/18/16 09:58 Vancomycin (Pre-Docked) IVPB 250 mls/hr DAILY ANNA MARIE Administration Dopamine HCl/Dextrose 250 mls @ 7.05 mls/hr 08/15/16 16:30 08/15/16 16:31 Dopamine 400 Mg/D5w - IV Not Given TITR ANNA MARIE Protocol 2 MCG/KG/MIN Insulin Aspart 1 vial 08/05/16 22:00 08/18/16 12:00 Novolog Vial Sliding Scale - SQ 6 units ACHS ANNA MARIE Administration Protocol Lorazepam 1 mg 08/18/16 14:06 Ativan Injection - IM Q4H PRN ANXIETY Methylprednisolone Sodium Succinate 40 mg 08/17/16 22:00 08/18/16 09:58 Solu-Medrol - IVPB 40 mg BID ANNA MARIE Administration Metoprolol Tartrate 5 mg 08/09/16 10:21 08/13/16 18:26 Lopressor Injection - IVPUSH 5 mg Q4H PRN Administration HYPERTENSION Metoprolol Tartrate 25 mg 08/13/16 11:00 08/18/16 09:56 Lopressor - PO Not Given BID ANNA MARIE Morphine Sulfate 2 mg 08/18/16 14:10 08/18/16 15:03 Morphine Injection - IVPUSH 2 mg Q3H PRN Administration PAIN Non-Formulary Medication 2 tab 08/06/16 10:00 08/18/16 09:57 Pimavanserin Tartrate [Nuplazid] PO 2 tab DAILY ANNA MARIE Administration Pantoprazole Sodium 40 mg 08/16/16 22:00 08/18/16 09:57 Protonix 40mg Ivpb (Pre-Docked) IVPB 40 mg BID ANNA MARIE Administration Piperacillin Sod/Tazobactam Sod 2.25 gm 08/17/16 20:45 08/18/16 09:59 Zosyn 2.25gm Ivpb (Pre-Docked) IVPB 2.25 gm Q8H-IV ANNA MARIE Administration Assessment: 85 year old female with a past medical history of HTN, CHF, CAD s/p 2 stents, DM, admitted for MRSA pneumonia. Plan: 1. Hypercapnic, hypoxic respiratory failure secondary to MRSA pneumonia - s/p extubation today - Bedside comfort measures if decompensates as discussed with son this AM - Taper medrol 40mg BID 2. Paroxysmal Afib with RVR - Rate controlled, in sinus - Continue amiodarone, metoprolol, digoxin - Hold AC d/t anemia - On ASA 3. Acute blood loss anemia - Hgb 6, per sons wishes no transfusion - Transfused 2uprbc 08/13 - Will monitor 4. CAD w/ prior stents x2 - Meds as above 5. ZULY on CKD - Urine outpt ~1.6 L in 24hr, net postive - Cr up trending - Lasix PRN - Renal seeing 6. Hypernatremia - Increase free water to 80cc via pump flushes 7. DM II - BGM, ISS ACHS 8. Hypotension - Stable, off pressors 9. Parkinson's Disease with hallucinations - Continue Nuplazid 10. Nutrition - Continue: TF with increased free water flushes to 80cc/hr 11. Bilateral lower extremity cellulitis, resolved 12. DVT prophylaxis: hold chemical prophylaxis due to drop in Hgb/bleeding CODE STATUS: DNR/DNI Visit type - Emergency Visit Emergency Visit: Yes ED Registration Date: 08/05/16 Care time: The patient presented to the Emergency Department on the above date and was hospitalized for further evaluation of their emergent condition. - New Patient This patient is new to me today: No - Critical Care Critical Care patient: No
[2016-08-18] MEDS ORDERED: PT OWN MED DRAWER 7, Y5N ONE (17:52)
[2016-08-18] MEDS: CHLORHEXIDINE GLUCONATE 4% CLEANSER FOR DECOLONIZATION TP SCH (22:24)
[2016-08-18] MEDS: ATORVASTATIN CA 20 MG TABLET (FP) PO SCH (22:24)
[2016-08-19] MEDS: PIPERACILLIN/TAZOB 2.25 GM/50 ML PRE-DOCKED BAG IVPB SCH ×2 (02:21→10:26)
[2016-08-19] MEDS: morphine CARPU-JECT 2 MG/1 ML DISP.SYRIN IVPUSH PRN (04:41)
[2016-08-19] MEDS ORDERED: MORPHINE 100 MG in SODIUM CHLORIDE 98 ML IVPB SCH ×2 (05:00→12:00)
--- NOTE | 2016-08-19 05:06 | PN ---
Progress Note (short form) - Note Progress Note: 0450 -- Called to bedside for pt decompensation. HR 130-160s, irregular. 70/43, o2 sat upper 80s- lower 90s. Pt moaning, not verbally responding. Minimal relief with 2mg morphine push. Case discussed with HCP Lc Bonilla (ID confirmed) who states that his mother's comfort is of the upmost importance and agrees to a morphine drip. He expresses understanding that a drip will lower blood pressure, decrease respiratory drive and potentially accelerate . Pt' s RN, Linda Saucedo verbally confirmed conversation with HCP. Case discussed with hospitalist.
[2016-08-19] MEDS: ACETYLCYSTEINE 20% 200MG/ML 4 ML VIAL *FOR ORAL / INH USE ONLY NEB SCH (05:08)
[2016-08-19] MEDS: ALBUTEROL SO4 0.083% IH SOL 2.5 MG/3 ML VIAL.NEB. NEB PRN (05:09)
[2016-08-19] MEDS: CARBIDOPA/LEVODOPA 25/100 TABLET (FP) PO SCH (05:26)
[2016-08-19] MEDS: INSULIN SLIDING SCALE (NOVOLOG) 1 VIAL SQ SCH ×2 (06:49→12:00)
[2016-08-19 06:56] VITALS: TEMP 100.2
[2016-08-19] MEDS: ASPIRIN 81 MG CHEWABLE TABLETS PO SCH (09:52)
[2016-08-19] MEDS: BACITRACIN 30 GM TUBE TOPICAL OINTMENT TP SCH (09:59)
[2016-08-19] MEDS: AMIODARONE HCL 200 MG TABLET (FP) PO SCH (10:00)
[2016-08-19] MEDS: METOPROLOL TARTRATE 25 MG TABLET (FP) PO SCH (10:00)
[2016-08-19] MEDS: GABAPENTIN 100 MG CAPSULE (FP) PO SCH (10:04)
[2016-08-19] MEDS: PIMAVANSERIN TARTRATE PO SCH (10:04)
[2016-08-19] MEDS: CHOLECALCIFEROL (VITAMIN D3) 1,000 UNIT TABLET (FP) PO SCH (10:05)
[2016-08-19] MEDS: methylPREDNISolone NA SUCC 40 MG/1 ML VIAL IVPB SCH (10:25)
[2016-08-19] MEDS: PANTOPRAZOLE SODIUM 40 MG/100 ML PRE-DOCKED IVPB SCH (10:25)
--- NOTE | 2016-08-19 10:34 | PN ---
Progress Note (short form) - Note Progress Note: Renal follow up for hyperkalemia and CKD Pt seen and examined in the ICU overnight events noted Vital Signs Temperature 100.2 F H 08/19/16 06:00 Pulse Rate 93 H 08/19/16 08:00 Respiratory Rate 22 08/19/16 08:44 Blood Pressure 85/32 08/19/16 08:00 O2 Sat by Pulse Oximetry (%) 95 08/19/16 08:44 Intake & Output 08/16/16 08/17/16 08/18/16 08/19/16 23:59 23:59 23:59 23:59 Intake Total 780 2210 2236 Output Total 4000 1600 2200 Balance -3220 610 36 Weight 212 lb 3 oz 209 lb 1 oz 205 lb 14.588 oz 203 lb 9.6 oz Gen: intubated and sedated CVS: RRR, No M/R Lungs: No BS left lung, dec BS right lung Abd: soft NT/ND Ext: B/L LE in dressing, CBC, BMP 08/18/16 05:30 08/18/16 05:30 Laboratory Tests 08/16/16 08/18/16 05:35 05:30 Calcium 7.4 L 7.5 L Phosphorus 5.1 H Magnesium 3.0 H 3.2 H Albumin 1.8 L Current Medications Acetylcysteine (Mucomyst 20 Oral / Inh Use Only*) 200 mg NEB QIDR [facility] Last Admin: 08/19/16 05:08 Dose: 200 mg Albuterol Sulfate (Ventolin 0.083% Nebulizer Soln -) 1 amp NEB Q4H PRN PRN Reason: SHORT OF BREATH/WHEEZING Last Admin: 08/19/16 05:09 Dose: 1 amp Amiodarone HCl (Cordarone -) 400 mg PO BID [facility] Last Admin: 08/19/16 10:00 Dose: Not Given Aspirin (Asa -) 81 mg PO DAILY [facility] Last Admin: 08/19/16 09:52 Dose: Not Given Atorvastatin Calcium (Lipitor -) 20 mg PO HS [facility] Last Admin: 08/18/16 22:24 Dose: Not Given Bacitracin (Bacitracin -) 1 applic TP DAILY [facility] Last Admin: 08/19/16 09:59 Dose: 1 applic Carbidopa/Levodopa (Sinemet 25/100 -) 1 each PO TID [facility] Last Admin: 08/19/16 05:26 Dose: Not Given Chlorhexidine Gluconate (Hibiclens For Decolonization -) 1 applic TP HS [facility] Last Admin: 08/18/16 22:24 Dose: 1 applic Cholecalciferol (Vitamin D3 -) 1,000 unit PO DAILY [facility] Last Admin: 08/19/16 10:05 Dose: Not Given Gabapentin (Neurontin -) 100 mg PO BID [facility] Last Admin: 08/19/16 10:04 Dose: Not Given IV Flush (Triple Lumen Flush) 4 ml IVPUSH PRN PRN PRN Reason: Protocol Vancomycin HCl (Vancomycin (Pre-Docked)) 250 mls @ 250 mls/hr IVPB DAILY [facility] Last Admin: 08/18/16 09:58 Dose: 250 mls/hr Morphine Sulfate 100 mg/ (Sodium Chloride) 100 mls @ 1 mls/hr IVPB TITR ANNA MARIE; 1 MG/HR PRN Reason: Protocol Last Titration: 08/19/16 06:00 Dose: 6 mg/hr Insulin Aspart (Novolog Vial Sliding Scale -) 1 vial SQ ACHS [facility] PRN Reason: Protocol Last Admin: 08/19/16 06:49 Dose: 6 units Lorazepam (Ativan Injection -) 1 mg IM Q4H PRN PRN Reason: ANXIETY Methylprednisolone Sodium Succinate (Solu-Medrol -) 40 mg IVPB BID [facility] Last Admin: 08/19/16 10:25 Dose: 40 mg Metoprolol Tartrate (Lopressor Injection -) 5 mg IVPUSH Q4H PRN PRN Reason: HYPERTENSION Last Admin: 08/13/16 18:26 Dose: 5 mg Metoprolol Tartrate (Lopressor -) 25 mg PO BID [facility] Last Admin: 08/19/16 10:00 Dose: Not Given Morphine Sulfate (Morphine Injection -) 2 mg IVPUSH Q3H PRN PRN Reason: PAIN Last Admin: 08/19/16 04:41 Dose: 2 mg Non-Formulary Medication (Pimavanserin Tartrate [Nuplazid]) 2 tab PO DAILY [facility] Last Admin: 08/19/16 10:04 Dose: Not Given Pantoprazole Sodium (Protonix 40mg Ivpb (Pre-Docked)) 40 mg IVPB BID [facility] Last Admin: 08/19/16 10:25 Dose: 40 mg Piperacillin Sod/Tazobactam Sod (Zosyn 2.25gm Ivpb (Pre-Docked)) 2.25 gm IVPB Q8H-IV ANNA MARIE Last Admin: 08/19/16 10:26 Dose: 2.25 gm A/P 85 year old woman with PMhx of CKD, CHF, CAD, DM, Hypertension who presented with sob and found to have SIRS and possible PNA and opacification of left lung with hyperkalemia of 6.6 and Cr of 1.5. #Acute Kidney Injury with Hx of CKD/hypernatremia Renal function w/o improvement pt is non-oliguric currently comfort care no further aggressive interventions Thank you Edison Carter DO
[2016-08-19] MEDS: VANCOMYCIN 1 GRAM (PRE-DOCKED) 250 ML IVPB SCH (11:00)
--- NOTE | 2016-08-19 11:47 | PN ---
Teaching Attending Note Name of Resident: José Riggs ATTENDING PHYSICIAN STATEMENT I saw and evaluated the patient. I reviewed the resident's note and discussed the case with the resident. I agree with the resident's findings and plan as documented. SUBJECTIVE: Patient seen and examined in the ICU. Extubated on VM O2. Lethargic in NAD. Started on a Morphine drip due to clinical decompensation earlier this AM. Her son Lebron is at the bedside. Intake & Output 08/16/16 08/17/16 08/18/16 08/19/16 23:59 23:59 23:59 23:59 Intake Total 780 2210 2236 Output Total 4000 1600 2200 Balance -3220 610 36 Weight 212 lb 3 oz 209 lb 1 oz 205 lb 14.588 oz 203 lb 9.6 oz Last Vital Signs Temp Pulse Resp BP Pulse Ox 100.2 F H 88 22 85/32 96 08/19/16 06:00 08/19/16 10:43 08/19/16 08:44 08/19/16 08:00 08/19/16 10:43 Active Medications IV Flush (Triple Lumen Flush) 4 ml IVPUSH PRN PRN PRN Reason: Protocol Lorazepam (Ativan Injection -) 1 mg IM Q4H PRN PRN Reason: ANXIETY Morphine Sulfate (Morphine Injection -) 2 mg IVPUSH Q3H PRN PRN Reason: PAIN Last Admin: 08/19/16 04:41 Dose: 2 mg Gen: Extubated, lethargic Heart: tachycardic, regular Lung: scattered rhonchi Abd: soft, nontender Ext: + edema Laboratory Results - last 24 hr 08/17/16 08/18/16 08/18/16 22:41 06:42 12:13 POC Glucometer 290.12153 351.03894 292.98201 08/18/16 08/18/16 08/19/16 17:14 22:04 05:42 POC Glucometer 323.76224 230.96470 [phone] ASSESSMENT AND PLAN: Acute Hypercapneic and Hypoxic Respiratory Failure Pneumonia Atelectasis Paroxysmal Atrial Fibrillation with RVR Acute on Chronic LV Diastolic Heart Failure Pulmonary HTN CAD HTN DM Parkinsons Disease - O2 to maintain saturation - MS for comfort - Ativan PRN - D/C all other medications - No further labs or diagnostics - DNR/DNI Dr Becerra CCTime 35"
--- NOTE | 2016-08-19 11:57 | PN ---
Physical Exam: SUBJECTIVE: Patient seen and examined at bedside. Desated overnight and was placed on morphine drip. Extubated yesterday and O2 sat stable on 100% ventimask. No overnight events. OBJECTIVE: Vital Signs Period Temp Pulse Resp BP Sys/Galvin Pulse Ox Last 24 Hr 99.2 F-100.8 F 88-144 13-22 70-112/32-48 91-96 GENERAL: Comfortable , NAD HEAD: Normal with no signs of trauma. EYES: Pupils equal, round and reactive to light, sclera anicteric, conjunctiva clear. No lid lag. EARS, NOSE, THROAT: Ears normal, nares patent, Moist mucous membranes. NECK:Supple, no JVD LUNGS: Bibasilar rhonchi. Decreased breath sounds bibasilar L>R.No wheezes, and no crackles. No accessory muscle use. HEART:NSR, normal S1 and S2 without murmur, rub or gallop. ABDOMEN: Soft, obese, nontender, not distended, normoactive bowel sounds, no guarding, no rebound, no masses. MUSCULOSKELETAL: Reduced ROM of RLE. No bony deformities or tenderness. No CVA tenderness. UPPER EXTREMITIES: 2+ pulses, warm, well-perfused. No cyanosis. No clubbing. Cap refill <2 seconds. No peripheral edema. LOWER EXTREMITIES: 2+ pulses, warm, well-perfused. No calf tenderness. 2+ Edema bilat. NEUROLOGICAL: NAD PSYCHIATRIC: normal mood SKIN: Bilateral stasis dermatitis of LE Laboratory Results - last 24 hr 08/17/16 08/18/16 08/18/16 22:41 06:42 12:13 POC Glucometer 290.83332 351.17637 [phone] 08/18/16 08/18/16 08/19/16 17:14 22:04 05:42 POC Glucometer 323.44857 230.21886 253.55335 Active Medications Generic Name Dose Route Start Last Admin Trade Name Freq PRN Reason Stop Dose Admin IV Flush 4 ml 08/11/16 22:21 Triple Lumen Flush IVPUSH PRN PRN Protocol Lorazepam 1 mg 08/18/16 14:06 Ativan Injection - IM Q4H PRN ANXIETY Morphine Sulfate 2 mg 08/18/16 14:10 08/19/16 04:41 Morphine Injection - IVPUSH 2 mg Q3H PRN Administration PAIN ASSESSMENT/PLAN: 85 yo F with pmhx of CHF and CAD admitted for sepsis 2/2 PNA requiring mechanical ventilation. Now extubated today and tolerating off vent. As discussed with Family if patient deteriorates only to provide comfort measures. All labs and therapy has been withdrawn and patient is to be transferred to private room for comfort. Problem List - Problems (1) Sepsis (2) Pneumonia (3) CHF (congestive heart failure) (4) HTN (hypertension) (5) CAD (coronary artery disease) (6) Diabetes mellitus type 2 in obese (7) Bilateral leg ulcer (8) Parkinson's disease dementia (9) DVT prophylaxis Visit type - Emergency Visit Emergency Visit: Yes ED Registration Date: 08/05/16 Care time: The patient presented to the Emergency Department on the above date and was hospitalized for further evaluation of their emergent condition. - New Patient This patient is new to me today: No - Critical Care Critical Care patient: Yes Total Critical Care Time (in minutes): 30 Critical Care Statement: The care of this patient involved high complexity decision making to prevent further life threatening deterioration of the patient 's condition and/or to evalute & treat vital organ system(s) failure or risk of failure.
--- NOTE | 2016-08-19 14:26 | PN ---
Progress Note, Physician History of Present Illness: patient had tachy patient continues to detoriate minimal response - Current Medication List Current Medications: Active Medications IV Flush (Triple Lumen Flush) 4 ml IVPUSH PRN PRN PRN Reason: Protocol Morphine Sulfate 100 mg/ (Sodium Chloride) 100 mls @ 1 mls/hr IVPB TITR ANNA MARIE; 1 MG/HR PRN Reason: Protocol Lorazepam (Ativan Injection -) 1 mg IM Q4H PRN PRN Reason: ANXIETY Morphine Sulfate (Morphine Injection -) 2 mg IVPUSH Q3H PRN PRN Reason: PAIN Last Admin: 08/19/16 04:41 Dose: 2 mg - Objective Vital Signs: Vital Signs Temperature 100.2 F H 08/19/16 06:00 Pulse Rate 88 08/19/16 10:43 Respiratory Rate 22 08/19/16 08:44 Blood Pressure 85/32 08/19/16 08:00 O2 Sat by Pulse Oximetry (%) 96 08/19/16 10:43 Constitutional: Yes: Calm Cardiovascular: Yes: Tachycardia Respiratory: Yes: Regular, On Venti-Mask, Poor Air Entry Gastrointestinal: Yes: Normal Bowel Sounds, Soft Musculoskeletal: Yes: WNL Extremities: Yes: WNL Neurological: Yes: Other Labs: CBC, BMP 08/18/16 05:30 08/18/16 05:30 INR, PTT INR 1.12 (0.82-1.09) 08/15/16 05:30 Assessment/Plan Problem List - Problems (1) CAD (coronary artery disease) Code(s): I25.10 - ATHSCL HEART DISEASE OF [place] CORONARY ARTERY W/O ANG PCTRS (2) CHF (congestive heart failure) Code(s): I50.9 - HEART FAILURE, UNSPECIFIED Qualifiers: Congestive heart failure type: unspecified congestive heart failure type Congestive heart failure chronicity: unspecified congestive heart failure chronicity Qualified Code(s): I50.9 - Heart failure, unspecified (3) Diabetes mellitus type 2 in obese Code(s): E11.9 - TYPE 2 DIABETES MELLITUS WITHOUT COMPLICATIONS E66.9 - OBESITY, UNSPECIFIED (4) HTN (hypertension) Code(s): I10 - ESSENTIAL (PRIMARY) HYPERTENSION Qualifiers: Hypertension type: essential hypertension Qualified Code(s): I10 - Essential (primary) hypertension (5) Hypotension Code(s): I95.9 - HYPOTENSION, UNSPECIFIED Qualifiers: Hypotension type: idiopathic hypotension Qualified Code(s): I95.0 - Idiopathic hypotension (6) Hypothermia Code(s): T68.XXXA - HYPOTHERMIA, INITIAL ENCOUNTER Qualifiers: Encounter type: initial encounter Qualified Code(s): T68.XXXA - Hypothermia, initial encounter (7) Parkinson's disease dementia Code(s): G20 - PARKINSON'S DISEASE F02.80 - DEMENTIA IN OTH DISEASES CLASSD ELSWHR W/O BEHAVRL DISTURB (8) SIRS (systemic inflammatory response syndrome) Code(s): R65.10 - SIRS OF NON-INFECTIOUS ORIGIN W/O ACUTE ORGAN DYSFUNCTION collapse of the left lung bilateral cellulitis of the leg mrsa pneumonia patient had a low grade fever if patient spikes again will restart zosyn plan continue mgmt as per icu family probably does not want any further intervention cc time 40 min
[2016-08-19 14:41] VITALS: BP 77/26; PULSE 76
--- NOTE | 2016-08-19 15:59 | PN ---
Physical Exam: SUBJECTIVE: Patient seen and examined. Appears comfortable. Overnight events: Decompensated overnight, hypoxic, tachycardic, hypotensive Decision to make comfort care Morphine gtt initiated OBJECTIVE: Vital Signs Period Temp Pulse Resp BP Sys/Galvin Pulse Ox Last 24 Hr 99.2 F-100.8 F 76-144 9-22 70-112/26-48 95-96 PE Neuro: lethargic Pulm: VM, diminished CV: regular rate, s1 s2 Abd: s nt nd + bs : Rectal tube Ext: dry le skin changes + gross edema Laboratory Results - last 24 hr 08/17/16 08/18/16 08/18/16 22:41 06:42 17:14 POC Glucometer 290.35221 351.06440 323.76124 08/18/16 08/19/16 22:04 05:42 POC Glucometer 230.00260 253.63383 Active Medications Generic Name Dose Route Start Last Admin Trade Name Freq PRN Reason Stop Dose Admin IV Flush 4 ml 08/11/16 22:21 Triple Lumen Flush IVPUSH PRN PRN Protocol Morphine Sulfate 100 mg/ 100 mls @ 1 mls/hr 08/19/16 12:00 Sodium Chloride IVPB TITR ANNA MARIE Protocol 1 MG/HR Lorazepam 1 mg 08/18/16 14:06 Ativan Injection - IM Q4H PRN ANXIETY Morphine Sulfate 2 mg 08/18/16 14:10 08/19/16 04:41 Morphine Injection - IVPUSH 2 mg Q3H PRN Administration PAIN Problems: - Septic shock - Hypercapnic, hypoxic respiratory failure secondary to MRSA pneumonia - Paroxysmal Afib with RVR - Acute blood loss anemia - CAD w/ prior stents x2 - ZULY on CKD - Hypernatremia - DM II - Hypotension - Parkinson's Disease with hallucinations - Bilateral lower extremity cellulitis A/P: 85 year old female with a past medical history of HTN, CHF, CAD s/p 2 stents, DM, admitted for MRSA pneumonia. Comfort measures per son Lebron Morphine gtt up titrate as needed Withdraw all other interventions: meds, nutrition, labs, diagnostics CODE STATUS: DNR/DNI Visit type - Emergency Visit Emergency Visit: Yes ED Registration Date: 08/05/16 Care time: The patient presented to the Emergency Department on the above date and was hospitalized for further evaluation of their emergent condition. - New Patient This patient is new to me today: No - Critical Care Critical Care patient: No
--- NOTE | 2016-08-19 18:16 | HOSP ---
Physical Examination Vital Signs: Vital Signs Temperature 100.2 F H 08/19/16 06:00 Pulse Rate 76 08/19/16 14:00 Respiratory Rate 9 L 08/19/16 14:00 Blood Pressure 77/26 08/19/16 14:00 O2 Sat by Pulse Oximetry (%) 96 08/19/16 10:43 Labs: CBC, BMP 08/18/16 05:30 08/18/16 05:30 Hospitalist Encounter Assessment: Called to see pt for unresponsiveness. One exam pt was unresponsive, no spontaneous movement was observed Pt did not respond to verbal or noxious stimuli. absent heart and breath sounds for more than 1 minute pupils are fixed and dilated. Time of : 1709 Family at bedside.
--- NOTE | 2016-08-20 08:01 | DS ---
Physical Exam: SUBJECTIVE: Patient seen and examined. Comfort Care, sons at bedside OBJECTIVE: Vital Signs Period Temp Pulse Resp BP Sys/Galvin Pulse Ox Last 24 Hr 76-89 9-22 77-85/26-28 95-96 PE See 08/19 progress note Laboratory Results - last 24 hr 08/19/16 05:42 POC Glucometer [id number] HOSPITAL COURSE: Date of Admission:08/05/16 : 08/19/16 Minutes to complete discharge: 35 Discharge Summary Reason For Visit: CHF,PNA,HYPOTHERMIA Hospital Course: Initial Hospital Course: 85 year old female with a past medical history of CHF, CAD s/p 2 stents, DM II, HTN, recent parkinsons dx, arrives via EMS from [address] [place] [address], presented with a complaint of shortness of breath during the morning. Shortness of breath that started briefly the day prior to admission which persisted by nursing staff at [facility], [place], ems was called. EMS placed patient on 6l O2, and reports saturation at 88-90. Patient has chronic leg swelling which she was actually better in the past few weeks than usual. Subsequent Hospital Course: Problems: - Septic shock - Hypercapnic, hypoxic respiratory failure secondary to MRSA pneumonia - Paroxysmal Afib with RVR - Acute blood loss anemia - CAD w/ prior stents x2 - ZULY on CKD - Hypernatremia - DM II - Hypotension - Parkinson's Disease with hallucinations - Bilateral lower extremity cellulitis Pt found to have acute CHF, SIRS and possible PNA, mucous plugging with opacification of L hemithorax and R pleural effusion hyperkalemia of 6.6 and Cr of 1.5. Given IV Abx and placed on BIPAP. Clinically deteriorating, intubated on 08/08. Difficult intubation, with tracheal stenosis for acute hypercapnic resp failure with MRSA pna and b/l le cellulitis Pt went into new onset A fib with RVR, hypotesive, placed on pressors, amio gtt , steroids Improved transitioned to PO and off pressors maintaining pressures Continued abx, transfused 2uprbc on 08/13, ZULY on CKD improved, no [employer] during hospital course Tolerating weaning protocol Awake, aware of sons at bedside, made decision does not want to be trached Extubated on 08/18 Tolerated on 100% VM Overnight decompensated, no reintubation, was made comfort care, morphine gtt started TOD 1709 Condition: - Instructions Referrals: Nellie Bradshaw [Primary Care Provider] - Disposition: - Home Medications Comprehensive Discharge Medication List: Ambulatory Orders Aspirin [ASA -] 81 mg PO DAILY 08/05/16 Atorvastatin Ca [Lipitor] 20 mg PO DAILY 08/05/16 Carbidopa/Levodopa [Carbidopa-Levodopa 25-100 Tab] 1 each PO TID 08/05/16 Cholecalciferol (Vitamin D3) [Vitamin D3 -] 1,000 unit PO DAILY 08/05/16 Furosemide [Lasix -] 20 mg PO DAILY 08/05/16 Gabapentin 100 mg PO BID 08/05/16 Linagliptin [Tradjenta] 5 mg PO DAILY 08/05/16 Nebivolol [Bystolic -] 5 mg PO DAILY 08/05/16 Pimavanserin Tartrate [Nuplazid] 2 tab PO DAILY 08/05/16 Tramadol HCl 50 mg PO DAILY 08/05/16 This patient is new to me today: No Emergency Visit: Yes ED Registration Date: 08/05/16 Care time: The patient presented to the Emergency Department on the above date and was hospitalized for further evaluation of their emergent condition. Critical Care patient: No - Discharge Referral Referred to [facility] No
== END 2016-08-19 17:09 | disposition expired | DRG 870 ==
LOC: JER 11:10 → UNDOADMIN 15:38 → JERBED 15:38 → JICU 17:41
PROVIDERS: ADMIT Internal Medicine; ATTEND Nurse Practitioner Acute Care
PROC: 3E0F7GC Introduction of Other Therapeutic Substance into Respiratory Tract, Via Natural or Artificial Opening (ICD-10-PCS; 2016-08-06)
PROC: 5A09457 Assistance with Respiratory Ventilation, 24-96 Consecutive Hours, Continuous Positive Airway Pressure (ICD-10-PCS; 2016-08-06)
PROC: 0BH17EZ Insertion of Endotracheal Airway into Trachea, Via Natural or Artificial Opening (ICD-10-PCS; principal; 2016-08-08)
PROC: 5A1955Z Respiratory Ventilation, Greater than 96 Consecutive Hours (ICD-10-PCS; 2016-08-08)
PROC: 05HN33Z Insertion of Infusion Device into Left Internal Jugular Vein, Percutaneous Approach (ICD-10-PCS; 2016-08-11)
PROC: B544ZZA Ultrasonography of Left Jugular Veins, Guidance (ICD-10-PCS; 2016-08-11)
PROC: 30233N1 Transfusion of Nonautologous Red Blood Cells into Peripheral Vein, Percutaneous Approach (ICD-10-PCS; 2016-08-13)
DX: A41.9 Sepsis, unspecified organism (principal); J15.212 Pneumonia due to Methicillin resistant Staphylococcus aureus; J96.01 Acute respiratory failure with hypoxia; J96.02 Acute respiratory failure with hypercapnia; L97.929 Non-pressure chronic ulcer of unspecified part of left lower leg with unspecified severity; L97.919 Non-pressure chronic ulcer of unspecified part of right lower leg with unspecified severity; F02.81 Dementia in other diseases classified elsewhere, unspecified severity, with behavioral disturbance; I13.0 Hypertensive heart and chronic kidney disease with heart failure and stage 1 through stage 4 chronic kidney disease, or unspecified chronic kidney disease; J98.11 Atelectasis; D62 Acute posthemorrhagic anemia; R68.0 Hypothermia, not associated with low environmental temperature; E11.9 Type 2 diabetes mellitus without complications; I25.10 Atherosclerotic heart disease of native coronary artery without angina pectoris; Z95.5 Presence of coronary angioplasty implant and graft; Z87.891 Personal history of nicotine dependence; E66.9 Obesity, unspecified; Z68.34 Body mass index [BMI] 34.0-34.9, adult; Z71.3 Dietary counseling and surveillance; G20 Parkinson's disease; I50.9 Heart failure, unspecified; E87.5 Hyperkalemia; E78.5 Hyperlipidemia, unspecified; N18.9 Chronic kidney disease, unspecified; R44.1 Visual hallucinations; F09 Unspecified mental disorder due to known physiological condition; J39.8 Other specified diseases of upper respiratory tract; I95.0 Idiopathic hypotension; I48.91 Unspecified atrial fibrillation; E83.39 Other disorders of phosphorus metabolism; I36.1 Nonrheumatic tricuspid (valve) insufficiency; I34.0 Nonrheumatic mitral (valve) insufficiency; I27.2 Other secondary pulmonary hypertension; Z66 Do not resuscitate
CPT/HCPCS: 31500; 36415; 36430; 36600; 71010-TC; 80048; 80053; 81003; 81015; 82272; 82533; 82550; 82728; 82803; 83036; 83540; 83550; 83605; 83735; 83880; 84100; 84439; 84443; 84481; 84484; 85025; 85027; 85610; 85730; 86850; 86900; 86901; 86922; 87040; 87045; 87046; 87070; 87086; 87186; 87205; 87324; 87449; 87804; 93005; 93010; 93306-TC; 94002; 94003; 94640; 94660; 99285-25; G0008; G0480; J1644; P9038; P9058; Q2037